=== PATIENT | female | born 1940 | race Caucasian/White ===

== ENCOUNTER → 2016-09-11 | Outpatient (CLI) | payer MEDICARE | END | disposition home or self-care (01) | LOC: LABMAIN 17:59 | PROVIDERS: ATTEND Internal Medicine Rheumatology | DX: M00.841 Arthritis due to other bacteria, right hand (principal) | CPT/HCPCS: 87070; 87077; 87186; 87205 ==

== ENCOUNTER → 2016-09-11 | Outpatient (CLI) | payer MEDICARE | END | disposition home or self-care (01) | LOC: LABWHC1 17:30 | PROVIDERS: ATTEND Internal Medicine Rheumatology | DX: M00.841 Arthritis due to other bacteria, right hand (principal) | CPT/HCPCS: 36415; 87040 ==

== ENCOUNTER 2016-09-13 14:40 | Inpatient (IN) | payer MEDICARE ==
[2016-09-13] MEDS ORDERED: NALOXONE 0.4 MG/ML 1 ML VIAL IV PRN (17:15)
[2016-09-13 17:23] VITALS: BMI 22.8
[2016-09-13] MEDS: DEXTROSE 5%-0.45% NACL 1,000 ML IV SCH (19:00)
[2016-09-13] MEDS ORDERED: ACETAMINOPHEN TAB 325 MG TAB PO PRN (19:01)
[2016-09-13] MEDS ORDERED: IV VANCOMYCIN PER PHARMACY 1 EACH MISC MISCELLANE PRN (19:05)
[2016-09-13] MEDS ORDERED: VANCOMYCIN 1,000 MG in SODIUM CHLORIDE 0.9% 250 ML IVPB STA (19:10)
[2016-09-13 19:50] LABS: Aty Lym Flag Slight; CH 28.8; CHCM 29.4; HCT 40.3 % (34.0-46.0); HDW 2.78; Hypochromasia Marked; MCH 29.2 pg (25.0-35.0); MCHC 29.8 g/dL (31.0-37.0); MCV 98.2 fL (80.0-100.0); Mean Platelet Volume 7.6; RDW 13.4 % (11.5-15.5); WBC 5.1 k/uL (3.8-10.6); WBC (Perox) 5.24
[2016-09-13 19:56] LABS: ALT 24 U/L (9-52); AST 20 U/L (14-36); Alkaline Phosphatase 49 U/L (38-126); Anion Gap 13 mmol/L; Blood Urea Nitrogen 20 mg/dL (7-17); Calcium 9.6 mg/dL (8.4-10.2); Carbon Dioxide 26 mmol/L (22-30); Chloride 101 mmol/L (98-107); Glucose 116 mg/dL (74-99); Non-African American GFR(MDRD) >60 (>60 ml/min/1.73 sqM); Sodium 140 mmol/L (137-145); Total Bilirubin 0.6 mg/dL (0.2-1.3); Total Protein 7.7 g/dL (6.3-8.2)
[2016-09-13 20:46] LABS: Add Differential Manual Differential
[2016-09-13 20:51] LABS: Nucleated Red Blood Cells 0 /100 WBC (0-0); Total Cells Counted 100
[2016-09-13 20:53] LABS: Manual Review Performed
[2016-09-13] MEDS: HEPARIN SODIUM,PORCINE 5,000 UNIT/ML 1 ML VIAL SQ SCH (20:53)
[2016-09-13] MEDS ORDERED: CIPROFLOXACIN HCL 500 MG TAB PO SCH (21:00)
[2016-09-13] MEDS ORDERED: PIPERACILLIN-TAZOBACTAM 3.375 GM in DEXTROSE/WATER 1 50ML.BAG IVPB SCH (22:00)
[2016-09-13] MEDS: GABAPENTIN 300 MG CAP PO SCH (22:22)
[2016-09-13] MEDS: CARBIDOPA-LEVODOPA 25-100 MG 1 EACH TAB PO SCH (22:22)
--- NOTE | 2016-09-13 22:42 | P.CONS ---
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 This was a woman has a long-standing history of difficulties with her skin due to underlying autoimmune disease. She follows with Dr. Faulkner regarding her disease. With the onset of the recent ulcerations to the right hand fifth finger she's been seeking some outpatient care. With the ulcerations her Enbrel was put on hold. And her CellCept dose was put into half. Despite this she's had progression of the ulcerations because was admitted to hospital for further intervention. She forcing is minimal discomfort at this site. She has a distinct open ulcerations on the distal interphalangeal joint of the right hand fifth finger. She is denying fever chills rigors or sweats. And other than difficulty with her skin in her joints she has no other acute new complaints Review of Systems HEENT:Denies headache or acute visual change. Denies sinus or mouth discomforts. Denies neck stiffness or pain. Denies significant oral cavity pain. Denies difficulty on swallowing. Lungs: Denies significant shortness of breath, cough, sputum production, or hemoptysis. Cardiovascular: Denies significant shortness of breath, chest pain, chest wall pain, orthopnea, dyspnea on exertion, syncope Gastrointestinal:Denies nausea, vomiting, diarrhea, constipation, hematemesis, melena, hematochezia. No no significant change of bowel habit noticed. Musculoskeletal: Chronic myalgias and arthralgias and joint problems due to her underlying disease. Skin: Chronic skin rashes Ulcerations to the right hand fifth finger the skin is otherwise without new lesions Neuro: Denies headache or visual change. Denies any new onset weakness or difficulty with ambulation. Denies falls or seizures. Psychiatric:Denies anxiety or depression. 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 No animal exposures. No tobacco use. No alcohol use. No recreational drug use. Works in the [place] area is now lived in [place] for 21 years Smoking Status: Never smoker - Past Family History Mother Family Medical History: Cancer Additional Family Medical History / Comment(s): stroke Medications and Allergies Home Medications and Allergies Comment(s): Current Medications Acetaminophen (Tylenol Tab) 650 mg PO Q4HR PRN PRN Reason: Fever and/ or Pain Carbidopa/Levodopa (Sinemet 25-100) 0.5 each PO TID [facility] Last Admin: 09/13/16 22:22 Dose: 0.5 each Ciprofloxacin (Cipro) 500 mg PO BID [facility] Last Admin: 09/13/16 20:53 Dose: 500 mg Gabapentin (Neurontin) 600 mg PO TID [facility] Last Admin: 09/13/16 22:22 Dose: 600 mg Heparin Sodium (Porcine) (Heparin) 5,000 unit SQ Q12HR [facility] Last Admin: 09/13/16 20:53 Dose: 5,000 unit Dextrose/Sodium Chloride (Dextrose 5%-1/2ns Iv Soln) 1,000 mls @ 50 mls/hr IV .Q20H [facility] Last Admin: 09/13/16 19:00 Dose: 50 mls/hr Piperacillin/Tazobactam/ (Dextrose 3.375 gm/ IV Solution) 50 mls @ 12.5 mls/hr IVPB Q8HR [facility] Last Admin: 09/13/16 22:22 Dose: 12.5 mls/hr Vancomycin HCl 1,000 mg/ (Sodium Chloride) 250 mls @ 125 mls/hr IVPB Q16H [facility] Naloxone HCl (Narcan) 0.2 mg IV Q2M PRN PRN Reason: Opioid Reversal Nifedipine (Procardia Xl) 30 mg PO DAILY [facility] Non-Formulary Medication (Cellcept Susp) 7.5 ml PO DAILY [facility] Pantoprazole Sodium (Protonix) 40 mg PO AC-BRKFST [facility] Prednisone () 5 mg PO DAILY [facility] Home Medications Medication Instructions Recorded Confirmed Type Biotin 5 mg PO DAILY 09/13/16 09/13/16 History Calcium Carbonate [Calcium] 600 mg PO DAILY 09/13/16 09/13/16 History Carbidopa-Levodopa 25-100 mg 0.5 tab PO TID 09/13/16 09/13/16 History [Sinemet 25-100] Cellcept Susp 7.5 ml PO DAILY 09/13/16 09/13/16 History Denosumab [Prolia] 60 mg SQ ONCE 09/13/16 09/13/16 History Docusate [Colace] 100 mg PO HS PRN 09/13/16 09/13/16 History Etanercept [Enbrel] 50 mg SQ Q7DAYS 09/13/16 09/13/16 History Gabapentin 600 mg PO TID 09/13/16 09/13/16 History Lansoprazole [Prevacid] 30 mg PO DAILY 09/13/16 09/13/16 History NIFEdipine XL [Procardia Xl] 30 mg PO DAILY 09/13/16 09/13/16 History predniSONE 5 mg PO DAILY 09/13/16 09/13/16 History Allergies Allergy/AdvReac Type Severity Reaction Status Date / Time No Known Allergies Allergy Verified 09/13/16 16:19 Physical Exam Vitals: Vital Signs Temp Pulse Resp BP BP Pulse Ox 09/13/16 20:54 98.2 F 73 16 108/64 95 09/13/16 16:37 97.3 F L 90 18 119/74 97 Intake and Output 09/13/16 09/13/16 09/13/16 06:59 14:59 22:59 Other: Weight 53 kg Patient Weight 09/14/16 06:59 Weight 53 kg Pleasant 76-year-old woman complaining of some lesion to her right hand that is minimally tender. Overall feels about her baseline HEENT: Anicteric conjunctiva are pink and moist nasal mucosa grossly intact without significant lesions, there is no thrush. Since of prior cataract surgery Neck: The neck is supple without significant lymphadenopathy or thyromegaly. Lungs: Good bilateral air entry without no severe and crackles with few wheezes are scattered There is no significant bronchial sounds. There is no egophony or dullness. Heart: Regular rate and rhythm with an audible S1-S2, no S3 no S4. 2/6 systolic murmur left sternal border without radiation no click or rub Abdomen: Positive bowel sounds soft and nontender without palpable masses or organomegaly. There was no guarding or rebound. Extremities: The left upper extremities shows evidence of no ulcerations. The right upper extremities shows no significant abnormality is to the right hand fifth finger at the distal interphalangeal joint where there are 2 ulcerations. There is evidence of some underlying granulation tissue no expressible purulence is seen. Minimal tenderness to manipulation. Markedly diminished range of motion. Skin is abnormal in its appearance and that it is thin and has chronic discoloration. The bilateral lower extremities have no ulcerations or just trace edema and abnormal joints with swelling and mild synovitis over the ankles and toes. Neuro: Awake alert oriented to person place and time. There are no acute new gross focal sensory motor deficits. Results CBC & Chem 7: 09/13/16 18:40 09/13/16 18:40 Labs: Abnormal Lab Results - Last 24 Hours (Table) 09/13/16 09/13/16 Range/Units 18:40 18:40 MCHC 29.8 L (31.0-37.0) g/dL Plt Count 507 H (150-450) k/uL Lymphocytes # (Manual) 0.9 L (1.0-4.8) k/uL BUN 20 H (7-17) mg/dL Glucose 116 H (74-99) mg/dL Laboratory Results WBC 5.1 k/uL (3.8-10.6) 09/13/16 18:40 RBC 4.10 m/uL (3.80-5.40) 09/13/16 18:40 Hgb 12.0 gm/dL (11.4-16.0) 09/13/16 18:40 Hct 40.3 % (34.0-46.0) 09/13/16 18:40 MCV 98.2 fL (80.0-100.0) 09/13/16 18:40 MCH 29.2 pg (25.0-35.0) 09/13/16 18:40 MCHC 29.8 g/dL (31.0-37.0) L 09/13/16 18:40 RDW 13.4 % (11.5-15.5) 09/13/16 18:40 Plt Count 507 k/uL (150-450) H 09/13/16 18:40 Neutrophils % (Manual) 79.0 % 09/13/16 18:40 Lymphocytes % (Manual) 17.0 % 09/13/16 18:40 Monocytes % (Manual) 4.0 % 09/13/16 18:40 Neutrophils # (Manual) 4.0 k/uL (1.3-7.7) 09/13/16 18:40 Lymphocytes # (Manual) 0.9 k/uL (1.0-4.8) L 09/13/16 18:40 Monocytes # (Manual) 0.2 k/uL (0-1.0) 09/13/16 18:40 Nucleated RBCs 0 /100 WBC (0-0) 09/13/16 18:40 Manual Slide Review Performed 09/13/16 18:40 Hypochromasia Marked 09/13/16 18:40 Poikilocytosis (manual Present 09/13/16 18:40 Sodium 140 mmol/L (137-145) 09/13/16 18:40 Potassium 5.0 mmol/L (3.5-5.1) 09/13/16 18:40 Chloride 101 mmol/L (98-107) 09/13/16 18:40 Carbon Dioxide 26 mmol/L (22-30) 09/13/16 18:40 Anion Gap 13 mmol/L 09/13/16 18:40 BUN 20 mg/dL (7-17) H 09/13/16 18:40 Creatinine 0.53 mg/dL (0.52-1.04) 09/13/16 18:40 Est GFR (MDRD) Af Amer >60 (>60 ml/min/1.73 sqM) 09/13/16 18:40 Est GFR (MDRD) Non-Af >60 (>60 ml/min/1.73 sqM) 09/13/16 18:40 Glucose 116 mg/dL (74-99) H 09/13/16 18:40 Calcium 9.6 mg/dL (8.4-10.2) 09/13/16 18:40 Total Bilirubin 0.6 mg/dL (0.2-1.3) 09/13/16 18:40 AST 20 U/L (14-36) 09/13/16 18:40 ALT 24 U/L (9-52) 09/13/16 18:40 Alkaline Phosphatase 49 U/L (38-126) 09/13/16 18:40 Total Protein 7.7 g/dL (6.3-8.2) 09/13/16 18:40 Albumin 4.1 g/dL (3.5-5.0) 09/13/16 18:40 Assessment and Plan (1) Dermatomyositis Narrative/Plan: Pleasant 76-year-old female Hospital with significant difficulties of her dermatomyositis is resulted in ulcerations of the right hand fifth finger. This is of the distal interphalangeal joint area. It is noted the x-ray is abnormal there is a possibility of osteolysis of the right fifth finger distal interphalangeal joint. Bone scan will be obtained to further characterize. Cultures are in process. Pulmonary data reveals evidence of pseudomonas aeruginosa at the joint. For maximize therapy ceftaz edema will be utilized. Which will give us excellent pseudomonal coverage . Patient does not have a history of MRSA but risk due to her immunocompromised status. Daptomycin will be added until we have further data especially given the positive blood culture that is showing some gram-positive cocci. This could be contamination given the non-congruent culture results. Baseline laboratory is a requested Patient is instructed to improve her protein intake Status: Acute (2) Osteomyelitis of right hand Status: Acute
[2016-09-13] MEDS: DAPTOmycin 500 MG in SODIUM CHLORIDE 0.9% 50 ML IV SCH (23:32)
[2016-09-14] MEDS ORDERED: VANCOMYCIN 1,000 MG in SODIUM CHLORIDE 0.9% 250 ML IVPB SCH (06:00)
[2016-09-14] MEDS: PANTOPRAZOLE 40 MG TABLET PO SCH (06:40)
[2016-09-14 07:05] LABS: CHCM 30.7; HCT 36.5 % (34.0-46.0); HDW 2.83; HGB 11.1 gm/dL (11.4-16.0); Hypochromasia Moderate; MCH 28.8 pg (25.0-35.0); MCHC 30.5 g/dL (31.0-37.0); MCV 94.7 fL (80.0-100.0); Mean Platelet Volume 6.5; RBC 3.86 m/uL (3.80-5.40); RDW 13.4 % (11.5-15.5); WBC 3.2 k/uL (3.8-10.6)
[2016-09-14 07:17] LABS: Anion Gap 9 mmol/L; Blood Urea Nitrogen 12 mg/dL (7-17); Calcium 8.7 mg/dL (8.4-10.2); Carbon Dioxide 29 mmol/L (22-30); Chloride 103 mmol/L (98-107); Glucose 92 mg/dL (74-99); Non-African American GFR(MDRD) >60 (>60 ml/min/1.73 sqM); Potassium 4.3 mmol/L (3.5-5.1); Sodium 141 mmol/L (137-145)
--- NOTE | 2016-09-14 08:35 | P.CNOR ---
<Jane Rhoades - Last Filed: 09/14/16 08:28> History of Present Illness - HPI Consult date: 09/14/16 Consult reason: other (Infection right little finger) History of present illness: This is a 76-year-old female admitted to [facility] on 2016 with infection to the right little finger. She has history of dermatomyositis as well as history of MRSA. The patient states that she has had sores to the distal aspect of her finger the past several months. She has been treating them on her own then finally decided to have evaluation by her mirror fabrication supervisor. Dr. Valencia was contacted with concerns regarding the finger. She is admitted to the hospital for IV antibiotics and further evaluation. The patient has been evaluated by Dr. Blanco as well. We're consulted for orthopedic evaluation of the right little finger. Bone scan is pending. 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 No animal exposures. No tobacco use. No alcohol use. No recreational drug use. Works in the [place] area is now lived in [place] for 21 years Smoking Status: Never smoker - Past Family History Mother Family Medical History: Cancer Additional Family Medical History / Comment(s): stroke Medications and Allergies Home Medications Medication Instructions Recorded Confirmed Type Biotin 5 mg PO DAILY 09/13/16 09/13/16 History Calcium Carbonate [Calcium] 600 mg PO DAILY 09/13/16 09/13/16 History Carbidopa-Levodopa 25-100 mg 0.5 tab PO TID 09/13/16 09/13/16 History [Sinemet 25-100] Cellcept Susp 7.5 ml PO DAILY 09/13/16 09/13/16 History Denosumab [Prolia] 60 mg SQ ONCE 09/13/16 09/13/16 History Docusate [Colace] 100 mg PO HS PRN 09/13/16 09/13/16 History Etanercept [Enbrel] 50 mg SQ Q7DAYS 09/13/16 09/13/16 History Gabapentin 600 mg PO TID 09/13/16 09/13/16 History Lansoprazole [Prevacid] 30 mg PO DAILY 09/13/16 09/13/16 History NIFEdipine XL [Procardia Xl] 30 mg PO DAILY 09/13/16 09/13/16 History predniSONE 5 mg PO DAILY 09/13/16 09/13/16 History Allergies Allergy/AdvReac Type Severity Reaction Status Date / Time No Known Allergies Allergy Verified 09/13/16 16:19 Physical Examination This is a pleasant 68-year-old female in no acute distress. She is alert and oriented 3. Overall skin findings consistent with dermatomyositis. Exam of the right upper extremity reveals mild swelling to the right little finger. There 2 small wounds, one about the radial aspect and one about the ulnar aspect , on the dorsum of the little finger at the DIP joint. There is minimal erythema. There is no active drainage noted at this time. There is no pain with palpation about the DIP. The patient is unable to fully extend the finger. Sensation is intact. Capillary refill is less than 3 seconds. Results X-rays of the right little finger reveals spurring at the DIP joint. No fracture noted. No obvious evidence of osteomyelitis, however this cannot be coming completely excluded. - Labs Labs: Abnormal Lab Results - Last 24 Hours (Table) 09/13/16 09/13/16 09/14/16 Range/Units 18:40 18:40 06:32 WBC 3.2 L (3.8-10.6) k/uL Hgb 11.1 L (11.4-16.0) gm/dL MCHC 29.8 L 30.5 L (31.0-37.0) g/dL Plt Count 507 H 466 H (150-450) k/uL Lymphocytes # (Manual) 0.9 L (1.0-4.8) k/uL BUN 20 H (7-17) mg/dL Glucose 116 H (74-99) mg/dL H & H 09/13/16 09/14/16 Range/Units 18:40 06:32 Hgb 12.0 11.1 L (11.4-16.0) gm/dL Hct 40.3 36.5 (34.0-46.0) % Result Diagrams: 09/14/16 06:32 09/14/16 06:32 Assessment and Plan (1) Open wound of right little finger without damage to nail Status: Acute (2) Dermatomyositis Status: Acute Plan: The clinical and x-ray findings are discussed with the patient. The case is been discussed with Dr. Benson. Dr. Fer Hancock is unavailable at this time. It is recommended that she have whirlpool treatments to the right hand. He bone scan has been ordered. It is discussed the patient that there is no indication for surgical intervention at this time. She is advised that she may possibly need a PICC line for home IV antibiotics if the bone scan shows findings suggestive of osteomyelitis. The patient may follow-up with Dr. Fer Hancock as an outpatient once discharged. I will continue to follow the patient throughout her inpatient stay. <Gregory Benson - Last Filed: 09/14/16 16:04> Results - Labs Labs: Abnormal Lab Results - Last 24 Hours (Table) 09/13/16 09/13/16 09/14/16 Range/Units 18:40 18:40 06:32 WBC 3.2 L (3.8-10.6) k/uL Hgb 11.1 L (11.4-16.0) gm/dL MCHC 29.8 L 30.5 L (31.0-37.0) g/dL Plt Count 507 H 466 H (150-450) k/uL Lymphocytes # (Manual) 0.9 L (1.0-4.8) k/uL ESR (0-20) mm/hr BUN 20 H (7-17) mg/dL Glucose 116 H (74-99) mg/dL 09/14/16 Range/Units 06:32 WBC (3.8-10.6) k/uL Hgb (11.4-16.0) gm/dL MCHC (31.0-37.0) g/dL Plt Count (150-450) k/uL Lymphocytes # (Manual) (1.0-4.8) k/uL ESR 53 H (0-20) mm/hr BUN (7-17) mg/dL Glucose (74-99) mg/dL H & H 01/19/17 01/20/17 Range/Units 18:40 06:32 Hgb 12.0 11.1 L (11.4-16.0) gm/dL Hct 40.3 36.5 (34.0-46.0) % Result Diagrams: 09/14/16 06:32 09/14/16 06:32 Assessment and Plan Plan: Patient seen and evaluated. I agree with Jane Rhoades PA-C above note. No need for acute orthopaedic surgical intervention. Recommend wound care, whirlpool treatment and antibiotics per Dr. Blanco and Dr. Valencia. Follow-up as an outpatient with my hand partner Dr. Fer Hancock. Thank you for the consultation.
[2016-09-14 08:58] LABS: C Reactive Protein 9.9 mg/L (<10.0)
[2016-09-14] MEDS ORDERED: [UNRECOGNIZED DRUG - OTHER] PO SCH (09:00)
[2016-09-14] MEDS: HEPARIN SODIUM,PORCINE 5,000 UNIT/ML 1 ML VIAL SQ SCH ×2 (09:46→21:15)
[2016-09-14] MEDS: NIFEdipine XL 30 MG TAB.ER.24 PO SCH (09:46)
[2016-09-14] MEDS: MYCOPHENOLATE MOFETIL PO SCH (09:46)
[2016-09-14] MEDS: GABAPENTIN 300 MG CAP PO SCH ×3 (09:47→21:15)
[2016-09-14] MEDS: CARBIDOPA-LEVODOPA 25-100 MG 1 EACH TAB PO SCH ×3 (09:47→21:15)
[2016-09-14] MEDS: predniSONE 5 MG TAB PO SCH (09:48)
--- NOTE | 2016-09-14 12:46 | HP ---
DATE OF ADMISSION: CHIEF COMPLAINT: Swelling right fifth finger. HISTORY OF PRESENT ILLNESS: This 76-year-old female was admitted to the hospital after outpatient evaluation. The patient started having some drainage from her right fifth finger. The patient has dermatomyositis and had some chronic skin changes in both the hands. She has associated Raynaud's phenomena. The patient noticed a couple of weeks ago a small nodule on the dorsal aspect of the distal right DIP. About 3 or 4 days ago, she noticed that there was another one on the other side of the joint area and then suddenly started draining purulent pussy material. She was seen by her bobtail driver and was sent in for cultures. I did see her yesterday. Dr. Faulkner did discuss the case with me on Saturday. She had seen the patient late. I rechecked the patient yesterday in the office. She seemed to feel somewhat better. She had no fever, so we were waiting for some of the lab results back. Today's labs came back as the Gram stain showing Pseudomonas and blood culture positive for Gram-positive cocci. In view of this, patient is admitted to the hospital. She is an immunocompromised host. The patient otherwise feels fairly well. She has mild generalized malaise, but no fever or chills. She denies any other associated symptoms. Past medical history is significant for dermatomyositis and associated rheumatoid arthritis. She has history of colonic diverticulosis without any complications, history of osteoporosis treated with Forteo in the past. She also has some Parkinson's. The patient has Raynaud's phenomena and some gastroesophageal reflux and motility issues. No history of any myocardial infarction, CVA, lung disease, liver disease, kidney disease, ulcers, TB, hepatitis. No history of any rheumatic fever, myocardial infarction or CVA. Past surgical history is significant for tonsillectomy, cholecystectomy, left inguinal herniorrhaphy, total abdominal hysterectomy with bilateral salpingo-oophorectomy, bilateral cataract surgery. PERSONAL HISTORY: Never a smoker. No alcohol. VACCINATION HISTORY: She had a tetanus diphtheria back in 2009. Also, Pneumovax in 2009. She does get an annual flu shot. ALLERGIES: None known. Medications include: 1. Calcium carbonate 600 mg daily. 2. Colace daily. 3. Biotin 5 mg daily. 4. Prevacid 30 mg daily. 5. Prednisone 5 mg daily. 6. CellCept suspension ( ) mL daily. 7. Nifedipine XL 30 mg daily. 8. Sinemet, carbidopa-levodopa , 25/100 half tablet t.i.d. 9. Prolia 60 mg every 6 months as well as Enbrel 50 mg subcu every 7 days. SOCIAL HISTORY: Patient is single. 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 She is fairly active. Does exercise. FAMILY MEDICAL HISTORY: Father at the age of 86, ASHD. Mother at the age of 64; she had a history of CVA. She also had lung cancer. The patient had 8 brothers and 2 of them living in fairly advanced age in the 90s. Six other brothers , one had Parkinson's, one had ASHD, another brother at the age of 70 of unknown cause, another brother of ASHD. The patient had 5 sisters 4 are . One sister is living has dementia. Sisters , primarily had ASHD or dementia. One sister at the age of 66 of a brain hemorrhage. The patient has no children. She has niece as her POA. REVIEW OF SYSTEMS: NEURO: Denies any headaches, dizziness. No double vision, blurred vision. No symptoms of TIA, syncope, seizures. PSYCH: No anxiety, depression. CARDIAC: Denies chest pain, angina, palpitations. RESPIRATORY: Denies shortness of breath, cough, hemoptysis. GI: No nausea, vomiting, abdominal pain, diarrhea, constipation, hematochezia, melena. : No symptoms of dysuria, hematuria, urgency, frequency. EXTREMITIES: Present symptom of swollen distal fifth finger with some erythema and mild pain. SKIN: History of dermatomyositis. CONSTITUTIONAL: No fever or chills. Did have some night sweats couple of days. ENT: Adequate hearing, smell, taste. EYES: Adequate vision. NEURO: Patient does have tremors of the left upper extremity. PHYSICAL EXAMINATION: Pleasant female in no present distress. Vital signs reveal temperature 97.3, pulse 90, respirations 18, blood pressure 119/74, pulse ox 97% on room air. HEENT: Normocephalic. Neck decreased range of motion. Pupils reactive. Neck reveals no JVD, carotid bruits, or thyromegaly. Ears reveal no drainage. Chest examination is clear to auscultation and percussion. CARDIAC: Normal S1, S2 with no gallops. Systolic murmur 2/6 left sternal border. ABDOMEN: Soft, no palpable masses. Bowel sounds are normal. No organomegaly. No abdominal bruits. Extremities reveal trace edema at the ankles. The right hand fifth digit has mild plantar flexion at the DIP joints. The patient has an ulceration of the medial and lateral aspect of the distal DIP, especially on the dorsal aspect. There is no drainage at present, however, she did have definite purulent drainage from that previously. NEUROLOGICAL: Awake, alert, and oriented x3. Well coordinated movements. The patient does have some parkinsonian tremors of the left upper extremity. LABORATORY ASSESSMENT: CBC reveals a platelet count of 507.000. Electrolytes normal. BUN 20. Hepatic function normal. X-ray shows arthritic changes of the DIP, but cannot rule out an infected process. Blood culture as mentioned above, Gram-positive cocci. Wound culture shows pseudomonas. ASSESSMENT: 1. Cellulitis right fifth finger with possibility of underlying osteomyelitis or abscess. 2. Dermatomyositis. 3. Parkinson's. 4. Thrombocytosis probably reactive. PLAN: The patient is started on Zosyn and vancomycin and Cipro pending evaluation by ID. The patient also be re-evaluated by Dr. Faulkner. She has requested that the patient's Enbrel be discontinued and the CellCept be decreased to 50% dosage. We will also ask the orthopedic hand surgeon, Dr. Thomas Hancock to see the patient. Patient's condition discussed with the patient and plan of care reviewed. Prognosis remains guarded.
--- NOTE | 2016-09-14 15:50 | NM ---
EXAMINATION TYPE: NM bone 3 phase DATE OF EXAM: 09/14/2016 3:34 PM COMPARISON: NONE HISTORY: Osteomyelitis right hand fifth finger Triple phase bone scintigraphy was performed following the injection of25.7 mCi Tc 99m MDP. Immediat e images and 6 hours post injection images acquired. FINDINGS: On all 3 phases of the examination there is increased radiotracer accumulation involving the right fi fth digit at its distal phalanx. I cannot exclude underlying osteomyelitis. Degenerative uptake is se en about the bony carpus. IMPRESSION: Findings which I cannot exclude osteomyelitis involving the right fifth digit distal phalanx.
[2016-09-14] MEDS: DEXTROSE 5%-0.45% NACL 1,000 ML IV SCH (16:28)
--- NOTE | 2016-09-14 20:22 | PN ---
DATE OF SERVICE: 09/14/2016 CHIEF COMPLAINT: Re-evaluation. HISTORY OF PRESENT ILLNESS: This is a 76-year-old who was admitted yesterday to the hospital and inflamed right finger with purulent drainage. Patient noted to have cellulitis. She has underlying dermatomyositis and Raynaud phenomena. The patient had no fever or chills. Blood culture was positive. ID pending. ID shows the patient to have a coagulase-negative Staph aureus suspected to be a skin contaminant. The patient's local wound cultures are growing Pseudomonas. Patient actually feels fairly well. REVIEW OF SYSTEMS: NEURO: Denies any headaches, dizziness. PSYCH: No anxiety, depression. CARDIAC: No chest pain, angina, palpitation. GI: No nausea, vomiting, abdominal pain, diarrhea. : No symptoms of dysuria, hematuria, urgency, frequency. EXTREMITIES: No pain or edema. CONSTITUTIONAL: No fever or chills. PHYSICAL EXAMINATION: Pleasant female in no distress. Vital signs stable as recorded. Patient has been afebrile, temperature was 97.5, pulse 74, respirations 20, blood pressure 113/71, pulse ox of 97% on room air. HEENT: Normocephalic. Neck is supple. No JVD. Chest is clear to auscultation. CARDIAC: Normal S1, S2 with no gallops, murmurs. ABDOMEN: Soft. EXTREMITIES: Trace edema at the ankles. Right hand 5th finger, inflammation is markedly decreased. Minimal purulent drainage upon squeezing of the medialmost opening on the end. Lateral opening has just bloody drainage. ASSESSMENT: 1. Cellulitis, right 5th finger. 2. Rule out osteomyelitis. Bone scan not very helpful. X-ray not very helpful. 3. History of dermatomyositis. 4. History of adenocarcinoma. 5. Immunocompromised host. PLAN: Continue present medical regimen with Fortaz and daptomycin, both being ordered by ID. The patient's condition discussed with the patient. Prognosis guarded. Await final evaluation by ID. Suspect the patient may require a PICC line and long-term antibiotic. Patient's condition discussed with the patient. Prognosis guarded.
[2016-09-14] MEDS: DAPTOmycin 500 MG in SODIUM CHLORIDE 0.9% 50 ML IV SCH (21:15)
--- NOTE | 2016-09-14 23:48 | P.PN ---
Subjective Principal diagnosis: ulcer right hand 76-year-old female with a history of dermatomyositis presents to Hospital because of difficulties with her right hand fifth finger. This was a woman has a long-standing history of difficulties with her skin due to underlying autoimmune disease. She follows with Dr. Faulkner regarding her disease. With the onset of the recent ulcerations to the right hand fifth finger she's been seeking some outpatient care. With the ulcerations her Enbrel was put on hold. And her CellCept dose was put into half. Despite this she's had progression of the ulcerations because was admitted to hospital for further intervention. She forcing is minimal discomfort at this site. She has a distinct open ulcerations on the distal interphalangeal joint of the right hand fifth finger. She is denying fever chills rigors or sweats. And other than difficulty with her skin in her joints she has no other acute new complaints Doing much better after whirlpool therapy Objective - Vital Signs Vital signs: Vital Signs Temp 98.1 F 09/14/16 20:40 Pulse 76 09/14/16 20:40 Resp 20 09/14/16 20:40 BP 114/69 09/14/16 20:40 Pulse Ox 96 09/14/16 20:40 Intake & Output 09/14/16 09/14/16 09/15/16 06:59 18:59 06:59 Intake Total 450 Balance 450 Intake: Oral 450 Other: # Voids 1 1 1 # Bowel Movements 1 - Exam Pleasant 76-year-old woman complaining of some lesion to her right hand that is minimally tender. Overall feels about her baseline HEENT: Anicteric conjunctiva are pink and moist nasal mucosa grossly intact without significant lesions, there is no thrush. Since of prior cataract surgery Neck: The neck is supple without significant lymphadenopathy or thyromegaly. Lungs: Good bilateral air entry without no severe and crackles with few wheezes are scattered There is no significant bronchial sounds. There is no egophony or dullness. Heart: Regular rate and rhythm with an audible S1-S2, no S3 no S4. 2/6 systolic murmur left sternal border without radiation no click or rub Abdomen: Positive bowel sounds soft and nontender without palpable masses or organomegaly. There was no guarding or rebound. Extremities: The left upper extremities shows evidence of no ulcerations. The right upper extremities shows no significant abnormality is to the right hand fifth finger at the distal interphalangeal joint where there are 2 ulcerations. Improved with whirpool therapy. There is evidence of some underlying granulation tissue no expressible purulence is seen. Minimal tenderness to manipulation. Markedly diminished range of motion. Skin is abnormal in its appearance and that it is thin and has chronic discoloration. The bilateral lower extremities have no ulcerations or just trace edema and abnormal joints with swelling and mild synovitis over the ankles and toes. Neuro: Awake alert oriented to person place and time. There are no acute new gross focal sensory motor deficits. - Labs CBC & Chem 7: 09/14/16 06:32 09/14/16 06:32 Labs: Abnormal Lab Results - Last 24 Hours (Table) 09/14/16 09/14/16 Range/Units 06:32 06:32 WBC 3.2 L (3.8-10.6) k/uL Hgb 11.1 L (11.4-16.0) gm/dL MCHC 30.5 L (31.0-37.0) g/dL Plt Count 466 H (150-450) k/uL ESR 53 H (0-20) mm/hr Laboratory Results WBC 3.2 k/uL (3.8-10.6) L 09/14/16 06:32 RBC 3.86 m/uL (3.80-5.40) 09/14/16 06:32 Hgb 11.1 gm/dL (11.4-16.0) L 09/14/16 06:32 Hct 36.5 % (34.0-46.0) 09/14/16 06:32 MCV 94.7 fL (80.0-100.0) 09/14/16 06:32 MCH 28.8 pg (25.0-35.0) 09/14/16 06:32 MCHC 30.5 g/dL (31.0-37.0) L 09/14/16 06:32 RDW 13.4 % (11.5-15.5) 09/14/16 06:32 Plt Count 466 k/uL (150-450) H 09/14/16 06:32 Neutrophils % (Manual) 79.0 % 09/13/16 18:40 Lymphocytes % (Manual) 17.0 % 09/13/16 18:40 Monocytes % (Manual) 4.0 % 09/13/16 18:40 Neutrophils # (Manual) 4.0 k/uL (1.3-7.7) 09/13/16 18:40 Lymphocytes # (Manual) 0.9 k/uL (1.0-4.8) L 09/13/16 18:40 Monocytes # (Manual) 0.2 k/uL (0-1.0) 09/13/16 18:40 Nucleated RBCs 0 /100 WBC (0-0) 09/13/16 18:40 Manual Slide Review Performed 09/13/16 18:40 Hypochromasia Moderate 09/14/16 06:32 Poikilocytosis (manual Present 09/13/16 18:40 ESR 53 mm/hr (0-20) H 09/14/16 06:32 Sodium 141 mmol/L (137-145) 09/14/16 06:32 Potassium 4.3 mmol/L (3.5-5.1) 09/14/16 06:32 Chloride 103 mmol/L (98-107) 09/14/16 06:32 Carbon Dioxide 29 mmol/L (22-30) 09/14/16 06:32 Anion Gap 9 mmol/L 09/14/16 06:32 BUN 12 mg/dL (7-17) 09/14/16 06:32 Creatinine 0.52 mg/dL (0.52-1.04) 09/14/16 06:32 Est GFR (MDRD) Af Amer >60 (>60 ml/min/1.73 sqM) 09/14/16 06:32 Est GFR (MDRD) Non-Af >60 (>60 ml/min/1.73 sqM) 09/14/16 06:32 Glucose 92 mg/dL (74-99) 09/14/16 06:32 Calcium 8.7 mg/dL (8.4-10.2) 09/14/16 06:32 Total Bilirubin 0.6 mg/dL (0.2-1.3) 09/13/16 18:40 AST 20 U/L (14-36) 09/13/16 18:40 ALT 24 U/L (9-52) 09/13/16 18:40 Alkaline Phosphatase 49 U/L (38-126) 09/13/16 18:40 C-Reactive Protein 9.9 mg/L (<10.0) 09/14/16 06:32 Total Protein 7.7 g/dL (6.3-8.2) 09/13/16 18:40 Albumin 4.1 g/dL (3.5-5.0) 09/13/16 18:40 Prealbumin 20 mg/dL (18-36) 09/14/16 06:32 Assessment and Plan (1) Dermatomyositis Narrative/Plan: Pleasant 76-year-old female Hospital with significant difficulties of her dermatomyositis is resulted in ulcerations of the right hand fifth finger. This is of the distal interphalangeal joint area. It is noted the x-ray is abnormal there is a possibility of osteolysis of the right fifth finger distal interphalangeal joint. Bone scan will be obtained to further characterize. Cultures are in process. Pulmonary data reveals evidence of pseudomonas aeruginosa at the joint. For maximize therapy ceftaz edema will be utilized. Which will give us excellent pseudomonal coverage . Patient does not have a history of MRSA but risk due to her immunocompromised status. Daptomycin will be added until we have further data especially given the positive blood culture that is showing some gram-positive cocci. This could be contamination given the non-congruent culture results. If the blood culture remains coag neg staph then Dapto may be discontinued Baseline laboratory is a requested Patient is instructed to improve her protein intake prealbumin just normal If patient further improved expect discharge on oral cipro to complete therapy and f/u in office in a few weeks Status: Acute (2) Osteomyelitis of right hand Status: Acute
[2016-09-15] MEDS: PANTOPRAZOLE 40 MG TABLET PO SCH (08:15)
[2016-09-15] MEDS: HEPARIN SODIUM,PORCINE 5,000 UNIT/ML 1 ML VIAL SQ SCH ×2 (09:48→20:52)
[2016-09-15] MEDS: MYCOPHENOLATE MOFETIL PO SCH (09:49)
[2016-09-15] MEDS: predniSONE 5 MG TAB PO SCH (09:50)
[2016-09-15] MEDS: NIFEdipine XL 30 MG TAB.ER.24 PO SCH (09:50)
[2016-09-15] MEDS: CARBIDOPA-LEVODOPA 25-100 MG 1 EACH TAB PO SCH ×3 (09:51→20:51)
[2016-09-15] MEDS: GABAPENTIN 300 MG CAP PO SCH ×3 (09:51→20:50)
--- NOTE | 2016-09-15 10:44 | P.PN ---
Subjective Principal diagnosis: Wounds right little finger This is a 76-year-old female who we are following regarding her right little finger. She has had one whirlpool treatment so far. She states that her finger is feeling better and looking better. We anticipate discharge to home tomorrow. Objective - Vital Signs Vital signs: Vital Signs Temp 99.2 F 09/15/16 09:42 Pulse 83 09/15/16 09:42 Resp 21 09/15/16 09:42 BP 100/63 09/15/16 09:42 Pulse Ox 98 09/15/16 09:42 Intake & Output 09/14/16 09/15/16 09/15/16 18:59 06:59 18:59 Intake Total 450 600 Balance 450 600 Intake: Oral 450 600 Other: # Voids 1 1 - Exam This is a pleasant 68-year-old female in no acute distress. She is alert and oriented 3. Exam of the right little finger reveals that her small wounds about the DIP joint are stable. There is mild active bloody drainage from the ulnar aspect wound. Motion is limited secondary to her arthritis. There is no erythema. Swelling is improved. Sensation is intact. - Labs CBC & Chem 7: 09/14/16 06:32 09/14/16 06:32 Assessment and Plan (1) Open wound of right little finger without damage to nail Status: Acute (2) Dermatomyositis Status: Acute Plan: The clinical findings are discussed with the patient. It is recommended that she have whirlpool treatments to the right hand daily until discharge. It is discussed the patient that there is no indication for surgical intervention at this time. We are planning discharge to home tomorrow. Antibiotics per infectious disease and internal medicine. She is to follow-up with Dr. Fer Hancock in one week.
[2016-09-15] MEDS: DEXTROSE 5%-0.45% NACL 1,000 ML IV SCH (19:11)
[2016-09-15] MEDS: DAPTOmycin 500 MG in SODIUM CHLORIDE 0.9% 50 ML IV SCH (20:52)
[2016-09-16] MEDS: PANTOPRAZOLE 40 MG TABLET PO SCH (07:54)
[2016-09-16 08:08] VITALS: BP 98/68; PULSE 80; RESP 20; TEMP 98
[2016-09-16] MEDS: GABAPENTIN 300 MG CAP PO SCH (08:29)
[2016-09-16] MEDS: NIFEdipine XL 30 MG TAB.ER.24 PO SCH (08:30)
[2016-09-16] MEDS: predniSONE 5 MG TAB PO SCH (08:30)
[2016-09-16] MEDS: HEPARIN SODIUM,PORCINE 5,000 UNIT/ML 1 ML VIAL SQ SCH (08:32)
--- NOTE | 2016-09-16 10:19 | P.PN ---
Subjective Principal diagnosis: Wounds right little finger This is a 76-year-old female who we are following regarding her right little finger. She has had one whirlpool treatment so far. She states that her finger is feeling better and looking better. We anticipate discharge to home today. Objective - Vital Signs Vital signs: Vital Signs Temp 98 F 09/16/16 07:45 Pulse 80 09/16/16 07:45 Resp 20 09/16/16 07:45 BP 98/68 09/16/16 07:45 Pulse Ox 98 09/16/16 07:45 Intake & Output 09/15/16 09/16/16 09/16/16 18:59 06:59 18:59 Intake Total 800 Balance 800 Intake: Oral 800 Other: # Voids 2 3 - Exam This is a pleasant 68-year-old female in no acute distress. She is alert and oriented 3. Exam of the right little finger reveals that her small wounds about the DIP joint are improved. There is mild active bloody drainage from the ulnar aspect wound. Motion is limited secondary to her arthritis. There is no erythema. Swelling is improved. Sensation is intact. - Labs CBC & Chem 7: 09/14/16 06:32 09/14/16 06:32 Assessment and Plan (1) Open wound of right little finger without damage to nail Status: Acute (2) Dermatomyositis Status: Acute Plan: The clinical findings are discussed with the patient. It is discussed the patient that there is no indication for surgical intervention at this time. We are planning discharge to home today. Antibiotics per infectious disease and internal medicine. She is to follow-up with Dr. Fer Hancock in one week.
[2016-09-16] MEDS: CARBIDOPA-LEVODOPA 25-100 MG 1 EACH TAB PO SCH (10:21)
[2016-09-16] MEDS: MYCOPHENOLATE MOFETIL PO SCH (10:25)
--- NOTE | 2016-09-16 12:12 | PN ---
DATE OF SERVICE: 09/15/2016 CHIEF COMPLAINT: Re-evaluation. HISTORY OF PRESENT ILLNESS: This 76-year-old is admitted to the hospital with cellulitis right fifth finger. The patient has reported blood culture positive; however, the patient's culture is suggesting probably skin contaminant. The wound did grow pseudomonas. The patient has been seen by ID. The patient is on Fortaz and daptomycin. The patient significantly improved. The purulent drainage is resolving. In fact that two small ulcerations are not draining at all now. Patient has underlying history of dermatomyositis and Raynaud's phenomenon. She also has Parkinson's. Patient is actually feeling much better. Her hand feels better. Patient has had no fever, chills. REVIEW OF SYSTEMS: NEURO: Denies any headaches, dizziness. PSYCH: No anxiety. CARDIAC: No chest pain, angina, palpitation. RESPIRATORY: No shortness of breath, cough. GI: No nausea, vomiting. No abdominal pain, slight loose stool, but no diarrhea. : No symptoms of dysuria, hematuria. EXTREMITIES: No pain. CONSTITUTIONAL: No fever or chills. PHYSICAL EXAMINATION: Pleasant female in no distress. Vital signs reveals a temperature of 99.2, pulse 83, respirations 21, blood pressure 100/63, pulse ox 98% on room air. HEENT: Normocephalic. NECK: No JVD. CHEST: Clear to auscultation. CARDIAC: Normal S1, S2 with no gallops. ABDOMEN: Soft. EXTREMITIES: No edema. Right fifth finger improved with no drainage. Erythema is markedly reduced. ASSESSMENT: 1. Cellulitis, right fifth finger. 2. Dermatomyositis. 3. History of any Raynaud's. 4. Parkinson's. PLAN: The patient is stable. Continue present medical regimen. The patient's condition discussed with the patient. Prognosis remains guarded. Potential discharge home tomorrow on Cipro.
--- NOTE | 2016-09-30 11:32 | P.DS ---
Providers Date of admission: 09/13/16 15:38 Attending physician: Joe Valencia Consults: 09/13/16 17:29 Consult Physician Routine Consulting Provider: Erika Faulkner Consult Reason/Comments: arthritis Do you want consulting provider notified?: Already Contacted 09/13/16 17:32 Consult Physician Routine Consulting Provider: Gal Blanco Consult Reason/Comments: infection rt 5th finger Do you want consulting provider notified?: Already Contacted 09/13/16 18:59 Consult Physician Routine Consulting Provider: Thomas Hancock Consult Reason/Comments: infected finger Do you want consulting provider notified?: Yes, Notify in am Primary care physician: Joe Valencia [facility] Course: This 76-year-old female was admitted to the hospital with an inflamed right fifth finger distal digit. The patient had 2 spots on the dorsum on either side of the DIP which were draining purulent material. She had been seen on the outpatient, had no fever chills. Blood cultures had been drawn. She is on immunosuppressives and history of dermatomyositis. The patient's blood culture was reported positive. In view of this patient's admitted to the hospital. Her finger had to some degree improved by the time of admission due to the spontaneous release and drainage of the purulent material. Patient had no fever chills or leukocytosis. Blood culture eventually showed a skin bacteria staph coagulase negative. Patient was seen by ID. Her wound culture grown pseudomonas aeruginosa. She was on leatha and daptomycin at the time of admission and subsequently switched over to ciprofloxacin. Patient x-rays and the scan were not definitive for a osteomyelitis. Orthopedic did see the patient. Local was the patient to be continued on oral Cipro as an outpatient and reevaluate. Patient to follow-up with Dr. Blanco and hand surgeon Dr. Hancock. She'll also follow up with the nuisance wildlife specialist Dr. Faulkner. Her immunosuppressives were decreased CellCept to 50% of the dose at her recommendation. Patient will follow-up with her in about a month. Patient's general condition and significantly improved at the time of discharge. She is cautioned regarding potential risks with using Cipro with possible risk of spontaneous tendon ruptures Final diagnosis to include 1. Cellulitis right fifth finger 2. Underlying Osteomyelitis not totally excluded 3. Dermatomyositis 4. Immunocompromised status 5. Parkinson's. Plan - Discharge Summary New Discharge Prescriptions: Ciprofloxacin HCl [Cipro] 500 mg PO Q12HR #60 tablet Discharge Medication List Biotin 5 mg PO DAILY 09/13/16 [History] Carbidopa-Levodopa 25-100 mg [Sinemet 25-100 mg] 0.5 tab PO TID 09/13/16 [ History] Cellcept Susp 7.5 ml PO DAILY 09/13/16 [History] Denosumab [Prolia] 60 mg SQ ONCE 09/13/16 [History] Gabapentin 600 mg PO TID 09/13/16 [History] Lansoprazole [Prevacid] 30 mg PO DAILY 09/13/16 [History] NIFEdipine XL [Procardia XL] 30 mg PO DAILY 09/13/16 [History] predniSONE 5 mg PO DAILY 09/13/16 [History] Carbidopa-Levodopa 25-100 mg [Sinemet 25-100 mg] 0.5 each PO TID tab 09/16/16 [ Rx] Ciprofloxacin HCl [Cipro] 500 mg PO Q12HR #60 tablet 09/16/16 [Rx] Follow up Appointment(s)/Referral(s): Joe Valencia MD [Primary Care Provider] - 1 Week Gal Blanco MD [STAFF PHYSICIAN] - 2 Weeks Erika Faulkner MD [STAFF PHYSICIAN] - 6 Weeks Thomas Hancock DO [Doctor of Osteopathic Medicine] - 1 Week Activity/Diet/Wound Care/Special Instructions: Wound care and antibiotics per Dr. Blanco. Follow-up with Dr. Fer Hancock as directed. [phone]. Please call Saturday to make all appointments. If any worsening symptoms or any concerns , please contact your doctor. Discharge Disposition: HOME SELF-CARE
--- NOTE | 2016-12-11 17:46 | P.CONS ---
History of Present Illness - Reason for Consult Consult date: 09/14/16 - History of Present Illness The patient was seen in [facility] for infected right little finger and possible septic arthritis. 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 No animal exposures. No tobacco use. No alcohol use. No recreational drug use. Works in the [place] area is now lived in [place] for 21 years Smoking Status: Never smoker - Past Family History Mother Family Medical History: Cancer Additional Family Medical History / Comment(s): stroke Medications and Allergies Home Medications Medication Instructions Recorded Confirmed Type Biotin 5 mg PO DAILY 09/13/16 12/03/16 History Cellcept Susp 7.5 ml PO DAILY 09/13/16 12/03/16 History Denosumab [Prolia] 60 mg SQ ONCE 09/13/16 12/03/16 History Gabapentin 600 mg PO TID 09/13/16 12/03/16 History Lansoprazole [Prevacid] 30 mg PO DAILY 09/13/16 12/03/16 History NIFEdipine XL [Procardia XL] 30 mg PO DAILY 09/13/16 12/03/16 History predniSONE 5 mg PO DAILY 09/13/16 12/03/16 History Allergies Allergy/AdvReac Type Severity Reaction Status Date / Time No Known Allergies Allergy Verified 12/05/16 10:45 Results CBC & Chem 7: 09/14/16 06:32 09/14/16 06:32 Assessment and Plan (1) Septic arthritis Status: Acute (2) Dermatomyositis Status: Acute (3) Open wound of right little finger without damage to nail Status: Acute Plan: The patient was seen day before admission for a 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 At the last visit 4 weeks ago she was having a mild flareup of her right fifth finger and had decided take some extra prednisone which seemed to help. She now returns because her right fifth DIP area has significantly worsened and she also seems to have some pyogenic discharge from that area. My out patient decision making was as follows: She is not febrile today but I'm concerned about a systemic infection that may have seeded into the joint causing septic arthritis. So we'll have her stop the Enbrel today and will do urine culture, blood culture and wound culture and she can start cefuroxime 500 mg twice a day starting this evening. she is to see Dr. Valencia tomorrow, I have discussed the case with him and if she does seem to have positive cultures she may need to get IV antibiotics. As she was found to have positive blood cultures she was admitted to the hospital The patient was seen in [facility] for infected right little finger and possible septic arthritis. She'll be seen by infectious disease. Until then she is to hold off on her Enbrel and cut her CellCept down to half dose. she will see me in 1-2 weeks after discharge. Time with Patient: Less than 30
== END 2016-09-16 12:58 | disposition home or self-care (01) | DRG 540 ==
LOC: 6PED 15:38
PROVIDERS: ADMIT Internal Medicine; ATTEND Internal Medicine
DX: M86.9 Osteomyelitis, unspecified (principal); M33.90 Dermatopolymyositis, unspecified, organ involvement unspecified; G20 Parkinson's disease; L03.011 Cellulitis of right finger; M06.9 Rheumatoid arthritis, unspecified; B96.5 Pseudomonas (aeruginosa) (mallei) (pseudomallei) as the cause of diseases classified elsewhere; I73.00 Raynaud's syndrome without gangrene; M81.0 Age-related osteoporosis without current pathological fracture; M19.049 Primary osteoarthritis, unspecified hand; D47.3 Essential (hemorrhagic) thrombocythemia; R53.81 Other malaise; K57.30 Diverticulosis of large intestine without perforation or abscess without bleeding; K21.9 Gastro-esophageal reflux disease without esophagitis; Z80.1 Family history of malignant neoplasm of trachea, bronchus and lung; Z82.49 Family history of ischemic heart disease and other diseases of the circulatory system; Z82.3 Family history of stroke; Z90.710 Acquired absence of both cervix and uterus; Z82.0 Family history of epilepsy and other diseases of the nervous system; Z86.14 Personal history of Methicillin resistant Staphylococcus aureus infection; Z79.83 Long term (current) use of bisphosphonates; Z79.899 Other long term (current) drug therapy; Z79.52 Long term (current) use of systemic steroids; Z98.42 Cataract extraction status, left eye; Z98.41 Cataract extraction status, right eye; Z90.49 Acquired absence of other specified parts of digestive tract; Z90.722 Acquired absence of ovaries, bilateral; Z90.79 Acquired absence of other genital organ(s)
CPT/HCPCS: 36415; 78315; 80048; 80053; 84134; 85025; 85027; 85652; 86140; 87040; 87070; 87077; 87186; 87205

== ENCOUNTER → 2016-09-13 | Outpatient (CLI) | payer MEDICARE ==
--- NOTE | 2016-09-13 09:57 | XR ---
EXAMINATION TYPE: XR finger RT DATE OF EXAM: 09/13/2016 9:00 AM COMPARISON: NONE HISTORY: 76-year-old female right fifth finger infection for 2 months and history of arthritis TECHNIQUE: 3 views coned-down right fifth digit FINDINGS: Severe osteoarthritic changes are seen within the visualized DIP and PIP joints. There is some volar DIP joint subluxation. Associated deformity of the finger and soft tissue swelling. There may be foca l area of osteolysis along the dorsal aspect of the DIP joint seen on the oblique and lateral views. IMPRESSION: Findings suggest severe osteoarthrosis. However, there is soft tissue swelling and possible focal ero maria guadalupe along the dorsal aspect of the DIP joint. In the setting of soft tissue infection, an underlying early contiguous osteomyelitis is not excluded.
== END | disposition home or self-care (01) ==
LOC: RADXRMAIN 08:17
PROVIDERS: ATTEND Internal Medicine
DX: L03.019 Cellulitis of unspecified finger (principal); M33.90 Dermatopolymyositis, unspecified, organ involvement unspecified

== ENCOUNTER → 2016-10-09 | Outpatient (CLI) | payer MEDICARE ==
[2016-10-09 11:22] LABS: Basophils # (A) 0.1 k/uL (0-0.2); Basophils % (A) 1 %; CH 29.1; CHCM 30.8; Eosinophils # (A) 0.1 k/uL (0-0.7); Eosinophils % (A) 1 %; HCT 36.9 % (34.0-46.0); HDW 2.76; HGB 11.3 gm/dL (11.4-16.0); Hypochromasia Moderate; Luc # (Auto) 0.34; Luc % (Auto) 4; Lymphocytes # (A) 2.2 k/uL (1.0-4.8); Lymphocytes % (A) 28 %; MCH 29.2 pg (25.0-35.0); MCHC 30.7 g/dL (31.0-37.0); Mean Platelet Volume 7.1; Monocytes # (A) 0.4 k/uL (0-1.0); Monocytes % (A) 5 %; Neutrophils # (A) 4.9 k/uL (1.3-7.7); Neutrophils % (A) 61 %; RBC 3.88 m/uL (3.80-5.40); RDW 14.1 % (11.5-15.5); WBC 7.9 k/uL (3.8-10.6); WBC (Perox) 8.07
[2016-10-09 11:24] LABS: ALT 30 U/L (9-52); AST 24 U/L (14-36); Alkaline Phosphatase 40 U/L (38-126); Anion Gap 13 mmol/L; Blood Urea Nitrogen 18 mg/dL (7-17); Calcium 9.4 mg/dL (8.4-10.2); Carbon Dioxide 28 mmol/L (22-30); Chloride 102 mmol/L (98-107); Glucose 97 mg/dL (74-99); Non-African American GFR(MDRD) >60 (>60 ml/min/1.73 sqM); Potassium 5.1 mmol/L (3.5-5.1); Sodium 143 mmol/L (137-145); Total Bilirubin 0.6 mg/dL (0.2-1.3); Total Protein 8.2 g/dL (6.3-8.2)
[2016-10-09 12:00] LABS: Erythrocyte Sedimentation Rate 10 mm/hr (0-20)
== END | disposition home or self-care (01) ==
LOC: LABWHC1 10:15
PROVIDERS: ATTEND Internal Medicine Infectious Disease
DX: M33.90 Dermatopolymyositis, unspecified, organ involvement unspecified (principal)
CPT/HCPCS: 36415; 80053; 85025; 85652

== ENCOUNTER 2016-12-05 10:15 | Day surgery (SDC) | payer MEDICARE ==
[2016-12-03 12:40] VITALS: BMI 21.7
[~2016-12-05 10:15] MED LIST: DEXAMETHASONE SOD PHOSPHATE 10 MG/ML 1 ML VIAL IV ONE; HEPARIN SODIUM,PORCINE 5,000 UNIT/ML 1 ML VIAL SQ ONE; HYDROmorphone 1 MG/ML 1 ML SYRINGE IVP PRN; MIDAZOLAM 2 MG/2 ML VIAL IV PRN; ONDANSETRON 4 MG/2 ML VIAL IVP ONE; ceFAZolin 2 GM in SODIUM CHLORIDE 0.9% 100 ML IVPB ONE
--- NOTE | 2016-12-05 11:08 | P.GSHP ---
History of Present Illness H&P Date: 12/05/16 Chief Complaint: Right inguinal hernia This is a 76-year-old female who presents today for laparoscopic robotic- assisted repair of a right internal hernia. Patient developed painful mass in her right groin. The hernia is reducible. 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 No animal exposures. No tobacco use. No alcohol use. No recreational drug use. Works in the [place] area is now lived in [place] for 21 years Smoking Status: Never smoker Past Alcohol Use History: Rare Past Drug Use History: None Reported - Past Family History Mother Family Medical History: Cancer Additional Family Medical History / Comment(s): stroke Medications and Allergies Home Medications Medication Instructions Recorded Confirmed Type Biotin 5 mg PO DAILY 09/13/16 12/03/16 History Cellcept Susp 7.5 ml PO DAILY 09/13/16 12/03/16 History Denosumab [Prolia] 60 mg SQ ONCE 09/13/16 12/03/16 History Gabapentin 600 mg PO TID 09/13/16 12/03/16 History Lansoprazole [Prevacid] 30 mg PO DAILY 09/13/16 12/03/16 History NIFEdipine XL [Procardia XL] 30 mg PO DAILY 09/13/16 12/03/16 History predniSONE 5 mg PO DAILY 09/13/16 12/03/16 History Allergies Allergy/AdvReac Type Severity Reaction Status Date / Time No Known Allergies Allergy Verified 12/05/16 10:45 Surgical - Exam - General well developed, no distress - Eyes PERRL - ENT normal pinna - Neck no masses - Respiratory normal expansion - Cardiovascular Rhythm: regular - Abdomen Abdomen: soft, non tender Hernia: inguinal (Reducible right inguinal hernia) Assessment and Plan Plan: Large reducible right inguinal hernia. We'll perform laparoscopic robotic- assisted repair.
[2016-12-05] MEDS: LACTATED RINGERS 1,000 ML IV SCH (11:26)
[2016-12-05] MEDS: LIDOCAINE 1% 20 ML VIAL (10MG/ML) FOR IV START INTRADERMA PRN ×2 (11:27→11:31)
[2016-12-05] MEDS ORDERED: GLYCOPYRROLATE 0.2 MG/ML 2 ML VIAL ONE (11:32)
[2016-12-05] MEDS ORDERED: NEOSTIGMINE 1 MG/ML 10 ML VIAL ONE (11:32)
[2016-12-05] MEDS ORDERED: ROCURONIUM BROMIDE 10 MG/ML 10 ML VIAL IV ONE (11:32)
[2016-12-05] MEDS ORDERED: LIDOCAINE 1% INJ 10MG/ML (20 ML MDV) ONE (11:32)
[2016-12-05] MEDS ORDERED: fentaNYL (PF) 50 MCG/ML 2 ML AMP ONE (11:32)
[2016-12-05] MEDS ORDERED: PROPOFOL 10 MG/ML 20 ML VIAL IV ONE ×2 (11:32)
[2016-12-05] MEDS ORDERED: ePHEDrine 50 MG/ML 1 ML AMP ONE (11:32)
[2016-12-05] MEDS ORDERED: MIDAZOLAM 2 MG/2 ML VIAL ONE (11:32)
[2016-12-05 11:36] LABS: Glucose,Whole Blood 88 mg/dL (75-99)
[2016-12-05] MEDS ORDERED: BUPIVACAIN-EPI 0.25%-1:200,000 30 ML VIAL SQ ONE ×2 (12:03→12:20)
--- NOTE | 2016-12-05 12:49 | P.OP ---
Date of Procedure: 12/05/16 Preoperative Diagnosis: Right inguinal hernia Postoperative Diagnosis: Right inguinal hernia Procedure(s) Performed: Laparoscopic robotic-assisted repair of right inguinal hernia Anesthesia: DIPTI Surgeon: Pawel Sarah Estimated Blood Loss (ml): 5 Pathology: none sent Condition: stable Disposition: PACU Description of Procedure: Mhe patient's placed on the operating table in the supine position. The patient received general anesthesia. The patient's abdomen was prepped and draped in usual sterile fashion. The skin was anesthetized 1% local Xylocaine at the incision sites. Using an 11 blade a skin incision was made at the umbilicus. The fascia was grasped with a Camilla and then the peritoneal cavity was entered with the Veress needle. Position of the Veress needle was confirmed with a positive drop test. After adequate insufflation a 5 mm trocar was placed into the peritoneal cavity. The Laparoscope was placed the peritoneal cavity. And a robotic 8 mm trocar was placed in the right lateral position and then another 8 mm robotic trochars placed in the left lateral position. The original 5 mm trocar was exchanged for a 12 mm trocar. The patient was placed in reverse Trendelenburg and then the patient was docked to the robot. Next the peritoneum over top of the hernia was incised and then using blunt and sharp dissection and electrocautery the hernia sac was dissected free from the floor of the inguinal canal. The hernia sac was completely reduced into the peritoneal cavity. And then using the Pro executive administrative assistant mesh the hernia was repaired. The peritoneum was then sutured with 20V lock suture. The patient was then undocked the robot. The needle was withdrawn from the peritoneal cavity. The umbilical trocar site was closed with 0 Ethibond suture. The skin was closed interrupted 3-0 Monocryl suture. Dermabond dressing was applied. Patient was sent to recovery in stable condition.
[2016-12-05 13:21] VITALS: TEMP 97.7
[2016-12-05 15:14] VITALS: BP 126/69; PULSE 52; RESP 18
== END 2016-12-05 16:07 | disposition home or self-care (01) ==
LOC: OR 10:15
PROVIDERS: ATTEND Surgery
DX: K40.90 Unilateral inguinal hernia, without obstruction or gangrene, not specified as recurrent (principal); G20 Parkinson's disease; G62.9 Polyneuropathy, unspecified; M33.90 Dermatopolymyositis, unspecified, organ involvement unspecified; Z90.710 Acquired absence of both cervix and uterus; Z79.52 Long term (current) use of systemic steroids; Z79.899 Other long term (current) drug therapy
CPT/HCPCS: 49650; S2900

== ENCOUNTER → 2017-02-06 | Outpatient (CLI) | payer MEDICARE ==
--- NOTE | 2017-02-06 08:23 | BD ---
EXAMINATION TYPE: MG DEXA axial skeleton. DATE OF EXAM: 02/06/2017 CLINICAL HISTORY: Age-related osteoporosis per order. Comparison prior DEXA bone scan November 03, 2014. 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 History of Fracture in Adulthood: no Secondary Osteoporosis: 1. Type 1 Diabetes: no 2. Hyperthyroidism: no 3. Menopause before 45: no 4. Malnutrition: unsure 5. Chronic liver disease: no Rheumatoid Arthritis: no Current Tobacco Use: no RISK FACTORS HISTORY OF: Surgery to Spine/Hip(right/left)/Wrist (right/left): no Family History of Osteoporosis: no Drink Alcohol: very very rarely Active: yes Diet low in dairy products/other sources of calcium: no Postmenopausal woman: yes Take estrogen and/or progesterone medications: not now How long: about 5 years Lost more than 2 inches in height since high school: yes Frequent falls: no Poor Health: no Hyperparathyroidism: no Adrenal Insufficiency: no MEDICATIONS: Prednisone or other steroids: yes How Long: since 2003 Thyroid Medications: no Osteoporosis Medications: yes Which medication: Prolia How Long: had injections several times... unsure how long exactly Additional Medications: meds for Parkinson's Additional History: Parkinsons, Dermatomyositis, weakness left side EXAM MEASUREMENTS: Bone mineral densitometry was performed using the [employer] System. Bone mineral density as measured about the Lumbar spine is: ----- L1-L4(G/cm2): 1.047 T Score Values are as follows: ----- L2: -1.6 ----- L3: -0.7 ----- L4: -0.1 ----- L1-L4: -1.1 Bone mineral density has: Increased 2.2% since study of: 11/03/2014 Bone mineral density about the R hip (g/cm2): 0.604 Bone mineral density about the L hip (g/cm2): 0.604 T Score values are as follows: -----R Neck: -3.1 -----L Neck: -3.1 -----R Total: -3.0 -----L Total: -2.6 Bone mineral density has: Increased 2.8% since study of: 11/03/2014 IMPRESSION: Osteoporosis (T Score less than -2.5) as noted by T Score values at the femoral neck levels in the bi lateral hips. There is increased fracture risk and therapy is usually indicated based on age. Re-Scre en 1-2 years. NOTE: T-SCORE=SD OF THE YOUNG ADULT MEAN.
== END | disposition home or self-care (01) ==
LOC: RADBDWWP 07:08
PROVIDERS: ATTEND Internal Medicine Rheumatology
DX: M81.0 Age-related osteoporosis without current pathological fracture (principal)
CPT/HCPCS: 77080

== ENCOUNTER → 2017-03-01 | Outpatient (CLI) | payer MEDICARE ==
--- NOTE | 2017-03-01 14:28 | CT ---
EXAMINATION TYPE: CT brain wo con DATE OF EXAM: 03/01/2017 COMPARISON: NONE HISTORY: Upper Body weakness CT DLP: 1121 mGycm Automated exposure control for dose reduction was used. FINDINGS: There are mild, generalized changes of sulcal prominence and ventriculomegaly, compatible with mild a trophy. There is diffuse periventricular white matter lucency, compatible with chronic white matter i schemic change. There is no acute focal lesion, mass effect or midline shift identified. I do not see evidence of intracranial blood. The orbits are unremarkable. There is vascular calcifications present. Visualized portions of the paranasal sinuses and mastoids are clear. IMPRESSION: 1. NO ACUTE INTRACRANIAL ABNORMALITY. 2. MILD ATROPHIC CHANGE. 3. CHRONIC WHITE MATTER ISCHEMIC CHANGE.
== END | disposition home or self-care (01) ==
LOC: RADCTMAIN 13:47
PROVIDERS: ATTEND Internal Medicine
DX: R90.82 White matter disease, unspecified (principal); G31.9 Degenerative disease of nervous system, unspecified; M50.30 Other cervical disc degeneration, unspecified cervical region
CPT/HCPCS: 70450

== ENCOUNTER → 2017-03-26 | Outpatient (CLI) | payer MEDICARE ==
[2017-03-26 11:03] LABS: Blood Urea Nitrogen 17 mg/dL (7-17); Non-African American GFR(MDRD) >60 (>60 ml/min/1.73 sqM)
== END | disposition home or self-care (01) ==
LOC: LABWHC1 10:27
PROVIDERS: ATTEND Internal Medicine
DX: Z01.812 Encounter for preprocedural laboratory examination (principal)
CPT/HCPCS: 36415; 82565; 84520

== ENCOUNTER → 2017-03-28 | Outpatient (CLI) | payer MEDICARE ==
--- NOTE | 2017-03-28 23:40 | MR ---
EXAMINATION TYPE: MR cervical spine wo/w con DATE OF EXAM: 03/28/2017 COMPARISON: 02/03/2016 HISTORY: Neck Pain with Stiffness TECHNIQUE: Multiplanar, multisequence images of the cervical spine were acquired utilizing 10 mL intravenous Mul tiHance gadolinium contrast. Findings Cervical vertebra have normal alignment. Disc spaces are fairly normal for age. There is mild narrowi ng at C5-6 disc space. There are small posterior disc herniations at C7-T1 and C5-6 C6-7 without sign ificant impingement on the spinal canal. There is developmentally adequate spinal canal. Cervical spi nal cord shows no evidence of edema. Brainstem is intact. Posterior elements are intact. There is no compression fracture. I see no focal bone destruction. Contrast images show no pathologic enhancement . 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 IMPRESSION: There are small posterior cervical disc herniations from C5 to T1 without significant impingement on the spinal canal. No fracture. No adverse change compared to old exam. No spinal stenosis.
== END | disposition home or self-care (01) ==
LOC: RADMRIMAIN 16:36
PROVIDERS: ATTEND Internal Medicine
DX: M50.23 Other cervical disc displacement, cervicothoracic region (principal); G20 Parkinson's disease; G95.9 Disease of spinal cord, unspecified
CPT/HCPCS: 72156; A9577

== ENCOUNTER → 2017-06-14 | Outpatient (CLI) | payer MEDICARE | END | disposition home or self-care (01) | LOC: LABWHC1 13:35 | PROVIDERS: ATTEND Physician Assistant | DX: B96.89 Other specified bacterial agents as the cause of diseases classified elsewhere (principal) | CPT/HCPCS: 36415; 87040; 87070; 87077; 87086; 87186; 87205 ==

== ENCOUNTER 2018-12-21 10:27 | Emergency (ER) | payer MEDICARE ==
[2018-12-21 10:31] VITALS: RESP 18
[2018-12-21] MEDS ORDERED: DIPH,PERTUS(ACELL)TETVAC-LF 0.5 ML VIAL IM ONE (10:50)
--- NOTE | 2018-12-21 10:54 | ED ---
General Adult HPI - General Chief complaint: Fall Stated complaint: fall Time Seen by Provider: 12/21/18 10:37 Source: patient, EMS, RN notes reviewed, old records reviewed Mode of arrival: EMS Limitations: no limitations - History of Present Illness Initial comments: 78-year-old female patient past medical history of dermatomyositis presents to ED after fall and abrasion to head. Patient states that she was getting her mail, turned too quickly, lost her balance falling onto her left side. Patient suffered patient to her left temporal lobe. This denies loss of consciousness. Patient denies any pain in neck. Patient denies any blood thinners. Patient denies any current complaints. Patient denies any headache, changes in vision, pain upper or lower extremities, difficulty breathing, chest pain, abdominal pain. Patient vital signs stable, afebrile. Systemic: Pt denies fatigue, myalgia, fever/chills, rash. Pt denies weakness, night sweats, weight loss. Neuro: Pt denies headache, visual disturbances, syncope or pre-syncope. HEENT: Pt denies ocular discharge or irritation, otalgia, rhinorrhea, pharyngitis or notable lymphadenopathy. Cardiopulmonary: Pt denies chest pain, SOB, heart palpitations, dyspnea on exertion. Abdominal/GI: Pt denies abdominal pain, n/v/d. : Pt denies dysuria, burning w/ urination, frequency/urgency. Denies new onset urinary or bowel incontinence. MSK: Pt denies myalgia, loss of strength or function in extremities. Neuro: Pt denies new onset weakness, paresthesias. - Related Data Home Medications Medication Instructions Recorded Confirmed Denosumab [Prolia] 60 mg SQ Q183D 09/13/16 12/21/18 Gabapentin 600 mg PO TID 09/13/16 12/21/18 Lansoprazole [Prevacid] 30 mg PO DAILY 09/13/16 12/21/18 Biotin 5 mg PO DAILY 12/21/18 12/21/18 Carbidopa-Levodopa 25-100 mg 1 tab PO BID 12/21/18 12/21/18 [Sinemet 25-100 mg] Docusate [Colace] 100 mg PO DAILY 12/21/18 12/21/18 Mycophenolate Mofetil [Cellcept] 1,000 mg PO TID 12/21/18 12/21/18 NIFEdipine [NIFEdipine ER] 30 mg PO DAILY 12/21/18 12/21/18 predniSONE 10 mg PO DAILY 12/21/18 12/21/18 Allergies Allergy/AdvReac Type Severity Reaction Status Date / Time No Known Allergies Allergy Verified 12/21/18 11:31 Review of Systems ROS Statement: Those systems with pertinent positive or pertinent negative responses have been documented in the HPI. ROS Other: All systems not noted in ROS Statement are negative. 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, parkinsons, dermatomyocitis History of Any Multi-Drug Resistant Organisms: None Reported Past Surgical History: Adenoidectomy, Cholecystectomy, Hernia Repair, Hysterectomy, Tonsillectomy Additional Past Surgical History / Comment(s): cataracts Past Anesthesia/Blood Transfusion Reactions: No Reported Reaction Past Psychological History: No Psychological Hx Reported Smoking Status: Never smoker - Past Family History Mother Family Medical History: Cancer Additional Family Medical History / Comment(s): stroke General Exam - General Exam Comments Initial Comments: Constitutional: NAD, AOX3, Pt has pleasant affect. HEENT: NC/AT, trachea midline, neck supple, no lymphadenopathy. Posterior pharynx non erythematous, without exudates. External ears appear normal, without discharge. Mucous membranes moist. Eyes PERRLA, EOM intact. There is no scleral icterus. No pallor noted. Cardiopulmonary: RRR, no murmurs, rubs or gallops, no JVD noted. Lungs CTAB in anterior and posterior armstrong. No peripheral edema. Abdominal exam: Abdomen soft and non-distended. Abdomen non-tender to palpation in all 4 quadrants. Bowel sounds active in LLQ. No hepatosplenomegaly. No ecchymosis Neuro: CN II-XII intact. No nuchal rigidity. No cervical spinal tenderness. No ortega sign, no raccoon eyes. No focal deficit, no facial droop. MSK: 2 cm abrasion noted at left apex of skull. Cleaned with normal saline. No areas of tenderness upper or lower extremities, abdomen, chest, cervical, thoracic, lumbar spine. No posterior calf tenderness bilaterally, homans sign negative bilaterally. Posterior tibialis and radial pulse +2 bilaterally. Sensation intact in upper and lower extremities. Full active ROM in upper and lower extremities, 5/5 stregnth. Limitations: no limitations Course Vital Signs 12/21/18 10:28 Temperature 98.5 F Pulse Rate 68 Respiratory 18 Rate Blood Pressure 122/77 O2 Sat by Pulse 98 Oximetry Medical Decision Making - Medical Decision Making 78-year-old female patient past medical history of dermatomyositis presents to ED after fall and abrasion to head. Patient states that she was getting her mail, turned too quickly, lost her balance falling onto her left side. Patient suffered patient to her left temporal lobe. This denies loss of consciousness. Patient denies any pain in neck. Patient denies any blood thinners. Patient denies any current complaints. Patient denies any headache, changes in vision, pain upper or lower extremities, difficulty breathing, chest pain, abdominal pain. Patient vital signs stable, afebrile. Physical exam displayed: CN II-XII intact. No nuchal rigidity. No cervical spinal tenderness. No ortega sign, no raccoon eyes. No focal deficit, no facial droop. 2 cm abrasion noted at left apex of skull. Full active range of motion in upper lower extremities, no other areas of tenderness. Cleaned with normal saline. Patient tetanus updated. CT of brain without contrast displayed no acute intracranial abnormality. CT of cervical spine displayed no acute osseous lesion, congenital lesion C2-3, degenerative changes. Chest revealed no acute process. Patient was discharged. Patient will follow-up with primary care provider in 1-2 days. Patient monitor for signs of infection. Patient return ER if condition worsens. Case discussed with Dr. green. Disposition Clinical Impression: Fall Disposition: HOME SELF-CARE Condition: Stable Instructions (If sedation given, give patient instructions): Fall Prevention for Older Adults (ED) Additional Instructions: Patient to adhere to previously discussed treatment plan and will take medication(s) as directed. Patient to follow up with PCP in 1-2 days. Patient to return to ED if symptoms do not improve. Please follow-up with primary care provider in 1-2 days. Return to ER if condition worsens in any way. Is patient prescribed a controlled substance at d/c from ED?: No Referrals: Joe Valencia MD [Primary Care Provider] - 1-2 days
--- NOTE | 2018-12-21 11:24 | CT ---
EXAMINATION TYPE: CT brain bethel hartman DATE OF EXAM: 12/21/2018 COMPARISON: Previous study dated 03/01/2017. HISTORY: Patient was getting her mail when she turned and lost her balance and fell striking her head on the road CT DLP: 1249.7 mGycm Automated exposure control for dose reduction was used. TECHNIQUE: CT scan of the head and cervical spine are performed without contrast. FINDINGS: BRAIN: There are generalized changes of sulcal prominence and ventriculomegaly, compatible with atrop hic change. There is diffuse periventricular white matter lucency, compatible with chronic white mukesh er ischemic change. There is physiologic calcification of the basal ganglia. There is no acute focal lesion, mass effect or midline shift identified. I do not see evidence of intracranial blood. Visualized portions of the paranasal sinuses and mastoids are clear. The bony calvarium is intact. IMPRESSION: 1. NO ACUTE INTRACRANIAL ABNORMALITY. 2. DEGENERATIVE CHANGE. CERVICAL SPINE: There are mild emphysematous changes within the lungs. Prevertebral soft tissues are normal. Vertebral body height and alignment are maintained. Atlantoaxial relationships are normal. 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 There is degenerative disc disease and hypertrophic spondylosis at C6-7 a nd to a lesser extent C7-T1. There is uncovertebral joint disease present at C6-7. There is right-dany ed facet arthropathy at C3-4 and C4-5. No definite protrusion is seen. No fracture is identified. IMPRESSION: 1. NO ACUTE OSSEOUS LESION. 2. 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 3. DEGENERATIVE CHANGE.
--- NOTE | 2018-12-21 12:00 | XR ---
EXAMINATION TYPE: XR chest 2V DATE OF EXAM: 12/21/2018 HISTORY: Pain. REFERENCE: NONE. FINDINGS: There is elevation of the left hemidiaphragm. The heart is mildly prominent. 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 There is no pneumonia or edema. No definite pleural fluid is s een. There are degenerative changes present within the right shoulder. There is evidence of an old ri ght shoulder fracture. IMPRESSION: CHRONIC CHANGES WITHOUT ACUTE INTRATHORACIC ABNORMALITY.
[2018-12-21 12:48] VITALS: BP 120/70; PULSE 74; TEMP 98.1
== END 2018-12-21 12:50 | disposition home or self-care (01) ==
LOC: EC 10:27
DX: S00.91XA Abrasion of unspecified part of head, initial encounter (principal); K21.9 Gastro-esophageal reflux disease without esophagitis; G20 Parkinson's disease; Z79.52 Long term (current) use of systemic steroids; Z79.899 Other long term (current) drug therapy; Z23 Encounter for immunization; W19.XXXA Unspecified fall, initial encounter; W22.8XXA Striking against or struck by other objects, initial encounter; Y92.89 Other specified places as the place of occurrence of the external cause
CPT/HCPCS: 70450; 71046; 72125; 90471; 90715; 99284

== ENCOUNTER 2019-08-21 11:41 | Emergency (ER) | payer MEDICARE ==
[2019-08-21 12:20] VITALS: RESP 19; TEMP 97.1
--- NOTE | 2019-08-21 13:06 | CT ---
EXAMINATION TYPE: CT brain cspine wo con DATE OF EXAM: 08/21/2019 COMPARISON: CT brain and cervical spine December 21, 2018 HISTORY: Fall injury today with headache and neck pain. CT DLP: 1152.6 mGycm. Automated Exposure Control for Dose Reduction was Utilized. TECHNIQUE: CT scan of the head and cervical spine are performed without contrast. FINDINGS: There is no acute intracranial hemorrhage or midline shift identified. Diffuse ventricula r sulcal prominence redemonstrated. Low attenuation in the periventricular and deep white matter agai n seen. The calvarium is intact. The globes are intact and the visualized sinuses are clear. Cervical spine is visualized in its entirety from C1 through upper thoracic levels and demonstrates s table alignment without evidence of acute fracture or dislocation. Prevertebral soft tissue appears within normal limits. The C1-C2 articulation is within normal limits on the coronal images. There is redemonstration of some ossific fusion of the anterior posterior elements at C2-C3 level. There is g rade 1 anterolisthesis C3 on C4 and C4 on C5. There is moderate disc space narrowing and spurring C5- C6 level. Posterior from calcified disc herniation effacing the anterior thecal sac at the C7 level. Axial images show multilevel facet degenerative changes causing multilevel neural foraminal narrowing most prominent bilateral C4-C5 level similar to prior. Thyroid gland remains within normal limits. L harika apices are clear. IMPRESSION: 1. There is no acute fracture or dislocation evident in the cervical spine. Multilevel spondylolisthe sis and degenerative change redemonstrated. 2. No acute intracranial hemorrhage or midline shift is seen. [id number] diffuse cerebral atrop hy and chronic small vessel ischemic changes are redemonstrated. No significant interval change from prior.
[2019-08-21] MEDS ORDERED: LIDOCAINE 1% INJ 10MG/ML (20 ML MDV) SQ ONE (13:10)
--- NOTE | 2019-08-21 13:43 | ED ---
Fall HPI - General Chief Complaint: Fall Stated Complaint: Fall, head lac Time Seen by Provider: 08/21/19 12:23 Source: patient Mode of arrival: wheelchair - History of Present Illness Initial Comments: Patient is an 79-year-old female history of Parkinson's presenting to the emergency department with a chief complaint of a fall. Patient reports she fell about one hours prior to ED arrival as she tripped and fell backwards. Patient reports laceration in the occipital region with some bleeding. Denies loss of consciousness nausea vomiting or headache. Patient is not on blood thinners. Patient denies taking medication to alleviate his symptoms. Patient reports her tetanus status is up-to-date. She denies any other injuries. - Related Data Home Medications Medication Instructions Recorded Confirmed Denosumab [Prolia] 60 mg SQ Q183D 09/13/16 12/21/18 Gabapentin 600 mg PO TID 09/13/16 12/21/18 Lansoprazole [Prevacid] 30 mg PO DAILY 09/13/16 12/21/18 Biotin 5 mg PO DAILY 12/21/18 12/21/18 Carbidopa-Levodopa 25-100 mg 1 tab PO BID 12/21/18 12/21/18 [Sinemet 25-100 mg] Docusate [Colace] 100 mg PO DAILY 12/21/18 12/21/18 Mycophenolate Mofetil [Cellcept] 1,000 mg PO TID 12/21/18 12/21/18 NIFEdipine [NIFEdipine ER] 30 mg PO DAILY 12/21/18 12/21/18 predniSONE 10 mg PO DAILY 12/21/18 12/21/18 Allergies Allergy/AdvReac Type Severity Reaction Status Date / Time No Known Allergies Allergy Verified 12/21/18 11:31 Review of Systems ROS Statement: Those systems with pertinent positive or pertinent negative responses have been documented in the HPI. ROS Other: All systems not noted in ROS Statement are negative. 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, parkinsons, dermatomyocitis History of Any Multi-Drug Resistant Organisms: None Reported Past Surgical History: Adenoidectomy, Cholecystectomy, Hernia Repair, Hysterectomy, Tonsillectomy Additional Past Surgical History / Comment(s): cataracts Past Anesthesia/Blood Transfusion Reactions: No Reported Reaction Past Psychological History: No Psychological Hx Reported Smoking Status: Never smoker Past Alcohol Use History: None Reported Past Drug Use History: None Reported - Past Family History Mother Family Medical History: Cancer Additional Family Medical History / Comment(s): stroke General Exam Limitations: no limitations General appearance: alert, in no apparent distress Head exam: Present: normocephalic, normal inspection. Absent: atraumatic (2 cm laceration in the occipital region. Minimal bleeding at this time.), other (Negative hemotympanum, negativePhimosis, negative raccoon eyes.) Eye exam: Present: normal appearance, PERRL, EOMI Pupils: Present: normal accommodation ENT exam: Present: normal exam, normal oropharynx (No oral trauma.), mucous membranes moist, TM's normal bilaterally, normal external ear exam Neck exam: Present: normal inspection, full ROM. Absent: tenderness (No neck tenderness) Respiratory exam: Present: normal lung sounds bilaterally Cardiovascular Exam: Present: regular rate, normal rhythm, normal heart sounds Extremities exam: Present: normal inspection, full ROM Back exam: Present: normal inspection, full ROM Neurological exam: Present: alert, oriented X3 Psychiatric exam: Present: normal affect, normal mood Skin exam: Present: warm, dry, intact, normal color Course Vital Signs 08/21/19 12:16 Temperature 97.1 F L Pulse Rate 76 Respiratory 19 Rate Blood Pressure 124/81 O2 Sat by Pulse 99 Oximetry Procedures - Laceration Laceration #1 Consent Obtained: verbal consent Indication: laceration Site: scalp Size (cm): 25 (mm) Description: linear, clean Depth: simple, single layer Sedation/Analgesia: none Anesthetic Used: lidocaine 1% Anesthesia Technique: local infiltration Amount (mls): 5 Pre-repair: irrigated extensively Type of Sutures: nylon Size of Sutures: 4-0 Number of Sutures: 5 Technique: simple, interrupted Patient Tolerated Procedure: well, no complications Medical Decision Making - Medical Decision Making Patient is an 79-year-old female with history of Parkinson's presenting to emergency Department with chief complaint of a fall. Patient fell backwards injuring her head with a laceration on the occipital region. No loss of consci ousness nausea vomiting blurry vision. On exam patient is a 2.5 cm laceration in the occipital region with no active bleeding at this time. No palpable bony deformities. CT of brain and C-spine is negative for acute fractures, dislocations or intracranial hemorrhage. Wound was thoroughly irrigated. Laceration site repaired with 5 sutures. Patient advised to follow-up for suture removal in 10-14 days or sooner in the ED. Strict return parameters were thoroughly discussed with patient is understandable and agreeable. Patient was to follow proper laceration in structures. Case discussed with physician. Disposition Clinical Impression: Fall, Scalp laceration Disposition: HOME SELF-CARE Condition: Stable Instructions (If sedation given, give patient instructions): Care For Your Stitches (DC), Laceration (DC) Additional Instructions: Please return to emergency department in 10-14 days for suture removal. Please follow proper laceration instruction. Return to emergency department sooner if symptoms worsen. Is patient prescribed a controlled substance at d/c from ED?: No Referrals: Joe Valencia MD [Primary Care Provider] - 1-2 days Time of Disposition: 13:43
[2019-08-21 14:19] VITALS: BP 126/68; PULSE 68
== END 2019-08-21 14:19 | disposition home or self-care (01) ==
LOC: EC 11:41
DX: S01.01XA Laceration without foreign body of scalp, initial encounter (principal); K21.9 Gastro-esophageal reflux disease without esophagitis; G20 Parkinson's disease; M19.041 Primary osteoarthritis, right hand; M19.042 Primary osteoarthritis, left hand; M33.10 Other dermatomyositis, organ involvement unspecified; Z79.52 Long term (current) use of systemic steroids; Z79.899 Other long term (current) drug therapy; Z92.25 Personal history of immunosuppression therapy; W01.198A Fall on same level from slipping, tripping and stumbling with subsequent striking against other object, initial encounter
CPT/HCPCS: 72125; 70450; 99283; 12001; J2001

== ENCOUNTER 2020-05-13 11:47 | Emergency (ER) | payer MEDICARE ==
[2020-05-13 11:52] VITALS: RESP 16
--- NOTE | 2020-05-13 12:35 | ED ---
Extremity Problem HPI - General Chief complaint: Extremity Problem,Nontraumatic Stated complaint: Per Wound Center Poss DVT Time Seen by Provider: 05/13/20 11:54 Source: patient, RN notes reviewed, old records reviewed Mode of arrival: wheelchair Limitations: no limitations - History of Present Illness Initial comments: This Patient is an 80-year-old female who presents to the ER for evaluation for right lower extremity swelling and edema as well as a chronic wound to the posterior right leg. Patient reports she's been dealing with this wound by he rself in with PCP for the past month and a half. She was sent to wound care clinic today. Upon evaluation at the wound care clinic Patient was sent to the ER today to rule out DVT. Patient's had no history of blood clots. She was placed on Lasix and doing Oliverio wraps to help with swelling on the lower extremity. Patient reports no chest pain or shortness of breath. She's not been treated with antibiotics for the redness and cellulitis. Patient states that she has had no fevers or chills. She does report some drainage on legs. - Related Data Home Medications Medication Instructions Recorded Confirmed Denosumab [Prolia] 60 mg SQ Q183D 09/13/16 12/21/18 Gabapentin 600 mg PO TID 09/13/16 12/21/18 Lansoprazole [Prevacid] 30 mg PO DAILY 09/13/16 12/21/18 Biotin 5 mg PO DAILY 12/21/18 12/21/18 Carbidopa-Levodopa 25-100 mg 1 tab PO BID 12/21/18 12/21/18 [Sinemet 25-100 mg] Docusate [Colace] 100 mg PO DAILY 12/21/18 12/21/18 NIFEdipine [NIFEdipine ER] 30 mg PO DAILY 12/21/18 12/21/18 mycophenolate mofetiL [Cellcept] 1,000 mg PO TID 12/21/18 12/21/18 predniSONE 10 mg PO DAILY 12/21/18 12/21/18 Previous Rx's Medication Instructions Recorded Cephalexin [Keflex] 500 mg PO Q6HR 3 Days #28 cap 05/13/20 Sulfamethoxazole/Trimethoprim 1 each PO BID #14 tablet 05/13/20 [Bactrim DS 800-160 mg] Allergies Allergy/AdvReac Type Severity Reaction Status Date / Time No Known Allergies Allergy Verified 05/13/20 11:48 Review of Systems ROS Statement: Those systems with pertinent positive or pertinent negative responses have been documented in the HPI. ROS Other: All systems not noted in ROS Statement are negative. 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, parkinsons, dermatomyocitis History of Any Multi-Drug Resistant Organisms: None Reported Past Surgical History: Adenoidectomy, Cholecystectomy, Hernia Repair, Hysterectomy, Tonsillectomy Additional Past Surgical History / Comment(s): cataracts Past Anesthesia/Blood Transfusion Reactions: No Reported Reaction Past Psychological History: No Psychological Hx Reported Smoking Status: Never smoker Past Alcohol Use History: None Reported Past Drug Use History: None Reported - Past Family History Mother Family Medical History: Cancer Additional Family Medical History / Comment(s): stroke General Exam - General Exam Comments Initial Comments: Alert and oriented 80-year-old female. No acute distress. Limitations: no limitations General appearance: alert, in no apparent distress Head exam: Present: atraumatic, normocephalic, normal inspection Eye exam: Present: normal appearance, PERRL, EOMI. Absent: scleral icterus, conjunctival injection, periorbital swelling ENT exam: Present: normal exam, mucous membranes moist Neck exam: Present: normal inspection. Absent: tenderness, meningismus, lymphadenopathy Respiratory exam: Present: normal lung sounds bilaterally. Absent: respiratory distress, wheezes, rales, rhonchi, stridor Cardiovascular Exam: Present: regular rate, normal rhythm, normal heart sounds. Absent: systolic murmur, diastolic murmur, rubs, gallop, clicks GI/Abdominal exam: Present: soft, normal bowel sounds. Absent: distended, tenderness, guarding, rebound, rigid Extremities exam: Present: normal inspection, full ROM, normal capillary refill, other (Tetanus status of right lower extremity leg swelling. There is erythema circumferential around the right calf. There is evidence of wound with granulation tissue on the posterior lower calf.). Absent: tenderness, pedal edema, joint swelling, calf tenderness Back exam: Present: normal inspection Neurological exam: Present: alert, oriented X3, CN II-XII intact Psychiatric exam: Present: normal affect, normal mood Skin exam: Present: warm, dry, intact, normal color. Absent: rash Course Vital Signs 05/13/20 11:48 Temperature 98.6 F Pulse Rate 76 Respiratory 16 Rate Blood Pressure 126/80 O2 Sat by Pulse 97 Oximetry Medical Decision Making - Medical Decision Making 6-year-old female presents the ER today for evaluation for right lower extremity wound. She reports that she's had this wound for the past month and half and has been following up with PCP. She was seen in wound care center was here today and sent to the ER for evaluation to rule out blood clot. Patient reports that she's had no fevers or chills. She does have evidence of erythema and swelling over the lower calf. Patient ultrasound is negative for DVT. White blood cell count CMP are within normal limits. Patient in this time is advisabl e place her on antibiotics for evidence of developing cellulitis. Patient be started on Bactrim and Keflex. I advised Patient to have close follow-up with primary care physician. She was evaluated as well by Dr. Haynes. - Lab Data Result diagrams: 05/13/20 12:21 05/13/20 12:21 Lab Results 05/13/20 05/13/20 05/13/20 Range/Units 12:21 12:21 12:21 WBC 9.4 (3.8-10.6) k/uL RBC 4.16 (3.80-5.40) m/uL Hgb 11.8 (11.4-16.0) gm/dL Hct 39.4 (34.0-46.0) % MCV 94.7 (80.0-100.0) fL MCH 28.4 (25.0-35.0) pg MCHC 30.0 L (31.0-37.0) g/dL RDW 13.7 (11.5-15.5) % Plt Count 401 (150-450) k/uL Neutrophils % 88 % Lymphocytes % 6 % Monocytes % 4 % Eosinophils % 0 % Basophils % 0 % Neutrophils # 8.2 H (1.3-7.7) k/uL Lymphocytes # 0.6 L (1.0-4.8) k/uL Monocytes # 0.4 (0-1.0) k/uL Eosinophils # 0.0 (0-0.7) k/uL Basophils # 0.0 (0-0.2) k/uL Hypochromasia Moderate PT 15.2 H (9.0-12.0) sec INR 1.5 H (<1.2) APTT 27.3 (22.0-30.0) sec Sodium 137 (137-145) mmol/L Potassium 4.4 (3.5-5.1) mmol/L Chloride 100 (98-107) mmol/L Carbon Dioxide 29 (22-30) mmol/L Anion Gap 8 mmol/L BUN 18 H (7-17) mg/dL Creatinine 0.48 L (0.52-1.04) mg/dL Est GFR (CKD-EPI)AfAm >90 (>60 ml/min/1.73 sqM) Est GFR (CKD-EPI)NonAf >90 (>60 ml/min/1.73 sqM) Glucose 115 H (74-99) mg/dL Calcium 9.4 (8.4-10.2) mg/dL Total Bilirubin 0.5 (0.2-1.3) mg/dL AST 18 (14-36) U/L ALT <6 (4-34) U/L Alkaline Phosphatase 40 (38-126) U/L Total Protein 7.1 (6.3-8.2) g/dL Albumin 4.2 (3.5-5.0) g/dL - Radiology Data Radiology results: report reviewed Ultrasound is negative for DVT. No focal fluid collection. Disposition Clinical Impression: Cellulitis of right leg Disposition: HOME SELF-CARE Condition: Good Instructions (If sedation given, give patient instructions): Cellulitis (ED) Additional Instructions: Patient advised to wrap the leg with Oliverio wraps and to take the antibiotics as prescribed. Recommended close follow-up with your primary care physician next week. Prescriptions: Sulfamethoxazole/Trimethoprim [Bactrim DS 800-160 mg] 1 each PO BID #14 tablet Cephalexin [Keflex] 500 mg PO Q6HR 3 Days #28 cap Is patient prescribed a controlled substance at d/c from ED?: No Referrals: Joe Valencia MD [Primary Care Provider] - 1-2 days Time of Disposition: 13:31
[2020-05-13 12:44] LABS: Basophils % (A) 0 %; Eosinophils % (A) 0 %; HCT 39.4 % (34.0-46.0); HGB 11.8 gm/dL (11.4-16.0); Hypochromasia Moderate; Lymphocytes # (A) 0.6 k/uL (1.0-4.8); Lymphocytes % (A) 6 %; MCH 28.4 pg (25.0-35.0); MCV 94.7 fL (80.0-100.0); Mean Platelet Volume 7.3; Monocytes # (A) 0.4 k/uL (0-1.0); Monocytes % (A) 4 %; Neutrophils # (A) 8.2 k/uL (1.3-7.7); Neutrophils % (A) 88 %; Platelet Count 401 k/uL (150-450); RBC 4.16 m/uL (3.80-5.40); RDW 13.7 % (11.5-15.5); WBC 9.4 k/uL (3.8-10.6)
[2020-05-13 12:55] LABS: INR 1.5 (<1.2); Partial Thromboplastin Time 27.3 sec (22.0-30.0); Prothrombin Time 15.2 sec (9.0-12.0)
--- NOTE | 2020-05-13 12:58 | US ---
EXAMINATION TYPE: US venous doppler duplex LE RT DATE OF EXAM: 05/13/2020 12:18 PM COMPARISON: NONE CLINICAL HISTORY: pain. wound right lower leg SIDE PERFORMED: right TECHNIQUE: The lower extremity deep venous system is examined utilizing real time linear array sonog renzo with graded compression, doppler sonography and color-flow sonography. VESSELS IMAGED: External Iliac Vein (EIV) Common Femoral Vein Deep Femoral Vein Greater Saphenous Vein * Femoral Vein Popliteal Vein Small Saphenous Vein * Proximal Calf Veins (* superficial vessels) Right Leg: No evidence of DVT IMPRESSION: 1. Right lower extremity ultrasound negative for deep venous thrombosis.
[2020-05-13 13:08] LABS: ALT <6 U/L (4-34); AST 18 U/L (14-36); African American GFR (CKD) >90 (>60 ml/min/1.73 sqM); Albumin 4.2 g/dL (3.5-5.0); Alkaline Phosphatase 40 U/L (38-126); Anion Gap 8 mmol/L; Blood Urea Nitrogen 18 mg/dL (7-17); Calcium 9.4 mg/dL (8.4-10.2); Carbon Dioxide 29 mmol/L (22-30); Chloride 100 mmol/L (98-107); Glucose 115 mg/dL (74-99); Non-African American GFR(CKD) >90 (>60 ml/min/1.73 sqM); Potassium 4.4 mmol/L (3.5-5.1); Sodium 137 mmol/L (137-145); Total Bilirubin 0.5 mg/dL (0.2-1.3); Total Protein 7.1 g/dL (6.3-8.2)
[2020-05-13] MEDS ORDERED: CEPHALEXIN 500MG STARTER PACK 4 CAP BTL PO STA (13:32)
[2020-05-13] MEDS ORDERED: SULFAMETH-TMP DS STARTER PACK 2 TAB BTL PO STA (13:32)
[2020-05-13 14:01] VITALS: BP 132/84; PULSE 66; TEMP 98.8
== END 2020-05-13 14:07 | disposition home or self-care (01) ==
LOC: EC 11:47
DX: L03.115 Cellulitis of right lower limb (principal); K21.9 Gastro-esophageal reflux disease without esophagitis; G20 Parkinson's disease; Z79.899 Other long term (current) drug therapy; Z98.42 Cataract extraction status, left eye; Z98.41 Cataract extraction status, right eye
CPT/HCPCS: 36415; 80053; 85025; 85610; 85730; 99284

== ENCOUNTER 2020-07-23 11:14 | Inpatient (IN) | payer MEDICARE ==
[2020-07-23] MEDS ORDERED: SODIUM CHLORIDE 0.9% 1,000 ML IV STA (12:09)
--- NOTE | 2020-07-23 12:26 | XR ---
EXAMINATION TYPE: XR finger LT DATE OF EXAM: 07/23/2020 COMPARISON: NONE HISTORY: Swollen painful second finger for one day. TECHNIQUE: 3 views left second finger FINDINGS: Osseous structures are demineralized. Severe narrowing and peripheral spurring at the PIP j oint. Moderate narrowing and spurring at the DIP joint. Mild to moderate narrowing at the MCP joint. No suspicious bony destruction or acute fracture. Moderate to severe diffuse soft tissue swelling not ed. IMPRESSION: As above.
[2020-07-23 12:53] LABS: Basophils % (A) 0 %; Eosinophils % (A) 0 %; HCT 38.4 % (34.0-46.0); HGB 12.1 gm/dL (11.4-16.0); Hypochromasia Slight; Lymphocytes # (A) 0.4 k/uL (1.0-4.8); Lymphocytes % (A) 4 %; MCH 30.5 pg (25.0-35.0); MCHC 31.4 g/dL (31.0-37.0); MCV 97.3 fL (80.0-100.0); Mean Platelet Volume 7.1; Monocytes # (A) 0.5 k/uL (0-1.0); Monocytes % (A) 5 %; Neutrophils # (A) 9.1 k/uL (1.3-7.7); Neutrophils % (A) 90 %; Platelet Count 366 k/uL (150-450); RBC 3.95 m/uL (3.80-5.40); RDW 14.2 % (11.5-15.5); WBC 10.1 k/uL (3.8-10.6)
--- NOTE | 2020-07-23 12:55 | ED ---
General Adult HPI - General Chief complaint: Extremity Injury, Upper Stated complaint: Skin infected Time Seen by Provider: 07/23/20 11:24 Source: patient, RN notes reviewed Mode of arrival: wheelchair Limitations: no limitations - History of Present Illness Initial comments: 80-year-old female with a past medical history of arthritis, dermatomyositis p resents to the emergency room for a chief complaint of finger swelling of the left hand. Patient reports that last night she noticed her left finger was a little bit when she woke up today she said it was very swollen compared to the rest of the fingers. States it is painful. States movement does worsen the pain. States she already has limited range of motion in the fingers secondary to her arthritis though is unsure if range motion is more limited than normal. She denies fevers or chills at home. Denies constitutional symptoms.Patient has no other complaints at this time including shortness of breath, chest pain, abdominal pain, nausea or vomiting, headache, or visual changes. - Related Data Home Medications Medication Instructions Recorded Confirmed Denosumab [Prolia] 60 mg SQ Q183D 09/13/16 12/21/18 Gabapentin 600 mg PO TID 09/13/16 12/21/18 Lansoprazole [Prevacid] 30 mg PO DAILY 09/13/16 12/21/18 Biotin 5 mg PO DAILY 12/21/18 12/21/18 Carbidopa-Levodopa 25-100 mg 1 tab PO BID 12/21/18 12/21/18 [Sinemet 25-100 mg] Docusate [Colace] 100 mg PO DAILY 12/21/18 12/21/18 NIFEdipine [NIFEdipine ER] 30 mg PO DAILY 12/21/18 12/21/18 mycophenolate mofetiL [Cellcept] 1,000 mg PO TID 12/21/18 12/21/18 predniSONE 10 mg PO DAILY 12/21/18 12/21/18 Previous Rx's Medication Instructions Recorded Cephalexin [Keflex] 500 mg PO Q6HR 3 Days #28 cap 05/13/20 Sulfamethoxazole/Trimethoprim 1 each PO BID #14 tablet 05/13/20 [Bactrim DS 800-160 mg] Allergies Allergy/AdvReac Type Severity Reaction Status Date / Time No Known Allergies Allergy Verified 07/23/20 11:20 Review of Systems ROS Statement: Those systems with pertinent positive or pertinent negative responses have been documented in the HPI. ROS Other: All systems not noted in ROS Statement are negative. 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, parkinsons, dermatomyocitis History of Any Multi-Drug Resistant Organisms: None Reported Past Surgical History: Adenoidectomy, Cholecystectomy, Hernia Repair, Hysterectomy, Tonsillectomy Additional Past Surgical History / Comment(s): cataracts Past Anesthesia/Blood Transfusion Reactions: No Reported Reaction Past Psychological History: No Psychological Hx Reported Smoking Status: Never smoker Past Alcohol Use History: None Reported Past Drug Use History: None Reported - Past Family History Mother Family Medical History: Cancer Additional Family Medical History / Comment(s): stroke General Exam Limitations: no limitations General appearance: alert, in no apparent distress Head exam: Present: atraumatic, normocephalic, normal inspection Eye exam: Present: normal appearance, PERRL, EOMI. Absent: scleral icterus, conjunctival injection, periorbital swelling ENT exam: Present: normal exam, mucous membranes moist Neck exam: Present: normal inspection, full ROM. Absent: tenderness, meningismus, lymphadenopathy Respiratory exam: Present: normal lung sounds bilaterally. Absent: respiratory distress, wheezes, rales, rhonchi, stridor Cardiovascular Exam: Present: regular rate, normal rhythm, normal heart sounds. Absent: systolic murmur, diastolic murmur, rubs, gallop, clicks GI/Abdominal exam: Present: soft, normal bowel sounds. Absent: distended, tenderness, guarding, rebound, rigid Extremities exam: Present: tenderness (Generalized tenderness around the left second digit including the flexor surface.), normal capillary refill (Capillary refill less than 2 seconds in the left second digit. Radial pulses 2+.), other (Patient has fusiform swelling of the left second digit. Finger is held in slight flexion. The patient has pain with extension of the finger.). Absent: full ROM (Patient has limited range of motion in all joints of the left second digit which is chronic for her.) Course Vital Signs 07/23/20 11:21 Temperature 98 F Pulse Rate 81 Respiratory 18 Rate Blood Pressure 134/85 O2 Sat by Pulse 98 Oximetry Procedures - Incision & Drainage Consent Obtained: verbal consent Indication: abscess Site: upper extremity Size (cm): 3 Anesthetic Used: lidocaine 1% Amount (mLs): 1 I&D Cleaning Method: Chloroprep Sterile Field Used?: Yes Scalpel Used: #11 I&D Drainage Obtained: Pus Culture Obtained?: Yes Patient Tolerated Procedure: well, no complications Medical Decision Making - Medical Decision Making Patient is an 80-year-old female with a past medical history of dermatomyositis and arthritis presenting for left second digit swelling and redness. Patient states this has been ongoing for the past day. On exam she does have diffuse redness and edema with blistering noted on the distal phalanx. CBC shows a white count of 10.1 with a left shift of 9.1 CRP 13.3. CMP otherwise unremarkable. I did speak with Dr. Coburn who is concerned for dorsal abscess with cellulitis. He did recommend it be lanced dorsally in the ER 1 cm minimum. Request culture be sent and for patient to swirl finger in saline for 5 minutes. This was completed with copious purulent material expelled. Request she be admitted for IV antibiotics and I and D and medical consults with warm compresses and elevation. Nothing by mouth past midnight. She was made aware that she may lose the nail. - Lab Data Result diagrams: 07/23/20 12:32 07/23/20 12:32 Lab Results 07/23/20 07/23/20 07/23/20 Range/Units 12:32 12:32 12:32 WBC 10.1 (3.8-10.6) k/uL RBC 3.95 (3.80-5.40) m/uL Hgb 12.1 (11.4-16.0) gm/dL Hct 38.4 (34.0-46.0) % MCV 97.3 (80.0-100.0) fL MCH 30.5 (25.0-35.0) pg MCHC 31.4 (31.0-37.0) g/dL RDW 14.2 (11.5-15.5) % Plt Count 366 (150-450) k/uL MPV 7.1 Neutrophils % 90 % Lymphocytes % 4 % Monocytes % 5 % Eosinophils % 0 % Basophils % 0 % Neutrophils # 9.1 H (1.3-7.7) k/uL Lymphocytes # 0.4 L (1.0-4.8) k/uL Monocytes # 0.5 (0-1.0) k/uL Eosinophils # 0.0 (0-0.7) k/uL Basophils # 0.0 (0-0.2) k/uL Hypochromasia Slight Sodium 138 (137-145) mmol/L Potassium 4.9 (3.5-5.1) mmol/L Chloride 99 (98-107) mmol/L Carbon Dioxide 31 H (22-30) mmol/L Anion Gap 8 mmol/L BUN 20 H (7-17) mg/dL Creatinine 0.43 L (0.52-1.04) mg/dL Est GFR (CKD-EPI)AfAm >90 (>60 ml/min/1.73 sqM) Est GFR (CKD-EPI)NonAf >90 (>60 ml/min/1.73 sqM) Glucose 136 H (74-99) mg/dL Plasma Lactic Acid Jose Daniel 1.8 (0.7-2.0) mmol/L Calcium 9.5 (8.4-10.2) mg/dL Total Bilirubin 0.5 (0.2-1.3) mg/dL AST 18 (14-36) U/L ALT <6 (4-34) U/L Alkaline Phosphatase 33 L (38-126) U/L C-Reactive Protein 13.3 H (<10.0) mg/L Total Protein 7.4 (6.3-8.2) g/dL Albumin 4.3 (3.5-5.0) g/dL Disposition Clinical Impression: Abscess, Cellulitis Disposition: ADMITTED IP TO THIS HOSP Is patient prescribed a controlled substance at d/c from ED?: No Referrals: Carla Aleman MD [Primary Care Provider] - 1-2 days Time of Disposition: 14:42
[2020-07-23 12:59] LABS: ALT <6 U/L (4-34); AST 18 U/L (14-36); African American GFR (CKD) >90 (>60 ml/min/1.73 sqM); Albumin 4.3 g/dL (3.5-5.0); Alkaline Phosphatase 33 U/L (38-126); Anion Gap 8 mmol/L; Blood Urea Nitrogen 20 mg/dL (7-17); C Reactive Protein 13.3 mg/L (<10.0); Calcium 9.5 mg/dL (8.4-10.2); Carbon Dioxide 31 mmol/L (22-30); Chloride 99 mmol/L (98-107); Glucose 136 mg/dL (74-99); Non-African American GFR(CKD) >90 (>60 ml/min/1.73 sqM); Potassium 4.9 mmol/L (3.5-5.1); Sodium 138 mmol/L (137-145); Total Bilirubin 0.5 mg/dL (0.2-1.3); Total Protein 7.4 g/dL (6.3-8.2)
[2020-07-23] MEDS ORDERED: cefTRIAXone IN SWFI 1,000 MG/10 ML SYRINGE IVP STA (13:59)
[2020-07-23] MEDS ORDERED: AMPICILLIN-SULBACTAM 3 GM in SODIUM CHLORIDE 0.9% 100 ML IVPB STA (14:01)
[2020-07-23] MEDS ORDERED: LIDOCAINE 1% INJ 10MG/ML (20 ML MDV) SQ ONE (14:19)
[2020-07-23] MEDS ORDERED: ACETAMINOPHEN TAB 325 MG TAB PO PRN (14:44)
[2020-07-23] MEDS ORDERED: NALOXONE 0.4 MG/ML 1 ML VIAL IV PRN (14:44)
[2020-07-23] MEDS ORDERED: VANCOMYCIN IV PER PHARMACY 1 EACH MISC MISCELLANE PRN (14:58)
[2020-07-23 15:11] LABS: Erythrocyte Sedimentation Rate 19 mm/hr (0-20)
[2020-07-23] MEDS ORDERED: VANCOMYCIN 750 MG in SODIUM CHLORIDE 0.9% 250 ML IVPB ONE (15:30)
[2020-07-23] MEDS: SODIUM CHLORIDE 0.9% 1,000 ML IV SCH (15:48)
[2020-07-23] MEDS: CARBIDOPA-LEVODOPA 25-100 MG 1 EACH TAB PO SCH ×2 (21:46→21:59)
[2020-07-23] MEDS: CARBIDOPA-LEVODOPA ER 25-100MG 1 EACH TABLET.ER PO SCH (21:59)
[2020-07-23] MEDS: GABAPENTIN 300 MG CAP PO SCH (21:59)
--- NOTE | 2020-07-24 00:06 | P.CONS ---
History of Present Illness - Reason for Consult Consult date: 07/23/20 medical evalaution Requesting physician: Heron Coburn - Chief Complaint left index swelling and pain - History of Present Illness 80-year-old female with Parkinson disease, dermatomyositis Patient comes in with 1-2 day history of left index finger swelling, she noticed increased swelling and pain over her left index finger started yesterday got worse this morning for which she decided to come for evaluation she denies any associated fevers or chills she denies any limitation in range of motion other than her baseline due to chronic arthritis. Patient denies any injuries to the finger. She reports history of finger infection of her right hand for which she recognized early signs and decided to come to the hospital for evaluation. She reports some clear to yellowish drainage from her left index finger, since she's been in the hospital this morning received antibiotics she reports that pain has improved. Otherwise patient does take immunosuppressives and prednisone chronically for dermatomyositis indicated other than that she reports that her health is at her baseline She lives alone Blood work in the ED showed no leukocytosis patient was afebrile x-ray imaging of index finger showed chronic changes and soft tissue swelling but no acute bony destruction Review of Systems Pertinent positives as noted in HPI. 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, parkinsons, dermatomyocitis History of Any Multi-Drug Resistant Organisms: None Reported Past Surgical History: Adenoidectomy, Cholecystectomy, Hernia Repair, Hysterectomy, Tonsillectomy Additional Past Surgical History / Comment(s): cataracts Past Anesthesia/Blood Transfusion Reactions: No Reported Reaction Past Psychological History: No Psychological Hx Reported Smoking Status: Never smoker Past Alcohol Use History: None Reported Past Drug Use History: None Reported - Past Family History Mother Family Medical History: Cancer Additional Family Medical History / Comment(s): stroke Medications and Allergies Home Medications Medication Instructions Recorded Confirmed Type Gabapentin 600 mg PO TID 09/13/16 07/23/20 History Lansoprazole [Prevacid] 30 mg PO DAILY 09/13/16 07/23/20 History Carbidopa-Levodopa 25-100 mg 2 tab PO QID 12/21/18 07/23/20 History [Sinemet 25-100 mg] Docusate [Colace] 100 mg PO BID 12/21/18 07/23/20 History NIFEdipine [NIFEdipine ER] 30 mg PO DAILY 12/21/18 07/23/20 History mycophenolate mofetiL [Cellcept] 1,500 mg PO BID 12/21/18 07/23/20 History predniSONE 10 mg PO DAILY 12/21/18 07/23/20 History Acetaminophen [Tylenol Arthritis] 1,350 mg PO Q8HR PRN 07/23/20 07/23/20 History Alendronate Sodium [Fosamax] 70 mg PO STEVENS 07/23/20 07/23/20 History Biotin 10,000 mcg PO DAILY 07/23/20 07/23/20 History Carbidopa-Levodopa ER 25-100Mg 1 tab PO BID 07/23/20 07/23/20 History [Sinemet ER 25-100] Clobetasol Propionate/Emoll 1 applic TOPICAL DIRECTED 07/23/20 07/23/20 History [Clobetasol Emulsion 0.05% Foam] Ketoconazole [Nizoral A-D] 1 applic TOPICAL DIRECTED 07/23/20 07/23/20 History Lysine HCl [l-Lysine] 1,000 mg PO DAILY 07/23/20 07/23/20 History Tacrolimus [Protopic] 1 applic TOPICAL DIRECTED 07/23/20 07/23/20 History Allergies Allergy/AdvReac Type Severity Reaction Status Date / Time No Known Allergies Allergy Verified 07/23/20 15:03 Physical Exam Vitals: Vital Signs Temp Pulse Resp BP Pulse Ox 07/23/20 15:49 63 18 107/63 97 07/23/20 11:21 98 F 81 18 134/85 98 Intake and Output 07/23/20 07/23/20 07/23/20 06:59 14:59 22:59 Other: Weight 49.895 kg Constitutional: No acute distress, conversant, pleasant, looks stated age Eyes: Anicteric sclerae, moist conjunctiva, Pupils equal round reactive to light ENMT: NC/AT Oropharynx clear, no erythema, or exudates Neck: Supple, FROM, no masses, or JVD No carotid bruits No thyromegaly Lungs: Clear to auscultation Clear to percussion Normal respiratory effort, no accessory muscle use Cardiovascular: Heart regular in rate and rhythm, Systolic murmurs, no gallops, or rubs No peripheral edema Abdominal: Soft Nontender, no guarding, rebound or rigidity Abdomen moving with respiration Normoactive bowel sounds No hepatomegaly, No splenomegaly No palpable mass No abdominal wall hernia noted Skin: Normal temperature, tone, texture, turgor No induration No subcutaneous nodules No rash, lesions No ulcers Extremities: Left index finger is swollen tender to palpation range of mo tion is limited due to arthritis however unchanged from her baseline there is some drainage of yellowish serous fluid from just below the nail bed of the index finger over the left hand. No digital cyanosis Patient has diffuse swelling of her joints of her hands Pedal pulses intact and symmetrical Radial pulses intact and symmetrical No calf tenderness Psychiatric: Alert and oriented to person, place and time Appropriate affect fair judgement Neuro Muscles Strength 4/5 in all 4 extremities Sensation to light touch grossly present throughout Cranial nerves II-XII grossly intact No focal sensory deficits Lymphatics: no palpable cervical or supraclavicular , or inguinal lymph nodes Results CBC & Chem 7: 07/23/20 12:32 07/23/20 12:32 Labs: Abnormal Lab Results - Last 24 Hours (Table) 07/23/20 07/23/20 Range/Units 12:32 12:32 Neutrophils # 9.1 H (1.3-7.7) k/uL Lymphocytes # 0.4 L (1.0-4.8) k/uL Carbon Dioxide 31 H (22-30) mmol/L BUN 20 H (7-17) mg/dL Creatinine 0.43 L (0.52-1.04) mg/dL Glucose 136 H (74-99) mg/dL Alkaline Phosphatase 33 L (38-126) U/L C-Reactive Protein 13.3 H (<10.0) mg/L Assessment and Plan Assessment: Infection of the left index finger rule out osteomyelitis Currently on antibiotics per surgery with vancomycin Pain control Elevation of the hand Chronic conditions Dermatomyositis on immunosuppressives and prednisone Patient has intermediate HPA suppression as she takes redness on 10 mg daily for the past 1.5 year, check morning cortisol level to assess for HPA suppression, if cortisol level more than 10 no need for adjustment of prednisone dose Hold CellCept due to acute infection. Consider resuming CellCept if patient gets a bad relapse of her dermatomyositis Parkinson disease resume home meds Supportive care Follow-up labs Patient is full code Thank you for allowing us to participate in the care of this patient. Do not hesitate to contact us with questions. Someone can be reached from the [facility] hospitalist group at all hours of the day at [phone].
[2020-07-24] MEDS: SODIUM CHLORIDE 0.9% 1,000 ML IV SCH ×2 (04:22→17:45)
[2020-07-24] MEDS: VANCOMYCIN 750 MG in SODIUM CHLORIDE 0.9% 250 ML IVPB SCH ×2 (05:02→15:22)
--- NOTE | 2020-07-24 06:23 | CONS ---
CONSULTATION DATE OF SERVICE: 07/23/2020 REASON FOR CONSULTATION: Left index finger infection. HISTORY OF PRESENT ILLNESS: The patient is an 80-year-old female with a past medical history of arthritis, dermatomyositis who presented to the ER with chief complaints of pain, swelling and redness of her left index finger. The patient noticed some irritation to the finger yesterday. However, when she woke up this morning she noticed it to become swollen, red and painful as the patient describes the pain to be more of a throbbing, 5- 6/10 in intensity, and no radiation. The pain was mostly with touching or motion. On arrival to the ER the patient was afebrile. The patient did have a normal white count with mild lymphopenia. Creatinine was normal. CRP was 13.3. The patient did have x- rays of the left index finger, which did show severe narrowing and peripheral spurring at the PIP joint, moderate narrowing and spurring at the DIP joint. No suspicious bony dissection. There was severe soft tissue swelling noted. The patient has been evaluated by the ER physician with attempted I&D of this area. Culture was obtained. The patient was started on vancomycin. Infectious Disease was consulted for further management of antibiotic therapy. REVIEW OF SYSTEMS: Positive points have been mentioned in HPI. Rest of systems are negative. PAST MEDICAL HISTORY: Gastroesophageal reflux disease, dermatomyositis, osteoarthritis, Parkinson disease. PAST SURGICAL HISTORY: Adenoidectomy, cholecystectomy, hernia repair, hysterectomy, tonsillectomy. SOCIAL HISTORY: No history of smoking, drinking, drug use. FAMILY HISTORY: Mother with history of stroke. ALLERGIES: No known drug allergies. MEDICATIONS: The patient is currently on vancomycin, pharmacy dosing, Tylenol, Sinemet, Colace, Neurontin, Procardia XL, Protonix and IV fluid. PHYSICAL EXAMINATION: VITAL SIGNS: Blood pressure is 107/63 with a pulse of 63, temperature 98, she is 97% on room air. GENERAL DESCRIPTION: The patient is an elderly female up in the bed in no distress. No tachypnea or accessory muscles of respiration use. HEENT: Examination shows no pallor or scleral icterus. Oral mucous membranes dry. No pharyngeal erythema or thrush. NECK: Trachea central, no thyromegaly. LUNGS: Unlabored breathing, clear to auscultation anteriorly with crackles. HEART: S1, S2. Regular rate and rhythm. ABDOMEN: Soft, no tenderness. EXTREMITIES: No edema of the feet. On examination the left index finger swollen and red with minimal pustule formation, but no purulent or foul smelling drainage was noticed. NEUROLOGICAL: Patient is awake, alert, oriented. Mood and affect normal. LABS: Hemoglobin is 12.1, white count 10.1. BUN of 20, creatinine 0.43. CRP 13.3. X-ray did show significant swelling but no bony destruction or any drainage. DIAGNOSTIC IMPRESSION: Patient admitted to the hospital with left index finger cellulitis, concern for possible abscess, but no significant purulence of note on clinical examination. Will need to cover for the gram-positive as likely pathogen. PLAN: 1. Vancomycin, pharmacy to dose target of while watching kidney function closely. 2. Await further evaluation in the morning. 3. We will follow on clinical condition and culture to further adjust medication if needed. Thank you for this consultation. Will follow this patient along with you. MMODL / IJN: [id number] /
[2020-07-24 08:35] LABS: Basophils % (A) 1 %; Eosinophils # (A) 0.1 k/uL (0-0.7); Eosinophils % (A) 2 %; HCT 34.5 % (34.0-46.0); HGB 10.6 gm/dL (11.4-16.0); Hypochromasia Moderate; Lymphocytes # (A) 0.5 k/uL (1.0-4.8); Lymphocytes % (A) 10 %; MCH 30.2 pg (25.0-35.0); MCHC 30.8 g/dL (31.0-37.0); MCV 98.1 fL (80.0-100.0); Mean Platelet Volume 7.1; Monocytes # (A) 0.4 k/uL (0-1.0); Monocytes % (A) 7 %; Neutrophils # (A) 4.2 k/uL (1.3-7.7); Neutrophils % (A) 79 %; Platelet Count 302 k/uL (150-450); RBC 3.52 m/uL (3.80-5.40); RDW 14.2 % (11.5-15.5); WBC 5.4 k/uL (3.8-10.6)
--- NOTE | 2020-07-24 08:50 | P.HPOR ---
History of Present Illness H&P Date: 07/24/20 Chief Complaint: Left index finger infection Patient comes in with 1-2 day history of left index finger swelling, she noticed increased swelling and pain over her left index finger started Saturday and got worse this morning for which she decided to come for evaluation she denies any associated fevers or chills she denies any limitation in range of motion other than her baseline due to chronic arthritis. She has a medical history of dermatomyositis. Patient denies any injuries to the finger. She reports history of finger infection of her right hand for which she recognized early signs and decided to come to the hospital for evaluation. She reports some clear to yellowish drainage from her left index finger, since she's been in the hospital this morning received antibiotics she reports that pain has improved. Otherwise patient does take immunosuppressives and prednisone chronically for dermatomyositis indicated other than that she reports that her health is at her baseline She lives alone Blood work in the ED showed no leukocytosis patient was afebrile x-ray imaging of index finger showed chronic changes and soft tissue swelling but no acute bony destruction. A bedside incision and drainage was performed in the emergency department. Reportedly they obtained a significant amount of pus out of the area. She was placed on IV antibiotics in the emergency department. She's had a dose of vancomycin and Unasyn. 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 No animal exposures. No tobacco use. No alcohol use. No recreational drug use. Works in the [place] area is now lived in [place] for 21 years Smoking Status: Never smoker Past Alcohol Use History: None Reported Past Drug Use History: None Reported - Past Family History Mother Family Medical History: Cancer Additional Family Medical History / Comment(s): stroke Medications and Allergies Home Medications Medication Instructions Recorded Confirmed Type Gabapentin 600 mg PO TID 09/13/16 07/23/20 History Lansoprazole [Prevacid] 30 mg PO DAILY 09/13/16 07/23/20 History Carbidopa-Levodopa 25-100 mg 2 tab PO QID 12/21/18 07/23/20 History [Sinemet 25-100 mg] Docusate [Colace] 100 mg PO BID 12/21/18 07/23/20 History NIFEdipine [NIFEdipine ER] 30 mg PO DAILY 12/21/18 07/23/20 History mycophenolate mofetiL [Cellcept] 1,500 mg PO BID 12/21/18 07/23/20 History predniSONE 10 mg PO DAILY 12/21/18 07/23/20 History Acetaminophen [Tylenol Arthritis] 1,350 mg PO Q8HR PRN 07/23/20 07/23/20 History Alendronate Sodium [Fosamax] 70 mg PO STEVENS 07/23/20 07/23/20 History Biotin 10,000 mcg PO DAILY 07/23/20 07/23/20 History Carbidopa-Levodopa ER 25-100Mg 1 tab PO BID 07/23/20 07/23/20 History [Sinemet ER 25-100] Clobetasol Propionate/Emoll 1 applic TOPICAL DIRECTED 07/23/20 07/23/20 History [Clobetasol Emulsion 0.05% Foam] Ketoconazole [Nizoral A-D] 1 applic TOPICAL DIRECTED 07/23/20 07/23/20 History Lysine HCl [l-Lysine] 1,000 mg PO DAILY 07/23/20 07/23/20 History Tacrolimus [Protopic] 1 applic TOPICAL DIRECTED 07/23/20 07/23/20 History Allergies Allergy/AdvReac Type Severity Reaction Status Date / Time No Known Allergies Allergy Verified 07/23/20 15:03 Physical Examination This is an 80-year-old female in no acute distress. She is alert and oriented 3. Exam of the left index finger reveals significant swelling, erythema and purulent drainage from the incision made the emergency department. The incision is almost closed over. She has limited range of motion of the finger. Capillary refill is 3 seconds. There is slight swelling noted to the other fingers consistent with dermatomyositis. No obvious infection to other fingers. She has full wrist motion without difficulty or pain. No ascending erythema noted. Results X-rays of the left index finger reveal severe degenerative arthritis to the finger joints. No obvious evidence of osteomyelitis. No acute fracture noted. - Labs Labs: Abnormal Lab Results - Last 24 Hours (Table) 07/23/20 07/23/20 07/24/20 Range/Units 12:32 12:32 07:58 RBC 3.52 L (3.80-5.40) m/uL Hgb 10.6 L (11.4-16.0) gm/dL MCHC 30.8 L (31.0-37.0) g/dL Neutrophils # 9.1 H (1.3-7.7) k/uL Lymphocytes # 0.4 L 0.5 L (1.0-4.8) k/uL Carbon Dioxide 31 H (22-30) mmol/L BUN 20 H (7-17) mg/dL Creatinine 0.43 L (0.52-1.04) mg/dL Glucose 136 H (74-99) mg/dL Alkaline Phosphatase 33 L (38-126) U/L C-Reactive Protein 13.3 H (<10.0) mg/L Microbiology - Last 24 Hours (Table) 07/23/20 14:51 Gram Stain - Preliminary Finger - Left Second Wound Culture - Preliminary H & H 07/23/20 07/24/20 Range/Units 12:32 07:58 Hgb 12.1 10.6 L (11.4-16.0) gm/dL Hct 38.4 34.5 (34.0-46.0) % Result Diagrams: 07/24/20 07:58 07/23/20 12:32 Assessment and Plan (1) Abscess Current Visit: Yes Status: Acute Code(s): L02.91 - CUTANEOUS ABSCESS, UNSPECIFIED SNOMED Code(s): 125634191 (2) Cellulitis Current Visit: Yes Status: Acute Code(s): L03.90 - CELLULITIS, UNSPECIFIED SNOMED Code(s): 904931586 (3) Dermatomyositis Current Visit: No Status: Acute Code(s): M33.90 - DERMATOPOLYMYOSITIS, UNSP, ORGAN INVOLVEMENT UNSPECIFIED SNOMED Code(s): 525326696 Plan: The clinical and x-ray findings are discussed with the patient. We are planning surgery today for incision and drainage and irrigation with antibiotic solution to the left index finger. I have consulted infectious disease for wound management and IV antibiotics.
[2020-07-24 09:00] LABS: ALT <6 U/L (4-34); AST 14 U/L (14-36); African American GFR (CKD) >90 (>60 ml/min/1.73 sqM); Albumin 2.8 g/dL (3.5-5.0); Albumin/Globulin Ratio 1.2; Alkaline Phosphatase 27 U/L (38-126); Anion Gap 2 mmol/L; Blood Urea Nitrogen 7 mg/dL (7-17); Calcium 6.9 mg/dL (8.4-10.2); Carbon Dioxide 25 mmol/L (22-30); Chloride 112 mmol/L (98-107); Globulin 2.4 g/dL; Glucose 73 mg/dL (74-99); Non-African American GFR(CKD) >90 (>60 ml/min/1.73 sqM); Potassium 3.5 mmol/L (3.5-5.1); Sodium 139 mmol/L (137-145); Total Bilirubin 0.3 mg/dL (0.2-1.3); Total Protein 5.2 g/dL (6.3-8.2)
[2020-07-24] MEDS ORDERED: LIDOCAINE 1% INJ 10MG/ML (20 ML MDV) ONE (10:16)
[2020-07-24] MEDS ORDERED: fentaNYL (PF) 50 MCG/ML 2 ML AMP ONE (10:16)
[2020-07-24] MEDS ORDERED: ePHEDrine SULFATE/0.9% NACL/PF 50 MG/5 ML SYRINGE IV ONE (10:16)
[2020-07-24] MEDS ORDERED: PROPOFOL 10 MG/ML 20 ML VIAL IV ONE (10:16)
[2020-07-24] MEDS ORDERED: IV FLUID CONTINUATION 1,000 ML IV ONE (10:19)
[2020-07-24] MEDS ORDERED: LIDOCAINE 1% INJ 10MG/ML (20 ML MDV) SQ ONE (10:41)
[2020-07-24] MEDS ORDERED: SODIUM CHLORIDE 0.9% 1,000 ML IV ONE (10:48)
[2020-07-24] MEDS: HEPARIN SODIUM,PORCINE 5,000 UNIT/ML 1 ML VIAL SQ SCH ×2 (11:47→15:22)
[2020-07-24] MEDS: predniSONE 10 MG TAB PO SCH (12:25)
[2020-07-24] MEDS: GABAPENTIN 300 MG CAP PO SCH ×3 (12:25→22:11)
[2020-07-24] MEDS: CARBIDOPA-LEVODOPA 25-100 MG 1 EACH TAB PO SCH ×4 (12:26→22:11)
[2020-07-24] MEDS: DOCUSATE 100 MG CAP PO SCH ×2 (12:26→22:11)
[2020-07-24] MEDS: CARBIDOPA-LEVODOPA ER 25-100MG 1 EACH TABLET.ER PO SCH ×2 (12:26→22:12)
[2020-07-24] MEDS: PANTOPRAZOLE 40 MG TABLET PO SCH (12:26)
[2020-07-24] MEDS: NIFEdipine XL 30 MG TAB.ER.24 PO SCH (12:26)
[2020-07-24] MEDS ORDERED: TACROLIMUS TOPICAL SCH (13:15)
--- NOTE | 2020-07-24 13:58 | P.OP ---
Date of Procedure: 07/24/20 Procedure(s) Performed: PREOPERATIVE DIAGNOSES: 1. Left index finger subcutaneous dorsal abscess near nail plate POSTOPERATIVE DIAGNOSES: 1. Left index finger subcutaneous dorsal abscess near nail plate PROCEDURES PERFORMED: 1. Left index finger subcutaneous dorsal abscess incision and drainage 2. Removal of nail plate, left index finger 2. Superficial packing of wound with moistened iodoform gauze ANESTHESIA: Gen. SHINGLE WEAVER: None COMPLICATIONS: None ESTIMATED BLOOD LOSS: Less than 2 mL. DISPOSITION: To post-anesthesia care unit INDICATIONS: Ebonie is an 80-year-old female with a history of abscess involving the left index finger for the past 1-2 days. She has had several musculoskeletal infections in the past, namely the left calf and right fifth finger. These have been infected with staph aureus and staph epidermidis for the calf lesion, and pseudomonas and staph aureus for the finger infection. She has a history of immune compromise, due to medications she takes for dermatomyositis. These include prednisone 10 mg daily and CellCept. The left index finger is grossly infected with spreading lymphangitis the finger and into the hand. She has minimal movement of the fingers even before the infection due to her severe arthritis of her digits. She is barely able to move any of her fingers in flexion or extension. She also has a history of neuropathy of the hands with no significant sensation at the fingertips. This is also chronic for her. She presents to the operating room for incision and drainage. Consent has been obtained after discussion of the risks of incision and drainage of this abscess as being inclusive of, but not limited to: Bleeding, further infection, scarring, discomfort, blood vessel and/or nerve damage, compartment syndrome, failure to relieve symptoms, persistence or recurrence and/or worsening of symptoms or problems, need for further surgery, blood clot, pulmonary embolism, , anesthesia risks, and other risks. PROCEDURE: After appropriate consent was obtained, the patient was taken to the operating room placed in the supine position. Anesthesia was initiated, and after confirmation of adequate anesthesia, the patient was carefully positioned. Care was taken to make sure that all pressure points were adequately padded. Prepping and draping were completed in the usual aseptic fashion using Hibiclens. Timeout was called, confirming patient identity, side, and procedure. The superficial incision had already been created in the emergency room dorsally just proximal to the nail plate. As the focus of infection appeared to be at the germinal matrix of the nail plate, the nail plate was removed using a combination of [place] elevator and curved iris scissors. The nail plate was removed intact. A small amount of pus was seen at the base of the nail and this was cultured. The skin which contained the superficial abscess was removed as it was devitalized, and another culture was taken over the superficial surface of the finger where the pus was contained. There did not appear to be any signi ficant abscess cavity other than the eponychial fold. This fold was gently opened using the dissecting scissors and the extent of the abscess cavity was probed the tip of the scissors to make sure there was no deeper penetration onto the volar aspect of the finger. Thorough lavage was performed using 500 mL of saline containing a small amount of Hibiclens solution. Subsequently, hemostasis was obtained using electrocautery but there was no significant bleeding present. Wound was lightly superficially covered with moistened quarter-inch iodoform gauze and nonadherent gauze and sterile dressing were then applied. Patient tolerated the procedure well and taken to recovery room in stable condition. Sponge counts were correct.
[2020-07-24] MEDS ORDERED: HYDROmorphone 0.2 MG/1 ML SYRINGE IVP PRN (15:18)
[2020-07-24] MEDS ORDERED: diphenhydrAMINE 25 MG CAP PO PRN (15:18)
[2020-07-24] MEDS ORDERED: HYDROmorphone 0.5 MG/0.5 ML SYRINGE IVP PRN ×2 (15:18)
[2020-07-24] MEDS ORDERED: HYDROcodone/APAP 5-325MG 1 EACH TAB PO PRN ×2 (15:18)
[2020-07-24] MEDS ORDERED: SENNOSIDES-DOCUSATE SODIUM 1 EACH TAB PO PRN (15:18)
--- NOTE | 2020-07-24 17:13 | P.PN ---
Subjective Progress Note Date: 07/24/20 (delayed cahrting seen at 1230) Principal diagnosis: left pointer finger infection Patient is an 80-year-old female with a history of dermatomyositis, Parkinson, arthritis who presented secondary to increased swelling and pain in her left index finger. She was found have an infection and was subsequently admitted to orthopedic surgery. We are asked to consult for management of her Parkinson's of dermatomyositis. She underwent operative I&D on 07/24 with cultures obtained. Infectious disease was consulted and she was maintained on vancomycin. Of note patient is immunocompromise with her CellCept and Prograf being held. Patient seen and examined at bedside. She denies any chest pain, shortness breath, nausea, or vomiting. She reports that her hand is feeling much more comfortable than it had been prior to surgery. General: Ill appearing, no distress, appears at stated age Derm: Dressing in place over left pointer finger warm, dry Head: atraumatic, normocephalic, symmetric, masked facies Eyes: EOMI, no lid lag, anicteric sclera Mouth: no lip lesion, mucus membranes moist Cardiovascular: S1S2 reg, no murmur, positive posterior tibial pulse bilateral, Lungs: CTA bilateral, no rhonchi, no rales , no accessory muscle use Abdominal: soft, nontender to palpation, no guarding, no appreciable organomegaly Ext: no gross muscle atrophy, no edema, no contractures, active pannus over all PIP in bilateral hands Neuro: CN II-XI grossly intact, no focal neuro deficits Psych: Alert, oriented, appropriate affect Infection of the left index finger in an immunocompromised host -Continue vancomycin -Await cultures -Status post I&D on 07/24 -Hold CellCept and Prograf. Continue prednisone to avoid adrenal insufficiency -Pain control -PT/OT Dermatomyositis on immunosuppressive -Hold CellCept and Prograf -Continue prednisone - follow-up with Dr. Kaplan as outpatient. Parkinson's disease -Continue with carbidopa/levodopa DVT prophylaxis: SCDs Discussed with: Patient, nursing Anticipated discharge: 3-4days Anticipated discharge place: home A total of 35 minutes was spent on the care of this complex patient more than 50% of the time was spent in counseling and care coordination. Objective - Vital Signs Vital signs: Vital Signs Temp 97.4 F L 07/24/20 11:53 Pulse 77 07/24/20 11:53 Resp 16 07/24/20 11:53 BP 136/77 07/24/20 11:53 Pulse Ox 96 07/24/20 11:53 Intake & Output 07/23/20 07/24/20 07/24/20 18:59 06:59 18:59 Intake Total 500 Output Total 3 Balance 497 Weight 49.895 kg 49.895 kg Intake: IV 500 Output: Estimated Blood Loss 3 Other: # Voids 1 - Labs CBC & Chem 7: 07/24/20 07:58 07/24/20 07:58 Labs: Abnormal Lab Results - Last 24 Hours (Table) 07/24/20 07/24/20 Range/Units 07:58 07:58 RBC 3.52 L (3.80-5.40) m/uL Hgb 10.6 L (11.4-16.0) gm/dL MCHC 30.8 L (31.0-37.0) g/dL Lymphocytes # 0.5 L (1.0-4.8) k/uL Chloride 112 H (98-107) mmol/L Creatinine 0.29 L (0.52-1.04) mg/dL Glucose 73 L (74-99) mg/dL Calcium 6.9 L (8.4-10.2) mg/dL Alkaline Phosphatase 27 L (38-126) U/L Total Protein 5.2 L (6.3-8.2) g/dL Albumin 2.8 L (3.5-5.0) g/dL Microbiology - Last 24 Hours (Table) 07/23/20 13:25 Blood Culture - Preliminary Blood No Growth after 24 hours 07/23/20 14:51 Gram Stain - Preliminary Finger - Left Second Wound Culture - Preliminary
[2020-07-25] MEDS: VANCOMYCIN 750 MG in SODIUM CHLORIDE 0.9% 250 ML IVPB SCH ×2 (01:23→13:53)
[2020-07-25] MEDS: HEPARIN SODIUM,PORCINE 5,000 UNIT/ML 1 ML VIAL SQ SCH ×3 (01:23→17:37)
--- NOTE | 2020-07-25 05:23 | PN ---
PROGRESS NOTE DATE OF SERVICE: 07/24/2020 REASON FOR FOLLOWUP: Left index finger abscess. INTERVAL HISTORY: The patient is currently afebrile. The patient was taken to the OR this morning and this patient is status post drainage of the left index finger abscess. The patient tolerated the procedure. The patient denies having any chest pain or shortness of breath or cough. No nausea, no vomiting. No abdominal pain or diarrhea. PHYSICAL EXAMINATION: Blood pressure 139/78 with a pulse of 77, temperature 97.5. She is 98% on room air. General description is an elderly female up in the bed in no distress. RESPIRATORY SYSTEM: Unlabored breathing, clear to auscultation anteriorly. HEART: S1, S2. Regular rate and rhythm. ABDOMEN: Soft, no tenderness. Left index finger is currently dressed up. Minimal drainage on the dressing. LABS: Hemoglobin 10.6, white count 5.4, BUN of 7, creatinine 0.29. Cultures are currently showing presumptive Staph aureus. DIAGNOSTIC IMPRESSION AND PLAN: Patient with left index finger abscess with presumptive Staph aureus. Sensitivity is currently pending. Patient is covered with vancomycin to continue. Patient may need IV antibiotic on discharge. This was discussed with the rn case mgr and continue with supportive care. MMODL / IJN: [id number] /
[2020-07-25] MEDS: SODIUM CHLORIDE 0.9% 1,000 ML IV SCH ×2 (05:58→17:38)
--- NOTE | 2020-07-25 08:10 | OP ---
ADDENDUM It was noted that upon removal of the drapes, the left posterior elbow had a reddened area with what appeared to be a chronic draining olecranon bursitis. It did not appear to be grossly infected with pus drainage but there was some serous fluid draining from a small wound on the posterior aspect of the elbow just over the point of the olecranon. This was treated with a sterile gauze dressing and [place]io wrap. We will be notifying Dr. Olivarez from infectious disease about this area and see whether he desires further treatment of this. Addendum Dictated By:Heron Coburn MD Addendum Signed By: <Electronically signed by Heron Coburn MD> 07/24/[id number] DD/ Date of Procedure: 07/24/20 Procedure(s) Performed: PREOPERATIVE DIAGNOSES: 1. Left index finger subcutaneous dorsal abscess near nail plate POSTOPERATIVE DIAGNOSES: 1. Left index finger subcutaneous dorsal abscess near nail plate PROCEDURES PERFORMED: 1. Left index finger subcutaneous dorsal abscess incision and drainage 2. Removal of nail plate, left index finger 2. Superficial packing of wound with moistened iodoform gauze ANESTHESIA: Gen. BRAN MIXER: None COMPLICATIONS: None ESTIMATED BLOOD LOSS: Less than 2 mL. DISPOSITION: To post-anesthesia care unit INDICATIONS: Ebonie is an 80-year-old female with a history of abscess involving the left index finger for the past 1-2 days. She has had several musculoskeletal infections in the past, namely the left calf and right fifth finger. These have been infected with staph aureus and staph epidermidis for the calf lesion, and pseudomonas and staph aureus for the finger infection. She has a history of immune compromise, due to medications she takes for dermatomyositis. These include prednisone 10 mg daily and CellCept. The left index finger is grossly infected with spreading lymphangitis the finger and into the hand. She has minimal movement of the fingers even before the infection due to her severe arthritis of her digits. She is barely able to move any of her fingers in flexion or extension. She also has a history of neuropathy of the hands with no significant sensation at the fingertips. This is also chronic for her. She presents to the operating room for incision and drainage. Consent has been obtained after discussion of the risks of incision and drainage of this abscess as being inclusive of, but not limited to: Bleeding, further infection, scarring, discomfort, blood vessel and/or nerve damage, compartment syndrome, failure to relieve symptoms, persistence or recurrence and/or worsening of symptoms or problems, need for further surgery, blood clot, pulmonary embolism, , anesthesia risks, and other risks. PROCEDURE: After appropriate consent was obtained, the patient was taken to the operating room placed in the supine position. Anesthesia was initiated, and after confirmation of adequate anesthesia, the patient was carefully positioned. Care was taken to make sure that all pressure points were adequately padded. Prepping and draping were completed in the usual aseptic fashion using Hibiclens. Timeout was called, confirming patient identity, side, and procedure. The superficial incision had already been created in the emergency room dorsally just proximal to the nail plate. As the focus of infection appeared to be at the germinal matrix of the nail plate, the nail plate was removed using a combination of [place] elevator and curved iris scissors. The nail plate was removed intact. A small amount of pus was seen at the base of the nail and this was cultured. The skin which contained the superficial abscess was removed as it was devitalized, and another culture was taken over the superficial surface of the finger where the pus was contained. There did not appear to be any significant abscess cavity other than the eponychial fold. This fold was gently opened using the dissecting scissors and the extent of the abscess cavity was probed the tip of the scissors to make sure there was no deeper penetration onto the volar aspect of the finger. Thorough lavage was performed using 500 mL of saline containing a small amount of Hibiclens solution. Subsequently, hemostasis was obtained using electrocautery but there was no significant bleeding present. Wound was lightly superficially covered with moistened quarter-inch iodoform gauze and nonadherent gauze and sterile dressing were then applied. Patient tolerated the procedure well and taken to recovery room in stable condition. Sponge counts were correct. TONNY
[2020-07-25 08:14] LABS: Basophils % (A) 1 %; Eosinophils # (A) 0.2 k/uL (0-0.7); Eosinophils % (A) 4 %; HCT 37.6 % (34.0-46.0); HGB 11.5 gm/dL (11.4-16.0); Hypochromasia Moderate; Lymphocytes # (A) 0.8 k/uL (1.0-4.8); Lymphocytes % (A) 17 %; MCHC 30.5 g/dL (31.0-37.0); MCV 98.5 fL (80.0-100.0); Mean Platelet Volume 8.8; Monocytes # (A) 0.5 k/uL (0-1.0); Monocytes % (A) 11 %; Neutrophils # (A) 2.9 k/uL (1.3-7.7); Neutrophils % (A) 65 %; Platelet Count 322 k/uL (150-450); RBC 3.82 m/uL (3.80-5.40); RDW 14.6 % (11.5-15.5); WBC 4.4 k/uL (3.8-10.6)
[2020-07-25] MEDS: predniSONE 10 MG TAB PO SCH (08:28)
[2020-07-25] MEDS: PANTOPRAZOLE 40 MG TABLET PO SCH (08:28)
[2020-07-25] MEDS: DOCUSATE 100 MG CAP PO SCH ×2 (08:28→17:37)
[2020-07-25] MEDS: GABAPENTIN 300 MG CAP PO SCH ×3 (08:29→21:44)
[2020-07-25] MEDS: NIFEdipine XL 30 MG TAB.ER.24 PO SCH (08:31)
[2020-07-25] MEDS: NON FORMULARY DRUG (Lysine Hcl [L-Lysine] 1,000 MG Tablet) PO SCH (09:53)
--- NOTE | 2020-07-25 09:55 | P.PN ---
Subjective Progress Note Date: 07/25/20 Principal diagnosis: Infection left index finger. Patient comes in with 1-2 day history of left index finger swelling, she noticed increased swelling and pain over her left index finger started Saturday and got worse this morning for which she decided to come for evaluation she denies any associated fevers or chills she denies any limitation in range of motion other than her baseline due to chronic arthritis. She has a medical history of dermatomyositis. Patient denies any injuries to the finger. She reports history of finger infection of her right hand for which she recognized early signs and decided to come to the hospital for evaluation. She reports some clear to yellowish drainage from her left index finger, since she's been in the hospital this morning received antibiotics she reports that pain has improved. Otherwise patient does take immunosuppressives and prednisone chronically for dermatomyositis indicated other than that she reports that her health is at her baseline She lives alone Blood work in the ED showed no leukocytosis patient was afebrile x-ray imaging of index finger showed chronic changes and soft tissue swelling but no acute bony destruction. A bedside incision and drainage was performed in the emergency department. Reportedly they obtained a significant amount of pus out of the area. She was placed on IV antibiotics in the emergency department. She's had a dose of vancomycin and Unasyn. 07/25/2020: The patient is a pleasant 80-year-old female who is postoperative day #1 status post incision and drainage with debridement of the left index finger. She has no new complaints or concerns today. She states that her pain is improved. Vital signs are stable. Cultures are showing presumptive staph so far. Objective - Vital Signs Vital signs: Vital Signs Temp 97.6 F 07/25/20 07:12 Pulse 74 07/25/20 07:12 Resp 16 07/25/20 08:00 BP 121/75 07/25/20 07:12 Pulse Ox 97 07/25/20 07:12 Intake & Output 07/24/20 07/25/20 07/25/20 18:59 06:59 18:59 Intake Total 750 100 Output Total 3 Balance 747 100 Intake: IV 500 Oral 250 100 Output: Estimated Blood Loss 3 Other: Voiding Method Toilet Toilet # Voids 1 1 - Exam This is a pleasant 80-year-old female in no acute distress. She is alert and oriented 3. Exam of the left upper extremity reveals that her dressing is clean, dry and intact. She has finger motion at the MCP joint. Unable to asse ss the PIP and DIP joints under the dressing. Normal motion of the remaining fingers. Left elbow has dressing intact. - Labs CBC & Chem 7: 07/25/20 06:57 07/24/20 07:58 Labs: Abnormal Lab Results - Last 24 Hours (Table) 07/25/20 Range/Units 06:57 MCHC 30.5 L (31.0-37.0) g/dL Microbiology - Last 24 Hours (Table) 07/24/20 10:39 Gram Stain - Preliminary Finger - Left First Wound Culture - Preliminary 07/24/20 10:39 Gram Stain - Preliminary Finger - Left First Wound Culture - Preliminary 07/23/20 14:51 Gram Stain - Preliminary Finger - Left Second Wound Culture - Preliminary Presumptive Staph aureus 07/24/20 10:39 Anaerobic Culture - Preliminary Finger - Left First 07/24/20 10:39 Anaerobic Culture - Preliminary Finger - Left First 07/23/20 13:25 Blood Culture - Preliminary Blood No Growth after 24 hours Assessment and Plan (1) Abscess Current Visit: Yes Status: Acute Code(s): L02.91 - CUTANEOUS ABSCESS, UNSPECIFIED SNOMED Code(s): 586535310 (2) Cellulitis Current Visit: Yes Status: Acute Code(s): L03.90 - CELLULITIS, UNSPECIFIED SNOMED Code(s): 459387707 (3) Dermatomyositis Current Visit: No Status: Acute Code(s): M33.90 - DERMATOPOLYMYOSITIS, UNSP, ORGAN INVOLVEMENT UNSPECIFIED SNOMED Code(s): 243828062 Plan: The clinical findings are discussed with the patient. We will wait wound care and antibiotic recommendations per Dr. Henry. Leave dressing intact until evaluation with infectious disease. The patient is currently a patient at the wound care center for her leg. Most likely she will continue at the wound care center for the finger and elbow as well.
[2020-07-25 10:06] LABS: Anisocytosis (M) Present; Poikilocytosis (M) Present
[2020-07-25] MEDS: CARBIDOPA-LEVODOPA ER 25-100MG 1 EACH TABLET.ER PO SCH ×2 (10:07→21:44)
[2020-07-25] MEDS: CARBIDOPA-LEVODOPA 25-100 MG 1 EACH TAB PO SCH ×4 (10:07→21:44)
[2020-07-25 11:36] LABS: ALT <8 U/L (8-44); AST 14 U/L (13-35); African American GFR (CKD) 112.4 (60.0-200.0); Alkaline Phosphatase 30 U/L (41-126); Calcium 8.9 mg/dL (8.7-10.3); Carbon Dioxide 28.5 mmol/L (21.6-31.8); Chloride 102 mmol/L (96-109); Glucose 77 mg/dL (70-110); Magnesium 1.9 mg/dL (1.5-2.4); Potassium 3.9 mmol/L (3.5-5.5); Sodium 138 mmol/L (135-145); Total Bilirubin 0.4 mg/dL (0.3-1.2)
[2020-07-25] MEDS ORDERED: VANCOMYCIN TROUGH DUE 1 EACH MISC MISCELLANE ONE (13:00)
--- NOTE | 2020-07-25 16:44 | P.PN ---
Subjective Progress Note Date: 07/25/20 (delayed charting seen at 1255) Principal diagnosis: left pointer finger infection Patient is an 80-year-old female with a history of dermatomyositis, Parkinson, arthritis who presented secondary to increased swelling and pain in her left index finger. She was found have an infection and was subsequently admitted to orthopedic surgery. We are asked to consult for management of her Parkinson's of dermatomyositis. She underwent operative I&D on 07/24 with cultures obtained. Infectious disease was consulted and she was maintained on vancomycin. Of note patient is immunocompromised with her CellCept and Prograf being held. Patient seen and examined at bedside. Finger doing okay and not too painful. No chest pain, nausea, vomiting, or shortness of breath. She has done IV antibiotics one other time at home. She states her brother multiple health that time but he is sense . She reports that she may have a friend her medical attendant that she can pay to come over and do antibiotics. She also no longer drives so going to the infusion center daily would require medical transportation. General: non toxic, no distress, appears at stated age Derm: Dressing in place over left pointer finger warm, dry Head: atraumatic, normocephalic, symmetric, masked facies Eyes: EOMI, no lid lag, anicteric sclera Mouth: no lip lesion, mucus membranes moist Cardiovascular: S1S2 reg, no murmur, positive posterior tibial pulse bilateral, Lungs: CTA bilateral, no rhonchi, no rales , no accessory muscle use Abdominal: soft, nontender to palpation, no guarding, no appreciable organomegaly Ext: no gross muscle atrophy, no edema, no contractures, active pannus over all PIP in bilateral hands Neuro: CN II-XI grossly intact, no focal neuro deficits Psych: Alert, oriented, appropriate affect staph Infection of the left index finger in an immunocompromised host -Continue vancomycin -Await cultures -Status post I&D on 07/24 -Hold CellCept and Prograf. Continue prednisone to avoid adrenal insufficiency -Pain control -PT/OT - D/W ID once blood cx neg for 48 will proceed with midline and will need 2 weeks of IV abx. Dermatomyositis on immunosuppressive -Hold CellCept and Prograf -Continue prednisone - follow-up with Dr. Kaplan as outpatient. Parkinson's disease -Continue with carbidopa/levodopa DVT prophylaxis: SCDs Discussed with: Patient, nursing Anticipated discharge: 3-4days Anticipated discharge place: home A total of 35 minutes was spent on the care of this complex patient more than 50% of the time was spent in counseling and care coordination. Objective - Vital Signs Vital signs: Vital Signs Temp 97.6 F 07/25/20 07:12 Pulse 74 07/25/20 07:12 Resp 16 07/25/20 08:00 BP 121/75 07/25/20 07:12 Pulse Ox 97 07/25/20 07:12 Intake & Output 07/24/20 07/25/20 07/25/20 18:59 06:59 18:59 Intake Total 750 100 Output Total 3 Balance 747 100 Intake: IV 500 Oral 250 100 Output: Estimated Blood Loss 3 Other: Voiding Method Toilet Toilet # Voids 1 1 2 - Labs CBC & Chem 7: 07/25/20 06:57 07/25/20 06:57 Labs: Abnormal Lab Results - Last 24 Hours (Table) 07/25/20 07/25/20 Range/Units 06:57 06:57 MCHC 30.5 L (31.0-37.0) g/dL Lymphocytes # 0.8 L (1.0-4.8) k/uL BUN 6.0 L (9.0-27.0) mg/dL Creatinine 0.4 L (0.6-1.5) mg/dL ALT <8 L (8-44) U/L Alkaline Phosphatase 30 L (41-126) U/L Total Protein 6.0 L (6.2-8.2) g/dL Microbiology - Last 24 Hours (Table) 07/23/20 13:25 Blood Culture - Preliminary Blood No Growth after 48 hours 07/24/20 10:39 Gram Stain - Preliminary Finger - Left First Wound Culture - Preliminary 07/24/20 10:39 Gram Stain - Preliminary Finger - Left First Wound Culture - Preliminary 07/23/20 14:51 Gram Stain - Preliminary Finger - Left Second Wound Culture - Preliminary Presumptive Staph aureus 07/24/20 10:39 Anaerobic Culture - Preliminary Finger - Left First 07/24/20 10:39 Anaerobic Culture - Preliminary Finger - Left First
[2020-07-25] MEDS ORDERED: VANCOMYCIN 1,000 MG in SODIUM CHLORIDE 0.9% 250 ML IVPB SCH (22:00)
--- NOTE | 2020-07-26 01:03 | PN ---
PROGRESS NOTE DATE OF SERVICE: 07/25/2020 REASON FOR FOLLOWUP: Left index finger abscess cellulitis. INTERVAL HISTORY: The patient is currently afebrile. The patient has been breathing comfortably. The patient denies having any chest pain or shortness of breath or cough. Pain to the left index finger is currently controlled. PHYSICAL EXAMINATION: Blood pressure 137/74, pulse of 81, temperature 98.1. She is 97% on room air. General description is an elderly female up in the chair in no distress. RESPIRATORY SYSTEM: Unlabored breathing, clear to auscultation anteriorly. HEART: S1, S2. Regular rate and rhythm. ABDOMEN: Soft, no tenderness. LABS: Hemoglobin 11.5, white count 4.4. BUN of 6, creatinine 0.4. DIAGNOSTIC IMPRESSION AND PLAN: Patient with left index finger abscess status post drainage, culture with Staph aureus, MSSA. Antibiotic was switched to cefazolin 2 grams q.8 hours in view of the extensive infection. She will benefit from 2 weeks of antibiotic therapy for which a Midline will be placed. Continue supportive care. MMODL / IJN: [id number] /
[2020-07-26] MEDS: HEPARIN SODIUM,PORCINE 5,000 UNIT/ML 1 ML VIAL SQ SCH ×3 (01:19→16:30)
[2020-07-26 06:37] LABS: HCT 35.4 % (34.0-46.0); HGB 11.1 gm/dL (11.4-16.0); Hypochromasia Slight; MCH 30.4 pg (25.0-35.0); MCHC 31.2 g/dL (31.0-37.0); MCV 97.3 fL (80.0-100.0); Platelet Count 313 k/uL (150-450); RBC 3.64 m/uL (3.80-5.40); RDW 14.2 % (11.5-15.5)
[2020-07-26] MEDS: DOCUSATE 100 MG CAP PO SCH (07:41)
[2020-07-26] MEDS: PANTOPRAZOLE 40 MG TABLET PO SCH (07:41)
[2020-07-26] MEDS: CARBIDOPA-LEVODOPA 25-100 MG 1 EACH TAB PO SCH ×2 (07:41→13:09)
[2020-07-26] MEDS: predniSONE 10 MG TAB PO SCH (07:42)
[2020-07-26] MEDS: GABAPENTIN 300 MG CAP PO SCH ×2 (07:42→16:30)
[2020-07-26] MEDS: CARBIDOPA-LEVODOPA ER 25-100MG 1 EACH TABLET.ER PO SCH (07:43)
[2020-07-26] MEDS: NON FORMULARY DRUG (Lysine Hcl [L-Lysine] 1,000 MG Tablet) PO SCH (07:43)
[2020-07-26] MEDS: NIFEdipine XL 30 MG TAB.ER.24 PO SCH (07:43)
[2020-07-26] MEDS: SODIUM CHLORIDE 0.9% 1,000 ML IV SCH (07:47)
[2020-07-26 08:04] VITALS: PULSE 71
--- NOTE | 2020-07-26 09:01 | P.PN ---
Subjective Progress Note Date: 07/26/20 Principal diagnosis: Infection left index finger. Patient comes in with 1-2 day history of left index finger swelling, she noticed increased swelling and pain over her left index finger started Saturday and got worse this morning for which she decided to come for evaluation she denies any associated fevers or chills she denies any limitation in range of motion other than her baseline due to chronic arthritis. She has a medical history of dermatomyositis. Patient denies any injuries to the finger. She reports history of finger infection of her right hand for which she recognized early signs and decided to come to the hospital for evaluation. She reports some clear to yellowish drainage from her left index finger, since she's been in the hospital this morning received antibiotics she reports that pain has improved. Otherwise patient does take immunosuppressives and prednisone chronically for dermatomyositis indicated other than that she reports that her health is at her baseline She lives alone Blood work in the ED showed no leukocytosis patient was afebrile x-ray imaging of index finger showed chronic changes and soft tissue swelling but no acute bony destruction. A bedside incision and drainage was performed in the emergency department. Reportedly they obtained a significant amount of pus out of the area. She was placed on IV antibiotics in the emergency department. She's had a dose of vancomycin and Unasyn. 07/25/2020: The patient is a pleasant 80-year-old female who is postoperative day #1 status post incision and drainage with debridement of the left index finger. She has no new complaints or concerns today. She states that her pain is improved. Vital signs are stable. Cultures are showing presumptive staph so far. 07/26/2020: The patient is doing well from orthopedic standpoint. She is postoperative day #2 status post incision and drainage with debridement of the left index finger. She has no new complaints or concerns today. Vital signs are stable. Objective - Vital Signs Vital signs: Vital Signs Temp 98.0 F 07/26/20 08:03 Pulse 71 07/26/20 08:03 Resp 16 07/26/20 08:03 BP 146/82 07/26/20 08:03 Pulse Ox 97 07/26/20 08:03 Intake & Output 07/25/20 07/26/20 07/26/20 18:59 06:59 18:59 Intake Total 100 Balance 100 Intake: Oral 100 Other: Voiding Method Toilet Toilet Toilet # Voids 2 1 - Exam This is a pleasant 80-year-old female in no acute distress. She is alert and oriented 3. Dressing is removed today. There is slight active bleeding from the fingertip. The nail has been removed. She has finger motion at the MCP joint. Minimal motion to the PIP and DIP joints. Normal motion of the remaining fingers. Exam of the left elbow reveals that there is a small scab with mild erythema proximally 1 cm in diameter. She has full motion of the elbow without difficulty or pain. Elbow dressing is changed. - Labs CBC & Chem 7: 07/26/20 06:10 07/25/20 06:57 Labs: Abnormal Lab Results - Last 24 Hours (Table) 07/25/20 07/25/20 07/26/20 Range/Units 06:57 06:57 06:10 RBC 3.64 L (3.80-5.40) m/uL Hgb 11.1 L (11.4-16.0) gm/dL Lymphocytes # 0.8 L (1.0-4.8) k/uL BUN 6.0 L (9.0-27.0) mg/dL Creatinine 0.4 L (0.6-1.5) mg/dL ALT <8 L (8-44) U/L Alkaline Phosphatase 30 L (41-126) U/L Total Protein 6.0 L (6.2-8.2) g/dL Microbiology - Last 24 Hours (Table) 07/23/20 14:51 Gram Stain - Final Finger - Left Second Wound Culture - Final Staphylococcus aureus 07/23/20 13:25 Blood Culture - Preliminary Blood No Growth after 48 hours Assessment and Plan (1) Abscess Current Visit: Yes Status: Acute Code(s): L02.91 - CUTANEOUS ABSCESS, UNSPECIFIED SNOMED Code(s): 458231719 (2) Cellulitis Current Visit: Yes Status: Acute Code(s): L03.90 - CELLULITIS, UNSPECIFIED SNOMED Code(s): 960144243 (3) Dermatomyositis Current Visit: No Status: Acute Code(s): M33.90 - DERMATOPOLYMYOSITIS, UNSP, ORGAN INVOLVEMENT UNSPECIFIED SNOMED Code(s): 744533229 Plan: The clinical findings are discussed with the patient. We will await wound care and antibiotic recommendations per Dr. Henry. She may be discharged to home when cleared medically and antibiotics are arranged. The patient is currently a patient at the wound care center for her leg. Most likely she will continue at the wound care center for the finger and elbow as well.
[2020-07-26 10:14] LABS: African American GFR (CKD) 104.5 (60.0-200.0); Anion Gap 6.2 mmol/L (4.00-12.00); Calcium 8.7 mg/dL (8.7-10.3); Carbon Dioxide 29.8 mmol/L (21.6-31.8); Non-African American GFR(CKD) 90.1 (60.0-200.0); Potassium 3.6 mmol/L (3.5-5.5)
--- NOTE | 2020-07-26 14:07 | PN ---
PROGRESS NOTE DATE OF SERVICE: 07/26/2020 REASON FOR FOLLOWUP: Left index finger abscess cellulitis, MSSA. INTERVAL HISTORY: The patient is currently afebrile, patient is breathing comfortably. The patient denies having any chest pain. No shortness of breath, no cough. Overall pain discomfort in the left ring finger has improved. No nausea, no vomiting, no diarrhea. PHYSICAL EXAMINATION: Blood pressure 146/82 with a pulse of 71. Temperature 98, she is 97% on room air. General description is an elderly female, up in the chair in no distress. RESPIRATORY SYSTEM: Unlabored breathing, clear to auscultation anteriorly. HEART: S1, S2. Regular rate and rhythm. ABDOMEN: Soft, bowel sounds present. Left hand is currently dressed. No obvious drainage on the dressing. LABS: Hemoglobin 9.1, white count 5.0, BUN of 10, creatinine 0.58. DIAGNOSTIC IMPRESSION AND PLAN: Patient with left index finger abscess and cellulitis, status post drainage. X-rays of the finger did not show any bony destruction or fracture. The patient is currently on cefazolin 2 g q.8 hours. However, the patient did not have any help at home to given infusion 3 times a day and nursing for daily dose of antibiotics. She will be switched to Rocephin 2 g daily for 2 weeks and close outpatient followup. MMODL / IJN: [id number] /
[2020-07-26] MEDS ORDERED: LIDOCAINE 1% INJ 10MG/ML (10 ML MDV) SQ ONE (14:46)
--- NOTE | 2020-07-26 15:18 | P.PN ---
Subjective Progress Note Date: 07/26/20 (diego hernandez seen at 0945) Principal diagnosis: left pointer finger infection Patient is an 80-year-old female with a history of dermatomyositis, Parkinson, arthritis who presented secondary to increased swelling and pain in her left index finger. She was found have an infection and was subsequently admitted to orthopedic surgery. We are asked to consult for management of her Parkinson's of dermatomyositis. She underwent operative I&D on 07/24 with cultures obtained. Infectious disease was consulted and she was maintained on vancomycin. Of note patient is immunocompromised with her CellCept and Prograf being held. Patient seen and examined at bedside. Finger doing okay and not too painful. No chest pain, nausea, vomiting, or shortness of breath. She has done IV antibiotics one other time at home. She states her brother multiple health that time but he is sense . She reports that she may have a friend her crushing machine operator that she can pay to come over and do antibiotics. She also no longer drives so going to the infusion center daily would require medical transportation. General: non toxic, no distress, appears at stated age Derm: Dressing in place over left pointer finger warm, dry Head: atraumatic, normocephalic, symmetric, masked facies Eyes: EOMI, no lid lag, anicteric sclera Mouth: no lip lesion, mucus membranes moist Cardiovascular: S1S2 reg, no murmur, positive posterior tibial pulse bilateral, Lungs: CTA bilateral, no rhonchi, no rales , no accessory muscle use Abdominal: soft, nontender to palpation, no guarding, no appreciable organomegaly Ext: no gross muscle atrophy, no edema, no contractures, active pannus over all PIP in bilateral hands Neuro: CN II-XI grossly intact, no focal neuro deficits Psych: Alert, oriented, appropriate affect MSSA left index finger abscess in an immunocompromised host -D/w ID Rocephin X 2 weeks, PICC, Home health arranged -Status post I&D on 07/24 -Hold CellCept and Prograf resume on 07/30. Continue prednisone to avoid adrenal insufficiency -Pain control -PT/OT - wound care recs Dermatomyositis on immunosuppressive -Hold CellCept and Prograf resumed 07/30 -Continue prednisone - follow-up with Dr. Kaplan as outpatient. Parkinson's disease -Continue with carbidopa/levodopa D/C instructions completed DVT prophylaxis: SCDs Discussed with: Patient, nursing Anticipated discharge: today Anticipated discharge place: home A total of 35 minutes was spent on the care of this complex patient more than 50% of the time was spent in counseling and care coordination. Objective - Vital Signs Vital signs: Vital Signs Temp 98.0 F 07/26/20 08:03 Pulse 71 07/26/20 08:03 Resp 16 07/26/20 08:03 BP 146/82 07/26/20 08:03 Pulse Ox 97 07/26/20 08:03 Intake & Output 07/25/20 07/26/20 07/26/20 18:59 06:59 18:59 Intake Total 100 Balance 100 Intake: Oral 100 Other: Voiding Method Toilet Toilet Toilet # Voids 2 1 - Labs CBC & Chem 7: 07/26/20 06:10 07/26/20 06:10 Labs: Abnormal Lab Results - Last 24 Hours (Table) 07/26/20 07/26/20 Range/Units 06:10 06:10 RBC 3.64 L (3.80-5.40) m/uL Hgb 11.1 L (11.4-16.0) gm/dL Creatinine 0.5 L (0.6-1.5) mg/dL Microbiology - Last 24 Hours (Table) 07/24/20 10:39 Anaerobic Culture - Preliminary Finger - Left First 07/24/20 10:39 Anaerobic Culture - Preliminary Finger - Left First 07/24/20 10:39 Gram Stain - Preliminary Finger - Left First Wound Culture - Preliminary Presumptive Staph aureus 07/24/20 10:39 Gram Stain - Preliminary Finger - Left First Wound Culture - Preliminary Presumptive Staph aureus 07/23/20 14:51 Gram Stain - Final Finger - Left Second Wound Culture - Final Staphylococcus aureus 07/23/20 13:25 Blood Culture - Preliminary Blood No Growth after 48 hours
--- NOTE | 2020-07-26 15:30 | IR ---
EXAMINATION TYPE: IR cvc insert >=5 years DATE OF EXAM: 07/26/2020 COMPARISON: NONE CLINICAL HISTORY: Infection Needs long-term intravenous access for antibiotics. PROCEDURE: Hand hygiene obtained with soap and water and alcohol-based hand rub. After informed consent, the skin overlying the right brachial vein was localized with ultrasound and noted to be compressible and patent. An ultrasound image was obtained and submitted on the patient's chart. The overlying skin was prepped and draped and Lidocaine was used for local anesthesia. A sk in isela was made with a scalpel. Access was gained to the vein under ultrasound guidance with a 21 g auge needle and a 0.018 inch wire was advanced. Access site was dilated with Peel-Away sheath and ca theter tailored to the appropriate length and advanced such that the distal tip is at the cavoatrial junction. Spot image was obtained verifying placement. Catheter was fixed to the skin and a sterile dressing was placed following hemostasis. Catheter was aspirated and flushed with saline. Patient was discharged in stable condition without complication. Maximal barrier technique is utilized. Ultr asound image is documented on the chart. Ultrasound used with sterile technique. Fluoro time and fluoroscopic images submitted to document procedure: 3.5 minutes fluoroscopy time, 11 intraoperative images document the procedure IMPRESSION: STATUS POST ULTRASOUND AND FLUOROSCOPIC GUIDED PICC LINE PLACEMENT, READY FOR USE. THIS PROCEDURE WAS PERFORMED BY THE UNDERSIGNED.
[2020-07-26 16:12] VITALS: BP 138/80; RESP 17; TEMP 97.6
--- NOTE | 2020-07-26 16:44 | P.CONS ---
History of Present Illness - Reason for Consult Consult date: 07/26/20 Wound care - History of Present Illness Is an 80-year-old patient known to the wound care center with a nonhealing ulceration to the right posterior leg. We have been applying collagen to the area and she has been tolerating well. Patient also had an abscess to the left index finger that a surgical I&D was performed. Orthopedics has been providing wound care to that site. We will take over applying collagen to the site. Review of Systems Review Of Systems: Constitutional: No fever, no chills, no night sweats. No weight change. No weakness, fatigue or lethargy. No daytime sleepiness. Integumentary:reports wounds, no lesions. No rash or pruritus. No unusual bruising. No change in hair or nails. 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 No animal exposures. No tobacco use. No alcohol use. No recreational drug use. Works in the [place] area is now lived in [place] for 21 years Smoking Status: Never smoker Past Alcohol Use History: None Reported Past Drug Use History: None Reported - Past Family History Mother Family Medical History: Cancer Additional Family Medical History / Comment(s): stroke Medications and Allergies Home Medications Medication Instructions Recorded Confirmed Type Gabapentin 600 mg PO TID 09/13/16 07/23/20 History Lansoprazole [Prevacid] 30 mg PO DAILY 09/13/16 07/23/20 History Carbidopa-Levodopa 25-100 mg 2 tab PO QID 12/21/18 07/23/20 History [Sinemet 25-100 mg] Docusate [Colace] 100 mg PO BID 12/21/18 07/23/20 History NIFEdipine [NIFEdipine ER 30 mg PO DAILY 12/21/18 07/23/20 History (Osmotic)] predniSONE 10 mg PO DAILY 12/21/18 07/23/20 History Acetaminophen [Tylenol Arthritis] 1,350 mg PO Q8HR PRN 07/23/20 07/23/20 History Alendronate Sodium [Fosamax] 70 mg PO STEVENS 07/23/20 07/23/20 History Biotin 10,000 mcg PO DAILY 07/23/20 07/23/20 History Carbidopa-Levodopa ER 25-100Mg 1 tab PO BID 07/23/20 07/23/20 History [Sinemet CR 25-100 mg] Clobetasol Propionate/Emoll 1 applic TOPICAL HS 07/23/20 07/25/20 History [Clobetasol Emulsion 0.05% Foam] Ketoconazole [Nizoral A-D] 1 applic TOPICAL Q48H 07/23/20 07/25/20 History Lysine HCl [l-Lysine] 1,000 mg PO DAILY 07/23/20 07/23/20 History HYDROcodone/APAP 5-325MG [[place] 1 - 2 tab PO Q6HR PRN #32 tab 07/26/20 Rx 5-325] Tacrolimus [Protopic] 1 applic TOPICAL BID #0 07/26/20 07/25/20 Rx mycophenolate mofetiL [Cellcept] 1,500 mg PO BID #0 07/26/20 07/23/20 Rx Allergies Allergy/AdvReac Type Severity Reaction Status Date / Time No Known Allergies Allergy Verified 07/23/20 15:03 Physical Exam Vitals: Vital Signs Temp Pulse Resp BP BP Pulse Ox 07/26/20 16:10 97.6 F 17 138/80 97 07/26/20 08:03 98.0 F 71 16 146/82 97 07/26/20 07:58 97 16 07/26/20 01:45 98.0 F 97 16 138/75 97 07/25/20 20:10 98.1 F 81 17 137/74 97 07/25/20 19:20 17 Intake and Output 07/26/20 07/26/20 07/26/20 06:59 14:59 22:59 Other: Voiding Method Toilet # Voids 1 Original cause of wound was Gradually Appeared. The wound is currently classified as a Partial Thickness wound with etiology of Cellulitis and is located on the Right,Posterior Lower Leg. The wound measures 1.6cm length x 1.2cm width x 0.1cm depth; 1.508cm^2 area and 0.151cm^3 volume. The wound is limited to skin breakdown. There is no tunneling or undermining noted. There is a medium amount of serous drainage noted. The wound margin is distinct with the outline attached to the wound base. There is medium (34-66%) pink granulation within the wound bed. There is a medium (34-66%) amount of necrotic tissue within the wound bed including Adherent Slough. The periwound skin appearance exhibited: Scarring, Dry/Scaly, Hemosiderin Staining. The periwound skin appearance did not exhibit: Callus, Crepitus, Excoriation, Induration, Rash, Maceration, Atrophie Parc, Cyanosis, Ecchymosis, Mottled, Pallor, Rubor, Erythema. Periwound temperature was noted as No Abnormality. Left index finger has dressing in place which will stay in place until she is seen by home care. Results CBC & Chem 7: 07/26/20 06:10 07/26/20 06:10 Labs: Abnormal Lab Results - Last 24 Hours (Table) 07/26/20 07/26/20 Range/Units 06:10 06:10 RBC 3.64 L (3.80-5.40) m/uL Hgb 11.1 L (11.4-16.0) gm/dL Creatinine 0.5 L (0.6-1.5) mg/dL Microbiology - Last 24 Hours (Table) 07/23/20 13:25 Blood Culture - Preliminary Blood No Growth after 72 hours 07/24/20 10:39 Anaerobic Culture - Preliminary Finger - Left First 07/24/20 10:39 Anaerobic Culture - Preliminary Finger - Left First 07/24/20 10:39 Gram Stain - Preliminary Finger - Left First Wound Culture - Preliminary Presumptive Staph aureus 07/24/20 10:39 Gram Stain - Preliminary Finger - Left First Wound Culture - Preliminary Presumptive Staph aureus 07/23/20 14:51 Gram Stain - Final Finger - Left Second Wound Culture - Final Staphylococcus aureus Assessment and Plan (1) Nonhealing skin ulcer with fat layer exposed Current Visit: Yes Status: Acute Code(s): L98.492 - NON-PRS CHRONIC ULCER OF SKIN OF SITES W FAT LAYER EXPOSED SNOMED Code(s): 11866549 (2) Abscess Current Visit: Yes Status: Acute Code(s): L02.91 - CUTANEOUS ABSCESS, UNSPECIFIED SNOMED Code(s): 861536704 (3) Non-pressure chronic ulcer of right calf with fat layer exposed Current Visit: Yes Status: Acute Code(s): L97.212 - NON-PRESSURE CHRONIC ULCER OF RIGHT CALF W FAT LAYER EXPOSED SNOMED Code(s): 15726502916466391 Plan: Apply collagen, saline moistened gauze, dry gauze, rolled gauze secured fever taped to the left index finger and the right posterior lower extremity ulcerations. Change Saturday. Patient will continue with her wound care appointment on next Saturday at 3:15. Thank you for the consultation any questions his contact the wound care center DNP note has been reviewed and discussed with Dr. Quintero and the impression and plan of care has been directed as dictated.
== END 2020-07-26 17:44 | disposition home health service (06) | DRG 603 ==
LOC: EC 11:14 → 4SSUR 14:55 → 6NMEDSUR 07-24 01:44 → 4SSUR 07-24 17:45
PROVIDERS: ADMIT Orthopaedic Surgery; ATTEND Orthopaedic Surgery
PROC: 3E10X8Z Irrigation of Skin and Mucous Membranes using Irrigating Substance (ICD-10-PCS; principal; 2020-07-24 09:30)
PROC: 0H9GXZZ Drainage of Left Hand Skin, External Approach (ICD-10-PCS; principal; 2020-07-24 09:30)
PROC: 0HTQXZZ Resection of Finger Nail, External Approach (ICD-10-PCS; principal; 2020-07-24 09:30)
PROC: 02HV33Z Insertion of Infusion Device into Superior Vena Cava, Percutaneous Approach (ICD-10-PCS; 2020-07-26)
DX: L02.512 Cutaneous abscess of left hand (principal); D84.9 Immunodeficiency, unspecified; L97.212 Non-pressure chronic ulcer of right calf with fat layer exposed; M33.13 Other dermatomyositis without myopathy; B95.8 Unspecified staphylococcus as the cause of diseases classified elsewhere; T38.0X5A Adverse effect of glucocorticoids and synthetic analogues, initial encounter; T45.1X5A Adverse effect of antineoplastic and immunosuppressive drugs, initial encounter; G20 Parkinson's disease; L03.012 Cellulitis of left finger; L98.492 Non-pressure chronic ulcer of skin of other sites with fat layer exposed; M19.90 Unspecified osteoarthritis, unspecified site; Z79.83 Long term (current) use of bisphosphonates; K21.9 Gastro-esophageal reflux disease without esophagitis; Z79.899 Other long term (current) drug therapy; Z79.52 Long term (current) use of systemic steroids; Z82.3 Family history of stroke; Z90.710 Acquired absence of both cervix and uterus; Z90.49 Acquired absence of other specified parts of digestive tract; M71.122 Other infective bursitis, left elbow; Z90.89 Acquired absence of other organs; Z98.49 Cataract extraction status, unspecified eye; Z80.9 Family history of malignant neoplasm, unspecified
CPT/HCPCS: 10060; 36415; 36573; 80048; 80053; 80202; 82533; 83605; 83735; 85025; 85027; 85652; 86140; 87040; 87070; 87075; 87077; 87186; 87205; 96361; 96365; 96366; 96367; 99285

== ENCOUNTER 2021-05-15 11:15 | Observation (INO) | payer MEDICARE ==
--- NOTE | 2021-05-15 12:55 | ED ---
General Adult HPI - General Chief complaint: Back Pain/Injury Stated complaint: Back pain Time Seen by Provider: 05/15/21 12:34 Source: patient Mode of arrival: wheelchair Limitations: no limitations - History of Present Illness Initial comments: Dictation was produced using [employer] dictation software. please excuse any grammatical, word or spelling errors. Chief Complaint: 81-year-old female with past medical history of dermatomyositis presents to the emergency department for several weeks of bilateral hip pain and lower back pain. History of Present Illness: 81-year-old female she lives at home by herself. She takes care of herself usually. Over the last several weeks she's been having worsening bilateral hip pain and lower back pain. Patient has had this pain in the past. States that the pain began in her right hip and now includes her left hip and lower back. She has history of dermatomyositis. She's had frequent infections. She states that the pain is so bad that she is having trouble taking care of herself. Her niece came over today and told her that she is not looking very well and she should go to the emergency department. Patient has any fever. No abdominal pain. States her pain is worse when she tries to stand up and move. She normally ambulates with a walker. The ROS documented in this emergency department record has been reviewed and confirmed by me. Those systems with pertinent positive or negative responses have been documented in the HPI. All other systems are other negative and/or noncontributory. PHYSICAL EXAM: General Impression: Alert and oriented x3, not in acute distress HEENT: Normocephalic atraumatic, extra-ocular movements intact, pupils equal and reactive to light bilaterally, mucous membranes moist. Cardiovascular: Heart regular rate and rhythm Chest: Able to complete full sentences, no retractions, no tachypnea Abdomen: abdomen soft, non-tender, non-distended, no organomegaly Musculoskeletal: Pulses present and equal in all extremities, no peripheral edema, mild pain with manipulation of the bilateral hips Motor: no focal deficits noted Neurological: CN II-XII grossly intact, no focal motor or sensory deficits noted Skin: Intact with no visualized rashes Psych: Normal affect and mood ED course: 81-year-old female presents with acute on chronic bilateral hip and lower back pain. She has a history of dermatomyositis. Vital signs upon arrival are within acceptable limits. Patient is well-appearing at rest. Clinical presentation consistent with a traumatic acute on chronic back and hip pain. Laboratory evaluation obtained shows findings within acceptable limits. X-ray of the hip and lumbar spine shows no acute processes. Patient reevaluated at bedside after having been given oral analgesics. She states that her pain is still so severe. She does not feel comfortable being discharged given that she lives at home by herself and already has difficulties caring for herself at home. Patient is agreeable for admission. She does not have a safe disposition. Case discussed with Dr. Salgado who is willing to accept patient's care. - Related Data Home Medications Medication Instructions Recorded Confirmed Gabapentin 600 mg PO TID 09/13/16 07/23/20 Lansoprazole [Prevacid] 30 mg PO DAILY 09/13/16 07/23/20 Carbidopa-Levodopa 25-100 mg 2 tab PO QID 12/21/18 07/23/20 [Sinemet 25-100 mg] Docusate [Colace] 100 mg PO BID 12/21/18 07/23/20 NIFEdipine [NIFEdipine ER 30 mg PO DAILY 12/21/18 07/23/20 (Osmotic)] predniSONE 10 mg PO DAILY 12/21/18 07/23/20 Acetaminophen [Tylenol Arthritis] 1,350 mg PO Q8HR PRN 07/23/20 07/23/20 Alendronate Sodium [Fosamax] 70 mg PO STEVENS 07/23/20 07/23/20 Biotin 10,000 mcg PO DAILY 07/23/20 07/23/20 Carbidopa-Levodopa ER 25-100Mg 1 tab PO BID 07/23/20 07/23/20 [Sinemet CR 25-100 mg] Clobetasol Propionate/Emoll 1 applic TOPICAL HS 07/23/20 07/25/20 [Clobetasol Emulsion 0.05% Foam] Ketoconazole [Nizoral A-D] 1 applic TOPICAL Q48H 07/23/20 07/25/20 Lysine HCl [l-Lysine] 1,000 mg PO DAILY 07/23/20 07/23/20 Previous Rx's Medication Instructions Recorded HYDROcodone/APAP 5-325MG [[place] 1 - 2 tab PO Q6HR PRN #32 tab 07/26/20 5-325] Tacrolimus [Protopic] 1 applic TOPICAL BID #0 07/26/20 mycophenolate mofetiL [Cellcept] 1,500 mg PO BID #0 07/26/20 Allergies Allergy/AdvReac Type Severity Reaction Status Date / Time No Known Allergies Allergy Verified 05/15/21 12:00 Review of Systems ROS Statement: Those systems with pertinent positive or pertinent negative responses have been documented in the HPI. ROS Other: All systems not noted in ROS Statement are negative. 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, parkinsons, dermatomyocitis History of Any Multi-Drug Resistant Organisms: None Reported Past Surgical History: Adenoidectomy, Cholecystectomy, Hernia Repair, Hysterectomy, Tonsillectomy Additional Past Surgical History / Comment(s): cataracts Past Anesthesia/Blood Transfusion Reactions: No Reported Reaction Past Psychological History: No Psychological Hx Reported Smoking Status: Never smoker Past Alcohol Use History: None Reported Past Drug Use History: None Reported - Past Family History Mother Family Medical History: Cancer Additional Family Medical History / Comment(s): stroke General Exam Limitations: no limitations Course Vital Signs 05/15/21 12:00 Temperature 97.4 F L Pulse Rate 74 Respiratory 18 Rate Blood Pressure 121/80 O2 Sat by Pulse 100 Oximetry Medical Decision Making - Lab Data Result diagrams: 05/15/21 12:54 05/15/21 12:54 Lab Results 05/15/21 05/15/21 Range/Units 12:54 12:54 WBC 6.0 (3.8-10.6) k/uL RBC 3.76 L (3.80-5.40) m/uL Hgb 11.3 L (11.4-16.0) gm/dL Hct 37.0 (34.0-46.0) % MCV 98.3 (80.0-100.0) fL MCH 30.0 (25.0-35.0) pg MCHC 30.5 L (31.0-37.0) g/dL RDW 13.3 (11.5-15.5) % Plt Count 243 (150-450) k/uL MPV 7.9 Neutrophils % 80 % Lymphocytes % 9 % Monocytes % 9 % Eosinophils % 0 % Basophils % 0 % Neutrophils # 4.8 (1.3-7.7) k/uL Lymphocytes # 0.5 L (1.0-4.8) k/uL Monocytes # 0.5 (0-1.0) k/uL Eosinophils # 0.0 (0-0.7) k/uL Basophils # 0.0 (0-0.2) k/uL Hypochromasia Slight Sodium 136 L (137-145) mmol/L Potassium 3.9 (3.5-5.1) mmol/L Chloride 103 (98-107) mmol/L Carbon Dioxide 28 (22-30) mmol/L Anion Gap 5 mmol/L BUN 22 H (7-17) mg/dL Creatinine 0.38 L (0.52-1.04) mg/dL Est GFR (CKD-EPI)AfAm >90 (>60 ml/min/1.73 sqM) Est GFR (CKD-EPI)NonAf >90 (>60 ml/min/1.73 sqM) Glucose 109 H (74-99) mg/dL Calcium 9.0 (8.4-10.2) mg/dL Magnesium 1.9 (1.6-2.3) mg/dL Disposition Clinical Impression: Mechanical back pain, Debility Disposition: ADMITTED IP TO THIS HOSP Condition: Fair Referrals: Carla Aleman MD [Primary Care Provider] - 1-2 days
[2021-05-15 13:11] LABS: HGB 11.3 gm/dL (11.4-16.0); Hypochromasia Slight; Lymphocytes % (A) 9 %; MCHC 30.5 g/dL (31.0-37.0); MCV 98.3 fL (80.0-100.0); Mean Platelet Volume 7.9; Monocytes % (A) 9 %; Neutrophils % (A) 80 %; Platelet Count 243 k/uL (150-450); RBC 3.76 m/uL (3.80-5.40); RDW 13.3 % (11.5-15.5)
[2021-05-15 13:12] LABS: Basophils % (A) 0 %; Eosinophils % (A) 0 %; Lymphocytes # (A) 0.5 k/uL (1.0-4.8); Monocytes # (A) 0.5 k/uL (0-1.0); Neutrophils # (A) 4.8 k/uL (1.3-7.7)
[2021-05-15 13:27] LABS: African American GFR (CKD) >90 (>60 ml/min/1.73 sqM); Anion Gap 5 mmol/L; Blood Urea Nitrogen 22 mg/dL (7-17); Carbon Dioxide 28 mmol/L (22-30); Chloride 103 mmol/L (98-107); Glucose 109 mg/dL (74-99); Magnesium 1.9 mg/dL (1.6-2.3); Non-African American GFR(CKD) >90 (>60 ml/min/1.73 sqM); Potassium 3.9 mmol/L (3.5-5.1); Sodium 136 mmol/L (137-145)
--- NOTE | 2021-05-15 13:40 | XR ---
EXAMINATION TYPE: XR lumbar spine 2 or 3V DATE OF EXAM: 05/15/2021 CLINICAL HISTORY: pain TECHNIQUE: Three views of the lumbar spine are submitted. COMPARISON: None. FINDINGS: Moderate to severe rotoscoliosis of lumbar spine convex to the right. Severe multilevel degenerative disc space narrowing and spondylosis from L3 through L5 S1. Severe facet joint arthropathy. No fractu re or malalignment. IMPRESSION: No acute fracture or dislocation is seen in the lumbar spine. ICD 10 NO FRACTURE, INITIAL EVALUATION
--- NOTE | 2021-05-15 13:42 | XR ---
EXAMINATION TYPE: XR Hip Bilateral and AP pelvis DATE OF EXAM: 05/15/2021 CLINICAL HISTORY: pain TECHNIQUE: Single view the pelvis is submitted. Bilateral views of the hips are also submitted. FINDINGS: There is chronic deformity of the inferior pubic ramus on the left. The superior pubic diana s on the left is poorly visualized given overlying bowel content. The remaining osseous structures ap pear grossly unremarkable. Degenerative changes lumbar spine. Joint spaces are well-preserved. SI dee ints appear symmetric. IMPRESSION: 1. No acute fracture or dislocation seen.There is chronic deformity of the inferior pubic ramus on th e left. The superior pubic ramus on the left is poorly visualized given overlying bowel content. ICD 10 NO FRACTURE, INITIAL EVALUATION
[2021-05-15] MEDS ORDERED: HYDROcodone/APAP 5-325MG 1 EACH TAB PO STA (13:58)
[2021-05-15] MEDS ORDERED: NALOXONE 0.4 MG/ML 1 ML VIAL IV PRN (15:10)
--- NOTE | 2021-05-15 16:48 | P.HPIM ---
<Micha Mao - Last Filed: 05/15/21 16:42> History of Present Illness H&P Date: 05/15/21 History of Presenting Illness: Patient is a very pleasant 81-year-old female with a past medical history of marquis matomyositis with frequent infections, GERD, and Parkinson's disease. Patient presented to the Emergency department with a chief complaint of back pain.. She reports Having significant lower back pain radiating into her bilateral hips laterally down her thighs and posteriorly into the bend of her knees. Patient states this pain began a few weeks ago and has progressively worsened over the past couple days. She reports a history of arthritis and pain but states she has never felt pain radiating down her legs like this before. She reports the pain is so bad she is unable to complete the simplest activities of daily living such as walk herself to the bathroom or get herself food. Patient denies having any numbness/tingling/weakness in her extremities. She just reports pain is so severe she is unable to stand. She denies having any involuntary loss of bowel or bladder or experiencing any saddlebag anesthesias. Patient denies having any previous back surgeries and denies any recent injuries or falls. Patient denies having any other complaints including headache, lightheadedness, dizziness, fever, chills, diaphoresis, chest pain, palpitations, shortness of breath, or any swelling in her lower legs. 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 X-ray lumbar spine negative for acute process showing no fracture or dislocation with findings suggestive for moderate to severe rotoscoliosis and multilevel degenerative disc space narrowing and severe joint arthropathy, x-ray bilateral AP pelvis negative for acute fracture or dislocation showing chronic deformity of the inferior pubic rami on the left. Labs reviewed CBC revealing mild normocytic normochromic anemia with hemoglobin of 11.3. BMP showing no significant abnormalities other than slightly elevated BUN of 22 consistent with prerenal azotemia likely secondary to dehydration resulting from decreased oral fluid intake. In the emergency department, patient was medicated for pain and despite medication administered patient felt unsafe to go home and care for herself as she reports she lives alone and is unable to complete the activities necessary for daily living. Patient has been admitted under our services and consultation has been placed to case management for assistance with possible placement as well as PT/OT for evaluation. Review of systems: Pertinent positives and negatives as discussed in HPI, a complete review of systems was performed and all other systems are negative. Physical exam: Vital signs reviewed and stable. General: Nontoxic, no distress and appears stated age. Derm: Skin warm and dry, normal coloration for ethnicity. Head: Atraumatic, normocephalic and symmetric. Eyes: EOMs intact, no lid lag, and anicteric sclera Mouth: no lip lesions, mucus membranes moist Cardiovascular: regular rate and rhythm with normal S1S2, no murmur, positive posterior tibial pulses bilaterally, and cap refill < 2 seconds. Lungs: Respirations even, regular, and unlabored on room air. Lungs CTA bilaterally, no rhonchi, no rales, no wheezing, and no accessory muscle usage. Abdominal: soft, nontender to palpation, no guarding, no appreciable organomegal y Ext: ROM intact. No gross muscle atrophy, no edema, no contractures Neuro: Speech clear, face symmetrical and CN II-XII grossly intact with no noted focal neuro deficits Psych: Alert and oriented to person, place, time, and situation. Appropriate and pleasant affect. Assessment and Plan of Care: Lower back and bilateral hip pain resulting in patient's inability to Independently perform necessary activities of daily living -X-ray lumbar spine negative for acute process showing no fracture or dislocation with findings suggestive for moderate to severe rotoscoliosis and multilevel degenerative disc space narrowing and severe joint arthropathy. -X-ray bilateral AP pelvis negative for acute fracture or dislocation showing chronic deformity of the inferior pubic rami on the left. -PT/OT consulted for evaluation -Case management consulted for assistance with discharge planning and possible placement upon discharge -Safe and supportive care -Pain management -Fall precautions Parkinson's disease -Continuation of daily medication regimen. -Safe and supportive treatment along with assistance as needed. GERD -Continue daily medication regimen. The patient is admitted with an anticipated greater than 2 midnight stay for evaluation of Uncontrolled back pain resulting in inability to independently perform necessary activities of daily living. CODE STATUS: Full code DVT prophylaxis: SCDs Discussed with: Patient and RN Anticipated discharge date: Clinical course to determine Anticipated discharge place: Patient states unable to care for self possible placement in SNF A total of 45 minutes was spent on the care of this complex patient more than 50% of the time was spent in counseling and care coordination. 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, parkinsons, dermatomyocitis History of Any Multi-Drug Resistant Organisms: None Reported Past Surgical History: Adenoidectomy, Cholecystectomy, Hernia Repair, Hysterectomy, Tonsillectomy Additional Past Surgical History / Comment(s): cataracts Past Anesthesia/Blood Transfusion Reactions: No Reported Reaction Past Psychological History: No Psychological Hx Reported Smoking Status: Never smoker Past Alcohol Use History: None Reported Past Drug Use History: None Reported - Past Family History Mother Family Medical History: Cancer Additional Family Medical History / Comment(s): stroke Medications and Allergies Home Medications Medication Instructions Recorded Confirmed Type Gabapentin 600 mg PO TID 09/13/16 05/15/21 History Lansoprazole [Prevacid] 30 mg PO DAILY 09/13/16 05/15/21 History Carbidopa-Levodopa 25-100 mg 2 tab PO QID@05,10,15,21 12/21/18 05/15/21 History [Sinemet 25-100 mg] Docusate [Colace] 100 mg PO BID 12/21/18 05/15/21 History NIFEdipine [NIFEdipine ER 30 mg PO DAILY 12/21/18 05/15/21 History (Osmotic)] predniSONE 10 mg PO DAILY 12/21/18 05/15/21 History Alendronate Sodium [Fosamax] 70 mg PO STEVENS 07/23/20 05/15/21 History Biotin 10,000 mcg PO DAILY 07/23/20 05/15/21 History Carbidopa-Levodopa ER 25-100Mg 1 tab PO BID@0500,2100 07/23/20 05/15/21 History [Sinemet CR 25-100 mg] Ketoconazole [Nizoral A-D] 1 applic TOPICAL Q48H 07/23/20 05/15/21 History Lysine HCl [l-Lysine] 1,000 mg PO DAILY 07/23/20 05/15/21 History mycophenolate mofetiL [Cellcept] 1,500 mg PO BID #0 07/26/20 05/15/21 Rx Fluocinolone/Shower Cap 1 applic TOPICAL TID PRN 05/15/21 05/15/21 History [Fluocinolone 0.01% Scalp Oil] Furosemide [Lasix] 20 mg PO Q48H 05/15/21 05/15/21 History Allergies Allergy/AdvReac Type Severity Reaction Status Date / Time No Known Allergies Allergy Verified 05/15/21 17:03 Physical Exam Vitals: Vital Signs Temp Pulse Resp BP Pulse Ox 05/15/21 12:00 97.4 F L 74 18 121/80 100 Intake and Output 05/15/21 05/15/21 05/15/21 06:59 14:59 22:59 Other: Weight 47.627 kg Results CBC & Chem 7: 05/15/21 12:54 05/15/21 12:54 Labs: Abnormal Lab Results - Last 24 Hours (Table) 05/15/21 05/15/21 Range/Units 12:54 12:54 RBC 3.76 L (3.80-5.40) m/uL Hgb 11.3 L (11.4-16.0) gm/dL MCHC 30.5 L (31.0-37.0) g/dL Lymphocytes # 0.5 L (1.0-4.8) k/uL Sodium 136 L (137-145) mmol/L BUN 22 H (7-17) mg/dL Creatinine 0.38 L (0.52-1.04) mg/dL Glucose 109 H (74-99) mg/dL <Yael Harris - Last Filed: 05/15/21 18:53> Physical Exam Osteopathic Statement: *. No significant issues noted on an osteopathic structural exam other than those noted in the History and Physical/Consult. Vitals: Vital Signs Temp Pulse Resp BP Pulse Ox 05/15/21 12:00 97.4 F L 74 18 121/80 100 Intake and Output 05/15/21 05/15/21 05/15/21 06:59 14:59 22:59 Other: Weight 47.627 kg Results CBC & Chem 7: 05/15/21 12:54 05/15/21 12:54 Labs: Abnormal Lab Results - Last 24 Hours (Table) 05/15/21 05/15/21 Range/Units 12:54 12:54 RBC 3.76 L (3.80-5.40) m/uL Hgb 11.3 L (11.4-16.0) gm/dL MCHC 30.5 L (31.0-37.0) g/dL Lymphocytes # 0.5 L (1.0-4.8) k/uL Sodium 136 L (137-145) mmol/L BUN 22 H (7-17) mg/dL Creatinine 0.38 L (0.52-1.04) mg/dL Glucose 109 H (74-99) mg/dL Assessment and Plan Assessment: Patient seen and examined independently. Patient was also seen by Micha Mao NP and case was discussed. I am in agreement with subjective, physical exam, assessment and plan as written above and amended below. She reports that she is feeling well but as soon as she moves she continues to have pain. She is concerned about going home. We discussed that this is likely sciatica. General: non toxic, no distress, appears at stated age Derm: warm, dry Head: atraumatic, normocephalic, symmetric Eyes: EOMI, no lid lag, anicteric sclera Mouth: no lip lesion, mucus membranes moist Cardiovascular: S1S2 reg, no murmur, positive posterior tibial pulse bilateral, Lungs: CTA bilateral, no rhonchi, no rales , no accessory muscle use Ext: no gross muscle atrophy, no edema, no contractures, patient complains of shooting pain in the left side the minute she lifts her left leg slightly off the bed Psych: Alert, oriented, appropriate affect
[2021-05-15] MEDS ORDERED: [UNRECOGNIZED DRUG - OTHER] TOPICAL PRN (17:55)
[2021-05-15] MEDS ORDERED: FLUOCINOLONE TOPICAL PRN (17:55)
[2021-05-15] MEDS ORDERED: FUROSEMIDE 20 MG TAB PO SCH (18:00)
[2021-05-15] MEDS: DOCUSATE 100 MG CAP PO SCH ×2 (21:09→21:16)
[2021-05-15] MEDS: CARBIDOPA-LEVODOPA 25-100 MG 1 EACH TAB PO SCH (21:09)
[2021-05-15] MEDS: GABAPENTIN 300 MG CAP PO SCH ×2 (21:10→21:16)
[2021-05-15] MEDS: CARBIDOPA-LEVODOPA ER 25-100MG 1 EACH TABLET.ER PO SCH (21:10)
[2021-05-16] MEDS: CARBIDOPA-LEVODOPA 25-100 MG 1 EACH TAB PO SCH ×3 (04:13→16:11)
[2021-05-16] MEDS: CARBIDOPA-LEVODOPA ER 25-100MG 1 EACH TABLET.ER PO SCH (05:37)
[2021-05-16] MEDS ORDERED: PANTOPRAZOLE 40 MG TABLET PO SCH (07:30)
[2021-05-16] MEDS: GABAPENTIN 300 MG CAP PO SCH ×2 (08:07→16:11)
[2021-05-16] MEDS: DOCUSATE 100 MG CAP PO SCH (08:07)
[2021-05-16] MEDS ORDERED: predniSONE 10 MG TAB PO SCH (09:00)
[2021-05-16] MEDS ORDERED: NON FORMULARY DRUG (Lysine Hcl [L-Lysine] 1,000 MG Tablet) PO SCH (09:00)
[2021-05-16] MEDS ORDERED: NIFEdipine XL 30 MG TAB.ER.24 PO SCH (09:00)
--- NOTE | 2021-05-16 09:54 | P.PN ---
Subjective Progress Note Date: 05/16/21 History of Presenting Illness: Patient is a very pleasant 81-year-old female with a past medical history of dermatomyositis with frequent infections, GERD, and Parkinson's disease. Alysha arevalo presented to the Emergency department with a chief complaint of back pain.. She reports Having significant lower back pain radiating into her bilateral hips laterally down her thighs and posteriorly into the bend of her knees. Patient states this pain began a few weeks ago and has progressively worsened over the past couple days. She reports a history of arthritis and pain but states she has never felt pain radiating down her legs like this before. She reports the pain is so bad she is unable to complete the simplest activities of daily living such as walk herself to the bathroom or get herself food. Patient denies having any numbness/tingling/weakness in her extremities. She just reports pain is so severe she is unable to stand. She denies having any involuntary loss of bowel or bladder or experiencing any saddlebag anesthesias. Patient denies having any previous back surgeries and denies any recent injuries or falls. Patient denies having any other complaints including h eadache, lightheadedness, dizziness, fever, chills, diaphoresis, chest pain, palpitations, shortness of breath, or any swelling in her lower legs. 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 X-ray lumbar spine negative for acute process showing no fracture or dislocation with findings suggestive for moderate to severe rotoscoliosis and multilevel degenerative disc space narrowing and severe joint arthropathy, x-ray bilateral AP pelvis negative for acute fracture or dislocation showing chronic deformity of the inferior pubic rami on the left. Labs reviewed CBC revealing mild normocytic normochromic anemia with hemoglobin of 11.3. BMP showing no significant abnormalities other than slightly elevated BUN of 22 consistent with prerenal azotemia likely secondary to dehydration resulting from decreased oral fluid intake. In the emergency department, patient was medicated for pain and despite medication administered patient felt unsafe to go home and care for herself as she reports she lives alone and is unable to complete the activities necessary for daily living. Patient has been admitted under our services and consultation has been placed to case management for assistance with possible placement as well as PT/OT for evaluation. Physical exam: Pt seen and fully evaluated at bedside this morning. She reports continued weakness and pain. She did work with physical therapy this morning and they're recommending rehabilitation placement. Patient reports continued soreness in her back radiating to lateral hip symptoms legs secondary to sciatica. Patient denies having any other concerns or complaints at this time including headache, lightheadedness, dizziness, chest pain, palpitations, shortness of breath, or changes in her bowel or urinary function. Additional pain medications to be added. We'll continue to monitor while awaiting Insurance authorization for SNF placement. Vital signs reviewed and stable. General: Nontoxic, no distress and appears stated age. Derm: Skin warm and dry, normal coloration for ethnicity.Pt with peeling, erythematous, and irritated skin to scalp, face, ears, hands, and legs secondary to dermatomyositis. . Head: Atraumatic, normocephalic and symmetric. Eyes: EOMs intact, no lid lag, and anicteric sclera Mouth: no lip lesions, mucus membranes moist Cardiovascular: regular rate and rhythm with normal S1S2, no murmur, positive posterior tibial pulses bilaterally, and cap refill < 2 seconds. Lungs: Respirations even, regular, and unlabored on room air. Lungs CTA bilaterally, no rhonchi, no rales, no wheezing, and no accessory muscle usage. Abdominal: soft, nontender to palpation, no guarding, no appreciable organomegaly Ext: ROM intact. No gross muscle atrophy, BLE swelling with Left > Right-Pt reports chronic for many years. no contractures. Pt with positive reports of lower back pain upon raising legs. Denies pain to spinal region upon palpation. Neuro: Speech clear, face symmetrical and CN II-XII grossly intact with no noted focal neuro deficits Psych: Alert and oriented to person, place, time, and situation. Appropriate and pleasant affect. Assessment and Plan of Care: Lower back and bilateral hip pain with sciatica resulting in patient's inability to Independently perform necessary activities of daily living, -X-ray lumbar spine negative for acute process showing no fracture or dislocation with findings suggestive for moderate to severe rotoscoliosis and multilevel degenerative disc space narrowing and severe joint arthropathy. -X-ray bilateral AP pelvis negative for acute fracture or dislocation showing chronic deformity of the inferior pubic rami on the left. -PT/OT consulted for evaluation -Case management arranging for insurance authorization for rehab placement. -Safe and supportive care -Pain management -Fall precautions Parkinson's disease -Continuation of daily medication regimen. -Safe and supportive treatment along with assistance as needed. GERD -Continue daily medication regimen. CODE STATUS: Full code DVT prophylaxis: SCDs Discussed with: Patient and RN Anticipated discharge date: Clinical course to determine Anticipated discharge place: Plans for SNF, Insurance authorization pending. A total of 45 minutes was spent on the care of this complex patient more than 50% of the time was spent in counseling and care coordination. Objective - Vital Signs Vital signs: Vital Signs Temp 98.7 F 05/16/21 04:05 Pulse 76 05/16/21 04:05 Resp 18 05/16/21 04:05 BP 168/85 05/16/21 04:05 Pulse Ox 95 05/16/21 04:05 Intake & Output 05/15/21 05/16/21 05/16/21 18:59 06:59 18:59 Intake Total 220 Balance 220 Weight 47.627 kg 47.627 kg Intake: Oral 220 Other: Voiding Method Bedpan Bedpan Diaper Incontinent # Voids 9 - Labs CBC & Chem 7: 05/15/21 12:54 05/15/21 12:54 Labs: Abnormal Lab Results - Last 24 Hours (Table) 05/15/21 05/15/21 Range/Units 12:54 12:54 RBC 3.76 L (3.80-5.40) m/uL Hgb 11.3 L (11.4-16.0) gm/dL MCHC 30.5 L (31.0-37.0) g/dL Lymphocytes # 0.5 L (1.0-4.8) k/uL Sodium 136 L (137-145) mmol/L BUN 22 H (7-17) mg/dL Creatinine 0.38 L (0.52-1.04) mg/dL Glucose 109 H (74-99) mg/dL
[2021-05-16] MEDS: HYDROcodone/APAP 5-325MG 1 EACH TAB PO PRN ×2 (10:43→16:11)
[2021-05-16 12:12] VITALS: BP 116/66; PULSE 75; RESP 17; TEMP 98.1
--- NOTE | 2021-05-16 15:33 | P.DS ---
Providers Date of admission: 05/15/21 15:11 Expected date of discharge: 05/16/21 Attending physician: Yael Harris DO Primary care physician: Carla Aleman MD Hospital Course: Discharge Diagnosis: Lower back and bilateral hip pain with sciatica resulting in patient's inability to Independently perform necessary activities of daily living, Parkinson's disease GERD Hospital Course: Patient is a very pleasant 81-year-old female with a past medical history of dermatomyositis with frequent infections, GERD, and Parkinson's disease. Patient presented to the Emergency department with a chief complaint of back pain.. She reports Having significant lower back pain radiating into her bilateral hips laterally down her thighs and posteriorly into the bend of her knees. Patient states this pain began a few weeks ago and has progressively worsened over the past couple days. She reports a history of arthritis and pain but states she has never felt pain radiating down her legs like this before. She reports the pain is so bad she is unable to complete the simplest activities of daily living such as walk herself to the bathroom or get herself food. Patient denies having any numbness/tingling/weakness in her extremities. She just reports pain is so severe she is unable to stand. She denies having any involuntary loss of bowel or bladder or experiencing any saddlebag anesthesias. Patient denies having any previous back surgeries and denies any recent injuries or falls. Patient denies having any other complaints including headac he, lightheadedness, dizziness, fever, chills, diaphoresis, chest pain, palpitations, shortness of breath, or any swelling in her lower legs. 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 X-ray lumbar spine negative for acute process showing no fracture or dislocation with findings suggestive for moderate to severe rotoscoliosis and multilevel degenerative disc space narrowing and severe joint arthropathy, x-ray bilateral AP pelvis negative for acute fracture or dislocation showing chronic deformity of the inferior pubic rami on the left. Labs reviewed CBC revealing mild normocytic normochromic anemia with hemoglobin of 11.3. BMP showing no significant abnormalities other than slightly elevated BUN of 22 consistent with prerenal azotemia likely secondary to dehydration resulting from decreased oral fluid intake. In the emergency department, patient was medicated for pain and despite medication administered patient felt unsafe to go home and care for he rself as she reports she lives alone and is unable to complete the activities necessary for daily living. Patient has been admitted under our services and consultation has been placed to case management for assistance with possible placement as well as PT/OT for evaluation. Pt was evaluated by physical therapy, it is believed that pt would strongly benefit from rehabilitation placement. Arrangements have been made for transfer to [facility] at this time. Please refer to progress note completed earlier today for a detailed physical examination. A total of 45 minutes was spent preparing this discharge summary. Patient Condition at Discharge: Fair Plan - Discharge Summary Discharge Rx Participant: No New Discharge Prescriptions: Continue Lansoprazole [Prevacid] 30 mg PO DAILY Gabapentin 600 mg PO TID NIFEdipine [NIFEdipine ER (Osmotic)] 30 mg PO DAILY Docusate [Colace] 100 mg PO BID predniSONE 10 mg PO DAILY Carbidopa-Levodopa 25-100 mg [Sinemet 25-100 mg] 2 tab PO QID@05,10,15,21 Lysine HCl [l-Lysine] 1,000 mg PO DAILY Biotin 10,000 mcg PO DAILY Carbidopa-Levodopa ER 25-100Mg [Sinemet CR 25-100 mg] 1 tab PO BID@0500,2100 Ketoconazole [Nizoral A-D] 1 applic TOPICAL Q48H Alendronate Sodium [Fosamax] 70 mg PO STEVENS mycophenolate mofetiL [Cellcept] 1,500 mg PO BID #0 Fluocinolone/Shower Cap [Fluocinolone 0.01% Scalp Oil] 1 applic TOPICAL TID PRN PRN Reason: dermatitis of scalp Furosemide [Lasix] 20 mg PO Q48H Discharge Medication List Gabapentin 600 mg PO TID 09/13/16 [History] Lansoprazole [Prevacid] 30 mg PO DAILY 09/13/16 [History] Carbidopa-Levodopa 25-100 mg [Sinemet 25-100 mg] 2 tab PO QID@05,10,15,21 12/21/18 [History] Docusate [Colace] 100 mg PO BID 12/21/18 [History] NIFEdipine [NIFEdipine ER (Osmotic)] 30 mg PO DAILY 12/21/18 [History] predniSONE 10 mg PO DAILY 12/21/18 [History] Alendronate Sodium [Fosamax] 70 mg PO STEVENS 07/23/20 [History] Biotin 10,000 mcg PO DAILY 07/23/20 [History] Carbidopa-Levodopa ER 25-100Mg [Sinemet CR 25-100 mg] 1 tab PO BID@0500,2100 07/23/20 [History] Ketoconazole [Nizoral A-D] 1 applic TOPICAL Q48H 07/23/20 [History] Lysine HCl [l-Lysine] 1,000 mg PO DAILY 07/23/20 [History] mycophenolate mofetiL [Cellcept] 1,500 mg PO BID #0 07/26/20 [Rx] Fluocinolone/Shower Cap [Fluocinolone 0.01% Scalp Oil] 1 applic TOPICAL TID PRN 05/15/21 [History] Furosemide [Lasix] 20 mg PO Q48H 05/15/21 [History] Follow up Appointment(s)/Referral(s): Carla Aleman MD [Primary Care Provider] - 1-2 days Discharge Disposition: TRANSFER TO SNF/ECF
[2021-05-21] MEDS ORDERED: NON FORMULARY DRUG (Alendronate Sodium [Fosamax] 70 MG Tablet) PO SCH (17:55)
== END 2021-05-16 16:48 ==
LOC: EC 11:15 → 5NMEDONC 15:11 → INTOOBSV 15:11 → 5NMEDONC 15:55 → UNDODISIN 05-16 16:48
PROVIDERS: ADMIT Internal Medicine; ATTEND Internal Medicine
DX: M51.16 Intervertebral disc disorders with radiculopathy, lumbar region (principal); M33.13 Other dermatomyositis without myopathy; G20 Parkinson's disease; E86.0 Dehydration; M47.26 Other spondylosis with radiculopathy, lumbar region; M51.17 Intervertebral disc disorders with radiculopathy, lumbosacral region; K21.9 Gastro-esophageal reflux disease without esophagitis; G89.29 Other chronic pain; D64.9 Anemia, unspecified; R79.89 Other specified abnormal findings of blood chemistry; R63.8 Other symptoms and signs concerning food and fluid intake; R53.81 Other malaise; M95.5 Acquired deformity of pelvis; M19.041 Primary osteoarthritis, right hand; M19.042 Primary osteoarthritis, left hand; Z20.822 Contact with and (suspected) exposure to COVID-19; Z79.83 Long term (current) use of bisphosphonates; Z79.52 Long term (current) use of systemic steroids; Z79.899 Other long term (current) drug therapy; Z90.710 Acquired absence of both cervix and uterus; Z87.19 Personal history of other diseases of the digestive system; Z90.49 Acquired absence of other specified parts of digestive tract; Z98.49 Cataract extraction status, unspecified eye; Z98.890 Other specified postprocedural states; Z82.3 Family history of stroke; Z80.9 Family history of malignant neoplasm, unspecified
CPT/HCPCS: 99284; 36415; 97162; 97166; 80048; 83735; 85025; 87635; 72100; 73521; G0378 ×2; J7517; J7512

== ENCOUNTER 2021-07-10 11:39 | Inpatient (IN) | payer MEDICARE ==
[2021-07-10] MEDS ORDERED: VANCOMYCIN IV PER PHARMACY 1 EACH MISC MISCELLANE PRN (14:46)
[2021-07-10] MEDS ORDERED: PIPERACILLIN-TAZOBACTAM 3.375 GM in SODIUM CHLORIDE 0.9% 100 ML IVPB STA (14:46)
[2021-07-10] MEDS ORDERED: ACETAMINOPHEN TAB 500 MG TAB PO STA (14:46)
[2021-07-10] MEDS ORDERED: VANCOMYCIN 750 MG in SODIUM CHLORIDE 0.9% 250 ML IVPB STA (14:49)
[2021-07-10] MEDS: SODIUM CHLORIDE 0.9% 500 ML 500 ML IV SCH ×2 (15:05→15:55)
[2021-07-10 15:14] LABS: Basophils % (A) 0 %; Eosinophils % (A) 0 %; HCT 35.7 % (34.0-46.0); HGB 10.9 gm/dL (11.4-16.0); Hypochromasia Slight; Lymphocytes # (A) 0.6 k/uL (1.0-4.8); Lymphocytes % (A) 2 %; MCH 30.2 pg (25.0-35.0); MCHC 30.6 g/dL (31.0-37.0); MCV 98.5 fL (80.0-100.0); Mean Platelet Volume 7.9; Monocytes # (A) 1.1 k/uL (0-1.0); Monocytes % (A) 5 %; Neutrophils # (A) 22.5 k/uL (1.3-7.7); Neutrophils % (A) 92 %; Platelet Count 404 k/uL (150-450); RBC 3.62 m/uL (3.80-5.40); RDW 13.5 % (11.5-15.5); WBC 24.4 k/uL (3.8-10.6)
[2021-07-10 15:26] LABS: ALT <6 U/L (4-34); AST 19 U/L (14-36); African American GFR (CKD) >90 (>60 ml/min/1.73 sqM); Albumin 3.9 g/dL (3.5-5.0); Alkaline Phosphatase 60 U/L (38-126); Anion Gap 10 mmol/L; Blood Urea Nitrogen 25 mg/dL (7-17); Calcium 9.3 mg/dL (8.4-10.2); Carbon Dioxide 25 mmol/L (22-30); Chloride 98 mmol/L (98-107); Glucose 131 mg/dL (74-99); Non-African American GFR(CKD) >90 (>60 ml/min/1.73 sqM); Potassium 4.7 mmol/L (3.5-5.1); Sodium 133 mmol/L (137-145); Total Bilirubin 0.5 mg/dL (0.2-1.3); Total Protein 6.9 g/dL (6.3-8.2)
[2021-07-10 15:32] LABS: Partial Thromboplastin Time 26.3 sec (22.0-30.0); Prothrombin Time 10.5 sec (9.0-12.0)
--- NOTE | 2021-07-10 19:36 | ED ---
General Adult HPI - General Chief complaint: Extremity Injury, Upper Stated complaint: Rt arm cellulitis Time Seen by Provider: 07/10/21 14:27 Source: patient Mode of arrival: wheelchair Limitations: no limitations - History of Present Illness Initial comments: Patient complains of erythema and pain in the right upper extremity. She states it has gotten progressively worse for several days. She had no fevers or chills. She has no chest pain. She has no belly or back pain. She has no nausea or vomiting. She has no focal weakness. She has no lightheadedness. She has taken no medicines for this. - Related Data Home Medications Medication Instructions Recorded Confirmed Lansoprazole [Prevacid] 30 mg PO DAILY 09/13/16 07/10/21 Carbidopa-Levodopa 25-100 mg 2 tab PO QID@05,,12/21/18 07/10/21 [Sinemet 25-100 mg] Docusate [Colace] 100 mg PO BID 12/21/18 07/10/21 NIFEdipine [NIFEdipine ER 30 mg PO DAILY 12/21/18 07/10/21 (Osmotic)] predniSONE 10 mg PO DAILY 12/21/18 07/10/21 Alendronate Sodium [Fosamax] 70 mg PO STEVENS 07/23/20 07/10/21 Biotin 10,000 mcg PO DAILY 07/23/20 07/10/21 Carbidopa-Levodopa ER 25-100Mg 1 tab PO BID@0500,2100 07/23/20 07/10/21 [Sinemet CR 25-100 mg] Ketoconazole [Nizoral A-D] 1 applic TOPICAL Q48H 07/23/20 07/10/21 Lysine HCl [l-Lysine] 1,000 mg PO DAILY 07/23/20 07/10/21 Fluocinolone/Shower Cap 1 applic TOPICAL TID PRN 05/15/21 07/10/21 [Fluocinolone 0.01% Scalp Oil] Furosemide [Lasix] 20 mg PO Q48H 05/15/21 07/10/21 Magnesium Oxide 400 mg PO HS 07/10/21 07/10/21 Previous Rx's Medication Instructions Recorded mycophenolate mofetiL [Cellcept] 1,500 mg PO BID #0 07/26/20 Gabapentin 600 mg PO TID 3 Days #9 tab 05/16/21 Allergies Allergy/AdvReac Type Severity Reaction Status Date / Time No Known Allergies Allergy Verified 07/10/21 16:26 Review of Systems ROS Statement: Those systems with pertinent positive or pertinent negative responses have been documented in the HPI. ROS Other: All systems not noted in ROS Statement are negative. 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, parkinsons, dermatomyocitis History of Any Multi-Drug Resistant Organisms: None Reported Past Surgical History: Adenoidectomy, Cholecystectomy, Hernia Repair, Hysterectomy, Tonsillectomy Additional Past Surgical History / Comment(s): cataracts Past Anesthesia/Blood Transfusion Reactions: No Reported Reaction Past Psychological History: No Psychological Hx Reported Smoking Status: Never smoker Past Alcohol Use History: None Reported Past Drug Use History: None Reported - Past Family History Mother Family Medical History: Cancer Additional Family Medical History / Comment(s): stroke General Exam Limitations: no limitations General appearance: alert, in no apparent distress Head exam: Present: atraumatic, normocephalic, normal inspection Eye exam: Present: normal appearance, PERRL, EOMI. Absent: scleral icterus, conjunctival injection, periorbital swelling ENT exam: Present: normal exam, mucous membranes moist Neck exam: Present: normal inspection. Absent: tenderness, meningismus, lymphadenopathy Respiratory exam: Present: normal lung sounds bilaterally. Absent: respiratory distress, wheezes, rales, rhonchi, stridor Cardiovascular Exam: Present: regular rate, normal rhythm, normal heart sounds. Absent: systolic murmur, diastolic murmur, rubs, gallop, clicks GI/Abdominal exam: Present: soft, normal bowel sounds. Absent: distended, tenderness, guarding, rebound, rigid Extremities exam: Present: normal inspection, full ROM, normal capillary refill. Absent: tenderness, pedal edema, joint swelling, calf tenderness Back exam: Present: normal inspection Neurological exam: Present: alert, oriented X3, CN II-XII intact Psychiatric exam: Present: normal affect, normal mood Skin exam: Present: other (Extensive cellulitis right upper extremity) Course Vital Signs 07/10/21 07/10/21 14:17 18:42 Temperature 102.4 F H 98.2 F Pulse Rate 92 69 Respiratory 18 18 Rate Blood Pressure 109/62 90/57 O2 Sat by Pulse 98 90 L Oximetry Medical Decision Making - Medical Decision Making Patient presents with what appears to be an infectious processes of the right upper [place]ardo. She has a high white count. I ordered cultures. I ordered IV antibiotics. She will be admitted to the hospital. - Lab Data Result diagrams: 07/10/21 14:57 07/10/21 14:57 Lab Results 07/10/21 07/10/21 07/10/21 Range/Units 14:57 14:57 14:57 WBC 24.4 H (3.8-10.6) k/uL RBC 3.62 L (3.80-5.40) m/uL Hgb 10.9 L (11.4-16.0) gm/dL Hct 35.7 (34.0-46.0) % MCV 98.5 (80.0-100.0) fL MCH 30.2 (25.0-35.0) pg MCHC 30.6 L (31.0-37.0) g/dL RDW 13.5 (11.5-15.5) % Plt Count 404 (150-450) k/uL MPV 7.9 Neutrophils % 92 % Lymphocytes % 2 % Monocytes % 5 % Eosinophils % 0 % Basophils % 0 % Neutrophils # 22.5 H (1.3-7.7) k/uL Lymphocytes # 0.6 L (1.0-4.8) k/uL Monocytes # 1.1 H (0-1.0) k/uL Eosinophils # 0.0 (0-0.7) k/uL Basophils # 0.0 (0-0.2) k/uL Hypochromasia Slight PT 10.5 (9.0-12.0) sec INR 1.0 (<1.2) APTT 26.3 (22.0-30.0) sec Sodium 133 L (137-145) mmol/L Potassium 4.7 (3.5-5.1) mmol/L Chloride 98 (98-107) mmol/L Carbon Dioxide 25 (22-30) mmol/L Anion Gap 10 mmol/L BUN 25 H (7-17) mg/dL Creatinine 0.49 L (0.52-1.04) mg/dL Est GFR (CKD-EPI)AfAm >90 (>60 ml/min/1.73 sqM) Est GFR (CKD-EPI)NonAf >90 (>60 ml/min/1.73 sqM) Glucose 131 H (74-99) mg/dL Plasma Lactic Acid Jose Daniel (0.7-2.0) mmol/L Calcium 9.3 (8.4-10.2) mg/dL Total Bilirubin 0.5 (0.2-1.3) mg/dL AST 19 (14-36) U/L ALT <6 (4-34) U/L Alkaline Phosphatase 60 (38-126) U/L Total Protein 6.9 (6.3-8.2) g/dL Albumin 3.9 (3.5-5.0) g/dL 07/10/21 Range/Units 14:57 WBC (3.8-10.6) k/uL RBC (3.80-5.40) m/uL Hgb (11.4-16.0) gm/dL Hct (34.0-46.0) % MCV (80.0-100.0) fL MCH (25.0-35.0) pg MCHC (31.0-37.0) g/dL RDW (11.5-15.5) % Plt Count (150-450) k/uL MPV Neutrophils % % Lymphocytes % % Monocytes % % Eosinophils % % Basophils % % Neutrophils # (1.3-7.7) k/uL Lymphocytes # (1.0-4.8) k/uL Monocytes # (0-1.0) k/uL Eosinophils # (0-0.7) k/uL Basophils # (0-0.2) k/uL Hypochromasia PT (9.0-12.0) sec INR (<1.2) APTT (22.0-30.0) sec Sodium (137-145) mmol/L Potassium (3.5-5.1) mmol/L Chloride (98-107) mmol/L Carbon Dioxide (22-30) mmol/L Anion Gap mmol/L BUN (7-17) mg/dL Creatinine (0.52-1.04) mg/dL Est GFR (CKD-EPI)AfAm (>60 ml/min/1.73 sqM) Est GFR (CKD-EPI)NonAf (>60 ml/min/1.73 sqM) Glucose (74-99) mg/dL Plasma Lactic Acid Jose Daniel 1.2 (0.7-2.0) mmol/L Calcium (8.4-10.2) mg/dL Total Bilirubin (0.2-1.3) mg/dL AST (14-36) U/L ALT (4-34) U/L Alkaline Phosphatase (38-126) U/L Total Protein (6.3-8.2) g/dL Albumin (3.5-5.0) g/dL Disposition Clinical Impression: Cellulitis Disposition: ADMITTED IP TO THIS HOSP Condition: Fair Referrals: Tucker Fernando DO [Primary Care Provider] - 1-2 days
[2021-07-10] MEDS ORDERED: ONDANSETRON 4 MG/2 ML VIAL IVP PRN (19:58)
[2021-07-10] MEDS ORDERED: NALOXONE 0.4 MG/ML 1 ML VIAL IV PRN (19:58)
[2021-07-10] MEDS ORDERED: TEMAZEPAM 15 MG CAP PO PRN (19:58)
[2021-07-10] MEDS ORDERED: MORPHINE SULFATE 4 MG/ML SYRINGE IV PRN (19:58)
[2021-07-10] MEDS ORDERED: DOCUSATE 100 MG CAP PO PRN (19:58)
[2021-07-10 21:33] LABS: Appearance,Urine Cloudy (Clear); Bacteria,Urine Many /hpf; Bilirubin,Urine Negative (Negative); Blood,Urine Small (Negative); Color,Urine Yellow; Glucose,Urine (UA) Negative (Negative); Hyaline Casts,Urine 4 /lpf (0-2); Ketones,Urine Trace (Negative); Leukocyte Esterase,Urine Moderate (Negative); Mucus,Urine Rare /hpf; Nitrite,Urine Positive (Negative); Protein,Urine 1+ (Negative); RBC,Urine 4 /hpf (0-5); Squamous Epithelial Cell,Urine 2 /hpf (0-4); Urobilinogen,Urine <2.0 mg/dL (<2.0); WBC,Urine 23 /hpf (0-5)
[2021-07-10] MEDS: MAGNESIUM OXIDE 400 MG TAB PO SCH (23:05)
[2021-07-10] MEDS: CARBIDOPA-LEVODOPA ER 25-100MG 1 EACH TABLET.ER PO SCH (23:06)
[2021-07-10] MEDS: GABAPENTIN 300 MG CAP PO SCH (23:06)
[2021-07-10] MEDS: CARBIDOPA-LEVODOPA 25-100 MG 1 EACH TAB PO SCH (23:29)
[2021-07-11] MEDS: HYDROcodone/APAP 5-325MG 1 EACH TAB PO PRN (02:34)
[2021-07-11] MEDS: CARBIDOPA-LEVODOPA ER 25-100MG 1 EACH TABLET.ER PO SCH ×2 (05:45→22:04)
[2021-07-11] MEDS: CARBIDOPA-LEVODOPA 25-100 MG 1 EACH TAB PO SCH ×4 (05:45→21:37)
[2021-07-11] MEDS: FUROSEMIDE 20 MG TAB PO SCH (07:25)
[2021-07-11] MEDS: VANCOMYCIN 750 MG in SODIUM CHLORIDE 0.9% 250 ML IVPB SCH (08:10)
[2021-07-11] MEDS: GABAPENTIN 300 MG CAP PO SCH ×3 (08:11→21:36)
[2021-07-11] MEDS: PANTOPRAZOLE 40 MG TABLET PO SCH (08:11)
[2021-07-11] MEDS ORDERED: NON FORMULARY DRUG (Biotin [Biotin] 10,000 MCG Capsule) PO SCH (09:00)
[2021-07-11] MEDS ORDERED: NIFEdipine XL 30 MG TAB.ER.24 PO SCH (09:00)
[2021-07-11] MEDS ORDERED: NON FORMULARY DRUG (Lysine Hcl [L-Lysine] 1,000 MG Tablet) PO SCH (09:00)
--- NOTE | 2021-07-11 09:23 | US ---
EXAMINATION TYPE: US venous doppler duplex UE RT DATE OF EXAM: 07/11/2021 COMPARISON: NONE CLINICAL HISTORY: right arm edema. Right arm pain and swelling x couple days Exam done portable SIDE PERFORMED: Right Right Arm: Appears negative for DVT Grayscale, color doppler, spectral doppler imaging performed of the deep veins of the right upper ext remity. There is normal flow, compressibility and vascular waveforms. IMPRESSION: No ultrasound evidence for acute deep or superficial venous thrombosis in the right upper extremity.
--- NOTE | 2021-07-11 15:40 | P.HPIM ---
History of Present Illness H&P Date: 07/11/21 Chief Complaint: Right arm cellulitis This is an 81-year-old female with past medical history of gastroesophageal reflux disease, Parkinson's disease and multiple other medical issues presented to the ER with complaints of right arm pain and swelling 2 days. Denies any fever or chills. Denies any falls or trauma. Denies any lightheadedness dizziness or focal deficits. Denies any chest pain, palpitations or shortness of breath. Febrile on admission, WBC 24.4 with T-max of 102.4, blood cultures obtained. Lactic acid 1.2. UA reporting many bacteria, 23 WBCs, moderate leukocytes, positive nitrates. IV antibiotics of vancomycin and Zosyn initiated. BUN 25, creatinine 0.49. Hemoglobin 10.9, platelets 404. Sodium 133. Review of Systems ROS Statement: Those systems with pertinent positive or pertinent negative responses have been documented in the HPI. ROS Other: All systems not noted in ROS Statement are negative. 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 No animal exposures. No tobacco use. No alcohol use. No recreational drug use. Works in the [place] area is now lived in [place] for 21 years Smoking Status: Never smoker Past Alcohol Use History: None Reported Past Drug Use History: None Reported - Past Family History Mother Family Medical History: Cancer Additional Family Medical History / Comment(s): stroke Medications and Allergies Home Medications Medication Instructions Recorded Confirmed Type Lansoprazole [Prevacid] 30 mg PO DAILY 09/13/16 07/10/21 History Carbidopa-Levodopa 25-100 mg 2 tab PO QID@05,10,15,21 12/21/18 07/10/21 History [Sinemet 25-100 mg] Docusate [Colace] 100 mg PO BID 12/21/18 07/10/21 History NIFEdipine [NIFEdipine ER 30 mg PO DAILY 12/21/18 07/10/21 History (Osmotic)] predniSONE 10 mg PO DAILY 12/21/18 07/10/21 History Alendronate Sodium [Fosamax] 70 mg PO STEVENS 07/23/20 07/10/21 History Biotin 10,000 mcg PO DAILY 07/23/20 07/10/21 History Carbidopa-Levodopa ER 25-100Mg 1 tab PO BID@0500,2100 07/23/20 07/10/21 History [Sinemet CR 25-100 mg] Ketoconazole [Nizoral A-D] 1 applic TOPICAL Q48H 07/23/20 07/10/21 History Lysine HCl [l-Lysine] 1,000 mg PO DAILY 07/23/20 07/10/21 History mycophenolate mofetiL [Cellcept] 1,500 mg PO BID #0 07/26/20 07/10/21 Rx Fluocinolone/Shower Cap 1 applic TOPICAL TID PRN 05/15/21 07/10/21 History [Fluocinolone 0.01% Scalp Oil] Furosemide [Lasix] 20 mg PO Q48H 05/15/21 07/10/21 History Gabapentin 600 mg PO TID 3 Days #9 tab 05/16/21 07/10/21 Rx Magnesium Oxide 400 mg PO HS 07/10/21 07/10/21 History Allergies Allergy/AdvReac Type Severity Reaction Status Date / Time cephalexin [From Keflex] Allergy Rash/Hives Verified 07/11/21 09:59 Physical Exam Vitals: Vital Signs Temp Pulse Pulse Pulse Pulse Resp BP 07/11/21 14:08 100.5 F H 63 60 18 07/11/21 07:00 98.2 F 83 18 07/11/21 01:26 99.0 F 83 16 07/10/21 22:35 99.2 F 90 18 07/10/21 21:12 98.1 F 80 16 98/66 07/10/21 18:42 98.2 F 69 18 90/57 BP Pulse Ox 07/11/21 14:08 119/75 95 07/11/21 07:00 91/54 91 L 07/11/21 01:26 95/60 90 L 07/10/21 22:35 112/89 92 L 07/10/21 21:12 91 L 07/10/21 18:42 90 L Intake and Output 07/11/21 07/11/21 07/11/21 06:59 14:59 22:59 Intake Total 10 240 Balance 10 240 Intake: IV 10 Invasive Line 1 10 Oral 240 Other: Voiding Method Bedpan Bedpan # Voids 2 3 Weight 48.534 kg PHYSICAL EXAM: VITAL SIGNS: [As above] GENERAL: Sitting up in bed, no acute distress HEENT: Conjunctivae normal. eyes normal. Oral mucosa moist. NECK: No JVD. No thyroid enlargement. No LNs CARDIOVASCULAR: S1, S2 regular. No murmur RESPIRATION: Breath sounds diminished in the bases. No rhonchi or crackles. No bronchial breathing. ABDOMEN: Soft, nontender . No guarding. no masses palpable. No ascites, No hepatosplenomegaly.Bowel sounds heard. EXTREMITIES: Right upper arm edema, from shoulder down through fingers, warm and dry, positive radial pulse.Legs with No edema. no swelling , no clubbing, no cyanosis PSYCHIATRY: Alert and oriented X3, mood and affect normal. NERVOUS SYSTEM: Cranial N 2-12 grossly normal. Moves all 4 limbs. Diffuse weakness No focal deficits. Strength and sensation grossly intact.. Skin: Warm and dry Results CBC & Chem 7: 07/10/21 14:57 07/10/21 14:57 Labs: Abnormal Lab Results - Last 24 Hours (Table) 07/10/21 07/10/21 Range/Units 14:57 21:12 Sodium 133 L (137-145) mmol/L BUN 25 H (7-17) mg/dL Creatinine 0.49 L (0.52-1.04) mg/dL Glucose 131 H (74-99) mg/dL Urine Appearance Cloudy H (Clear) Urine Protein 1+ H (Negative) Urine Ketones Trace H (Negative) Urine Blood Small H (Negative) Urine Nitrite Positive H (Negative) Ur Leukocyte Esterase Moderate H (Negative) Urine WBC 23 H (0-5) /hpf Urine Bacteria Many H (None) /hpf Hyaline Casts 4 H (0-2) /lpf Urine Mucus Rare H (None) /hpf Microbiology - Last 24 Hours (Table) 07/10/21 21:12 Urine Culture - Preliminary Urine,Clean Catch Thrombosis Risk Factor Assmnt - Choose All That Apply Each Risk Factor Represents 3 Points: Age 75 years or older Thrombosis Risk Factor Assessment Total Risk Factor Score: 3 Thrombosis Risk Factor Assessment Level: Moderate Risk Assessment and Plan Assessment: Sepsis, present on admission related to Acute UTI, cultures pending and right arm cellulitis. Gastroesophageal reflux disease Parkinson's disease Plan: Continue on current medication regime ,monitoring and symptomatic treatment. Doppler of right arm ordered to rule out venous thrombosis. Infectious disease consult in place with recommendations pending. Maintain IV antibiotics, blood cultures, urine cultures pending. The impression and plan of care has been dictated as directed. : I performed a history and examination of this patient, discussed the same with the dictator. I agree with the dictator's note ,documented as a scribe. Any additional findings or plans will be noted.
[2021-07-11] MEDS: MAGNESIUM OXIDE 400 MG TAB PO SCH (21:37)
[2021-07-11] MEDS: SODIUM CHLORIDE 0.9% 1,000 ML IV SCH (22:04)
--- NOTE | 2021-07-11 22:46 | CT ---
EXAMINATION TYPE: CT upper extremity RT w con DATE OF EXAM: 07/11/2021 COMPARISON: HISTORY: RT forearm abscess. Pt not able to move arm in any other position that presented here in sca n. CT DLP: 216.90 mGycm Automated exposure control for dose reduction was used. CONTRAST: Performed with IV Contrast, patient injected with 100 mL of Isovue 300. FINDINGS: Exam is limited due to patient positioning, incomplete visualization of the right forearm, and motion artifact over the right hand. There is subcutaneous edema of the right forearm and dorsal skin thick ening. There is stippled hyperdensity along the ulnar aspect of the forearm subcutaneous tissue measu ring at least 16 cm in length which may represent contrast versus calcification. There is no visible drainable focal fluid collection of the visualized soft tissues of the right forearm. There is no fra cture of the visualized radius or ulna. There is a right-sided pleural effusion. Motion artifact over the right ribs. Degenerative changes of the right shoulder. IMPRESSION: 1. LIMITED EXAM ABOVE. 2. SUBCUTANEOUS EDEMA OF THE RIGHT FOREARM AND DORSAL SKIN THICKENING LIKELY REPRESENT CELLULITIS. NO DEFINITIVE DRAINABLE FOCAL FLUID COLLECTION. 3. STIPPLED HYPERDENSITY SPANNING THE ULNAR ASPECT OF THE RIGHT FOREARM MAY REPRESENT SOFT TISSUE LAMBERT CIFICATION.
--- NOTE | 2021-07-12 00:22 | P.CONS ---
History of Present Illness - Reason for Consult Consult date: 07/11/21 right arm cellulitis Requesting physician: Daniel Mc - Chief Complaint right arm swelling and redness x few days - History of Present Illness History of present illness : Patient is 81-year-old female presenting to the ER last evening for evaluation of right upper extremity pain swelling and redness that has been progressively worse over the last 2 days before presentation to the hospital patient denies having history of any trauma main complaint has been progressive swelling redness and pain pain is mostly dull aching intensity is about 5-6 out of 10 and no radiation patient currently not having open wound or any drainage patient did have some fever with chills on arrival to the ER patient did have a fever of 102 F no significant tachycardia did have white count of 24.4 with a left shift creatinine was normal urine was mildly positive blood cultures have been obtained which are currently pending patient did have Doppler ultrasound of the right upper extremity there was negative for DVT patient was started on vancomycin because of her cephalexin allergy infectious disease was consulted for further management of antibiotic therapy Review of system: CONSTITUTIONAL: Positive for weakness along with the fever. EYES: No complaint. ENT: No complaint. RESPIRATORY: No complaint. CARDIOVASCULAR: No complaint. GENITOURINARY: No complaint. GASTROINTESTINAL: No complaint. MUSCULOSKELETAL: As per history of present illness. INTEGUMENTARY: As per history of present illness. PSYCHOLOGIC: No complaint. ENDOCRINE: No complaint. NEUROLOGIC: No complaint. Past medical history : Reviewed, documented below Past surgical history : Reviewed, documented below Social history: Reviewed, documented below Medications: Reviewed, as documented below EXAMINATION: Vital sigans= Reviewed and documented below GENERAL DESCRIPTION: Elderly female lying in bed, no distress. No tachypnea or accessory muscle of respiration use. HEENT: Shows Pallor , no scleral icterus. Oral mucous membrane is dry. NECK: Trachea central, no thyromegaly. LUNGS: Unlabored breathing. Clear to auscultation anteriorly. No wheeze or crackle. HEART: S1, S2, regular rate and rhythm. ABDOMEN: Soft, no tenderness , guarding or rigidity EXTREMITIES: Right upper extremity with diffuse swelling redness most involving the lateral aspect of the right upper extremity which is warm to touch no fluctuation or drainage was noticed SKIN: No rash, no masses palpable. NEUROLOGICAL: The patient is awake, alert, oriented x3, mood and affect normal. LABS AND RADIOLOGY: Reviewed results see below Assessment : 1-Patient presented to hospital with sepsis in this patient did hav e fever elevated white count source is acute right upper extremity cellulitis with diffuse swelling redness could be streptococcal disease underlying clinically associated MRSA infection not entirely excluded 2-patient with cephalexin allergy that would limit the number of antibiotics safe to use Plan: 1-we will obtain a CT of the right upper extremity with no evidence of any drainable abscess 2-Marked area of redness 3-vancomycin pharmacy to dose with a target trough of 15 while watching kidney function and Vanco trough closely. 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 No animal exposures. No tobacco use. No alcohol use. No recreational drug use. Works in the [place] area is now lived in [place] for 21 years Smoking Status: Never smoker Past Alcohol Use History: None Reported Past Drug Use History: None Reported - Past Family History Mother Family Medical History: Cancer Additional Family Medical History / Comment(s): stroke Medications and Allergies Home Medications Medication Instructions Recorded Confirmed Type Lansoprazole [Prevacid] 30 mg PO DAILY 09/13/16 07/10/21 History Carbidopa-Levodopa 25-100 mg 2 tab PO QID@05,,,12/21/18 07/10/21 History [Sinemet 25-100 mg] Docusate [Colace] 100 mg PO BID 12/21/18 07/10/21 History NIFEdipine [NIFEdipine ER 30 mg PO DAILY 12/21/18 07/10/21 History (Osmotic)] predniSONE 10 mg PO DAILY 12/21/18 07/10/21 History Alendronate Sodium [Fosamax] 70 mg PO STEVENS 07/23/20 07/10/21 History Biotin 10,000 mcg PO DAILY 07/23/20 07/10/21 History Carbidopa-Levodopa ER 25-100Mg 1 tab PO BID@0500,2100 07/23/20 07/10/21 History [Sinemet CR 25-100 mg] Ketoconazole [Nizoral A-D] 1 applic TOPICAL Q48H 07/23/20 07/10/21 History Lysine HCl [l-Lysine] 1,000 mg PO DAILY 07/23/20 07/10/21 History mycophenolate mofetiL [Cellcept] 1,500 mg PO BID #0 07/26/20 07/10/21 Rx Fluocinolone/Shower Cap 1 applic TOPICAL TID PRN 05/15/21 07/10/21 History [Fluocinolone 0.01% Scalp Oil] Furosemide [Lasix] 20 mg PO Q48H 05/15/21 07/10/21 History Gabapentin 600 mg PO TID 3 Days #9 tab 05/16/21 07/10/21 Rx Magnesium Oxide 400 mg PO HS 07/10/21 07/10/21 History Allergies Allergy/AdvReac Type Severity Reaction Status Date / Time cephalexin [From Keflex] Allergy Rash/Hives Verified 07/11/21 09:59 Physical Exam Vitals: Vital Signs Temp Pulse Pulse Pulse Resp BP BP 07/11/21 07:00 98.2 F 83 18 91/54 07/11/21 01:26 99.0 F 83 16 95/60 07/10/21 22:35 99.2 F 90 18 112/89 07/10/21 21:12 98.1 F 80 16 98/66 07/10/21 18:42 98.2 F 69 18 90/57 07/10/21 14:17 102.4 F H 92 18 109/62 Pulse Ox 07/11/21 07:00 91 L 07/11/21 01:26 90 L 07/10/21 22:35 92 L 07/10/21 21:12 91 L 07/10/21 18:42 90 L 07/10/21 14:17 98 Intake and Output 07/10/21 07/11/21 07/11/21 22:59 06:59 14:59 Intake Total 10 240 Balance 10 240 Intake: IV 10 Invasive Line 1 10 Oral 240 Other: Voiding Method Bedpan Bedpan # Voids 2 Weight 48.534 kg Results CBC & Chem 7: 07/10/21 14:57 07/10/21 14:57 Labs: Abnormal Lab Results - Last 24 Hours (Table) 07/10/21 07/10/21 07/10/21 Range/Units 14:57 14:57 21:12 WBC 24.4 H (3.8-10.6) k/uL RBC 3.62 L (3.80-5.40) m/uL Hgb 10.9 L (11.4-16.0) gm/dL MCHC 30.6 L (31.0-37.0) g/dL Neutrophils # 22.5 H (1.3-7.7) k/uL Lymphocytes # 0.6 L (1.0-4.8) k/uL Monocytes # 1.1 H (0-1.0) k/uL Sodium 133 L (137-145) mmol/L BUN 25 H (7-17) mg/dL Creatinine 0.49 L (0.52-1.04) mg/dL Glucose 131 H (74-99) mg/dL Urine Appearance Cloudy H (Clear) Urine Protein 1+ H (Negative) Urine Ketones Trace H (Negative) Urine Blood Small H (Negative) Urine Nitrite Positive H (Negative) Ur Leukocyte Esterase Moderate H (Negative) Urine WBC 23 H (0-5) /hpf Urine Bacteria Many H (None) /hpf Hyaline Casts 4 H (0-2) /lpf Urine Mucus Rare H (None) /hpf Microbiology - Last 24 Hours (Table) 07/10/21 21:12 Urine Culture - Preliminary Urine,Clean Catch
[2021-07-12] MEDS: VANCOMYCIN 750 MG in SODIUM CHLORIDE 0.9% 250 ML IVPB SCH ×2 (00:58→16:03)
[2021-07-12] MEDS: CARBIDOPA-LEVODOPA ER 25-100MG 1 EACH TABLET.ER PO SCH ×2 (05:53→21:27)
[2021-07-12] MEDS: CARBIDOPA-LEVODOPA 25-100 MG 1 EACH TAB PO SCH ×4 (05:54→20:59)
[2021-07-12] MEDS ORDERED: hydrALAZINE HCL 25 MG TAB PO PRN (06:59)
[2021-07-12 08:35] LABS: African American GFR (CKD) >90 (>60 ml/min/1.73 sqM); Anion Gap 8 mmol/L; Blood Urea Nitrogen 13 mg/dL (7-17); Calcium 7.7 mg/dL (8.4-10.2); Carbon Dioxide 20 mmol/L (22-30); Chloride 103 mmol/L (98-107); Glucose 83 mg/dL (74-99); Non-African American GFR(CKD) >90 (>60 ml/min/1.73 sqM); Sodium 131 mmol/L (137-145)
[2021-07-12] MEDS: SODIUM CHLORIDE 0.9% 1,000 ML IV SCH ×2 (09:28→20:58)
[2021-07-12] MEDS: PANTOPRAZOLE 40 MG TABLET PO SCH (09:29)
[2021-07-12] MEDS: GABAPENTIN 300 MG CAP PO SCH ×3 (09:29→20:59)
--- NOTE | 2021-07-12 16:28 | P.PN ---
Subjective Progress Note Date: 07/12/21 This is an 81-year-old female with past medical history of gastroesophageal reflux disease, Parkinson's disease and multiple other medical issues presented to the ER with complaints of right arm pain and swelling 2 days. Denies any fever or chills. Denies any falls or trauma. Denies any lightheadedness dizziness or focal deficits. Denies any chest pain, palpitations or shortness of breath. Febrile on admission, WBC 24.4 with T-max of 102.4, blood cultures obtained. Lactic acid 1.2. UA reporting many bacteria, 23 WBCs, moderate leukocytes, positive nitrates. IV antibiotics of vancomycin and Zosyn initiated. BUN 25, creatinine 0.49. Hemoglobin 10.9, platelets 404. Sodium 133. 07/12/2021 this morning, right forearm,blister burst, large amount of pus drainage, cultures obtained.Doppler reported negative for DVT.Evaluated by infectious disease, recommendations noted and appreciated. Maintained on vancomycin, renal function stable. Maintained on IV fluid hydration, Febrile, T-max 100.5. Urine culture finalizing. Sodium 131. Objective - Vital Signs Vital signs: Vital Signs Temp 97.8 F 07/12/21 14:30 Pulse 91 07/12/21 14:30 Resp 18 07/12/21 14:30 BP 104/67 07/12/21 14:30 Pulse Ox 93 L 07/12/21 14:30 Intake & Output 07/11/21 07/12/21 07/12/21 18:59 06:59 18:59 Intake Total 240 950 Output Total 150 Balance 240 -150 950 Intake: Intake, IV Titration 800 Amount Sodium Chloride 0.9% 1, 800 000 ml @ 100 mls/hr IV . Q10H [facility] Rx#:[id number] Oral 240 150 Output: Urine 150 Other: Voiding Method Bedpan External Catheter # Voids 3 0 - Exam PHYSICAL EXAM: VITAL SIGNS: [As above] GENERAL: Sitting up in bed, alert and oriented 3, no acute distress HEENT: Conjunctivae normal. eyes normal. Oral mucosa moist. NECK: No JVD. No thyroid enlargement. No LNs CARDIOVASCULAR: S1, S2 regular. No murmur RESPIRATION: Breath sounds diminished in the bases. No rhonchi or crackles ABDOMEN: Soft, nontender . No guarding. no masses palpable. Bowel sounds heard. EXTREMITIES: Right upper arm edema, down through to digits, redness, warm and dry, positive radial pulse,large blister burst with puss drainage, Legs weepy ,with No edema. no swelling , no clubbing, no cyanosis NERVOUS SYSTEM: Cranial N 2-12 grossly normal. Moves all 4 limbs. Diffuse weakness, No focal deficits. Strength and sensation grossly intact. Skin: Warm and dry - Labs CBC & Chem 7: 07/10/21 14:57 07/12/21 07:16 Labs: Abnormal Lab Results - Last 24 Hours (Table) 07/12/21 Range/Units 07:16 Sodium 131 L (137-145) mmol/L Carbon Dioxide 20 L (22-30) mmol/L Creatinine 0.40 L (0.52-1.04) mg/dL Calcium 7.7 L (8.4-10.2) mg/dL Microbiology - Last 24 Hours (Table) 07/10/21 21:12 Urine Culture - Preliminary Urine,Clean Catch Gram Neg Bacilli 07/10/21 14:57 Blood Culture - Preliminary Blood No Growth after 24 hours 07/10/21 14:57 Blood Culture - Preliminary Blood No Growth after 24 hours Assessment and Plan Assessment: Sepsis, present on admission related to right arm cellulitis possible acute UTI. Gastroesophageal reflux disease Parkinson's disease Plan: Continue on current medication regime ,monitoring and symptomatic treatment. Maintain IV antibiotics of vancomycin, close monitoring of renal function with repeat labs ordered for a.m..blood cultures, urine cultures pending. Right lower arm extremity cultures ordered. PT/OT-recommending ZANDER. Social work consulted. The impression and plan of care has been dictated as directed. : I performed a history and examination of this patient, discussed the same with the dictator. I agree with the dictator's note ,documented as a scribe. Any additional findings or plans will be noted.
[2021-07-12] MEDS: MAGNESIUM OXIDE 400 MG TAB PO SCH (20:59)
[2021-07-12] MEDS: CIPROFLOXACIN HCL 500 MG TAB PO SCH (23:02)
[2021-07-13] MEDS: HYDROcodone/APAP 5-325MG 1 EACH TAB PO PRN ×2 (00:10→20:12)
[2021-07-13] MEDS: SODIUM CHLORIDE 0.9% 1,000 ML IV SCH ×3 (03:45→20:13)
[2021-07-13] MEDS: CARBIDOPA-LEVODOPA ER 25-100MG 1 EACH TABLET.ER PO SCH ×2 (04:56→20:11)
[2021-07-13] MEDS: CARBIDOPA-LEVODOPA 25-100 MG 1 EACH TAB PO SCH ×4 (04:57→20:11)
[2021-07-13] MEDS ORDERED: VANCOMYCIN TROUGH DUE 1 EACH MISC MISCELLANE ONE (07:00)
[2021-07-13 08:14] LABS: African American GFR (CKD) >90 (>60 ml/min/1.73 sqM); Anion Gap 4 mmol/L; Blood Urea Nitrogen 8 mg/dL (7-17); Calcium 6.6 mg/dL (8.4-10.2); Carbon Dioxide 21 mmol/L (22-30); Chloride 111 mmol/L (98-107); Glucose 98 mg/dL (74-99); Non-African American GFR(CKD) >90 (>60 ml/min/1.73 sqM); Potassium 3.3 mmol/L (3.5-5.1); Sodium 136 mmol/L (137-145)
[2021-07-13] MEDS ORDERED: Potassium Replacement Protocol 1 EACH MISC MISCELLANE PRN ×2 (08:59→10:02)
[2021-07-13] MEDS: GABAPENTIN 300 MG CAP PO SCH ×3 (09:15→20:11)
[2021-07-13] MEDS: PANTOPRAZOLE 40 MG TABLET PO SCH (09:15)
[2021-07-13] MEDS: FUROSEMIDE 20 MG TAB PO SCH (09:15)
[2021-07-13] MEDS: VANCOMYCIN 1,000 MG in SODIUM CHLORIDE 0.9% 250 ML IVPB SCH ×2 (09:16→20:12)
[2021-07-13] MEDS: CIPROFLOXACIN HCL 500 MG TAB PO SCH ×2 (09:16→21:11)
[2021-07-13] MEDS: POTASSIUM CHLORIDE ER 20 MEQ TAB.ER PO SCH ×2 (09:21→10:21)
[2021-07-13] MEDS: VANCOMYCIN 750 MG in SODIUM CHLORIDE 0.9% 250 ML IVPB SCH (09:45)
[2021-07-13] MEDS ORDERED: Magnesium Replacement Protocol 1 EACH MISC MISCELLANE PRN (10:02)
--- NOTE | 2021-07-13 10:15 | PN ---
PROGRESS NOTE DATE OF SERVICE: 07/12/2021 REASON FOR FOLLOWUP: 1. Right forearm abscess and cellulitis. 2. UTI. INTERVAL HISTORY: The patient is afebrile. The patient was noted to have drainage from the right forearm area, which has been cultured. The patient denies any worsening pain. No chest pain, shortness of breath or cough. No abdominal pain or diarrhea. PHYSICAL EXAMINATION: Blood pressure 120/76, pulse of 84, temperature 97.8. She is 97% on 2 L nasal cannula. General description is an elderly female lying in bed in no distress. Respiratory system: Unlabored breathing, clear to auscultation anteriorly. Heart S1, S2. Regular rate and rhythm. Abdomen soft, no tenderness. Right forearm swelling is slightly decreased; did have an area of pustule with minimal drainage. LABS: Local cultures are pending. Blood culture negative. Urine showing Gram-negative. DIAGNOSTIC IMPRESSION AND PLAN: 1. Patient with right forearm cellulitis concerning for an abscess. CT did not show any abscess, though. Patient did have drainage that has been cultured. Patient to continue with IV vancomycin. 2. Patient with Gram-negative urinary tract infection with CEPHALEXIN ALLERGY. Will add oral Cipro while waiting for the culture to finalize and monitor clinical course closely. MMODL / IJN: [id number] /
[2021-07-13 10:45] LABS: Basophils # (A) 0.02 X 10*3/uL (0.00-0.10); Basophils % (A) 0.3 %; Eosinophils # (A) 0.06 X 10*3/uL (0.04-0.35); Eosinophils % (A) 0.8 %; HCT 27.9 % (37.2-46.3); HGB 8.4 g/dL (12.0-15.0); Lymphocytes # (A) 0.36 X 10*3/uL (0.90-5.00); Lymphocytes % (A) 4.9 %; MCH 30.9 pg (27.0-32.0); MCHC 30.1 g/dL (32.0-37.0); MCV 102.6 fL (80.0-97.0); Mean Platelet Volume 9.7 fL (9.5-12.2); Monocytes # (A) 0.61 X 10*3/uL (0.20-1.00); Monocytes % (A) 8.3 %; Neutrophils # (A) 6.22 X 10*3/uL (1.80-7.70); Neutrophils % (A) 85.2 %; Platelet Count 274 X 10*3/uL (140-440); RBC 2.72 X 10*6/uL (4.10-5.20); RDW 14.6 % (11.5-14.5); WBC 7.31 X 10*3/uL (4.50-10.00)
[2021-07-13] MEDS ORDERED: ACETAMINOPHEN TAB 500 MG TAB PO PRN (13:19)
[2021-07-13] MEDS ORDERED: ALPRAZolam 0.25 MG TAB PO PRN (13:19)
[2021-07-13 13:45] VITALS: BMI 20.9
[2021-07-13] MEDS: HEPARIN SODIUM,PORCINE/PF 5,000 UNIT/0.5 ML SYRINGE SQ SCH ×2 (14:14→20:12)
--- NOTE | 2021-07-13 14:18 | P.CNOR ---
History of Present Illness - [facility] Consult date: 07/13/21 Consult reason: other (Right forearm cellulitis) History of present illness: Patient is an 81-year-old female who presented to [facility] on 07/10/2021 with regards to swelling, redness and pain involving the right upper extremity. At that time patient was then admitted to [facility] with concerns for sepsis related to UTI and right arm cellulitis. Patient is being followed by internal medicine and infectious disease at this time. Our orthopedic team was consulted today for further evaluation of the right upper extremity. A computed tomography scan of the right upper extremity was done a few days ago which demonstrated subcutaneous edema and dorsal skin thickening but no focal area representing an abscess. Patient is currently being treated for the urinary tract infection and the cellulitis of the upper extremity with antibiotics. Cultures were obtained from the right upper extremity, is not clearly documented exactly where this was taken from, it is presumptively showing MRSA. Patient was evaluated today at bedside, she is resting comfortably. The nursing staff is also available in the room on exam. There was a bandage present on the right upper extremity that was removed from I exam. Patient states that she cannot remember any obvious trauma to the area of the right upper extremity. She does not murmur scratching the scanner axially bumping it on that. She states that this all started about a week ago, and that has progressively been getting worse. Patient does live alone, she does not drive. She admits to a previous infection involving her right hand which she states she did have surgery on. 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 No animal exposures. No tobacco use. No alcohol use. No recreational drug use. Works in the [place] area is now lived in [place] for 21 years Smoking Status: Never smoker Past Alcohol Use History: None Reported Past Drug Use History: None Reported - Past Family History Mother Family Medical History: Cancer Additional Family Medical History / Comment(s): stroke Medications and Allergies Home Medications Medication Instructions Recorded Confirmed Type Lansoprazole [Prevacid] 30 mg PO DAILY 09/13/16 07/10/21 History Carbidopa-Levodopa 25-100 mg 2 tab PO QID@05,,12/21/18 07/10/21 History [Sinemet 25-100 mg] Docusate [Colace] 100 mg PO BID 12/21/18 07/10/21 History NIFEdipine [NIFEdipine ER 30 mg PO DAILY 12/21/18 07/10/21 History (Osmotic)] predniSONE 10 mg PO DAILY 12/21/18 07/10/21 History Alendronate Sodium [Fosamax] 70 mg PO STEVENS 07/23/20 07/10/21 History Biotin 10,000 mcg PO DAILY 07/23/20 07/10/21 History Carbidopa-Levodopa ER 25-100Mg 1 tab PO BID@0500,2100 07/23/20 07/10/21 History [Sinemet CR 25-100 mg] Ketoconazole [Nizoral A-D] 1 applic TOPICAL Q48H 07/23/20 07/10/21 History Lysine HCl [l-Lysine] 1,000 mg PO DAILY 07/23/20 07/10/21 History mycophenolate mofetiL [Cellcept] 1,500 mg PO BID #0 07/26/20 07/10/21 Rx Fluocinolone/Shower Cap 1 applic TOPICAL TID PRN 05/15/21 07/10/21 History [Fluocinolone 0.01% Scalp Oil] Furosemide [Lasix] 20 mg PO Q48H 05/15/21 07/10/21 History Gabapentin 600 mg PO TID 3 Days #9 tab 05/16/21 07/10/21 Rx Magnesium Oxide 400 mg PO HS 07/10/21 07/10/21 History Allergies Allergy/AdvReac Type Severity Reaction Status Date / Time cephalexin [From Keflex] Allergy Rash/Hives Verified 07/11/21 09:59 Physical Examination Right upper extremity: Obvious erythema and soft tissue swelling is appreciated throughout the upper extremity, it ranges mainly from just below the elbow down to the fingers. There is a obvious open wound present on the dorsal/ulnar aspect of the distal forearm, it is about the size of a half dollar. There is obvious purulent drainage present. I'm unable to appreciate any other areas of obvious fluctuance present throughout the extremity. The compartments of the upper extremity both on the dorsal and volar aspect are soft and compressible She is generalized tenderness with palpation throughout the right upper extremity from the elbow down to the fingers Her sensation to light touch is intact throughout the extremity Wrist extension, wrist flexion, pronation, supination are intact. She is able to wiggle all the fingers and minimal difficulty. Extension and flexion are intact at the elbow, no tenderness is reproduced with range of motion or palpation surrounding the elbow Radial and ulnar pulses are 2+ Results - Labs Labs: Abnormal Lab Results - Last 24 Hours (Table) 07/13/21 07/13/21 Range/Units 07:20 07:20 RBC 2.72 L (4.10-5.20) X 10*6/uL Hgb 8.4 L (12.0-15.0) g/dL Hct 27.9 L (37.2-46.3) % MCV 102.6 H (80.0-97.0) fL MCHC 30.1 L (32.0-37.0) g/dL RDW 14.6 H (11.5-14.5) % Lymphocytes # 0.36 L (0.90-5.00) X 10*3/uL Sodium 136 L (137-145) mmol/L Potassium 3.3 L (3.5-5.1) mmol/L Chloride 111 H (98-107) mmol/L Carbon Dioxide 21 L (22-30) mmol/L Creatinine 0.27 L (0.52-1.04) mg/dL Calcium 6.6 L (8.4-10.2) mg/dL Microbiology - Last 24 Hours (Table) 07/12/21 13:00 Gram Stain - Preliminary Arm - Right Wound Culture - Preliminary Presumptive MRSA 07/10/21 21:12 Urine Culture - Final Urine,Clean Catch Klebsiella oxytoca 07/12/21 13:00 Anaerobic Culture - Preliminary Arm - Right 07/10/21 14:57 Blood Culture - Preliminary Blood No Growth after 48 hours 07/10/21 14:57 Blood Culture - Preliminary Blood No Growth after 48 hours H & H 07/10/21 07/13/21 Range/Units 14:57 07:20 Hgb 10.9 L 8.4 L (11.4-16.0) gm/dL Hct 35.7 27.9 L (34.0-46.0) % Coagulation 07/10/21 Range/Units 14:57 INR 1.0 (<1.2) Result Diagrams: 07/13/21 07:20 07/13/21 07:20 Assessment and Plan Assessment: Right dorsal forearm abscess Right upper extremity cellulitis UTI Other medical comorbidities Plan: Imaging: Computed tomography scan report of the right upper extremity was reviewed, notable subcutaneous edema was noted. No obvious focal area representing abscess was documented. Internal medicine has ordered x-rays of the forearm and hand and also a bone scan. Plan: I was able to discuss the case, including with physical exam findings and imaging studies my attending Dr. De La Fuente. Discussed treatment options the patient at bedside, I definitely feel she would benefit from a surgical procedure, more specifically an incision and drainage with irrigation and debridement of the abscess involving the right forearm. I did have a discussion with the patient that this may require multiple surgical procedures depending on what we find at surgery, this also may require future skin grafting procedures and follow-up with wound care. Patient is in good understanding and would like to proceed. Plan to proceed with surgery on 07/14/2021 Nothing by mouth after midnight Other medical specialty recommendations Pain control via primary medical service GI and DVT prophylaxis via primary medical service Further recommendations to follow Time with Patient: Less than 30
--- NOTE | 2021-07-13 14:28 | XR ---
EXAMINATION TYPE: XR forearm RT DATE OF EXAM: 07/13/2021 CLINICAL HISTORY: pain TECHNIQUE: Frontal and lateral images of the right forearm are obtained. COMPARISON: None. FINDINGS: There is no acute fracture/dislocation evident. The joint spaces appear within normal limi ts. There is extensive soft tissue calcification extending virtually the entire length of the ulna an d into the wrist. This is of uncertain etiology. No bony destructive process is seen with certainty. IMPRESSION: There is no acute fracture or dislocation. ICD 10 NO FRACTURE, INITIAL EVALUATION
--- NOTE | 2021-07-13 14:30 | XR ---
EXAMINATION TYPE: XR chest 1V portable DATE OF EXAM: 07/13/2021 HISTORY: Shortness of breath. COMPARISON: 12/21/2018 TECHNIQUE: Single view of the chest is submitted. FINDINGS: Demonstrated are scattered senescent parenchymal change. There is no evidence for focal infiltrate. Chronic elevation left hemidiaphragm. The heart is stable. Hilar and mediastinal structures are within normal limits. Degenerative changes are seen of the dorsal spine. IMPRESSION: 1. Chronic changes without evidence for acute pulmonary disease.
--- NOTE | 2021-07-13 15:03 | XR ---
EXAMINATION TYPE: XR hand limited RT DATE OF EXAM: 07/13/2021 CLINICAL HISTORY: pain TECHNIQUE: Frontal, lateral and oblique images of the right hand are obtained. COMPARISON: None. FINDINGS: The right hand is fixed in flexion. Severe degenerative joint space narrowing involving all the IP PIP and interphalangeal joints. Severe degenerative change of bony collapse the first carpal metacarpal joint. Soft tissue calcifications about the ulnar aspect of the wrist. No acute fracture i dentified. IMPRESSION: There is no acute fracture or dislocation ICD 10 NO FRACTURE, INITIAL EVALUATION
--- NOTE | 2021-07-13 15:44 | PN ---
PROGRESS NOTE DATE OF SERVICE: 07/13/2021 I am covering for Dr. Fernando. This 81-year-old woman was admitted with significant infection of the right also had UTI. The patient is on broad-spectrum IV antibiotics. Wound culture showing presumptive MRSA and urine culture showing Klebsiella oxytoca which is resistant to cefazolin and ampicillin. The patient on broad spectrum IV antibiotics. Patient has copious amount of yellowish purulent discharge from area on the right wrist. Right wrist is also deformed with some ulnar deviation also. No chest pain or palpitation. PAST MEDICAL HISTORY: Reviewed. REVIEW OF SYSTEMS: Cardiovascular: No angina, palpitations. Respiratory: No cough. GI as mentioned earlier. Musculoskeletal as mentioned earlier. Skin mentioned earlier. CURRENT MEDICATIONS: [place], Sinemet, Colace, Neurontin, Apresoline, replacement protocol, morphine, Protonix, and vancomycin. PHYSICAL EXAMINATION: Patient is alert, oriented x3. Pulse is 74. Blood pressure 105/60, respiration 18, temperature 98.2, pulse ox 98% on 2 L. HEENT: Conjunctivae normal. Neck: No JVD. Cardiovascular: S1, S2 muffled. Respiration: Breath sounds diminished in the bases. A few scattered rhonchi. Abdomen: Soft, nontender. Examination of the right arm significant pain and swelling and discharge as mentioned earlier. Otherwise nervous system no focal deficits. Diffusely weak. LABS: WBC 7.3, hemoglobin 8.4, sodium 136, potassium 3.3. Upper extremity CT scan, which was reviewed personally by me showed limited exam subcutaneous edema of the right forearm and also skin thickening likely represents cellulitis, stippled hyperdensity. ASSESSMENT: 1. Right forearm cellulitis infection, rule out osteomyelitis with early sepsis, present on admission with MRSA. 2. Increased WBC. 3. Anemia, normocytic. 4. WBC elevated up to 22.4. 5. Hyponatremia. 6. Hypokalemia. 7. Urinary tract infection with Klebsiella oxytoca. 8. History of gastroesophageal reflux disease. 9. History of MRSA. 10.History of adenoidectomy. 11.History of cholecystectomy. 12.History of cataracts. 13.NO CODE, NO CPR, NO VENT. 14.Mild protein-calorie malnutrition, BMI of 20.9. RECOMMENDATIONS AND DISCUSSION DISCUSSION: This 81-year-old woman who presented with multiple complex medical issues, we will monitor the patient closely. Continue the current medications, management and symptomatic treatment. Continue the broad-spectrum IV antibiotics. I would also recommend a bone scan. Follow closely with Infectious Disease. PT/OT evaluation. The patient might require ECF rehab. Guarded prognosis because of multiple complex medical issues. Further recommendations to follow. See orders for details. Adjust medications. MMODL / IJN: [id number] / MTDD
[2021-07-13] MEDS: MAGNESIUM OXIDE 400 MG TAB PO SCH (20:11)
--- NOTE | 2021-07-13 22:57 | PN ---
PROGRESS NOTE DATE OF SERVICE: 07/13/2021 REASON FOR FOLLOWUP: 1. Right forearm MRSA abscess. 2. Klebsiella urinary tract infection. INTERVAL HISTORY: The patient is afebrile. The patient is breathing comfortably. Denies having any chest pain or shortness of breath or cough. No abdominal pain or any worsening pain to the right forearm wound area. PHYSICAL EXAMINATION: Blood pressure 145/83 with a pulse of 93, temperature 98.2. She is 95% on 2 L nasal cannula. General description is an elderly female up in the bed in no distress. Respiratory system: Unlabored breathing, clear to auscultation anteriorly. Heart S1, S2. Regular rate and rhythm. Abdomen soft, no tenderness. Right forearm wound is currently dressed. No obvious drainage on the dressing. LABS: Hemoglobin is 8.4, white count normal 7.31, creatinine 0.27. Vancomycin trough is low. DIAGNOSTIC IMPRESSION AND PLAN: 1. Patient with right forearm abscess, spontaneous drainage. Culture with presumptive MRSA. Vancomycin dose needs to be adjusted up to keep the trough around 15. 2. Patient with Klebsiella urinary tract infection. SULFA ALLERGY. Continue with supportive care. MMODL / IJN: [id number] /
[2021-07-14] MEDS: CARBIDOPA-LEVODOPA ER 25-100MG 1 EACH TABLET.ER PO SCH ×2 (05:56→20:26)
[2021-07-14] MEDS: CARBIDOPA-LEVODOPA 25-100 MG 1 EACH TAB PO SCH ×4 (05:56→20:26)
[2021-07-14 06:37] LABS: African American GFR (CKD) >90 (>60 ml/min/1.73 sqM); Anion Gap 6 mmol/L; Blood Urea Nitrogen 9 mg/dL (7-17); Calcium 7.8 mg/dL (8.4-10.2); Carbon Dioxide 24 mmol/L (22-30); Chloride 105 mmol/L (98-107); Glucose 88 mg/dL (74-99); Magnesium 2.1 mg/dL (1.6-2.3); Non-African American GFR(CKD) >90 (>60 ml/min/1.73 sqM); Potassium 4.4 mmol/L (3.5-5.1); Sodium 135 mmol/L (137-145)
[2021-07-14] MEDS: PANTOPRAZOLE 40 MG TABLET PO SCH (08:58)
[2021-07-14] MEDS: GABAPENTIN 300 MG CAP PO SCH ×3 (08:58→20:25)
[2021-07-14] MEDS: HEPARIN SODIUM,PORCINE/PF 5,000 UNIT/0.5 ML SYRINGE SQ SCH ×2 (08:58→20:26)
[2021-07-14] MEDS: CIPROFLOXACIN HCL 500 MG TAB PO SCH ×2 (08:59→20:25)
[2021-07-14] MEDS: VANCOMYCIN 1,000 MG in SODIUM CHLORIDE 0.9% 250 ML IVPB SCH ×2 (09:09→20:27)
[2021-07-14] MEDS: SODIUM CHLORIDE 0.9% 1,000 ML IV SCH ×2 (10:00→19:18)
[2021-07-14] MEDS ORDERED: IV FLUID CONTINUATION 1,000 ML IV ONE ×2 (10:31)
[2021-07-14] MEDS ORDERED: ETOMIDATE 2 MG/ML 10 ML VIAL ONE (10:53)
[2021-07-14] MEDS ORDERED: KETOROLAC 15 MG/ML 1 ML VIAL ONE (10:53)
[2021-07-14] MEDS ORDERED: PHENYLEPHRINE-0.9% NACL SYG 1,000 MCG/10 ML SYRINGE ONE (10:53)
[2021-07-14] MEDS ORDERED: LIDOCAINE 1% INJ 10MG/ML (20 ML MDV) ONE (10:53)
[2021-07-14 10:57] LABS: Basophils # (A) 0.03 X 10*3/uL (0.00-0.10); Basophils % (A) 0.4 %; Eosinophils # (A) 0.03 X 10*3/uL (0.04-0.35); Eosinophils % (A) 0.4 %; HCT 33.2 % (37.2-46.3); HGB 9.4 g/dL (12.0-15.0); Lymphocytes % (A) 6.7 %; MCH 28.7 pg (27.0-32.0); MCHC 28.3 g/dL (32.0-37.0); MCV 101.2 fL (80.0-97.0); Mean Platelet Volume 10.9 fL (9.5-12.2); Monocytes # (A) 0.72 X 10*3/uL (0.20-1.00); Monocytes % (A) 9.6 %; Neutrophils # (A) 6.15 X 10*3/uL (1.80-7.70); Platelet Count 339 X 10*3/uL (140-440); RBC 3.28 X 10*6/uL (4.10-5.20); RDW 14.7 % (11.5-14.5)
--- NOTE | 2021-07-14 11:48 | P.OP ---
Date of Procedure: 07/14/21 Preoperative Diagnosis: Right dorsal ulnar forearm abscess/cellulitis Postoperative Diagnosis: Same Procedure(s) Performed: Incision and drainage/irrigation and debridement right dorsal ulnar forearm abscess Anesthesia: DIPTI Surgeon: Fortino De La Fuente Dispatcher Maintenance #1: Floyd Salvador Estimated Blood Loss (ml): 4 Pathology: other (Deep cultures/Gram stain) Condition: stable Disposition: PACU Indications for Procedure: The patient is an 81-year-old female with a history of dermatomyositis who presents with a five-day history of right forearm redness/swelling/drainage. A discussion of the risks and benefits of operative intervention to irrigate/debride her wound was made with patient. Risks of the procedure to include persistence of infection need for subsequent procedures was discussed. Informed consent was obtained. Operative Findings: As below Description of Procedure: The patient was brought to the operating room, and after induction of general anesthesia the right upper extremity was prepped and draped in normal fashion. Her dorsal ulnar forearm wound was then examined. It measured 3.5 x 1.5 cm. There was significant purulence along with dystrophic calcification present. Deep cultures were obtained. This was then copiously irrigated with 4 L of fluid. The wound edges were sharply debrided with a scalpel down to the level of the fascia. The wound edges were loosely reapproximated with simple 3-0 nylon suture. A sterile dressing was applied. The patient was awoken from general anesthesia and transferred to recovery room in fair condition. Blood loss was estimated 4 mL. No complications were incurred. Sponge and needle counts were correct in the case.
--- NOTE | 2021-07-14 17:49 | PN ---
PROGRESS NOTE DATE OF SERVICE: 07/14/2021 REASON FOR FOLLOWUP: Right forearm abscess, MRSA and UTI. INTERVAL HISTORY: The patient was taken to the OR in this patient who is status post drainage of the right dorsal forearm abscess. Patient tolerated the procedure. Has been complaining of pain to the forearm. The patient denies any chest pain or shortness of breath or cough. No abdominal pain or diarrhea. PHYSICAL EXAMINATION: Blood pressure is 177/71 with a pulse of 77, temperature 97.8. General description is an elderly female lying in bed in no distress. Respiratory system: Unlabored breathing, clear to auscultation anteriorly. Heart S1, S2. Regular rate and rhythm. Abdomen soft, no tenderness. Right forearm swelling and redness has improved. No drainage. LABS: Hemoglobin 9.4, white count 7.50, creatinine 0.36. DIAGNOSTIC IMPRESSION AND PLAN: 1. Patient with a right forearm abscess, status post drainage. Culture with MRSA. Patient is covered with vancomycin. 2. Patient with Klebsiella urinary tract infection, for which the patient is covered with oral Cipro. Continue supportive care. MMODL / IJN: [id number] /
[2021-07-14] MEDS: NYSTATIN 100,000 UNIT/ML SUSP 500,000 UNIT/5 ML CUP PO SCH ×2 (18:28→20:28)
--- NOTE | 2021-07-14 19:40 | PN ---
PROGRESS NOTE DATE OF SERVICE: 07/14/2021 I am covering for Dr. Tucker Fernando. This 81-year-old woman was admitted with right forearm cellulitis and abscess and possible sepsis is being closely monitored at this time. The patient is also being recommended to have a bone scan. Dr. Henry is following the patient closely. Patient on broad IV antibiotics. Patient on vancomycin for MRSA grown from the cultures. The CT scan not show any acute abnormality, but however the patient had some significant draining lesion in the right leg. White count is 7.2, hemoglobin 9.4, sodium is 135, as mentioned earlier the bone scan findings are awaited. The patient underwent incision and drainage and irrigation of the right dorsal forearm abscess by Orthopedic Surgery, abscess 3.5 x 1.5 cm significant purulence along with some dystrophic calcification was noted. The patient also has some calcification of the fingers. PAST MEDICAL HISTORY: Reviewed. REVIEW OF SYSTEMS: Could not be taken, the patient is mildly confused. CURRENT MEDICATIONS: Reviewed include Tylenol, [place], Xanax, Sinemet, Colace, Lasix, and other doses reviewed. PHYSICAL EXAMINATION: Patient is alert, oriented x3. Pulse 77, blood pressure 170/70, respiration 18, temperature 97.8, pulse ox 99% on 1.5 L. HEENT: Conjunctivae normal. Neck: No JVD. Cardiovascular: S1, S2, muffled. Respiration: Breath sounds diminished in the bases. A few scattered rhonchi. Abdomen: Soft, nontender. Nervous system: No focal deficits. Examination of the right forearm, abscess present. LABS: WBC 7.2, hemoglobin 9.4, sodium 135. ASSESSMENT: 1. Right forearm cellulitis infection and abscess status post incision and drainage, rule out osteomyelitis with early sepsis, present on admission with MRSA. 2. Calcified lesions in the forearm as well as proximal interphalangeal joints and DIP, rule out gout. 3. Increased WBC. 4. Anemia, normocytic. 5. WBC elevated up to 22.4. 6. Hyponatremia. 7. Hypokalemia. 8. Urinary tract infection with Klebsiella oxytoca. 9. Hypertension. 10.History of MRSA. 11.History of adenoidectomy. 12.History of cholecystectomy. 13.History of cataracts. 14.Mild protein-calorie malnutrition BMI of 20.9. 15.NO CODE, NO CPR, NO VENT. RECOMMENDATIONS AND DISCUSSION: I recommend to continue current medications, management and symptomatic treatment. Otherwise at this time, continue the broad IV and antibiotics. I would recommend a sedimentation rate and CRP and basic lab testing. Otherwise, prognosis guarded because of multiple complex medical issues. Further recommendations to follow. See orders for details. We will await for the deep culture. MMODL / IJN: [id number] / MTDD
[2021-07-14 19:41] LABS: C Reactive Protein 15.7 mg/dL (<1.0)
[2021-07-14] MEDS: MAGNESIUM OXIDE 400 MG TAB PO SCH (20:25)
--- NOTE | 2021-07-15 00:26 | NM ---
EXAMINATION TYPE: NM bone 3 phase DATE OF EXAM: 07/14/2021 COMPARISON: NONE HISTORY: Possible osteomyelitis of the right arm Triple phase bone scintigraphy was performed following the injection of 22.3 mCi Tc 99m MDP. Immedia te images and 8 hours post injection images acquired. FINDINGS: The flow study shows some hyperemia of the right arm compared to the left. Delayed images show signif icant increased linear uptake along the right ulna. Uptake is quite intense and appears to be in the soft tissues that show extensive calcification on the right forearm x-ray of 07/13/2021.. There is mi ld increased uptake in the proximal carpus. Uptake in the distal right radius is fairly normal. The right hand x-ray of 07/13/2021 shows extensive soft tissue calcification along the distal shaft o f the ulna. This is in the posterior and medial soft tissues.. 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
[2021-07-15] MEDS: CARBIDOPA-LEVODOPA 25-100 MG 1 EACH TAB PO SCH ×4 (06:29→21:28)
[2021-07-15] MEDS: CARBIDOPA-LEVODOPA ER 25-100MG 1 EACH TABLET.ER PO SCH ×2 (06:29→22:06)
[2021-07-15] MEDS ORDERED: VANCOMYCIN TROUGH DUE 1 EACH MISC MISCELLANE ONE (08:00)
--- NOTE | 2021-07-15 08:56 | P.PN ---
Subjective Progress Note Date: 07/15/21 Principal diagnosis: Right dorsal ulnar forearm abscess Patient was evaluated at bedside today, she is resting comfortably. She states that the pain is well-controlled at this time, she denies any acute changes. She has no other orthopedic complaints this time. She currently denies any headaches, lightheadedness, chest pain or shortness of breath. Objective - Vital Signs Vital signs: Vital Signs Temp 98.1 F 07/15/21 08:40 Pulse 80 07/15/21 08:40 Resp 17 07/15/21 08:40 BP 126/76 07/15/21 08:40 Pulse Ox 92 L 07/15/21 08:40 Intake & Output 07/14/21 07/15/21 07/15/21 18:59 06:59 18:59 Intake Total 200 1200 Output Total 4 Balance 196 1200 Weight 48.534 kg Intake: IV 100 Intake, IV Titration 1200 Amount Sodium Chloride 0.9% 1, 1200 000 ml @ 100 mls/hr IV . Q10H DARRIN Rx#:[id number] Oral 100 Output: Estimated Blood Loss 4 Other: Voiding Method Incontinent External Catheter # Voids 2 1 - Exam Right upper extremity Postoperative bandages in good position and condition, there is no saturation noted Patient is able to wiggle all the fingers with minimal difficulty, extension and flexion are intact at the wrist and elbow Patient sensation to light touch is intact throughout the extremity Soft tissue swelling and erythema both proximal and distal to the operative dressing are improved Radial and ulnar pulses are 2+ - Labs CBC & Chem 7: 07/14/21 05:35 07/14/21 05:35 Labs: Abnormal Lab Results - Last 24 Hours (Table) 07/14/21 07/14/21 07/14/21 Range/Units 05:35 18:57 18:57 RBC 3.28 L (4.10-5.20) X 10*6/uL Hgb 9.4 L (12.0-15.0) g/dL Hct 33.2 L (37.2-46.3) % MCV 101.2 H (80.0-97.0) fL MCHC 28.3 L (32.0-37.0) g/dL RDW 14.7 H (11.5-14.5) % Immature Gran # 0.07 H (0.00-0.04) X 10*3/uL Lymphocytes # 0.50 L (0.90-5.00) X 10*3/uL Eosinophils # 0.03 L (0.04-0.35) X 10*3/uL ESR 55 H (0-20) mm/hr C-Reactive Protein 15.7 H (<1.0) mg/dL Microbiology - Last 24 Hours (Table) 07/14/21 11:26 Gram Stain - Preliminary Arm - Right Wound Culture - Preliminary 07/14/21 11:26 Anaerobic Culture - Preliminary Arm - Right 07/10/21 14:57 Blood Culture - Preliminary Blood No Growth after 96 hours 07/10/21 14:57 Blood Culture - Preliminary Blood No Growth after 96 hours 07/12/21 13:00 Anaerobic Culture - Preliminary Arm - Right Assessment and Plan Assessment: Status post incision and drainage/irrigation and debridement right dorsal ulnar forearm abscess Right upper extremity cellulitis UTI Other medical comorbidities Plan: Plan: We'll leave current dressing intact, plan for dressing change on 07/16/2021 Continue to elevate the extremity, ice as needed Pain control, continue with current medication Await culture and sensitivity results, and infectious disease recommendations appreciated GI and DVT prophylaxis per primary medical service Internal medicine recommendations appreciated We'll continue to follow during inpatient stay Time with Patient: Less than 30
[2021-07-15] MEDS: PANTOPRAZOLE 40 MG TABLET PO SCH (10:24)
[2021-07-15] MEDS: FUROSEMIDE 20 MG TAB PO SCH (10:24)
[2021-07-15] MEDS: GABAPENTIN 300 MG CAP PO SCH ×3 (10:24→21:28)
[2021-07-15] MEDS: VANCOMYCIN 1,000 MG in SODIUM CHLORIDE 0.9% 250 ML IVPB SCH ×3 (10:25→19:31)
[2021-07-15] MEDS: HEPARIN SODIUM,PORCINE/PF 5,000 UNIT/0.5 ML SYRINGE SQ SCH ×2 (10:26→21:28)
[2021-07-15] MEDS: NYSTATIN 100,000 UNIT/ML SUSP 500,000 UNIT/5 ML CUP PO SCH ×4 (11:06→21:28)
[2021-07-15] MEDS: CIPROFLOXACIN HCL 500 MG TAB PO SCH ×2 (11:06→21:28)
[2021-07-15 11:29] LABS: Basophils # (A) 0.03 X 10*3/uL (0.00-0.10); Basophils % (A) 0.5 %; Eosinophils # (A) 0.03 X 10*3/uL (0.04-0.35); Eosinophils % (A) 0.5 %; HCT 29.7 % (37.2-46.3); HGB 8.2 g/dL (12.0-15.0); Lymphocytes # (A) 0.38 X 10*3/uL (0.90-5.00); Lymphocytes % (A) 6.1 %; MCH 28.1 pg (27.0-32.0); MCHC 27.6 g/dL (32.0-37.0); MCV 101.7 fL (80.0-97.0); Mean Platelet Volume 9.5 fL (9.5-12.2); Monocytes # (A) 0.69 X 10*3/uL (0.20-1.00); Monocytes % (A) 11.1 %; Neutrophils # (A) 5.01 X 10*3/uL (1.80-7.70); Neutrophils % (A) 80.2 %; Platelet Count 358 X 10*3/uL (140-440); RBC 2.92 X 10*6/uL (4.10-5.20); RDW 14.6 % (11.5-14.5); WBC 6.24 X 10*3/uL (4.50-10.00)
[2021-07-15 12:29] LABS: Rheumatoid Factor, Qnt <10 IU/mL (0-15)
[2021-07-15 12:34] LABS: African American GFR (CKD) 122.7 (60.0-200.0); Anion Gap 8.8 mmol/L (4.00-12.00); BUN/Creat Ratio 18.33 Ratio (12.00-20.00); Blood Urea Nitrogen 5.5 mg/dL (9.0-27.0); Calcium 6.5 mg/dL (8.7-10.3); Carbon Dioxide 21.2 mmol/L (21.6-31.8); Non-African American GFR(CKD) 105.9 (60.0-200.0); Potassium 3.3 mmol/L (3.5-5.5)
[2021-07-15] MEDS: POTASSIUM CHLORIDE ER 20 MEQ TAB.ER PO SCH ×2 (13:58→15:13)
[2021-07-15] MEDS: SODIUM CHLORIDE 0.9% 1,000 ML IV SCH ×2 (13:59→18:23)
--- NOTE | 2021-07-15 20:11 | PN ---
PROGRESS NOTE DATE OF SERVICE: 07/15/2021 REASON FOR FOLLOWUP: Right forearm MRSA abscess and cellulitis. INTERVAL HISTORY: The patient is afebrile. The patient is feeling better. The patient is breathing comfortably. Overall pain and discomfort to the right forearm has decreased in intensity. No chest pain, shortness of breath or cough. No abdominal pain or diarrhea. PHYSICAL EXAMINATION: Blood pressure 135/82 with a pulse of 87, temperature 98. . She is 92% on room air. General description is an elderly female lying in bed in no distress. Respiratory system: Unlabored breathing, clear to auscultation anteriorly. Heart S1, S2. Regular rate and rhythm. Abdomen soft, no tenderness. Right forearm is currently dressed. No obvious drainage on the dressing. LABS: Hemoglobin is 8.2, white count of 6.24, creatinine 0.39. DIAGNOSTIC IMPRESSION AND PLAN: 1. Patient with right forearm abscess secondary to MRSA. Covered with vancomycin; to continue. 2. Patient with Klebsiella urinary tract infection, covered with Cipro. Monitor clinical course closely. MMODL / IJN: [id number] /
--- NOTE | 2021-07-15 21:04 | PN ---
PROGRESS NOTE I am covering for Dr. Fernando. DATE OF SERVICE: 07/15/2021 This 81-year-old woman who was admitted with significant MRSA bacteremia also had an abscess which was incised and drained. 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 No evidence of any osteomyelitis was noted. No chest pain. No palpitations. No fever. PHYSICAL EXAMINATION: Alert and oriented x3. Pulse 67, blood pressure 130/82, respiration 17, temperature 98.3, pulse ox 92% on room air. HEENT: Conjunctivae normal. NECK: No jugular venous distention. CARDIOVASCULAR: S1, S2 muffled. RESPIRATION: Breath sounds diminished at the bases. A few scattered rhonchi. ABDOMEN: Soft, nontender. NERVOUS SYSTEM: No focal deficit. LABS: Hemoglobin 8.2. Potassium was 3, improved to 4.3. CRP is 15.7. Rheumatoid factor less than 10. The culture is showing MRSA. ASSESSMENT: 1. Right forearm cellulitis, infection and abscess, status post incision and drainage with possible early sepsis, present on admission, with MRSA. No evidence of osteomyelitis in the bone scan. 2. Calcified lesions in the forearm as well proximal interphalangeal joints and DIP. Rule out gout. 3. Increased white count. 4. Anemia, normocytic. 5. White count elevated up to 22.4. 6. Hyponatremia. 7. Hypokalemia. 8. Urinary tract infection with Klebsiella oxytoca. 9. Hypertension. 10.History of MRSA. 11.History of adenoidectomy. 12.History of cholecystectomy. 13.History of cataracts. 14.Mild protein-calorie malnutrition. BMI of 20.9. 15.NO CODE, NO CPR, NO VENT. RECOMMENDATIONS AND DISCUSSION: I recommend to continue current medications, continue symptomatic treatment. Otherwise at this time I would recommend continuing with the antibiotics. I would also check a serum uric acid. Guarded prognosis. Further recommendations to follow. MMODL / IJN: [id number] /
[2021-07-15] MEDS: MAGNESIUM OXIDE 400 MG TAB PO SCH (21:28)
[2021-07-16] MEDS: VANCOMYCIN 1,000 MG in SODIUM CHLORIDE 0.9% 250 ML IVPB SCH ×3 (02:14→17:39)
[2021-07-16] MEDS: SODIUM CHLORIDE 0.9% 1,000 ML IV SCH ×3 (02:14→21:05)
[2021-07-16] MEDS: CARBIDOPA-LEVODOPA 25-100 MG 1 EACH TAB PO SCH ×4 (05:17→20:45)
[2021-07-16] MEDS: CARBIDOPA-LEVODOPA ER 25-100MG 1 EACH TABLET.ER PO SCH ×2 (05:17→20:45)
[2021-07-16] MEDS: PATIENT'S OWN (Alendronate Sodium [Fosamax] 70 MG Tablet) PO SCH (08:30)
[2021-07-16 08:38] LABS: African American GFR (CKD) >90 (>60 ml/min/1.73 sqM); Non-African American GFR(CKD) >90 (>60 ml/min/1.73 sqM)
[2021-07-16] MEDS: GABAPENTIN 300 MG CAP PO SCH ×3 (09:32→20:44)
[2021-07-16] MEDS: PANTOPRAZOLE 40 MG TABLET PO SCH (09:33)
[2021-07-16] MEDS: HEPARIN SODIUM,PORCINE/PF 5,000 UNIT/0.5 ML SYRINGE SQ SCH ×2 (09:33→20:45)
[2021-07-16] MEDS: NYSTATIN 100,000 UNIT/ML SUSP 500,000 UNIT/5 ML CUP PO SCH ×4 (09:33→21:06)
[2021-07-16] MEDS: CIPROFLOXACIN HCL 500 MG TAB PO SCH ×2 (09:35→20:45)
--- NOTE | 2021-07-16 10:54 | P.PN ---
Subjective Progress Note Date: 07/16/21 Principal diagnosis: Right dorsal ulnar forearm abscess Patient was evaluated at bedside today, she is resting comfortably. She states that the pain is well-controlled at this time, she denies any acute changes. She has no other orthopedic complaints this time. She currently denies any headaches, lightheadedness, chest pain or shortness of breath. Objective - Vital Signs Vital signs: Vital Signs Temp 98.2 F 07/16/21 07:15 Pulse 70 07/16/21 07:15 Resp 18 07/16/21 07:15 BP 98/59 07/16/21 07:15 Pulse Ox 99 07/16/21 07:15 Intake & Output 07/15/21 07/16/21 07/16/21 18:59 06:59 18:59 Output Total 550 600 Balance -550 -600 Output: Urine 550 600 Other: Voiding Method Incontinent Incontinent External Catheter External Catheter - Exam Right upper extremity Postoperative bandages removed today at bedside, incision is well appearing with nylon sutures in good placement. No active drainage visualized, no areas of fluctuance surrounding the incision. Patient is able to wiggle all the fingers with minimal difficulty, extension and flexion are intact at the wrist and elbow Patient sensation to light touch is intact throughout the extremity Soft tissue swelling and erythema continue to improve Radial and ulnar pulses are 2+ - Labs CBC & Chem 7: 07/15/21 07:19 07/16/21 07:47 Labs: Abnormal Lab Results - Last 24 Hours (Table) 07/15/21 07/15/21 07/15/21 Range/Units 07:19 07:19 17:10 RBC 2.92 L (4.10-5.20) X 10*6/uL Hgb 8.2 L (12.0-15.0) g/dL Hct 29.7 L (37.2-46.3) % MCV 101.7 H (80.0-97.0) fL MCHC 27.6 L (32.0-37.0) g/dL RDW 14.6 H (11.5-14.5) % Immature Gran # 0.10 H (0.00-0.04) X 10*3/uL Lymphocytes # 0.38 L (0.90-5.00) X 10*3/uL Eosinophils # 0.03 L (0.04-0.35) X 10*3/uL Potassium 3.3 L (3.5-5.5) mmol/L Chloride 110 H (96-109) mmol/L Carbon Dioxide 21.2 L (21.6-31.8) mmol/L BUN 5.5 L (9.0-27.0) mg/dL Creatinine 0.3 L (0.6-1.5) mg/dL Uric Acid 2.6 L (3.7-7.4) mg/dL Calcium 6.5 L (8.7-10.3) mg/dL 07/16/21 Range/Units 07:47 RBC (4.10-5.20) X 10*6/uL Hgb (12.0-15.0) g/dL Hct (37.2-46.3) % MCV (80.0-97.0) fL MCHC (32.0-37.0) g/dL RDW (11.5-14.5) % Immature Gran # (0.00-0.04) X 10*3/uL Lymphocytes # (0.90-5.00) X 10*3/uL Eosinophils # (0.04-0.35) X 10*3/uL Potassium (3.5-5.5) mmol/L Chloride (96-109) mmol/L Carbon Dioxide (21.6-31.8) mmol/L BUN (9.0-27.0) mg/dL Creatinine 0.34 L (0.6-1.5) mg/dL Uric Acid (3.7-7.4) mg/dL Calcium (8.7-10.3) mg/dL Microbiology - Last 24 Hours (Table) 07/12/21 13:00 Anaerobic Culture - Final Arm - Right 07/10/21 14:57 Blood Culture - Preliminary Blood No Growth after 120 hours 07/10/21 14:57 Blood Culture - Preliminary Blood No Growth after 120 hours 07/12/21 13:00 Gram Stain - Final Arm - Right Wound Culture - Final Methicillin resist S. aureus 07/14/21 11:26 Gram Stain - Preliminary Arm - Right Wound Culture - Preliminary Presumptive MRSA Assessment and Plan Assessment: Status post incision and drainage/irrigation and debridement right dorsal ulnar forearm abscess Right upper extremity cellulitis UTI Other medical comorbidities Plan: Plan: Wound care, recommend dressing changes every 2-3 days, basically nonadherent dressing directly over incision. Continue to elevate the extremity, ice as needed Pain control, continue with current medication Infectious disease recommendations with regards to outpatient antibiotics GI and DVT prophylaxis per primary medical service Internal medicine recommendations appreciated Discharge planning: Patient would benefit from permanent rehab/fdc placement, we'll continue to follow during inpatient stay Time with Patient: Less than 30
--- NOTE | 2021-07-16 12:48 | XR ---
EXAMINATION TYPE: XR chest 1V portable DATE OF EXAM: 07/16/2021 COMPARISON: 07/13/2021 HISTORY: 81 years Female. STUDY INDICATION GIVEN: shortness of breath . TECHNIQUE: AP chest radiograph IMPRESSION: Stable left hemidiaphragm eventration with asymmetric left decreased lung volume. Stable bibasilar op acities which may be reflective of chronic lung changes such as fibrosis and/or atelectasis, developi ng infiltrate is not entirely excluded. The cardiomediastinal silhouette is difficult to evaluate. Intrathoracic aorta atherosclerotic calcifications again seen. Osseous structures are osteopenic. The upper abdomen is stable in appearance compared to prior demons trating a mildly distended bowel loop in the left upper abdomen
[2021-07-16] MEDS ORDERED: VANCOMYCIN TROUGH DUE 1 EACH MISC MISCELLANE ONE (17:00)
--- NOTE | 2021-07-16 17:39 | PN ---
PROGRESS NOTE DATE OF SERVICE: 07/16/2021 REASON FOR FOLLOW UP: Right forearm abscess and UTI. INTERVAL HISTORY: Patient is afebrile. The patient is currently breathing comfortably. No chest pain, shortness of breath or cough. No abdominal pain. No worsening pain to the right forearm area. PHYSICAL EXAMINATION: Blood pressure 112/69, pulse of 82, temperature 98.3. She is 99% on 3.5 L nasal cannula. General description is an elderly female up in the bed in no distress. Respiratory system: Unlabored breathing, clear to auscultation anteriorly. Heart S1, S2 regular rate and rhythm. Abdomen: Soft, no tenderness. Right forearm is currently dressed. No obvious drainage on the dressing. LABS: Creatinine 0.34. DIAGNOSTIC IMPRESSION AND PLAN: 1. Patient with MRSA right forearm abscess status post drainage of the abscess. Culture with MRSA. Patient is covered with vancomycin to continue. Hopefully transition to oral antibiotic on discharge. 2. The patient with Klebsiella urinary tract infection, covered with oral Cipro. Continue supportive care. MMODL / IJN: [id number] /
[2021-07-16] MEDS ORDERED: IPRATROPIUM-ALBUTEROL 3 ML NEB INHALATION PRN (17:57)
--- NOTE | 2021-07-16 18:24 | PN ---
PROGRESS NOTE I am covering for Dr. Fernando. DATE OF SERVICE: 07/16/2021. This is an 81-year-old woman who was admitted with right forearm cellulitis also had some dystrophic calcification also. The patient also had MRSA positive. Dr. Henry is following the patient closely as well as Orthopedic surgery. No chest pain. No palpitations. No fever. The patient is slightly short of breath. A chest x- ray which was done today showed significant left diaphragmatic eventration with symmetric left descending lung volumes and stable bibasilar opacity was also noted. The pulse ox was found to be 99 percent on 3.5 L. The patient is given bronchodilators and also patient being closely monitored at this time. Past medical history reviewed. REVIEW OF SYSTEMS: Cardiovascular: No angina or palpitations. Respiration: As mentioned earlier. GI as mentioned earlier. : No dysuria. Nervous system: No numbness or weakness. CURRENT MEDICATIONS: Reviewed and include: Tylenol, Xanax, Sinemet, Cipro, Colace, Lasix, Neurontin, other medication and doses reviewed. PHYSICAL EXAMINATION: Patient is alert, oriented x3. Pulse 82. Blood pressure 112/69, respirations 18, temperature 98.3, pulse ox 99% on 3.5 L. HEENT: Conjunctivae normal. CARDIOVASCULAR: S1, S2 muffled. RESPIRATORY: Breath sounds diminished in the bases. A few scattered rhonchi. ABDOMEN: Soft, nontender. LEGS are no edema. No swelling. NERVOUS SYSTEM: No focal deficits. LABS: WBC 6.2, hemoglobin is 8.2, sodium 140, potassium 4.3. ASSESSMENT: 1. Right forearm cellulitis infection and abscess status post incision and drainage with possible early sepsis, present on admission with MRSA. No evidence of osteomyelitis in the bone scan. 2. Calcified lesions in the forearm as well as proximal interphalangeal , rule out gout or crest syndrome or MCTD. 3. Hypoxia with possibly eventuation of the left diaphragm and as well as atelectasis. 4. Increased WBC. 5. Anemia, normocytic. 6. WBC elevated up to 22.4. 7. Hyponatremia. 8. Hypokalemia. 9. Urinary tract infection with Klebsiella oxytoca. 10.Hypertension. 11.History of MRSA. 12.History of adenoidectomy. 13.History of cholecystectomy. 14.History of cataracts. 15.Mild protein-calorie malnutrition, BMI of 20.9. 16.NO CODE, NO CPR, NO VENT. RECOMMENDATIONS AND DISCUSSION: I recommend to continue current medications, continue to monitor. Symptomatic treatment. Continue with antibiotics. Add bronchodilators as mentioned earlier. Chest x-ray reviewed. I would also recommend pulmonary consultation with Dr. Morris for hypoxia, evaluation and management of hypoxia. Guarded prognosis. Further recommendations to follow. MMLINOL / IJN: [id number] / MTDD
[2021-07-16] MEDS: IPRATROPIUM-ALBUTEROL 3 ML NEB INHALATION SCH (19:33)
[2021-07-16] MEDS: MAGNESIUM OXIDE 400 MG TAB PO SCH (20:45)
[2021-07-17] MEDS: CARBIDOPA-LEVODOPA ER 25-100MG 1 EACH TABLET.ER PO SCH ×2 (05:21→22:10)
[2021-07-17] MEDS: CARBIDOPA-LEVODOPA 25-100 MG 1 EACH TAB PO SCH ×4 (05:21→22:10)
[2021-07-17] MEDS: VANCOMYCIN 1,250 MG in SODIUM CHLORIDE 0.9% 250 ML IVPB SCH ×2 (05:21→17:11)
[2021-07-17] MEDS: IPRATROPIUM-ALBUTEROL 3 ML NEB INHALATION SCH (07:27)
[2021-07-17 10:04] LABS: Basophils % (A) 0 %; Eosinophils % (A) 0 %; HCT 34.5 % (34.0-46.0); HGB 10.1 gm/dL (11.4-16.0); Hypochromasia Marked; Lymphocytes # (A) 0.6 k/uL (1.0-4.8); Lymphocytes % (A) 10 %; MCH 29.9 pg (25.0-35.0); MCHC 29.2 g/dL (31.0-37.0); MCV 102.5 fL (80.0-100.0); Macrocytosis Slight; Monocytes # (A) 0.5 k/uL (0-1.0); Monocytes % (A) 7 %; Neutrophils # (A) 5.2 k/uL (1.3-7.7); Neutrophils % (A) 80 %; Platelet Count 453 k/uL (150-450); RBC 3.36 m/uL (3.80-5.40); RDW 13.9 % (11.5-15.5); WBC 6.5 k/uL (3.8-10.6)
--- NOTE | 2021-07-17 10:15 | P.PN ---
Subjective Progress Note Date: 07/17/21 Principal diagnosis: Right dorsal ulnar forearm abscess Patient was evaluated at bedside today, she is resting comfortably. She states that the pain is well-controlled at this time, she denies any acute changes. She has no other orthopedic complaints this time. She currently denies any headaches, lightheadedness, chest pain. Objective - Vital Signs Vital signs: Vital Signs Temp 97.3 F L 07/17/21 05:00 Pulse 78 07/17/21 07:38 Resp 18 07/17/21 05:00 BP 97/61 07/17/21 05:00 Pulse Ox 98 07/17/21 05:00 Intake & Output 07/16/21 07/17/21 07/17/21 18:59 06:59 18:59 Intake Total 800 1010 Output Total 678 850 Balance 122 160 Intake: Intake, IV Titration 490 Amount Sodium Chloride 0.9% 1, 240 000 ml @ 40 mls/hr IV . Q24H DARRIN Rx#:[id number] Vancomycin 1,250 mg In 250 Sodium Chloride 0.9% 250 ml @ 125 mls/hr IVPB Q12H DARRIN Rx#:[id number] Oral 800 520 Output: Urine 400 850 Post Void Residual 278 Other: Voiding Method Incontinent Incontinent External Catheter External Catheter # Voids 1 - Exam Right upper extremity Postoperative bandage is in good position and condition, no active drainage visualized Patient is able to wiggle all the fingers with minimal difficulty, extension and flexion are intact at the wrist and elbow Patient sensation to light touch is intact throughout the extremity Soft tissue swelling and erythema continue to improve Radial and ulnar pulses are 2+ - Labs CBC & Chem 7: 07/17/21 05:52 07/16/21 07:47 Labs: Abnormal Lab Results - Last 24 Hours (Table) 07/17/21 Range/Units 05:52 RBC 3.36 L (3.80-5.40) m/uL Hgb 10.1 L (11.4-16.0) gm/dL MCV 102.5 H (80.0-100.0) fL MCHC 29.2 L (31.0-37.0) g/dL Plt Count 453 H (150-450) k/uL Lymphocytes # 0.6 L (1.0-4.8) k/uL Microbiology - Last 24 Hours (Table) 07/10/21 14:57 Blood Culture - Final Blood No Growth after 144 hours 07/10/21 14:57 Blood Culture - Final Blood No Growth after 144 hours 07/14/21 11:26 Gram Stain - Preliminary Arm - Right Wound Culture - Preliminary Presumptive MRSA 07/14/21 11:26 Anaerobic Culture - Preliminary Arm - Right 07/12/21 13:00 Anaerobic Culture - Final Arm - Right Assessment and Plan Assessment: Status post incision and drainage/irrigation and debridement right dorsal ulnar forearm abscess Right upper extremity cellulitis UTI Other medical comorbidities Plan: Plan: Wound care, plan for dressing change on 07/18/2021 Continue to elevate the extremity, ice as needed Pain control, continue with current medication Infectious disease recommendations with regards to outpatient antibiotics GI and DVT prophylaxis per primary medical service Internal medicine recommendations appreciated Discharge planning: Patient would benefit from permanent rehab/[facility] placement, we'll continue to follow during inpatient stay Time with Patient: Less than 30
[2021-07-17 10:26] LABS: African American GFR (CKD) >90 (>60 ml/min/1.73 sqM); Anion Gap 5 mmol/L; Blood Urea Nitrogen 7 mg/dL (7-17); Calcium 8.3 mg/dL (8.4-10.2); Carbon Dioxide 31 mmol/L (22-30); Chloride 100 mmol/L (98-107); Glucose 99 mg/dL (74-99); Non-African American GFR(CKD) >90 (>60 ml/min/1.73 sqM); Sodium 136 mmol/L (137-145)
[2021-07-17] MEDS: NYSTATIN 100,000 UNIT/ML SUSP 500,000 UNIT/5 ML CUP PO SCH ×4 (10:34→22:11)
[2021-07-17] MEDS: GABAPENTIN 300 MG CAP PO SCH ×3 (10:34→22:11)
[2021-07-17] MEDS: FUROSEMIDE 20 MG TAB PO SCH (10:34)
[2021-07-17] MEDS: HEPARIN SODIUM,PORCINE/PF 5,000 UNIT/0.5 ML SYRINGE SQ SCH ×2 (10:34→22:18)
[2021-07-17] MEDS: PANTOPRAZOLE 40 MG TABLET PO SCH (10:34)
[2021-07-17] MEDS: CIPROFLOXACIN HCL 500 MG TAB PO SCH ×2 (10:35→22:10)
--- NOTE | 2021-07-17 11:08 | P.CNPUL ---
History of Present Illness Consult date: 07/17/21 Requesting physician: Tucker Fernando Reason for consult: dyspnea, hypoxemia, abnormal CXR/CT Chief complaint: Shortness of breath, abnormal chest x-ray. History of present illness: Pulmonary consult dated 07/17/2021. 81-year-old female, who is a very poor historian. She apparently came into the emergency room on July 10 complaining of pain and swelling to the right upper extremity. She was admitted with a diagnosis of cellulitis. We will asked to see her because of an abnormal chest x-ray. The chest x-ray findings are not acute, but rather chronic. She has elevation of the left diaphragm, which is not a new finding. In addition, she has volume loss throughout the left lung, shifting of the mediastinum rightward, and a torturous trachea. Again all these changes are likely chronic in nature. The patient really is unable to give any history as it relates to her abnormal chest x-ray. Older chest x-rays, are reviewed. The patient is on 3 L of nasal oxygen, with saturations of 98-99%. This can be titrated down. She appears not to have any respiratory distress or difficulty. White count 6.5, hemoglobin 10.1, hematocrit 34.5, and platelet count 453,000. Sodium 136, potassium 5, chlorides 100, CO2 31, anion gap 5, BUN 7, creatinine 0.39. The patient's official chest x-ray shows stable left him I diaphragm eventration, with volume loss in the left lung. Wound cultures from the right arm show evidence of methicillin- resistant staph aureus, and urine sampling from July 10 was positive for Klebsiella oxytoca. Review of Systems REVIEW OF SYSTEMS: CONSTITUTIONAL: Pain and swelling to the right forearm and arm area. NEUROLOGIC: [ Negative.] HEENT: [ Negative.] CARDIAC: [Negative.] PULMONARY: [Negative.] GI: [Negative.] : [Negative.] RHEUMATOLOGIC: [ Negative.] IMMUNOLOGIC: [ Negative.] ENDOCRINE: [Negative. 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 No animal exposures. No tobacco use. No alcohol use. No recreational drug use. Works in the [place] area is now lived in [place] for 21 years Smoking Status: Never smoker Past Alcohol Use History: None Reported Past Drug Use History: None Reported - Past Family History Mother Family Medical History: Cancer Additional Family Medical History / Comment(s): stroke Medications and Allergies Home Medications Medication Instructions Recorded Confirmed Type Lansoprazole [Prevacid] 30 mg PO DAILY 09/13/16 07/10/21 History Carbidopa-Levodopa 25-100 mg 2 tab PO QID@05,,,12/21/18 07/10/21 History [Sinemet 25-100 mg] Docusate [Colace] 100 mg PO BID 12/21/18 07/10/21 History NIFEdipine [NIFEdipine ER 30 mg PO DAILY 12/21/18 07/10/21 History (Osmotic)] predniSONE 10 mg PO DAILY 12/21/18 07/10/21 History Alendronate Sodium [Fosamax] 70 mg PO STEVENS 07/23/20 07/10/21 History Biotin 10,000 mcg PO DAILY 07/23/20 07/10/21 History Carbidopa-Levodopa ER 25-100Mg 1 tab PO BID@0500,2100 07/23/20 07/10/21 History [Sinemet CR 25-100 mg] Ketoconazole [Nizoral A-D] 1 applic TOPICAL Q48H 07/23/20 07/10/21 History Lysine HCl [l-Lysine] 1,000 mg PO DAILY 07/23/20 07/10/21 History mycophenolate mofetiL [Cellcept] 1,500 mg PO BID #0 07/26/20 07/10/21 Rx Fluocinolone/Shower Cap 1 applic TOPICAL TID PRN 05/15/21 07/10/21 History [Fluocinolone 0.01% Scalp Oil] Furosemide [Lasix] 20 mg PO Q48H 05/15/21 07/10/21 History Gabapentin 600 mg PO TID 3 Days #9 tab 05/16/21 07/10/21 Rx Magnesium Oxide 400 mg PO HS 07/10/21 07/10/21 History Allergies Allergy/AdvReac Type Severity Reaction Status Date / Time cephalexin [From Keflex] Allergy Rash/Hives Verified 07/11/21 09:59 Physical Exam Osteopathic Statement: *. No significant issues noted on an osteopathic structural exam other than those noted in the History and Physical/Consult. Vitals: Vital Signs Temp Pulse Pulse Resp BP Pulse Ox 07/17/21 07:38 78 07/17/21 07:27 76 07/17/21 05:00 97.3 F L 84 18 97/61 98 07/16/21 20:28 98.0 F 82 16 96/62 99 07/16/21 20:00 18 07/16/21 19:44 88 07/16/21 19:36 82 07/16/21 13:00 98.3 F 82 18 112/69 99 Intake and Output 07/16/21 07/17/21 07/17/21 22:59 06:59 14:59 Intake Total 400 610 Output Total 678 850 Balance -278 -240 Intake: Intake, IV Titration 490 Amount Sodium Chloride 0.9% 1, 240 000 ml @ 40 mls/hr IV . Q24H [facility] Rx#:[id number] Vancomycin 1,250 mg In 250 Sodium Chloride 0.9% 250 ml @ 125 mls/hr IVPB Q12H [facility] Rx#:[id number] Oral 400 120 Output: Urine 400 850 Post Void Residual 278 Other: Voiding Method Incontinent External Catheter # Voids 1 No acute distress, poor historian, currently on 3 L nasal cannula, saturations are 99%.. HEENT examination is grossly unremarkable. Neck supple. Full range of motion. No adenopathy thyromegaly or neck vein distention. Cardiovascular examination reveals regular rhythm rate. S1-S2 normal. No S3 or S4. No discernible murmur noted. Heart rate 78 bpm. Lungs reveal diminished breath sounds in the left chest, mild diffuse rhonchi throughout. The patient does not take deep breaths. No crackles. No wheezes. Abdomen soft bowel sounds are heard. No masses or tenderness. Extremities are intact. No cyanosis clubbing or edema. The right forearm area is wrapped with gauze. Skin is without rash or lesion. Neurologic examination is brief but nonfocal. Results - Laboratory Findings CBC and BMP: 07/17/21 05:52 07/17/21 05:52 PT/INR, D-dimer PT 10.5 sec (9.0-12.0) 07/10/21 14:57 INR 1.0 (<1.2) 07/10/21 14:57 Abnormal lab findings: Abnormal Labs 07/10/21 07/10/21 07/10/21 14:57 14:57 21:12 WBC 24.4 H RBC 3.62 L Hgb 10.9 L Hct MCV MCHC 30.6 L RDW Plt Count Immature Gran # Neutrophils # 22.5 H Lymphocytes # 0.6 L Monocytes # 1.1 H Eosinophils # ESR Sodium 133 L Potassium Chloride Carbon Dioxide BUN 25 H Creatinine 0.49 L Glucose 131 H Uric Acid Calcium C-Reactive Protein Urine Appearance Cloudy H Urine Protein 1+ H Urine Ketones Trace H Urine Blood Small H Urine Nitrite Positive H Ur Leukocyte Esterase Moderate H Urine WBC 23 H Urine Bacteria Many H Hyaline Casts 4 H Urine Mucus Rare H 07/12/21 07/13/21 07/13/21 07:16 07:20 07:20 WBC RBC 2.72 L Hgb 8.4 L Hct 27.9 L MCV 102.6 H MCHC 30.1 L RDW 14.6 H Plt Count Immature Gran # Neutrophils # Lymphocytes # 0.36 L Monocytes # Eosinophils # ESR Sodium 131 L 136 L Potassium 3.3 L Chloride 111 H Carbon Dioxide 20 L 21 L BUN Creatinine 0.40 L 0.27 L Glucose Uric Acid Calcium 7.7 L 6.6 L C-Reactive Protein Urine Appearance Urine Protein Urine Ketones Urine Blood Urine Nitrite Ur Leukocyte Esterase Urine WBC Urine Bacteria Hyaline Casts Urine Mucus 07/14/21 07/14/21 07/14/21 05:35 05:35 18:57 WBC RBC 3.28 L Hgb 9.4 L Hct 33.2 L MCV 101.2 H MCHC 28.3 L RDW 14.7 H Plt Count Immature Gran # 0.07 H Neutrophils # Lymphocytes # 0.50 L Monocytes # Eosinophils # 0.03 L ESR 55 H Sodium 135 L Potassium Chloride Carbon Dioxide BUN Creatinine 0.36 L Glucose Uric Acid Calcium 7.8 L C-Reactive Protein Urine Appearance Urine Protein Urine Ketones Urine Blood Urine Nitrite Ur Leukocyte Esterase Urine WBC Urine Bacteria Hyaline Casts Urine Mucus 07/14/21 07/15/21 07/15/21 18:57 07:19 07:19 WBC RBC 2.92 L Hgb 8.2 L Hct 29.7 L MCV 101.7 H MCHC 27.6 L RDW 14.6 H Plt Count Immature Gran # 0.10 H Neutrophils # Lymphocytes # 0.38 L Monocytes # Eosinophils # 0.03 L ESR Sodium Potassium 3.3 L Chloride 110 H Carbon Dioxide 21.2 L BUN 5.5 L Creatinine 0.3 L Glucose Uric Acid Calcium 6.5 L C-Reactive Protein 15.7 H Urine Appearance Urine Protein Urine Ketones Urine Blood Urine Nitrite Ur Leukocyte Esterase Urine WBC Urine Bacteria Hyaline Casts Urine Mucus 07/15/21 07/16/21 07/17/21 17:10 07:47 05:52 WBC RBC 3.36 L Hgb 10.1 L Hct MCV 102.5 H MCHC 29.2 L RDW Plt Count 453 H Immature Gran # Neutrophils # Lymphocytes # 0.6 L Monocytes # Eosinophils # ESR Sodium Potassium Chloride Carbon Dioxide BUN Creatinine 0.34 L Glucose Uric Acid 2.6 L Calcium C-Reactive Protein Urine Appearance Urine Protein Urine Ketones Urine Blood Urine Nitrite Ur Leukocyte Esterase Urine WBC Urine Bacteria Hyaline Casts Urine Mucus 07/17/21 05:52 WBC RBC Hgb Hct MCV MCHC RDW Plt Count Immature Gran # Neutrophils # Lymphocytes # Monocytes # Eosinophils # ESR Sodium 136 L Potassium Chloride Carbon Dioxide 31 H BUN Creatinine 0.39 L Glucose Uric Acid Calcium 8.3 L C-Reactive Protein Urine Appearance Urine Protein Urine Ketones Urine Blood Urine Nitrite Ur Leukocyte Esterase Urine WBC Urine Bacteria Hyaline Casts Urine Mucus - Diagnostic Findings Chest x-ray: image reviewed Assessment and Plan Assessment: Chronic elevation of the left hemidiaphragm, with volume loss in the left lung, not causing significant respiratory symptoms at this time. Methicillin-resistant resistant staph aureus cellulitis, right arm. Klebsiella oxytoca urinary tract infection. History of gastroesophageal reflux disease. History of Parkinson's disease. History of dermatomyositis. Plan: Plan dated 07/17/2021. If possible, have the patient sit up in bed more, and focus on taking deep breaths. In addition, incentive spirometry probably would help. The changes in the left chest are chronic. The patient is not in any respiratory distress. No additional recommendations at this time. The findings in the left chest are the least of this patient's worries. Time with Patient: Greater than 30
--- NOTE | 2021-07-17 12:18 | P.PN ---
Subjective Progress Note Date: 07/17/21 This is an 81-year-old female with past medical history of gastroesophageal reflux disease, Parkinson's disease and multiple other medical issues presented to the ER with complaints of right arm pain and swelling 2 days. Denies any fever or chills. Denies any falls or trauma. Denies any lightheadedness dizziness or focal deficits. Denies any chest pain, palpitations or shortness of breath. Febrile on admission, WBC 24.4 with T-max of 102.4, blood cultures obtained. Lactic acid 1.2. UA reporting many bacteria, 23 WBCs, moderate leukocytes, positive nitrates. IV antibiotics of vancomycin and Zosyn initiated. BUN 25, creatinine 0.49. Hemoglobin 10.9, platelets 404. Sodium 133. 07/12/2021 this morning, right forearm,blister burst, large amount of pus drainage, cultures obtained.Doppler reported negative for DVT.Evaluated by infectious disease, recommendations noted and appreciated. Maintained on vancomycin, renal function stable. Maintained on IV fluid hydration, Febrile, T-max 100.5. Urine culture finalizing. Sodium 131. 07/17/2021 urine culture today per Klebsiella oxytoca, cultures reporting MRSA ,maintained on IV antibiotics of vancomycin. Renal function stable. Afebrile, normal WBC, blood cultures negative. Hemoglobin up to 10.1. Maintaining O2 sats of high 90s on 3 L nasal cannula, chest x-ray from yesterday reporting stable left hemidiaphragm enentration with asymmetric left decreased lung volume, stable bibasilar opacity is reflective of possible chronic lung changes, possibly developing infiltrate. Sodium improved 136. Objective - Vital Signs Vital signs: Vital Signs Temp 97.3 F L 07/17/21 05:00 Pulse 78 07/17/21 07:38 Resp 18 07/17/21 05:00 BP 97/61 07/17/21 05:00 Pulse Ox 98 07/17/21 05:00 Intake & Output 07/16/21 07/17/21 07/17/21 18:59 06:59 18:59 Intake Total 800 1010 Output Total 678 850 Balance 122 160 Intake: Intake, IV Titration 490 Amount Sodium Chloride 0.9% 1, 240 000 ml @ 40 mls/hr IV . Q24H [facility] Rx#:[id number] Vancomycin 1,250 mg In 250 Sodium Chloride 0.9% 250 ml @ 125 mls/hr IVPB Q12H [facility] Rx#:[id number] Oral 800 520 Output: Urine 400 850 Post Void Residual 278 Other: Voiding Method Incontinent Incontinent External Catheter External Catheter # Voids 1 - Exam PHYSICAL EXAM: VITAL SIGNS: [As above] GENERAL: Sitting up in bed, alert and oriented 3, no acute distress, tired appe aring HEENT: Conjunctivae normal. eyes normal. Lips extremely dry, cracked on right corner NECK: No JVD. No thyroid enlargement. No LNs CARDIOVASCULAR: S1, S2 regular. No murmur RESPIRATION: Breath sounds diminished in the bases. Occasional scattered rhonchi, no crackles ABDOMEN: Soft, nontender . No guarding. no masses palpable. Bowel sounds heard. EXTREMITIES: Right upper arm and bilateral lower leg dressings clean dry and intact, positive erythema and edema. NERVOUS SYSTEM: Cranial N 2-12 grossly normal. Moves all 4 limbs. Diffuse weakness, No focal deficits. Strength and sensation grossly intact. Skin: Warm and dry - Labs CBC & Chem 7: 07/17/21 05:52 07/17/21 05:52 Labs: Abnormal Lab Results - Last 24 Hours (Table) 07/17/21 07/17/21 Range/Units 05:52 05:52 RBC 3.36 L (3.80-5.40) m/uL Hgb 10.1 L (11.4-16.0) gm/dL MCV 102.5 H (80.0-100.0) fL MCHC 29.2 L (31.0-37.0) g/dL Plt Count 453 H (150-450) k/uL Lymphocytes # 0.6 L (1.0-4.8) k/uL Sodium 136 L (137-145) mmol/L Carbon Dioxide 31 H (22-30) mmol/L Creatinine 0.39 L (0.52-1.04) mg/dL Calcium 8.3 L (8.4-10.2) mg/dL Microbiology - Last 24 Hours (Table) 07/14/21 11:26 Gram Stain - Final Arm - Right Wound Culture - Final Methicillin resist S. aureus 07/10/21 14:57 Blood Culture - Final Blood No Growth after 144 hours 07/10/21 14:57 Blood Culture - Final Blood No Growth after 144 hours 07/14/21 11:26 Anaerobic Culture - Preliminary Arm - Right 07/12/21 13:00 Anaerobic Culture - Final Arm - Right Assessment and Plan Assessment: Sepsis, present on admission related to right arm cellulitis, right dorsal forearm abscess with MRSA, status post I/D, acute UTI with Klebsiella oxytoca Chronic left hemidiaphragm elevation Gastroesophageal reflux disease Parkinson's disease Plan: Continue on current medication regime ,monitoring and symptomatic treatment. IV antibiotics as per ID. close monitoring of renal function with repeat labs ordered for a.m. pain management.at discharge, patient will go to [facility] subacute rehab. The impression and plan of care has been dictated as directed. : I performed a history and examination of this patient, discussed the same with the dictator. I agree with the dictator's note ,documented as a scribe. Any additional findings or plans will be noted.
--- NOTE | 2021-07-17 14:30 | PN ---
PROGRESS NOTE DATE OF SERVICE: 07/17/2021 REASON FOR FOLLOWUP: Right forearm MRSA abscess, cellulitis and Klebsiella UTI. INTERVAL HISTORY: Patient is currently afebrile. Patient is breathing comfortably. Denies any chest pain. No shortness of breath or cough. No abdominal pain, or any worsening pain to the right forearm area. PHYSICAL EXAMINATION: Blood pressure 110/62 with a pulse of 62, temperature is 97.3. She is 98% on 3 L nasal cannula. General description is an elderly female up in the bed in no distress. Respiratory system: Unlabored breathing, decreased intensity of breath sounds. No wheeze. Heart S1, S2. Regular rate and rhythm. Abdomen soft, no tenderness. Right forearm is currently dressed. No obvious drainage on the dressing. LABS: Hemoglobin is 10.8, white count of 6.5, creatinine 0.39. DIAGNOSTIC IMPRESSION AND PLAN: 1. Patient with forearm abscess status post drainage. Culture with MRSA. Patient is covered with vancomycin. Will transition to Bactrim DS on discharge to finish course of therapy. 2. Klebsiella urinary tract infection, currently covered with oral Cipro. MMODL / IJN: [id number] /
[2021-07-17 19:57] LABS: Scleroderma SC-70 Ab <0.2 AI
[2021-07-17] MEDS: MAGNESIUM OXIDE 400 MG TAB PO SCH (22:10)
[2021-07-18] MEDS: SODIUM CHLORIDE 0.9% 1,000 ML IV SCH (04:59)
[2021-07-18] MEDS: CARBIDOPA-LEVODOPA 25-100 MG 1 EACH TAB PO SCH ×5 (04:59→21:20)
[2021-07-18] MEDS: CARBIDOPA-LEVODOPA ER 25-100MG 1 EACH TABLET.ER PO SCH ×2 (04:59→20:22)
[2021-07-18] MEDS: VANCOMYCIN 1,250 MG in SODIUM CHLORIDE 0.9% 250 ML IVPB SCH ×2 (05:36→17:38)
[2021-07-18] MEDS: CIPROFLOXACIN HCL 500 MG TAB PO SCH ×3 (07:53→20:16)
[2021-07-18] MEDS: NYSTATIN 100,000 UNIT/ML SUSP 500,000 UNIT/5 ML CUP PO SCH ×5 (07:53→20:16)
[2021-07-18] MEDS: GABAPENTIN 300 MG CAP PO SCH ×4 (07:53→20:16)
[2021-07-18] MEDS: PANTOPRAZOLE 40 MG TABLET PO SCH ×2 (07:54→09:12)
[2021-07-18] MEDS: HEPARIN SODIUM,PORCINE/PF 5,000 UNIT/0.5 ML SYRINGE SQ SCH ×2 (07:59→20:16)
--- NOTE | 2021-07-18 09:12 | P.PN ---
Subjective Progress Note Date: 07/18/21 Principal diagnosis: Right dorsal ulnar forearm abscess Patient was evaluated at bedside today, she is resting comfortably. She states that the pain is well-controlled at this time, she denies any acute changes. She has no other orthopedic complaints this time. She currently denies any headaches, lightheadedness, chest pain. Objective - Vital Signs Vital signs: Vital Signs Temp 98.2 F 07/18/21 04:50 Pulse 88 07/18/21 04:50 Resp 20 07/18/21 04:50 BP 109/68 07/18/21 04:50 Pulse Ox 97 07/18/21 04:50 Intake & Output 07/17/21 07/18/21 07/18/21 18:59 06:59 18:59 Intake Total 0 Output Total 1200 Balance -1200 Weight 48.534 kg Intake: Oral 0 Output: Urine 1200 Other: Voiding Method Incontinent Incontinent External Catheter External Catheter # Bowel Movements 2 - Exam Right upper extremity Postoperative bandage was removed once again today, dressing was changed. Incision is well healing, sutures are in good position. Granulation tissue present. No obvious drainage or areas of fluctuance appreciated Patient is able to wiggle all the fingers with minimal difficulty, extension and flexion are intact at the wrist and elbow Patient sensation to light touch is intact throughout the extremity Soft tissue swelling and erythema continue to improve Radial and ulnar pulses are 2+ - Labs CBC & Chem 7: 07/17/21 05:52 07/17/21 05:52 Labs: Abnormal Lab Results - Last 24 Hours (Table) 07/17/21 07/17/21 Range/Units 05:52 05:52 RBC 3.36 L (3.80-5.40) m/uL Hgb 10.1 L (11.4-16.0) gm/dL MCV 102.5 H (80.0-100.0) fL MCHC 29.2 L (31.0-37.0) g/dL Plt Count 453 H (150-450) k/uL Lymphocytes # 0.6 L (1.0-4.8) k/uL Sodium 136 L (137-145) mmol/L Carbon Dioxide 31 H (22-30) mmol/L Creatinine 0.39 L (0.52-1.04) mg/dL Calcium 8.3 L (8.4-10.2) mg/dL Microbiology - Last 24 Hours (Table) 07/14/21 11:26 Gram Stain - Final Arm - Right Wound Culture - Final Methicillin resist S. aureus Assessment and Plan Assessment: Status post incision and drainage/irrigation and debridement right dorsal ulnar forearm abscess Right upper extremity cellulitis UTI Other medical comorbidities Plan: Plan: Wound care, recommend dressing changes every 2 days, patient is very delicate skin, recommend use of Adaptic dressing Continue to elevate the extremity, ice as needed Pain control, continue with current medication Infectious disease recommendations with regards to outpatient antibiotics GI and DVT prophylaxis per primary medical service Internal medicine recommendations appreciated Discharge planning: An orthopedic standpoint patient remained stable, we'll continue to follow as needed while in hospital Time with Patient: Less than 30
--- NOTE | 2021-07-18 11:51 | FL ---
Modified barium swallow. HISTORY: Dysphagia. Modified barium swallow was performed with the department of speech pathology. The patient was prese nted with various consistencies of barium. There is no evidence for aspiration. Deep penetration with honey thick barium and pudding mixtures. F geri report is to follow from the department of speech pathology. Impression: As above
--- NOTE | 2021-07-18 13:43 | P.PN ---
Subjective Progress Note Date: 07/18/21 81-year-old female, who is a very poor historian. She apparently came into the emergency room on July 10 complaining of pain and swelling to the right upper extremity. She was admitted with a diagnosis of cellulitis. We will asked to see her because of an abnormal chest x-ray. The chest x-ray findings are not acute, but rather chronic. She has elevation of the left diaphragm, which is not a new finding. In addition, she has volume loss throughout the left lung, shifting of the mediastinum rightward, and a torturous trachea. Again all these changes are likely chronic in nature. The patient really is unable to give any history as it relates to her abnormal chest x-ray. Older chest x-rays, are reviewed. The patient is on 3 L of nasal oxygen, with saturations of 98-99%. This can be titrated down. She appears not to have any respiratory distress or difficulty. White count 6.5, hemoglobin 10.1, hematocrit 34.5, and platelet count 453,000. Sodium 136, potassium 5, chlorides 100, CO2 31, anion gap 5, BUN 7, creatinine 0.39. The patient's official chest x-ray shows stable left him I diaphragm eventration, with volume loss in the left lung. Wound cultures from the right arm show evidence of methicillin- resistant staph aureus, and urine sampling from July 10 was positive for Klebsiella oxytoca. The patient is seen today 07/18/2021 in follow-up on the regular medical floor. She is currently resting comfortably in bed. Awake and alert in no acute distress. No shortness of breath, cough or congestion. 18 O2 saturation at 100% on 4 L/m per nasal cannula. Afebrile. Hemodynamically stable. Swallow evaluation did not reveal any evidence of aspiration. Right upper extremity wound culture is positive for MRSA. Urine culture was positive for Klebsiella oxytoca. She remains on vancomycin, Cipro. Heparin for DVT prophylaxis. Objective - Vital Signs Vital signs: Vital Signs Temp 97.4 F L 07/18/21 12:12 Pulse 90 07/18/21 12:12 Resp 17 07/18/21 12:12 BP 100/66 07/18/21 12:12 Pulse Ox 100 07/18/21 12:12 Intake & Output 07/17/21 07/18/21 07/18/21 18:59 06:59 18:59 Intake Total 0 Output Total 1200 Balance -1200 Weight 48.534 kg Intake: Oral 0 Output: Urine 1200 Other: Voiding Method Incontinent Incontinent Diaper External Catheter External Catheter Incontinent # Bowel Movements 2 - Exam No acute distress, poor historian, currently on 4 L nasal cannula, saturations are 100%.. HEENT examination is grossly unremarkable. Neck supple. Full range of motion. No adenopathy thyromegaly or neck vein distention. Cardiovascular examination reveals regular rhythm rate. S1-S2 normal. No S3 or S4. No discernible murmur noted. Heart rate 78 bpm. Lungs reveal diminished breath sounds in the left chest, mild diffuse rhonchi throughout. The patient does not take deep breaths. No crackles. No wheezes. Abdomen soft bowel sounds are heard. No masses or tenderness. Extremities are intact. No cyanosis clubbing or edema. The right forearm area is wrapped with gauze. Skin with wound to the right upper extremity. Neurologic examination is brief but nonfocal. - Labs CBC & Chem 7: 07/17/21 05:52 07/17/21 05:52 Labs: Microbiology - Last 24 Hours (Table) 07/14/21 11:26 Gram Stain - Final Arm - Right Wound Culture - Final Methicillin resist S. aureus Assessment and Plan Assessment: Chronic elevation of the left hemidiaphragm, with volume loss in the left lung, not causing significant respiratory symptoms at this time. Methicillin-resistant resistant staph aureus cellulitis, right arm. Klebsiella oxytoca urinary tract infection. History of gastroesophageal reflux disease. History of Parkinson's disease. History of dermatomyositis. Plan: The patient was seen and evaluated Titrate down the FiO2 as tolerated Increase use the incentive spirometer Continue antibiotics We will continue to follow I, the cosigning physician, performed a history & physical examination of the patient. Lungs sounds with few scattered rhonchi. Maintaining good O2 sat urations in the 90s on 3 L/m per nasal cannula. I discussed the assessment and plan of care with my nurse practitioner, Brenda Chandler. I attest to the above note as dictated by her.
--- NOTE | 2021-07-18 17:40 | P.PN ---
Subjective Progress Note Date: 07/18/21 This is an 81-year-old female with past medical history of gastroesophageal reflux disease, Parkinson's disease and multiple other medical issues presented to the ER with complaints of right arm pain and swelling 2 days. Denies any fever or chills. Denies any falls or trauma. Denies any lightheadedness dizziness or focal deficits. Denies any chest pain, palpitations or shortness of breath. Febrile on admission, WBC 24.4 with T-max of 102.4, blood cultures obtained. Lactic acid 1.2. UA reporting many bacteria, 23 WBCs, moderate leukocytes, positive nitrates. IV antibiotics of vancomycin and Zosyn initiated. BUN 25, creatinine 0.49. Hemoglobin 10.9, platelets 404. Sodium 133. 07/12/2021 this morning, right forearm,blister burst, large amount of pus drainage, cultures obtained.Doppler reported negative for DVT.Evaluated by infectious disease, recommendations noted and appreciated. Maintained on vancomycin, renal function stable. Maintained on IV fluid hydration, Febrile, T-max 100.5. Urine culture finalizing. Sodium 131. 07/17/2021 urine culture today per Klebsiella oxytoca, cultures reporting MRSA ,maintained on IV antibiotics of vancomycin. Renal function stable. Afebrile, normal WBC, blood cultures negative. Hemoglobin up to 10.1. Maintaining O2 sats of high 90s on 3 L nasal cannula, chest x-ray from yesterday reporting stable left hemidiaphragm enentration with asymmetric left decreased lung volume, stable bibasilar opacity is reflective of possible chronic lung changes, possibly developing infiltrate. Sodium improved 136. 07/18/2021 maintained on IV vancomycin and oral Cipro. Afebrile. States pain controlled. Completed modified barium swallow reporting no evidence for aspiration, refer to speech therapy report. Diet modified to dysphagia level I, pured diet, nectar thick liquids, one-to-one supervision, aspiration precautions. Maintaining O2 sats of 100% on 4 L nasal cannula. Objective - Vital Signs Vital signs: Vital Signs Temp 97.4 F L 07/18/21 12:12 Pulse 90 07/18/21 12:12 Resp 17 07/18/21 12:12 BP 100/66 07/18/21 12:12 Pulse Ox 100 07/18/21 12:12 Intake & Output 07/17/21 07/18/2107/18/21 18:59 06:59 18:59 Intake Total 0 Output Total 1200 Balance -1200 Weight 48.534 kg Intake: Oral 0 Output: Urine 1200 Other: Voiding Method Incontinent Incontinent Diaper External Catheter External Catheter Incontinent # Voids 3 # Bowel Movements 2 2 - Exam PHYSICAL EXAM: VITAL SIGNS: [As above] GENERAL: Sitting up in bed, alert and oriented 2, no acute distress, tired appearing HEENT: Conjunctivae normal. eyes normal. NECK: No JVD. No thyroid enlargement. No LNs CARDIOVASCULAR: S1, S2 regular. No murmur RESPIRATION: Breath sounds diminished in the bases. Occasional scattered rhonchi, no crackles ABDOMEN: Soft, nontender . No guarding. no masses palpable. Bowel sounds heard. EXTREMITIES: Right upper arm and bilateral lower leg dressings clean dry and intact, positive erythema and edema. NERVOUS SYSTEM: Cranial N 2-12 grossly normal. Moves all 4 limbs. Diffuse weakness, No focal deficits. Strength and sensation grossly intact. Skin: Fragile ,Warm and dry - Labs CBC & Chem 7: 07/17/21 05:52 07/17/21 05:52 Labs: Microbiology - Last 24 Hours (Table) 07/14/21 11:26 Anaerobic Culture - Final Arm - Right Assessment and Plan Assessment: Sepsis, present on admission related to right arm cellulitis, right dorsal forearm abscess with MRSA, status post I/D, acute UTI with Klebsiella oxytoca Dysphagia, diet adjusted as recommended per speech therapy Chronic left hemidiaphragm elevation Gastroesophageal reflux disease Parkinson's disease Plan: Continue on current medication regime ,monitoring and symptomatic treatment. Titrate oxygen. Maintain aspiration precautions/diet adjustment with one-to-one supervision as mentioned above .IV antibiotics as per ID. discharge planning in progress for [facility] subacute rehab., tomorrow. The impression and plan of care has been dictated as directed. : I performed a history and examination of this patient, discussed the same with the dictator. I agree with the dictator's note ,documented as a scribe. Any additional findings or plans will be noted.
[2021-07-18] MEDS: MAGNESIUM OXIDE 400 MG TAB PO SCH (20:16)
[2021-07-18] MEDS: QUEtiapine 25 MG TAB PO SCH (20:16)
--- NOTE | 2021-07-18 23:34 | PN ---
PROGRESS NOTE DATE OF SERVICE: 07/18/2021 REASON FOR FOLLOWUP: Right forearm MRSA abscess, cellulitis. INTERVAL HISTORY: The patient is afebrile, has been breathing comfortably. No chest pain, shortness of breath or cough. No abdominal pain or any worsening pain to the right forearm area. PHYSICAL EXAMINATION: Blood pressure 100/66, pulse of 90, temperature 97.4. She is % on 4 L nasal cannula. General description is elderly female lying in bed in no distress. Respiratory system: Unlabored breathing, clear to auscultation anteriorly. Heart S1, S2. Regular rate and rhythm. Abdomen soft, no tenderness. Right foot is currently dressed. No obvious drainage on the dressing. LABS: White count 6.5, creatinine 0.39. Vancomycin trough is 24.1. DIAGNOSTIC IMPRESSION AND PLAN: Patient with MRSA right forearm abscess, status post drainage of the abscess. Patient to continue vancomycin. Dose needs to be cut back to keep the trough around 15 and monitor her clinical course closely. MMODL / IJN: [id number] /
[2021-07-19] MEDS: SODIUM CHLORIDE 0.9% 1,000 ML IV SCH ×2 (04:25→23:12)
[2021-07-19] MEDS ORDERED: VANCOMYCIN TROUGH DUE 1 EACH MISC MISCELLANE ONE (05:00)
[2021-07-19] MEDS: VANCOMYCIN 1,250 MG in SODIUM CHLORIDE 0.9% 250 ML IVPB SCH ×3 (05:52→17:58)
[2021-07-19 05:58] LABS: African American GFR (CKD) >90 (>60 ml/min/1.73 sqM); Anion Gap 2 mmol/L; Blood Urea Nitrogen 12 mg/dL (7-17); Calcium 8.2 mg/dL (8.4-10.2); Carbon Dioxide 38 mmol/L (22-30); Chloride 93 mmol/L (98-107); Glucose 102 mg/dL (74-99); Non-African American GFR(CKD) >90 (>60 ml/min/1.73 sqM); Potassium 4.1 mmol/L (3.5-5.1); Sodium 133 mmol/L (137-145)
[2021-07-19] MEDS: CARBIDOPA-LEVODOPA 25-100 MG 1 EACH TAB PO SCH ×4 (07:00→21:25)
[2021-07-19] MEDS: CARBIDOPA-LEVODOPA ER 25-100MG 1 EACH TABLET.ER PO SCH (08:18)
[2021-07-19] MEDS: FUROSEMIDE 20 MG TAB PO SCH (08:58)
[2021-07-19] MEDS: PANTOPRAZOLE 40 MG TABLET PO SCH (08:58)
[2021-07-19] MEDS: GABAPENTIN 300 MG CAP PO SCH ×3 (08:58→21:26)
[2021-07-19] MEDS: HEPARIN SODIUM,PORCINE/PF 5,000 UNIT/0.5 ML SYRINGE SQ SCH ×2 (08:58→21:25)
[2021-07-19] MEDS: CIPROFLOXACIN HCL 500 MG TAB PO SCH ×2 (08:59→21:25)
[2021-07-19] MEDS: NYSTATIN 100,000 UNIT/ML SUSP 500,000 UNIT/5 ML CUP PO SCH ×5 (09:00→21:27)
--- NOTE | 2021-07-19 12:43 | P.PN ---
Subjective Progress Note Date: 07/19/21 This is an 81-year-old female with past medical history of gastroesophageal reflux disease, Parkinson's disease and multiple other medical issues presented to the ER with complaints of right arm pain and swelling 2 days. Denies any fever or chills. Denies any falls or trauma. Denies any lightheadedness dizziness or focal deficits. Denies any chest pain, palpitations or shortness of breath. Febrile on admission, WBC 24.4 with T-max of 102.4, blood cultures obtained. Lactic acid 1.2. UA reporting many bacteria, 23 WBCs, moderate leukocytes, positive nitrates. IV antibiotics of vancomycin and Zosyn initiated. BUN 25, creatinine 0.49. Hemoglobin 10.9, platelets 404. Sodium 133. 07/12/2021 this morning, right forearm,blister burst, large amount of pus drainage, cultures obtained.Doppler reported negative for DVT.Evaluated by infectious disease, recommendations noted and appreciated. Maintained on vancomycin, renal function stable. Maintained on IV fluid hydration, Febrile, T-max 100.5. Urine culture finalizing. Sodium 131. 07/17/2021 urine culture today per Klebsiella oxytoca, cultures reporting MRSA ,maintained on IV antibiotics of vancomycin. Renal function stable. Afebrile, normal WBC, blood cultures negative. Hemoglobin up to 10.1. Maintaining O2 sats of high 90s on 3 L nasal cannula, chest x-ray from yesterday reporting stable left hemidiaphragm enentration with asymmetric left decreased lung volume, stable bibasilar opacity is reflective of possible chronic lung changes, possibly developing infiltrate. Sodium improved 136. 07/18/2021 maintained on IV vancomycin and oral Cipro. Afebrile. States pain controlled. Completed modified barium swallow reporting no evidence for aspiration, refer to speech therapy report. Diet modified to dysphagia level I, pured diet, nectar thick liquids, one-to-one supervision, aspiration precautions. Maintaining O2 sats of 100% on 4 L nasal cannula. 07/19/2021 afebrile, denies chest pain, palpitations, or shortness of breath. Diet modified yesterday as per speech therapy. Swallow Reevaluation today pending. Discussed potential PEG tube with tube feeds but patient declining at this time. Maintained on antibiotics, renal function stable. Objective - Vital Signs Vital signs: Vital Signs Temp 97.9 F 07/19/21 06:00 Pulse 90 07/19/21 06:00 Resp 20 07/19/21 06:00 BP 102/64 07/19/21 06:00 Pulse Ox 97 07/19/21 08:18 Intake & Output 07/18/21 07/19/21 07/19/21 18:59 06:59 18:59 Intake Total 450 Output Total 1 Balance 449 Intake: Oral 450 Output: Stool 1 Other: Voiding Method Diaper Diaper Diaper Incontinent Incontinent Incontinent # Voids 3 3 # Bowel Movements 2 - Exam PHYSICAL EXAM: VITAL SIGNS: [As above] GENERAL: Sitting up in bed, alert and oriented 2, no acute distress, tired appearing HEENT: Conjunctivae normal. eyes normal. NECK: No JVD. No thyroid enlargement. No LNs CARDIOVASCULAR: S1, S2 regular. No murmur RESPIRATION: Breath sounds diminished in the bases. Occasional scattered rhonchi, bibasilar crackles ABDOMEN: Soft, nontender . No guarding. no masses palpable. Bowel sounds heard. EXTREMITIES: Right upper arm and bilateral lower leg dressings clean dry and intact, positive erythema and edema. NERVOUS SYSTEM: Cranial N 2-12 grossly normal. Moves all 4 limbs. Diffuse weakness, No focal deficits. Strength and sensation grossly intact. Skin: Fragile ,Warm and dry - Labs CBC & Chem 7: 07/17/21 05:52 07/19/21 05:30 Labs: Abnormal Lab Results - Last 24 Hours (Table) 07/19/21 Range/Units 05:30 Sodium 133 L (137-145) mmol/L Chloride 93 L (98-107) mmol/L Carbon Dioxide 38 H (22-30) mmol/L Creatinine 0.43 L (0.52-1.04) mg/dL Glucose 102 H (74-99) mg/dL Calcium 8.2 L (8.4-10.2) mg/dL Microbiology - Last 24 Hours (Table) 07/14/21 11:26 Anaerobic Culture - Final Arm - Right Assessment and Plan Assessment: Sepsis, present on admission related to right arm cellulitis, right dorsal forearm abscess with MRSA, status post I/D, acute UTI with Klebsiella oxytoca Possible aspiration pneumonia Dysphagia, diet adjusted as recommended per speech therapy, re-eval pending. Chronic left hemidiaphragm elevation Gastroesophageal reflux disease Parkinson's disease Plan: Continue on current medication regime ,monitoring and symptomatic treatment. Portable CXR-possible aspiration pneumonia. Maintain aspiration precautions/diet adjustment with one-to-one supervision as mentioned above .Re- eval per speech therapy pending.IV antibiotics as per ID. discharge planning in progress for [facility] subacute rehab. Saturday. The impression and plan of care has been dictated as directed. : I performed a history and examination of this patient, discussed the same with the dictator. I agree with the dictator's note ,documented as a scribe. Any additional findings or plans will be noted.
--- NOTE | 2021-07-19 15:42 | P.PN ---
Subjective Progress Note Date: 07/19/21 81-year-old female, who is a very poor historian. She apparently came into the emergency room on July 10 complaining of pain and swelling to the right upper extremity. She was admitted with a diagnosis of cellulitis. We will asked to see her because of an abnormal chest x-ray. The chest x-ray findings are not acute, but rather chronic. She has elevation of the left diaphragm, which is not a new finding. In addition, she has volume loss throughout the left lung, shifting of the mediastinum rightward, and a torturous trachea. Again all these changes are likely chronic in nature. The patient really is unable to give any history as it relates to her abnormal chest x-ray. Older chest x-rays, are reviewed. The patient is on 3 L of nasal oxygen, with saturations of 98-99%. This can be titrated down. She appears not to have any respiratory distress or difficulty. White count 6.5, hemoglobin 10.1, hematocrit 34.5, and platelet count 453,000. Sodium 136, potassium 5, chlorides 100, CO2 31, anion gap 5, BUN 7, creatinine 0.39. The patient's official chest x-ray shows stable left him I diaphragm eventration, with volume loss in the left lung. Wound cultures from the right arm show evidence of methicillin- resistant staph aureus, and urine sampling from July 10 was positive for Klebsiella oxytoca. The patient is seen today 07/18/2021 in follow-up on the regular medical floor. She is currently resting comfortably in bed. Awake and alert in no acute distress. No shortness of breath, cough or congestion. 18 O2 saturation at 100% on 4 L/m per nasal cannula. Afebrile. Hemodynamically stable. Swallow evaluation did not reveal any evidence of aspiration. Right upper extremity wound culture is positive for MRSA. Urine culture was positive for Klebsiella oxytoca. She remains on vancomycin, Cipro. Heparin for DVT prophylaxis. The patient is seen today 07/19/2021 in follow-up on the regular medical floor. She is sitting up in bed. Awake and alert in no acute distress. Maintaining O2 saturations in the 90s on 3 L nasal cannula. He denies any worsening shortness of breath, cough or congestion. She's afebrile. Hemodynamically stable. Right forearm wound culture positive for MRSA. Urine culture positive for Klebsiella oxytoca. Sodium 133. Potassium 4.1. Creatinine 0.43. She is continued on vancomycin and ciprofloxacin. Objective - Vital Signs Vital signs: Vital Signs Temp 97.9 F 07/19/21 12:53 Pulse 89 07/19/21 12:53 Resp 20 07/19/21 12:53 BP 105/67 07/19/21 12:53 Pulse Ox 98 07/19/21 12:53 Intake & Output 07/18/21 07/19/21 07/19/21 18:59 06:59 18:59 Intake Total 450 250 Output Total 1 Balance 449 250 Intake: Oral 450 250 Output: Stool 1 Other: Voiding Method Diaper Diaper Diaper Incontinent Incontinent Incontinent # Voids 3 3 # Bowel Movements 2 - Exam No acute distress, poor historian, currently on 3 L nasal cannula, saturations are 97%.. HEENT examination is grossly unremarkable. Neck supple. Full range of motion. No adenopathy thyromegaly or neck vein distention. Cardiovascular examination reveals regular rhythm rate. S1-S2 normal. No S3 or S4. No discernible murmur noted. Heart rate 78 bpm. Lungs reveal diminished breath sounds in the left chest, mild diffuse rhonchi throughout. The patient does not take deep breaths. No crackles. No wheezes. Abdomen soft bowel sounds are heard. No masses or tenderness. Extremities are intact. No cyanosis clubbing or edema. The right forearm area is wrapped with gauze. Skin with wound to the right upper extremity. Neurologic examination is brief but nonfocal. - Labs CBC & Chem 7: 07/17/21 05:52 07/19/21 05:30 Labs: Abnormal Lab Results - Last 24 Hours (Table) 07/19/21 Range/Units 05:30 Sodium 133 L (137-145) mmol/L Chloride 93 L (98-107) mmol/L Carbon Dioxide 38 H (22-30) mmol/L Creatinine 0.43 L (0.52-1.04) mg/dL Glucose 102 H (74-99) mg/dL Calcium 8.2 L (8.4-10.2) mg/dL Microbiology - Last 24 Hours (Table) 07/14/21 11:26 Anaerobic Culture - Final Arm - Right Assessment and Plan Assessment: Chronic elevation of the left hemidiaphragm, with volume loss in the left lung, not causing significant respiratory symptoms at this time. Methicillin-resistant resistant staph aureus cellulitis, right arm. Klebsiella oxytoca urinary tract infection. History of gastroesophageal reflux disease. History of Parkinson's disease. History of dermatomyositis. Plan: The patient was seen and evaluated by Dr. Youngblood Titrate down the FiO2 as tolerated Increase use the incentive spirometer Remains on vancomycin and ciprofloxacin We will continue to follow I, the cosigning physician, performed a history & physical examination of the patient. Lungs sounds with few scattered rhonchi. Maintaining good O2 sat urations in the 90s on 3 L/m per nasal cannula. I discussed the assessment and plan of care with my nurse practitioner, Brenda Chandler. I attest to the above note as dictated by her.
[2021-07-19] MEDS: MAGNESIUM OXIDE 400 MG TAB PO SCH (21:25)
[2021-07-19] MEDS: QUEtiapine 25 MG TAB PO SCH (21:26)
--- NOTE | 2021-07-19 23:02 | PN ---
PROGRESS NOTE DATE OF SERVICE: 07/19/2021 REASON FOR FOLLOWUP: Right forearm MRSA abscess cellulitis. INTERVAL HISTORY: Patient is afebrile. The patient is more awake and alert today. She is breathing comfortably. No chest pain or shortness of breath. Occasional cough. No worsening pain in the right forearm area. EXAMINATION: Her blood pressure is 105/67, pulse of 89, temperature 97.9. She is 98% on 5 L nasal cannula. General description is an elderly female up in the bed in no distress. Respiratory system: Unlabored breathing, decreased breath sounds at the bases. No wheeze. Heart S1, S2. Regular rate and rhythm. Abdomen soft, no tenderness. Right forearm wound is currently dressed. No obvious drainage on the dressing. LABS: Creatinine 0.43. DIAGNOSTIC IMPRESSION AND PLAN: Patient with MRSA right forearm abscess status post surgical drainage. The patient is covered with a We will transition to oral antibiotic on discharge and continue supportive care. MMODL / IJN: [id number] /
[2021-07-20] MEDS: CARBIDOPA-LEVODOPA 25-100 MG 1 EACH TAB PO SCH ×6 (06:02→22:39)
[2021-07-20] MEDS: VANCOMYCIN 1,250 MG in SODIUM CHLORIDE 0.9% 250 ML IVPB SCH ×2 (06:23→18:09)
[2021-07-20] MEDS: PANTOPRAZOLE 40 MG TABLET PO SCH (09:29)
[2021-07-20] MEDS: GABAPENTIN 300 MG CAP PO SCH ×3 (09:29→21:50)
[2021-07-20] MEDS: NYSTATIN 100,000 UNIT/ML SUSP 500,000 UNIT/5 ML CUP PO SCH ×4 (09:34→21:46)
[2021-07-20] MEDS: HEPARIN SODIUM,PORCINE/PF 5,000 UNIT/0.5 ML SYRINGE SQ SCH ×2 (09:35→20:12)
[2021-07-20] MEDS ORDERED: ACETAMINOPHEN SUPPOSITORY 120 MG SUPP RECTAL PRN (10:24)
--- NOTE | 2021-07-20 10:52 | P.PN ---
Subjective Progress Note Date: 07/20/21 Principal diagnosis: Right dorsal ulnar forearm abscess/cellulitis Patient was seen at bedside this morning resting comfortably lying semirecumbent in bed. Patient seemed to be somewhat somnolent during encounter. Patient says her pain is under better control today with her arm. She is able to supinate and pronate right arm without pain. Patient can wiggle digits in right upper extremity. Patient denies any new complaints in her right arm. Patient denies chest pain, fever, shortness breath, nausea, vomiting, change in vision, loss of bowel/bladder control. Objective - Vital Signs Vital signs: Vital Signs Temp 98.4 F 07/20/21 05:00 Pulse 85 07/20/21 05:00 Resp 18 07/20/21 05:00 BP 107/67 07/20/21 05:00 Pulse Ox 91 L 07/20/21 05:00 Intake & Output 07/19/21 07/20/21 07/20/21 18:59 06:59 18:59 Intake Total 250 1500 Balance 250 1500 Intake: Intake, IV Titration 1500 Amount Vancomycin 1,250 mg In 1500 Sodium Chloride 0.9% 250 ml @ 125 mls/hr IVPB Q12H [facility] Rx#:[id number] Oral 250 Other: Voiding Method Diaper Diaper Incontinent Incontinent # Voids 6 # Bowel Movements 1 - Exam Right upper extremity Bandages present over the right forearm. There is some mild swelling to the right upper extremity. Negative for any significant ecchymosis, erythema. Patient is able supinate and pronate right arm without pain. Patient can flex and extend digits in right hand without pain. [employer] Helper strength right hand 4+/5. Patient is able to flex and extend the elbow fully in right upper extremity. Radial pulses intact, 2+ bilaterally in upper extremities. Sensation is equal, symmetric, bilateral intact throughout upper extremities - Labs CBC & Chem 7: 07/17/21 05:52 07/19/21 05:30 Assessment and Plan Assessment: 1. Right dorsal ulnar forearm abscess/cellulitis - post op day #6 s/p Incision and drainage/irrigation and debridement right dorsal ulnar forearm abscess 2. UTI 3. Multiple medical comorbidities Plan: 1. Right dorsal ulnar forearm abscess/cellulitis - surgery performed 07/14/2021 - Incision and drainage/irrigation and debridement right dorsal ulnar forearm abscess. Patient stable at bedside this morning. Dressing/wrap present over right forearm. Dressing is not saturated and is clean and dry. Plan on aime nging the dressing tomorrow before patient is discharged to rehab 2. Appreciate medical management 3. Pain management - [place]; gabapentin 4. DVT prophylaxis - heparin 5. GI prophylaxis - [place] 6. Encourage incentive spirometer use 7. PT/OT - WBAT w/walker 8. Discharge planning - patient stable from an orthopedic standpoint for discharge. We'll continue to follow patient while in hospital. Discharge per medicine Time with Patient: Less than 30
--- NOTE | 2021-07-20 11:48 | XR ---
EXAMINATION TYPE: XR chest 2V DATE OF EXAM: 07/20/2021 COMPARISON: Chest x-ray 4 days ago and older x-rays HISTORY: Congestion. TECHNIQUE: Frontal and lateral views of the chest are obtained. FINDINGS: Elevated left hemidiaphragm redemonstrated. Contrast from recent swallow study seen in the left colon. Completely opacified left hemithorax on current study. Increasing right-sided effusion a nd interstitial markings. Osseous structures are demineralized with advanced degenerative change righ t glenohumeral joint. Silhouetting of heart borders on current study making heart size evaluation sub optimal. Continued atherosclerotic prominent aortic knob causing right-sided tracheal deviation. IMPRESSION: Worsening bilateral [id number]-esstvoiz interstitial edema. Worsening bilateral pleural eff usions with suspected large left-sided effusion and likely postobstructive atelectasis on current emir dy. Worsening [id number] size right pleural effusion.
[2021-07-20] MEDS ORDERED: CARBIDOPA-LEVODOPA 25-100 MG 1 EACH TAB PO SCH (13:00)
[2021-07-20] MEDS ORDERED: FUROSEMIDE 10 MG/ML 2 ML VIAL IV ONE (13:02)
--- NOTE | 2021-07-20 14:41 | CT ---
EXAMINATION TYPE: CT brain wo con DATE OF EXAM: 07/20/2021 HISTORY: Confusion, cellulitis CT DLP: 1055.5 mGycm. Automated Exposure Control for Dose Reduction was Utilized. TECHNIQUE: CT scan of the head is performed without contrast. COMPARISON: CT brain August 21, 2019. FINDINGS: There is no acute intracranial hemorrhage or midline shift identified. There is mild-to-m oderate diffuse ventricular and sulcal prominence consistent with diffuse age-related cerebral atroph y. There is mild low-attenuation in the periventricular white matter consistent with chronic small v essel ischemic change. Bilateral basal ganglia calcifications redemonstrated. New opacification of th e left mastoid air cells raises concern for left-sided mastoiditis. The globes are intact and the vis ualized sinuses are clear. IMPRESSION: 1. New partial opacification left mastoid air cells could reflect product of acute mastoiditis. Corre late clinically. 2. There is mild to moderate diffuse age-related cerebral atrophy and mild chronic small vessel ische cheryl change redemonstrated. No significant change from prior.
--- NOTE | 2021-07-20 14:56 | P.PN ---
Subjective Progress Note Date: 07/20/21 81-year-old female, who is a very poor historian. She apparently came into the emergency room on July 10 complaining of pain and swelling to the right upper extremity. She was admitted with a diagnosis of cellulitis. We will asked to see her because of an abnormal chest x-ray. The chest x-ray findings are not acute, but rather chronic. She has elevation of the left diaphragm, which is not a new finding. In addition, she has volume loss throughout the left lung, shifting of the mediastinum rightward, and a torturous trachea. Again all these changes are likely chronic in nature. The patient really is unable to give any history as it relates to her abnormal chest x-ray. Older chest x-rays, are reviewed. The patient is on 3 L of nasal oxygen, with saturations of 98-99%. This can be titrated down. She appears not to have any respiratory distress or difficulty. White count 6.5, hemoglobin 10.1, hematocrit 34.5, and platelet count 453,000. Sodium 136, potassium 5, chlorides 100, CO2 31, anion gap 5, BUN 7, creatinine 0.39. The patient's official chest x-ray shows stable left him I diaphragm eventration, with volume loss in the left lung. Wound cultures from the right arm show evidence of methicillin- resistant staph aureus, and urine sampling from July 10 was positive for Klebsiella oxytoca. The patient is seen today 07/18/2021 in follow-up on the regular medical floor. She is currently resting comfortably in bed. Awake and alert in no acute distress. No shortness of breath, cough or congestion. 18 O2 saturation at 100% on 4 L/m per nasal cannula. Afebrile. Hemodynamically stable. Swallow evaluation did not reveal any evidence of aspiration. Right upper extremity wound culture is positive for MRSA. Urine culture was positive for Klebsiella oxytoca. She remains on vancomycin, Cipro. Heparin for DVT prophylaxis. The patient is seen today 07/19/2021 in follow-up on the regular medical floor. She is sitting up in bed. Awake and alert in no acute distress. Maintaining O2 saturations in the 90s on 3 L nasal cannula. He denies any worsening shortness of breath, cough or congestion. She's afebrile. Hemodynamically stable. Right forearm wound culture positive for MRSA. Urine culture positive for Klebsiella oxytoca. Sodium 133. Potassium 4.1. Creatinine 0.43. She is continued on vancomycin and ciprofloxacin. The patient is seen today 07/20/2021 in follow-up on the regular medical floor. She is currently sitting up in bed. She did have some episode of confusion and a computed tomography scan of the brain revealed new partial opacification left mastoid air cells could reflect area of acute mastoiditis. There is [id number] diffuse age-related cerebral atrophy and mild chronic small vessel ischemia. As x-ray reveals worsening bilateral mild to moderate interstitial edema. Worsening bilateral pleural effusions with suspected large left-sided effusion and likely postobstructive atelectasis. Worsening small the right moderate right-sided effusion. There is chronic elevation left hemidiaphragm with bowel and intrathoracic stomach findings. He is maintaining O2 saturations in the upper 90s on 3 L/m per nasal cannula. She's been afebrile. Hemodynamically stable. Right arm wound culture was positive for MRSA. She is continued on vancomycin Objective - Vital Signs Vital signs: Vital Signs Temp 97.6 F 07/20/21 11:43 Pulse 89 07/20/21 11:43 Resp 14 07/20/21 11:43 BP 108/72 07/20/21 11:43 Pulse Ox 97 07/20/21 11:43 Intake & Output 07/19/21 07/20/21 07/20/21 18:59 06:59 18:59 Intake Total 250 1500 Balance 250 1500 Intake: Intake, IV Titration 1500 Amount Vancomycin 1,250 mg In 1500 Sodium Chloride 0.9% 250 ml @ 125 mls/hr IVPB Q12H [facility] Rx#:[id number] Oral 250 Other: Voiding Method Diaper Diaper Diaper Incontinent Incontinent Incontinent # Voids 6 # Bowel Movements 1 - Exam No acute distress, poor historian, currently on 3 L nasal cannula, saturations are 97%.. HEENT examination is grossly unremarkable. Neck supple. Full range of motion. No adenopathy thyromegaly or neck vein distention. Cardiovascular examination reveals regular rhythm rate. S1-S2 normal. No S3 or S4. No discernible murmur noted. Lungs reveal diminished breath sounds in the left chest, mild diffuse rhonchi throughout. The patient does not take deep breaths. No crackles. No wheezes. Abdomen soft bowel sounds are heard. No masses or tenderness. Extremities are intact. No cyanosis clubbing or edema. The right forearm area is wrapped with gauze. Skin with wound to the right upper extremity. Neurologic examination is brief but nonfocal. - Labs CBC & Chem 7: 07/17/21 05:52 07/19/21 05:30 Assessment and Plan Assessment: 1 Chronic elevation of the left hemidiaphragm, with volume loss in the left lung, not causing significant respiratory symptoms at this time. 2 Methicillin-resistant resistant staph aureus cellulitis, right arm. 3 Klebsiella oxytoca urinary tract infection. 4 History of gastroesophageal reflux disease. 5 History of Parkinson's disease. 6 History of dermatomyositis. Plan: The patient was seen and evaluated by Dr. Youngblood Chest x-ray reviewed Add chest physiotherapy Titrate down the FiO2 as tolerated Increase use the incentive spirometer Remains on vancomycin We will continue to follow I, the cosigning physician, performed a history & physical examination of the patient. Lungs sounds with few scattered rhonchi not diminished in the left lung base. Maintaining good O2 saturations in the 90s on 3 L/m per nasal cannula. I discussed the assessment and plan of care with my nurse practitioner, Brenda Chandler. I attest to the above note as dictated by her.
--- NOTE | 2021-07-20 19:33 | P.PN ---
Subjective This is an 81-year-old female with past medical history of gastroesophageal reflux disease, Parkinson's disease and multiple other medical issues presented to the ER with complaints of right arm pain and swelling 2 days. Patient also with advanced Parkinson's disease on high doses of Sinemet 2 tablets, 4 times a day. And patient currently can move and she needs assistance in bed per staff. Rest abductors states that patient is at best mentation. But she got. Conclusions which is expected from delirium related to her infection and decond itioning. CT of the brain was negative for acute process. We'll consult neurology for her advanced Parkinson's disease. Patient is with right forearm abscess and cellulitis secondary persistent MRSA status post I&D 07/14 by orthopedic team who today actually cleared the patient for discharge, indicating that she is doing well generally. She is being covered with IV vancomycin, ID team on the case. She looks edematous all over, x-ray of the today showing worsening effusion and edema, therefore we stopped the normal saline at 40 mL per hour and give 1 dose of IV Lasix 20 mg. Patient that has difficulty swallowing suspected therefore we asked for swallow evaluation. Patient needs 25% of her diet but also she is a small lady Objective - Vital Signs Vital signs: Vital Signs Temp 97.6 F 07/20/21 11:43 Pulse 89 07/20/21 11:43 Resp 14 07/20/21 11:43 BP 108/72 07/20/21 11:43 Pulse Ox 97 07/20/21 11:43 Intake & Output 07/19/21 07/20/21 07/20/21 18:59 06:59 18:59 Intake Total 250 1500 Balance 250 1500 Intake: Intake, IV Titration 1500 Amount Vancomycin 1,250 mg In 1500 Sodium Chloride 0.9% 250 ml @ 125 mls/hr IVPB Q12H [facility] Rx#:[id number] Oral 250 Other: Voiding Method Diaper Diaper Incontinent Incontinent # Voids 6 # Bowel Movements 1 - Exam -GENERAL: The patient is alert and oriented x3, not in any acute distress. Thin built HEENT: Pupils are round and equally reacting to light. EOMI. No scleral icterus. No conjunctival pallor. Normocephalic, atraumatic. No pharyngeal erythema. No thyromegaly. CARDIOVASCULAR: S1 and S2 present. No murmurs, rubs, or gallops. -PULMONARY: Chest is clear to auscultation, no. Bilateral crepitation decreased breath sounds on the basis ABDOMEN: Soft, nontender, nondistended, normoactive bowel sounds. No palpable or ganomegaly. MUSCULOSKELETAL: No joint swelling or deformity. -EXTREMITIES: No cyanosis, clubbing, or pedal edema. Right forearm wound, clean and dry with improvement surrounding cellulitis, dressing in a Place NEUROLOGICAL: Gross neurological examination did not reveal any focal deficits. SKIN: No rashes. no petechiae. - Labs CBC & Chem 7: 07/17/21 05:52 07/19/21 05:30 Assessment and Plan Assessment: Right forearm cellulitis and abscess secondary to MRSA status post surgical drainage on 07/14 UTI secondary to Klebsiella Rule out swallowing difficulty Chronic left hemidiaphragm elevation Gastroesophageal reflux disease Advanced Parkinson's disease Plan: This is a pleasant 81 years old female who presents with a right upper extremity cellulitis secondary to MRSA Continue with IV vancomycin and switched to oral antibiotics upon discharge as per ID team reviewed Stop IV fluids and given 1 time dose of IV Lasix 20 mg. Check swallow evaluation Consult neurology for her advanced Parkinson Labs and medication were reviewed.. Continue same treatment. Continue with symptomatic treatment. Resume home medication. Monitor lytes and vitals. DVT and GI prophylaxis. Further recommendations as per clinical course of the patient DVT prophylaxis: Subcutaneous heparin GI Prophylaxis: Ppi Prognosis is guarded Possible discharge in 24-48 hours if she keeps improvement
[2021-07-20] MEDS: MAGNESIUM OXIDE 400 MG TAB PO SCH (20:11)
[2021-07-20] MEDS: QUEtiapine 25 MG TAB PO SCH (20:11)
[2021-07-21] MEDS: VANCOMYCIN 1,250 MG in SODIUM CHLORIDE 0.9% 250 ML IVPB SCH ×3 (06:02→17:36)
[2021-07-21] MEDS ORDERED: FUROSEMIDE 10 MG/ML 4 ML VIAL IV STA (06:09)
[2021-07-21 07:48] LABS: African American GFR (CKD) >90 (>60 ml/min/1.73 sqM); Blood Urea Nitrogen 11 mg/dL (7-17); Chloride 90 mmol/L (98-107); Non-African American GFR(CKD) >90 (>60 ml/min/1.73 sqM)
[2021-07-21 07:50] LABS: Calcium 8.2 mg/dL (8.4-10.2); Glucose 101 mg/dL (74-99); Potassium 3.7 mmol/L (3.5-5.1); Sodium 135 mmol/L (137-145)
[2021-07-21 07:56] LABS: Anion Gap 3 mmol/L
[2021-07-21 08:03] LABS: Carbon Dioxide 42 mmol/L (22-30)
[2021-07-21] MEDS: PANTOPRAZOLE 40 MG TABLET PO SCH (08:26)
[2021-07-21] MEDS: FUROSEMIDE 20 MG TAB PO SCH (08:26)
[2021-07-21] MEDS: GABAPENTIN 300 MG CAP PO SCH ×3 (08:26→20:52)
[2021-07-21] MEDS: HEPARIN SODIUM,PORCINE/PF 5,000 UNIT/0.5 ML SYRINGE SQ SCH ×2 (08:27→21:23)
[2021-07-21] MEDS: CARBIDOPA-LEVODOPA 25-100 MG 1 EACH TAB PO SCH ×4 (08:27→20:52)
[2021-07-21] MEDS: NYSTATIN 100,000 UNIT/ML SUSP 500,000 UNIT/5 ML CUP PO SCH ×4 (08:27→20:52)
--- NOTE | 2021-07-21 09:10 | PN ---
PROGRESS NOTE DATE OF SERVICE: 07/20/2021 REASON FOR FOLLOWUP: 1. Right forearm pneumonia, sepsis, cellulitis. 2. UTI. INTERVAL HISTORY: Patient is afebrile. The patient is currently breathing comfortably. Patient denies having any chest pain. No shortness of breath. Occasional cough. No abdominal pain and no worsening pain to the right forearm area. EXAMINATION: Blood pressure 105/66, pulse of 81, temperature of 97.8. She is 97% on 3 L nasal cannula. General description is an elderly female lying in bed in no distress. Respiratory system: Unlabored breathing, clear to auscultation anteriorly. Heart S1, S2. Regular rate and rhythm. Abdomen soft, no tenderness. Right forearm is currently dressed. No obvious drainage on the dressing. LABS: Hemoglobin is 10.1, white count 6.5, creatinine 0.43. DIAGNOSTIC IMPRESSION AND PLAN: 1. Patient with MRSA right forearm abscess status post drainage to continue vancomycin and monitor kidney function closely. 2. Patient with Klebsiella urinary tract infection, adequately treated. Continue supportive care. MMODL / IJN: [id number] /
--- NOTE | 2021-07-21 11:51 | P.CNNES ---
History of Present Illness Consult date: 07/21/21 Requesting physician: Alvin E Sheet Reason for Consult: advanced parkinson's History of Present Illness: Asst. 81-year-old woman with medical history of reported advanced Parkinson's disease, dermatomyositis, GERD and the emergency department with complaint of right arm pain and swelling for 2 days prior presenting the hospital. Neurology is consulted for advanced Parkinson's disease. She stated that the she has his tory of left arm tremor as well as she noted that tremor over extremity but could not tell me was either right or left and she said that has been going on for at least 3-4 years and she follows up with the neurologist as an outpatient (Dr. Malachi Li) and was told she has Parkinson's disease. He said that she was started on a low dose of Sinemet and and then gradually was increased at. She said that she's been using the walker for last couple years. Patient is currently on Sinemet 19651 2 tablets qid, Sinemet extended release 72547 one tablet by mouth twice a day. She resides home alone. She also stated that that she follows up with the lawn sprinkler servicer for her dermatomyositis diagnosis. Of note during this hospital stay was felt the patient has right forearm cellulitis and abscess secondary due to MRSA status post surgical drainage on 1119 that. Also was felt the patient has UTI secondary due to Klebsiella. Patient has chronic left hemidiaphragm at elevation. Also has some mild swallowing difficulties. Some of the workup in the hospital consisted of: CT of the head is reported as new partial opacification of the left mastoid air cell could reflect product of acute mastoiditis. Correlate clinically. There is a mild to moderate diffuse age-related cerebral atrophy and mild chronic small vessel ischemic changes redemonstrated. No significant change from prior. She had a barium swallow with video during this admission and it is reported as there is no evidence for aspiration. Deep penetration with honey barium and pudding mixture. Most recent sodium is 135, creatinine is up 0.39, serum glucose last is 101, calcium is 8.2. Urinalysis as seen possible suggestive for urinary tract infection. Rheumatoid factor was less than 10, a nasal negative, scleroderma 70 antibody is negative and REVENUE FIELD AUDITOR antibody is negative. Review of Systems Review of system: The 12 point system was reviewed and apparent positive and negative per HPI. 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 No animal exposures. No tobacco use. No alcohol use. No recreational drug use. Works in the [place] area is now lived in [place] for 21 years Smoking Status: Never smoker Past Alcohol Use History: None Reported Past Drug Use History: None Reported - Past Family History Mother Family Medical History: Cancer Additional Family Medical History / Comment(s): stroke Medications and Allergies Home Medications Medication Instructions Recorded Confirmed Type Lansoprazole [Prevacid] 30 mg PO DAILY 09/13/16 07/10/21 History Carbidopa-Levodopa 25-100 mg 2 tab PO QID@05,,12/21/18 07/10/21 History [Sinemet 25-100 mg] Docusate [Colace] 100 mg PO BID 12/21/18 07/10/21 History NIFEdipine [NIFEdipine ER 30 mg PO DAILY 12/21/18 07/10/21 History (Osmotic)] predniSONE 10 mg PO DAILY 12/21/18 07/10/21 History Alendronate Sodium [Fosamax] 70 mg PO STEVENS 07/23/20 07/10/21 History Biotin 10,000 mcg PO DAILY 07/23/20 07/10/21 History Carbidopa-Levodopa ER 25-100Mg 1 tab PO BID@0500,2100 07/23/20 07/10/21 History [Sinemet CR 25-100 mg] Ketoconazole [Nizoral A-D] 1 applic TOPICAL Q48H 07/23/20 07/10/21 History Lysine HCl [l-Lysine] 1,000 mg PO DAILY 07/23/20 07/10/21 History mycophenolate mofetiL [Cellcept] 1,500 mg PO BID #0 07/26/20 07/10/21 Rx Fluocinolone/Shower Cap 1 applic TOPICAL TID PRN 05/15/21 07/10/21 History [Fluocinolone 0.01% Scalp Oil] Furosemide [Lasix] 20 mg PO Q48H 05/15/21 07/10/21 History Gabapentin 600 mg PO TID 3 Days #9 tab 05/16/21 07/10/21 Rx Magnesium Oxide 400 mg PO HS 07/10/21 07/10/21 History Allergies Allergy/AdvReac Type Severity Reaction Status Date / Time cephalexin [From Keflex] Allergy Rash/Hives Verified 07/11/21 09:59 Physical Examination - Vital Signs Vital Signs: Vital Signs Temp Pulse Pulse Resp BP BP Pulse Ox 07/21/21 08:40 76 104/68 07/21/21 05:00 98.9 F 76 20 118/75 95 07/20/21 19:53 97.8 F 81 20 105/66 97 07/20/21 11:43 97.6 F 89 14 108/72 97 Intake and Output 07/20/21 07/21/21 07/21/21 22:59 06:59 14:59 Intake Total 120 Balance 120 Intake: Oral 120 Other: Voiding Method Diaper Incontinent # Voids 1 3 # Bowel Movements 1 2 GENERAL: The patient is sitting at bedside of chair and seemed in mild acute distress (coughing). Patient is cachectic. HENT: Seems to have significant atrophy of facial muscles and temporal b ilaterally. CHEST: The heart rate is regular rate rhythm. No murmurs to auscultation. LUNG: Clear to auscultation bilaterally no wheezing noted throughout. Not labored breathing. But has weak cough. ABDOMEN/GI: Bowel sounds present in all 4 quadrants. No tenderness to palpation throughout. INTEGUMENTARY: Has fibrous looking skin in both hands. NEUROLOGICAL: Higher mental function: The patient is awake, alert, oriented to self, place and time. Patient is following commands. No aphasia and no neglect. Cranial nerves: The pupils are round, equal and reactive to light. Visual armstrong are full to confrontation throughout. Appears right eye lid is slight swollen compared to left. Extraocular movement is intact no nystagmus is noted. Facial sensation is normal to touch throughout. The facial strength is left nasolabial flattening. Hypophonic voice. Has weak cough. Hearing is mod erately to severely decreased bilaterally to hand rub. Tongue is midline and moved [id number] without any difficulty. Shoulder shrug is normal bilaterally. Motor: Gait is deferred since was getting respiratory therapy treatment. The strength is moving all extremities above gravity and limited in above because of pain but hand podiatric assistant is 4+ billaterally. The lowers are 4+ throughout lowers. De crease bulk throughout. Normal tone. Cerebellum: Normal finger to nose bilaterally. Sensation: Sensation is normal to touch throughout. Reflexes (right/left): 1+ throughout. Plantars are mute bilaterally. Results - Laboratory Findings CBC and BMP: 07/17/21 05:52 07/21/21 07:00 Abnormal Lab Findings: Abnormal Labs 07/10/21 07/10/21 07/10/21 14:57 14:57 21:12 WBC 24.4 H RBC 3.62 L Hgb 10.9 L Hct MCV MCHC 30.6 L RDW Plt Count Immature Gran # Neutrophils # 22.5 H Lymphocytes # 0.6 L Monocytes # 1.1 H Eosinophils # ESR Sodium 133 L Potassium Chloride Carbon Dioxide BUN 25 H Creatinine 0.49 L Glucose 131 H Uric Acid Calcium C-Reactive Protein Urine Appearance Cloudy H Urine Protein 1+ H Urine Ketones Trace H Urine Blood Small H Urine Nitrite Positive H Ur Leukocyte Esterase Moderate H Urine WBC 23 H Urine Bacteria Many H Hyaline Casts 4 H Urine Mucus Rare H 07/12/21 07/13/21 07/13/21 07:16 07:20 07:20 WBC RBC 2.72 L Hgb 8.4 L Hct 27.9 L MCV 102.6 H MCHC 30.1 L RDW 14.6 H Plt Count Immature Gran # Neutrophils # Lymphocytes # 0.36 L Monocytes # Eosinophils # ESR Sodium 131 L 136 L Potassium 3.3 L Chloride 111 H Carbon Dioxide 20 L 21 L BUN Creatinine 0.40 L 0.27 L Glucose Uric Acid Calcium 7.7 L 6.6 L C-Reactive Protein Urine Appearance Urine Protein Urine Ketones Urine Blood Urine Nitrite Ur Leukocyte Esterase Urine WBC Urine Bacteria Hyaline Casts Urine Mucus 07/14/21 07/14/21 07/14/21 05:35 05:35 18:57 WBC RBC 3.28 L Hgb 9.4 L Hct 33.2 L MCV 101.2 H MCHC 28.3 L RDW 14.7 H Plt Count Immature Gran # 0.07 H Neutrophils # Lymphocytes # 0.50 L Monocytes # Eosinophils # 0.03 L ESR 55 H Sodium 135 L Potassium Chloride Carbon Dioxide BUN Creatinine 0.36 L Glucose Uric Acid Calcium 7.8 L C-Reactive Protein Urine Appearance Urine Protein Urine Ketones Urine Blood Urine Nitrite Ur Leukocyte Esterase Urine WBC Urine Bacteria Hyaline Casts Urine Mucus 07/14/21 07/15/21 07/15/21 18:57 07:19 07:19 WBC RBC 2.92 L Hgb 8.2 L Hct 29.7 L MCV 101.7 H MCHC 27.6 L RDW 14.6 H Plt Count Immature Gran # 0.10 H Neutrophils # Lymphocytes # 0.38 L Monocytes # Eosinophils # 0.03 L ESR Sodium Potassium 3.3 L Chloride 110 H Carbon Dioxide 21.2 L BUN 5.5 L Creatinine 0.3 L Glucose Uric Acid Calcium 6.5 L C-Reactive Protein 15.7 H Urine Appearance Urine Protein Urine Ketones Urine Blood Urine Nitrite Ur Leukocyte Esterase Urine WBC Urine Bacteria Hyaline Casts Urine Mucus 07/15/21 07/16/21 07/17/21 17:10 07:47 05:52 WBC RBC 3.36 L Hgb 10.1 L Hct MCV 102.5 H MCHC 29.2 L RDW Plt Count 453 H Immature Gran # Neutrophils # Lymphocytes # 0.6 L Monocytes # Eosinophils # ESR Sodium Potassium Chloride Carbon Dioxide BUN Creatinine 0.34 L Glucose Uric Acid 2.6 L Calcium C-Reactive Protein Urine Appearance Urine Protein Urine Ketones Urine Blood Urine Nitrite Ur Leukocyte Esterase Urine WBC Urine Bacteria Hyaline Casts Urine Mucus 07/17/21 07/19/21 07/21/21 05:52 05:30 07:00 WBC RBC Hgb Hct MCV MCHC RDW Plt Count Immature Gran # Neutrophils # Lymphocytes # Monocytes # Eosinophils # ESR Sodium 136 L 133 L 135 L Potassium Chloride 93 L 90 L Carbon Dioxide 31 H 38 H 42 H* BUN Creatinine 0.39 L 0.43 L 0.39 L Glucose 102 H 101 H Uric Acid Calcium 8.3 L 8.2 L 8.2 L C-Reactive Protein Urine Appearance Urine Protein Urine Ketones Urine Blood Urine Nitrite Ur Leukocyte Esterase Urine WBC Urine Bacteria Hyaline Casts Urine Mucus Assessment and Plan Assessment: Reported Advanced Parkinson's disease (she stated she was diagnosed about 3-4 years ago and had left hand tremor then lower extremity) Hypophonia Right forearm cellulitis and abscess due to MRSA status post surgical drainage on 07/14/2021 Acute UTI secondary to Klebsiella Chronic left hemidiaphragm elevation Dermatomyositis GERD Plan: I cannot say for certain the that the patient has Parkinson's disease. I feel the patient is on very high dose of Sinement. Currently on Sinemet 17495 2 tablets qid, Sinemet extended release [id number] one tablet by mouth twice a day. She stated that in the past she was on a low dose but continued to have tremor. I recommend the patient to get a second opinion from a neurologist regarding her condition whether she truly has Parkinson's disease or not by tapering the medication off then being evaluated as well as recommend a Maddison scan as outpatient. Otherwise no further neurological workup is needed from a neurologic perspective . We'll defer the rest of the medical management to the primary team. Patient will continue to follow-up with her neurologist (Dr. Malachi Li) as outpatient. Plan was discussed with the patient's primary team. Thank you for the consultation. Otherwise no further work-up. Ovidio Youngblood M.D. Neuro-Hospitalist. Time with Patient: Greater than 30
--- NOTE | 2021-07-21 12:51 | P.PN ---
Subjective Progress Note Date: 07/21/21 Principal diagnosis: Right dorsal ulnar forearm abscess/cellulitis Patient was seen at bedside this morning resting comfortably lying in recliner reading a book. Patient says her pain is under better control today with her arm. She is able to supinate and pronate right arm without pain. Patient can wiggle digits in right upper extremity. Patient denies any new complaints in her right arm. Patient denies chest pain, fever, shortness breath, nausea, vomiting, change in vision, loss of bowel/bladder control. Objective - Vital Signs Vital signs: Vital Signs Temp 98.9 F 07/21/21 05:00 Pulse 76 07/21/21 08:40 Resp 20 07/21/21 05:00 BP 104/68 07/21/21 08:40 Pulse Ox 95 07/21/21 05:00 Intake & Output 07/20/21 07/21/21 07/21/21 18:59 06:59 18:59 Intake Total 120 Balance 120 Weight 48.534 kg Intake: Oral 120 Other: Voiding Method Diaper Diaper Diaper Incontinent Incontinent Incontinent # Voids 1 3 # Bowel Movements 1 2 - Exam Right upper extremity Bandages present over the right forearm. There is some mild swelling to the right upper extremity. Dressing was removed. there is some minimal purulent exudate from incision. sutures are well intact and in well alignment. surrounding tissue around incision is somewhat erythematous. incision and surrounding area is non tender to touch. patients right wrist is somewhat tender to touch. Patient is able supinate and pronate right arm without pain. Patient can flex and extend digits in right hand without pain. Film Recordist strength right hand 4+/5. Patient is able to flex and extend the elbow fully in right upper extremity. Radial pulses intact, 2+ bilaterally in upper extremities. Sensation is equal, symmetric, bilateral intact throughout upper extremities - Labs CBC & Chem 7: 07/17/21 05:52 07/21/21 07:00 Labs: Abnormal Lab Results - Last 24 Hours (Table) 07/21/21 Range/Units 07:00 Sodium 135 L (137-145) mmol/L Chloride 90 L (98-107) mmol/L Carbon Dioxide 42 H* (22-30) mmol/L Creatinine 0.39 L (0.52-1.04) mg/dL Glucose 101 H (74-99) mg/dL Calcium 8.2 L (8.4-10.2) mg/dL Assessment and Plan Assessment: 1. Right dorsal ulnar forearm abscess/cellulitis - post op day #7 s/p Incision and drainage/irrigation and debridement right dorsal ulnar forearm abscess 2. UTI 3. Multiple medical comorbidities Plan: 1. Right dorsal ulnar forearm abscess/cellulitis - surgery performed 07/14/2021 - Incision and drainage/irrigation and debridement right dorsal ulnar forearm abscess. Patient stable at bedside this morning. kerlix wrap removed from right forearm. new bandage placed over incision. recommend dressing changes every 2-3 days while in rehab. Recommend patient to follow up in outpatient setting 1-2 weeks. 2. Appreciate medical management 3. Pain management - [place]; gabapentin 4. DVT prophylaxis - heparin 5. GI prophylaxis - Colace 6. Encourage incentive spirometer use 7. PT/OT - WBAT w/walker 8. Discharge planning - patient stable from an orthopedic standpoint for discharge. Discharge per medicine Time with Patient: Less than 30
--- NOTE | 2021-07-21 14:45 | P.PN ---
Subjective This is an 81-year-old female with past medical history of gastroesophageal reflux disease, Parkinson's disease and multiple other medical issues presented to the ER with complaints of right arm pain and swelling 2 days. Patient also with advanced Parkinson's disease on high doses of Sinemet 2 tablets, 4 times a day. And patient currently can move and she needs assistance in bed per staff. Rest abductors states that patient is at best mentation. But she got. Conclusions which is expected from delirium related to her infection and decond itioning. CT of the brain was negative for acute process. We'll consult neurology for her advanced Parkinson's disease. Patient is with right forearm abscess and cellulitis secondary persistent MRSA status post I&D 07/14 by orthopedic team who today actually cleared the patient for discharge, indicating that she is doing well generally. She is being covered with IV vancomycin, ID team on the case. She looks edematous all over, x-ray of the today showing worsening effusion and edema, therefore we stopped the normal saline at 40 mL per hour and give 1 dose of IV Lasix 20 mg. Patient that has difficulty swallowing suspected therefore we asked for swallow evaluation. Patient needs 25% of her diet but also she is a small lady 07/21/2021 Patient fully awake and oriented to time, place and person, she has insight into her illness. Patient states that she is in always have difficulty moving but no slightly worse in the lower extremity which is progressive. Also she is complaining of from swallowing the problem Swallow evaluation was done and patient could not pass the test, speech team recommended either PEG tube otherwise patient and her family may consider comfort care. Patient was informed and states to talk to her niece Also neurology input is appreciated, it was opted for patient is on high dose of Sinemet. Neurologist recommended follow-up as an outpatient for second opinion regarding her Parkinson disease She's fluid overload and she received another dose of IV Lasix 40 mg 1 today. Her vitals are stable, blood pressure in the low-normal site 98/66. She is slig htly tachypneic 20 because of lung congestion. She remains on IV vancomycin for her right arm cellulitis. ID team on the case. Orthopedic appear the patient for discharge after I&D. She remains on IV vancomycin to be changed to oral antibiotics upon discharge Objective - Vital Signs Vital signs: Vital Signs Temp 98.2 F 07/21/21 13:25 Pulse 84 07/21/21 13:25 Resp 20 07/21/21 13:25 BP 98/66 07/21/21 13:25 Pulse Ox 97 07/21/21 13:25 Intake & Output 07/20/21 07/21/21 07/21/21 18:59 06:59 18:59 Intake Total 120 Balance 120 Weight 48.534 kg Intake: Oral 120 Other: Voiding Method Diaper Diaper Diaper Incontinent Incontinent Incontinent # Voids 1 3 # Bowel Movements 1 2 - Exam -GENERAL: The patient is alert and oriented x3, not in any acute distress. Thin built HEENT: Pupils are round and equally reacting to light. EOMI. No scleral icterus. No conjunctival pallor. Normocephalic, atraumatic. No pharyngeal erythema. No thyromegaly. CARDIOVASCULAR: S1 and S2 present. No murmurs, rubs, or gallops. -PULMONARY: Chest is clear to auscultation, no. Bilateral crepitation decreased breath sounds on the basis ABDOMEN: Soft, nontender, nondistended, normoactive bowel sounds. No palpable organomegaly. MUSCULOSKELETAL: No joint swelling or deformity. -EXTREMITIES: No cyanosis, clubbing, or pedal edema. Right forearm wound, clean and dry with improvement surrounding cellulitis, dressing in a Place NEUROLOGICAL: Gross neurological examination did not reveal any focal deficits. SKIN: No rashes. no petechiae. - Labs CBC & Chem 7: 07/17/21 05:52 07/21/21 07:00 Labs: Abnormal Lab Results - Last 24 Hours (Table) 07/21/21 Range/Units 07:00 Sodium 135 L (137-145) mmol/L Chloride 90 L (98-107) mmol/L Carbon Dioxide 42 H* (22-30) mmol/L Creatinine 0.39 L (0.52-1.04) mg/dL Glucose 101 H (74-99) mg/dL Calcium 8.2 L (8.4-10.2) mg/dL Assessment and Plan Assessment: Right forearm cellulitis and abscess secondary to MRSA status post surgical drainage on 07/14 Moderate to severe calorie-protein malnutrition Severe dysphagia UTI secondary to Klebsiella Chronic left hemidiaphragm elevation Gastroesophageal reflux disease Advanced Parkinson's disease Plan: This is a pleasant 81 years old female who presents with a right upper extremity cellulitis secondary to MRSA Continue with IV vancomycin and switched to oral antibiotics upon discharge as per ID team reviewed pt given 1 time dose of IV Lasix 40 mg. Patient family to decide for PEG tube versus comfort care Consult neurology for her advanced Parkinson, he recommends outpatient follow-up for second opinion Labs and medication were reviewed.. Continue same treatment. Continue with symptomatic treatment. Resume home medication. Monitor lytes and vitals. DVT and GI prophylaxis. Further recommendations as per clinical course of the patient DVT prophylaxis: Subcutaneous heparin GI Prophylaxis: Ppi Prognosis is guarded
--- NOTE | 2021-07-21 18:49 | P.PN ---
Subjective Progress Note Date: 07/21/21 81-year-old female, who is a very poor historian. She apparently came into the emergency room on July 10 complaining of pain and swelling to the right upper extremity. She was admitted with a diagnosis of cellulitis. We will asked to see her because of an abnormal chest x-ray. The chest x-ray findings are not acute, but rather chronic. She has elevation of the left diaphragm, which is not a new finding. In addition, she has volume loss throughout the left lung, shifting of the mediastinum rightward, and a torturous trachea. Again all these changes are likely chronic in nature. The patient really is unable to give any history as it relates to her abnormal chest x-ray. Older chest x-rays, are reviewed. The patient is on 3 L of nasal oxygen, with saturations of 98-99%. This can be titrated down. She appears not to have any respiratory distress or difficulty. White count 6.5, hemoglobin 10.1, hematocrit 34.5, and platelet count 453,000. Sodium 136, potassium 5, chlorides 100, CO2 31, anion gap 5, BUN 7, creatinine 0.39. The patient's official chest x-ray shows stable left him I diaphragm eventration, with volume loss in the left lung. Wound cultures from the right arm show evidence of methicillin- resistant staph aureus, and urine sampling from July 10 was positive for Klebsiella oxytoca. The patient is seen today 07/18/2021 in follow-up on the regular medical floor. She is currently resting comfortably in bed. Awake and alert in no acute distress. No shortness of breath, cough or congestion. 18 O2 saturation at 100% on 4 L/m per nasal cannula. Afebrile. Hemodynamically stable. Swallow evaluation did not reveal any evidence of aspiration. Right upper extremity wound culture is positive for MRSA. Urine culture was positive for Klebsiella oxytoca. She remains on vancomycin, Cipro. Heparin for DVT prophylaxis. The patient is seen today 07/19/2021 in follow-up on the regular medical floor. She is sitting up in bed. Awake and alert in no acute distress. Maintaining O2 saturations in the 90s on 3 L nasal cannula. He denies any worsening shortness of breath, cough or congestion. She's afebrile. Hemodynamically stable. Right forearm wound culture positive for MRSA. Urine culture positive for Klebsiella oxytoca. Sodium 133. Potassium 4.1. Creatinine 0.43. She is continued on vancomycin and ciprofloxacin. The patient is seen today 07/20/2021 in follow-up on the regular medical floor. She is currently sitting up in bed. She did have some episode of confusion and a computed tomography scan of the brain revealed new partial opacification left mastoid air cells could reflect area of acute mastoiditis. There is [id number] diffuse age-related cerebral atrophy and mild chronic small vessel ischemia. As x-ray reveals worsening bilateral mild to moderate interstitial edema. Worsening bilateral pleural effusions with suspected large left-sided effusion and likely postobstructive atelectasis. Worsening small the right moderate right-sided effusion. There is chronic elevation left hemidiaphragm with bowel and intrathoracic stomach findings. He is maintaining O2 saturations in the upper 90s on 3 L/m per nasal cannula. She's been afebrile. Hemodynamically stable. Right arm wound culture was positive for MRSA. She is continued on vancomycin The patient is seen today 07/21/2021 in follow-up on the regular medical floor. She is currently sitting up in a chair at the bedside. A bit less responsive today compared to yesterday. Not taking much oral intake. Her daughter is at the bedside. Considering PEG tube placement versus hospice. She is maintaining O2 saturations in the 90s on 3 L/m per nasal cannula. He is afebrile. Hemodynamically stable. Sodium 135. Potassium 3.7. Bicarb 42. Creatinine 0.39. She is continued on vancomycin. Objective - Vital Signs Vital signs: Vital Signs Temp 98.2 F 07/21/21 13:25 Pulse 84 07/21/21 13:25 Resp 20 07/21/21 13:25 BP 98/66 07/21/21 13:25 Pulse Ox 97 07/21/21 13:25 Intake & Output 07/20/21 07/21/21 07/21/21 18:59 06:59 18:59 Intake Total 120 Balance 120 Weight 48.534 kg Intake: Oral 120 Other: Voiding Method Diaper Diaper Diaper Incontinent Incontinent Incontinent # Voids 1 3 5 # Bowel Movements 1 2 - Exam No acute distress, poor historian, arousable, currently on 3 L nasal cannula, saturations are 97%.. HEENT examination is grossly unremarkable. Neck supple. Full range of motion. No adenopathy thyromegaly or neck vein distention. Cardiovascular examination reveals regular rhythm rate. S1-S2 normal. No S3 or S4. No discernible murmur noted. Lungs reveal diminished breath sounds in the left chest, mild diffuse rhonchi throughout. The patient does not take deep breaths. No crackles. No wheezes. Abdomen soft bowel sounds are heard. No masses or tenderness. Extremities are intact. No cyanosis clubbing or edema. The right forearm area is wrapped with gauze. Skin with wound to the right upper extremity. Neurologic examination is brief but nonfocal. - Labs CBC & Chem 7: 07/17/21 05:52 07/21/21 07:00 Labs: Abnormal Lab Results - Last 24 Hours (Table) 07/21/21 Range/Units 07:00 Sodium 135 L (137-145) mmol/L Chloride 90 L (98-107) mmol/L Carbon Dioxide 42 H* (22-30) mmol/L Creatinine 0.39 L (0.52-1.04) mg/dL Glucose 101 H (74-99) mg/dL Calcium 8.2 L (8.4-10.2) mg/dL Assessment and Plan Assessment: 1 Chronic elevation of the left hemidiaphragm, with volume loss in the left lung, not causing significant respiratory symptoms at this time. 2 Methicillin-resistant resistant staph aureus cellulitis, right arm. 3 Klebsiella oxytoca urinary tract infection. 4 History of gastroesophageal reflux disease. 5 History of Parkinson's disease. 6 History of dermatomyositis. Plan: The patient was seen and evaluated by Dr. Youngblood Continue chest physiotherapy Titrate down the FiO2 as tolerated Remains on vancomycin Prognosis is poor Family is considering PEG tube placement versus hospice I, the cosigning physician, performed a history & physical examination of the patient. Lungs sounds with few scattered rhonchi not diminished in the left lung base. Maintaining good O2 saturations in the 90s on 3 L/m per nasal cannula. I discussed the assessment and plan of care with my nurse practitioner, Brenda michelle. I attest to the above note as dictated by her.
[2021-07-21] MEDS: MAGNESIUM OXIDE 400 MG TAB PO SCH (20:51)
[2021-07-21] MEDS: QUEtiapine 25 MG TAB PO SCH (20:51)
--- NOTE | 2021-07-22 03:38 | PN ---
PROGRESS NOTE DATE OF SERVICE: 07/21/2021 REASON FOR FOLLOWUP: 1. Right forearm MRSA abscess and cellulitis. 2. UTI. INTERVAL HISTORY: The patient is afebrile. The patient is breathing comfortably. The patient denies having any chest pain. No worsening shortness of breath or cough. No abdominal pain, no diarrhea. PHYSICAL EXAMINATION: Blood pressure is 98/61 with a pulse of 79, temperature 97.9. She is 100% on 3 L nasal cannula. General description is an elderly female lying in bed in no distress. Respiratory system: Unlabored breathing, clear to auscultation anteriorly. Heart S1, S2. Regular rate and rhythm. Abdomen soft, no tenderness. Right forearm is currently dressed, no obvious drainage on the dressing. LABS: Creatinine 0.39. DIAGNOSTIC IMPRESSION AND PLAN: 1. Patient with right forearm abscess status post surgical drainage. Culture with MRSA. Patient is covered with vancomycin, transition to oral antibiotic on discharge. 2. Patient with Klebsiella urinary tract infection, adequately treated. Daughter at the bedside at the time of my evaluation. Questions were answered. MMODL / IJN: [id number] /
[2021-07-22] MEDS ORDERED: VANCOMYCIN TROUGH DUE 1 EACH MISC MISCELLANE ONE (05:00)
[2021-07-22] MEDS: VANCOMYCIN 1,250 MG in SODIUM CHLORIDE 0.9% 250 ML IVPB SCH ×2 (05:52→17:49)
[2021-07-22] MEDS: GABAPENTIN 300 MG CAP PO SCH ×3 (07:49→19:17)
[2021-07-22] MEDS: CARBIDOPA-LEVODOPA 25-100 MG 1 EACH TAB PO SCH ×3 (07:49→19:17)
[2021-07-22] MEDS: PANTOPRAZOLE 40 MG TABLET PO SCH (07:50)
[2021-07-22] MEDS: NYSTATIN 100,000 UNIT/ML SUSP 500,000 UNIT/5 ML CUP PO SCH ×2 (07:50→19:17)
[2021-07-22] MEDS: HEPARIN SODIUM,PORCINE/PF 5,000 UNIT/0.5 ML SYRINGE SQ SCH ×2 (08:29→20:22)
--- NOTE | 2021-07-22 16:30 | P.PN ---
Subjective Progress Note Date: 07/22/21 81-year-old female, who is a very poor historian. She apparently came into the emergency room on July 10 complaining of pain and swelling to the right upper extremity. She was admitted with a diagnosis of cellulitis. We will asked to see her because of an abnormal chest x-ray. The chest x-ray findings are not acute, but rather chronic. She has elevation of the left diaphragm, which is not a new finding. In addition, she has volume loss throughout the left lung, shifting of the mediastinum rightward, and a torturous trachea. Again all these changes are likely chronic in nature. The patient really is unable to give any history as it relates to her abnormal chest x-ray. Older chest x-rays, are reviewed. The patient is on 3 L of nasal oxygen, with saturations of 98-99%. This can be titrated down. She appears not to have any respiratory distress or difficulty. White count 6.5, hemoglobin 10.1, hematocrit 34.5, and platelet count 453,000. Sodium 136, potassium 5, chlorides 100, CO2 31, anion gap 5, BUN 7, creatinine 0.39. The patient's official chest x-ray shows stable left him I diaphragm eventration, with volume loss in the left lung. Wound cultures from the right arm show evidence of methicillin- resistant staph aureus, and urine sampling from July 10 was positive for Klebsiella oxytoca. The patient is seen today 07/18/2021 in follow-up on the regular medical floor. She is currently resting comfortably in bed. Awake and alert in no acute distress. No shortness of breath, cough or congestion. 18 O2 saturation at 100% on 4 L/m per nasal cannula. Afebrile. Hemodynamically stable. Swallow evaluation did not reveal any evidence of aspiration. Right upper extremity wound culture is positive for MRSA. Urine culture was positive for Klebsiella oxytoca. She remains on vancomycin, Cipro. Heparin for DVT prophylaxis. The patient is seen today 07/19/2021 in follow-up on the regular medical floor. She is sitting up in bed. Awake and alert in no acute distress. Maintaining O2 saturations in the 90s on 3 L nasal cannula. He denies any worsening shortness of breath, cough or congestion. She's afebrile. Hemodynamically stable. Right forearm wound culture positive for MRSA. Urine culture positive for Klebsiella oxytoca. Sodium 133. Potassium 4.1. Creatinine 0.43. She is continued on vancomycin and ciprofloxacin. The patient is seen today 07/20/2021 in follow-up on the regular medical floor. She is currently sitting up in bed. She did have some episode of confusion and a computed tomography scan of the brain revealed new partial opacification left mastoid air cells could reflect area of acute mastoiditis. There is [id number] diffuse age-related cerebral atrophy and mild chronic small vessel ischemia. As x-ray reveals worsening bilateral mild to moderate interstitial edema. Worsening bilateral pleural effusions with suspected large left-sided effusion and likely postobstructive atelectasis. Worsening small the right moderate right-sided effusion. There is chronic elevation left hemidiaphragm with bowel and intrathoracic stomach findings. He is maintaining O2 saturations in the upper 90s on 3 L/m per nasal cannula. She's been afebrile. Hemodynamically stable. Right arm wound culture was positive for MRSA. She is continued on vancomycin The patient is seen today 07/21/2021 in follow-up on the regular medical floor. She is currently sitting up in a chair at the bedside. A bit less responsive today compared to yesterday. Not taking much oral intake. Her daughter is at the bedside. Considering PEG tube placement versus hospice. She is maintaining O2 saturations in the 90s on 3 L/m per nasal cannula. He is afebrile. Hemodynamically stable. Sodium 135. Potassium 3.7. Bicarb 42. Creatinine 0.39. She is continued on vancomycin. The patient is seen today 07/22/2021 in follow-up on the regular medical floor. She is currently resting comfortably in bed. A bit more awake and alert today. She denies any worsening shortness of breath. He is maintaining O2 saturations in the mid to upper 90s on 3 L nasal cannula. She remains afebrile. Hemodynamically stable. She is receiving chest physiotherapy. No new labs today. She is continued on vancomycin for her MRSA right upper extremity wound infection. Objective - Vital Signs Vital signs: Vital Signs Temp 98.5 F 07/22/21 11:24 Pulse 82 07/22/21 11:24 Resp 18 07/22/21 11:24 BP 159/77 07/22/21 11:24 Pulse Ox 97 07/22/21 11:24 Intake & Output 07/21/21 07/22/21 07/22/21 18:59 06:59 18:59 Intake Total 125 Output Total 250 Balance -125 Weight 48.534 kg Intake: Intake, IV Titration 125 Amount Vancomycin 1,250 mg In 125 Sodium Chloride 0.9% 250 ml @ 125 mls/hr IVPB Q12H [facility] Rx#:[id number] Output: Urine 250 Other: Voiding Method Diaper Diaper Diaper Incontinent Incontinent Incontinent External Catheter External Catheter # Voids 5 - Exam No acute distress, poor historian, arousable, currently on 3 L nasal cannula, saturations are 90%.. HEENT examination is grossly unremarkable. Neck supple. Full range of motion. No adenopathy thyromegaly or neck vein distention. Cardiovascular examination reveals regular rhythm rate. S1-S2 normal. No S3 or S4. No discernible murmur noted. Lungs reveal diminished breath sounds in the left chest, mild diffuse rhonchi throughout. The patient does not take deep breaths. No crackles. No wheezes. Abdomen soft bowel sounds are heard. No masses or tenderness. Extremities are intact. No cyanosis clubbing or edema. The right forearm area is wrapped with gauze. Skin with wound to the right upper extremity. Neurologic examination is brief but nonfocal. - Labs CBC & Chem 7: 07/17/21 05:52 07/21/21 07:00 Assessment and Plan Assessment: 1 Chronic elevation of the left hemidiaphragm, with volume loss in the left lung, not causing significant respiratory symptoms at this time. 2 Methicillin-resistant resistant staph aureus cellulitis, right arm. 3 Klebsiella oxytoca urinary tract infection. 4 History of gastroesophageal reflux disease. 5 History of Parkinson's disease. 6 History of dermatomyositis. Plan: The patient was seen and evaluated by Dr. Youngblood Titrate down the FiO2 as tolerated Remains on vancomycin Prognosis is poor Family is considering PEG tube placement versus hospice Possible transferred to [facility] on 07/24/2021 I, the cosigning physician, performed a history & physical examination of the patient. Lungs sounds with few scattered rhonchi not diminished in the left lung base. Maintaining good O2 saturations in the 90s on 3 L/m per nasal cannula. I discussed the assessment and plan of care with my nurse practitioner, Brenda Chandler. I attest to the above note as dictated by her.
[2021-07-22] MEDS: QUEtiapine 25 MG TAB PO SCH (19:17)
[2021-07-22] MEDS: MAGNESIUM OXIDE 400 MG TAB PO SCH (19:17)
--- NOTE | 2021-07-22 20:23 | P.PN ---
Subjective This is an 81-year-old female with past medical history of gastroesophageal reflux disease, Parkinson's disease and multiple other medical issues presented to the ER with complaints of right arm pain and swelling 2 days. Patient also with advanced Parkinson's disease on high doses of Sinemet 2 tablets, 4 times a day. And patient currently can move and she needs assistance in bed per staff. Rest abductors states that patient is at best mentation. But she got. Conclusions which is expected from delirium related to her infection and decond itioning. CT of the brain was negative for acute process. We'll consult neurology for her advanced Parkinson's disease. Patient is with right forearm abscess and cellulitis secondary persistent MRSA status post I&D 07/14 by orthopedic team who today actually cleared the patient for discharge, indicating that she is doing well generally. She is being covered with IV vancomycin, ID team on the case. She looks edematous all over, x-ray of the today showing worsening effusion and edema, therefore we stopped the normal saline at 40 mL per hour and give 1 dose of IV Lasix 20 mg. Patient that has difficulty swallowing suspected therefore we asked for swallow evaluation. Patient needs 25% of her diet but also she is a small lady 07/21/2021 Patient fully awake and oriented to time, place and person, she has insight into her illness. Patient states that she is in always have difficulty moving but no slightly worse in the lower extremity which is progressive. Also she is complaining of from swallowing the problem Swallow evaluation was done and patient could not pass the test, speech team recommended either PEG tube otherwise patient and her family may consider comfort care. Patient was informed and states to talk to her niece Also neurology input is appreciated, it was opted for patient is on high dose of Sinemet. Neurologist recommended follow-up as an outpatient for second opinion regarding her Parkinson disease She's fluid overload and she received another dose of IV Lasix 40 mg 1 today. Her vitals are stable, blood pressure in the low-normal site 98/66. She is slig htly tachypneic 20 because of lung congestion. She remains on IV vancomycin for her right arm cellulitis. ID team on the case. Orthopedic appear the patient for discharge after I&D. She remains on IV vancomycin to be changed to oral antibiotics upon discharge 07/22/2021 Patient is awake but looks weak, she cannot eat even she is asking for some ice chips she chokes with dose, staff on trying to wait her lips with a piece of steak. She's not impaled looks comfortable but looks add. Vitals stable and labs reviewed. As per staff patient referred decision about PEG versus hospice to her niece who chose to go with hospice for now Objective - Vital Signs Vital signs: Vital Signs Temp 98.1 F 07/22/21 04:31 Pulse 76 07/22/21 04:31 Resp 16 07/22/21 04:31 BP 120/71 07/22/21 04:31 Pulse Ox 99 07/22/21 04:31 Intake & Output 07/21/21 07/22/21 07/22/21 18:59 06:59 18:59 Intake Total 125 Output Total 250 Balance -125 Weight 48.534 kg Intake: Intake, IV Titration 125 Amount Vancomycin 1,250 mg In 125 Sodium Chloride 0.9% 250 ml @ 125 mls/hr IVPB Q12H [facility] Rx#:[id number] Output: Urine 250 Other: Voiding Method Diaper Diaper Diaper Incontinent Incontinent Incontinent External Catheter External Catheter # Voids 5 - Exam -GENERAL: The patient is alert and oriented x3, not in any acute distress. Thin built HEENT: Pupils are round and equally reacting to light. EOMI. No scleral icterus. No conjunctival pallor. Normocephalic, atraumatic. No pharyngeal erythema. No thyromegaly. CARDIOVASCULAR: S1 and S2 present. No murmurs, rubs, or gallops. -PULMONARY: Chest is clear to auscultation, no. Bilateral crepitation decreased breath sounds on the basis ABDOMEN: Soft, nontender, nondistended, normoactive bowel sounds. No palpable organomegaly. MUSCULOSKELETAL: No joint swelling or deformity. -EXTREMITIES: No cyanosis, clubbing, or pedal edema. Right forearm wound, clean and dry with improvement surrounding cellulitis, dressing in a Place NEUROLOGICAL: Gross neurological examination did not reveal any focal deficits. SKIN: No rashes. no petechiae. - Labs CBC & Chem 7: 07/17/21 05:52 07/21/21 07:00 Assessment and Plan Assessment: Severe dysphagia, patient chose with any food or drinks. Family and patient refused PEG tube and they wanted hospice care Right forearm cellulitis and abscess secondary to MRSA status post surgical drainage on 07/14 Moderate to severe calorie-protein malnutrition UTI secondary to Klebsiella Chronic left hemidiaphragm elevation Gastroesophageal reflux disease Advanced Parkinson's disease Plan: This is a pleasant 81 years old female who presents with a right upper extremity cellulitis secondary to MRSA However patient has severe dysphagia and patient with her niece wanted to proc eed with hospice instead of placing PEG tube Consult neurology for her advanced Parkinson, he recommends outpatient follow-up for second opinion Labs and medication were reviewed.. Continue same treatment. Continue with symptomatic treatment. Resume home medication. Monitor lytes and vitals. DVT and GI prophylaxis. Further recommendations as per clinical course of the patient DVT prophylaxis: Subcutaneous heparin GI Prophylaxis: Ppi Prognosis is guarded
--- NOTE | 2021-07-23 02:03 | PN ---
PROGRESS NOTE DATE OF SERVICE: 07/22/2021 REASON FOR FOLLOWUP: 1. Right forearm MRSA abscess and cellulitis. 2. UTI. INTERVAL HISTORY: The patient is afebrile. The patient is breathing comfortably. Has been complaining of feeling thirsty. No nausea, no vomiting. No abdominal pain. No pain to the right forearm. PHYSICAL EXAMINATION: Blood pressure 141/74, pulse 75, temperature 98.1. She is 95% on room air. General description is an elderly female lying in bed in no distress. Respiratory system: Unlabored breathing, clear to auscultation anteriorly. Heart S1, S2. Regular rate and rhythm. Abdomen soft, no tenderness. The right forearm wound is currently dressed. No obvious drainage on the dressing. LABS: No new labs have been obtained today. DIAGNOSTIC IMPRESSION AND PLAN: 1. Patient with right forearm abscess and cellulitis status post drainage. Culture has been monitored. Patient is covered with vancomycin to continue. 2. Patient with Klebsiella UTI that has been adequately treated. MMODL / IJN: [id number] /
[2021-07-23] MEDS ORDERED: VANCOMYCIN TROUGH DUE 1 EACH MISC MISCELLANE ONE (05:00)
[2021-07-23] MEDS: VANCOMYCIN 1,250 MG in SODIUM CHLORIDE 0.9% 250 ML IVPB SCH ×2 (05:25→17:26)
[2021-07-23] MEDS: GABAPENTIN 300 MG CAP PO SCH ×3 (07:46→20:25)
[2021-07-23] MEDS: FUROSEMIDE 20 MG TAB PO SCH (07:46)
[2021-07-23] MEDS: CARBIDOPA-LEVODOPA 25-100 MG 1 EACH TAB PO SCH ×4 (07:46→20:25)
[2021-07-23] MEDS: PATIENT'S OWN (Alendronate Sodium [Fosamax] 70 MG Tablet) PO SCH (07:46)
[2021-07-23] MEDS: PANTOPRAZOLE 40 MG TABLET PO SCH (07:47)
[2021-07-23] MEDS: MAGNESIUM OXIDE 400 MG TAB PO SCH (07:47)
[2021-07-23] MEDS: NYSTATIN 100,000 UNIT/ML SUSP 500,000 UNIT/5 ML CUP PO SCH ×4 (07:47→20:26)
[2021-07-23] MEDS: HEPARIN SODIUM,PORCINE/PF 5,000 UNIT/0.5 ML SYRINGE SQ SCH ×2 (08:57→21:06)
[2021-07-23] MEDS: QUEtiapine 25 MG TAB PO SCH (20:25)
--- NOTE | 2021-07-23 21:33 | P.PN ---
Subjective This is an 81-year-old female with past medical history of gastroesophageal reflux disease, Parkinson's disease and multiple other medical issues presented to the ER with complaints of right arm pain and swelling 2 days. Patient also with advanced Parkinson's disease on high doses of Sinemet 2 tablets, 4 times a day. And patient currently can move and she needs assistance in bed per staff. Rest abductors states that patient is at best mentation. But she got. Conclusions which is expected from delirium related to her infection and decond itioning. CT of the brain was negative for acute process. We'll consult neurology for her advanced Parkinson's disease. Patient is with right forearm abscess and cellulitis secondary persistent MRSA status post I&D 07/14 by orthopedic team who today actually cleared the patient for discharge, indicating that she is doing well generally. She is being covered with IV vancomycin, ID team on the case. She looks edematous all over, x-ray of the today showing worsening effusion and edema, therefore we stopped the normal saline at 40 mL per hour and give 1 dose of IV Lasix 20 mg. Patient that has difficulty swallowing suspected therefore we asked for swallow evaluation. Patient needs 25% of her diet but also she is a small lady 07/21/2021 Patient fully awake and oriented to time, place and person, she has insight into her illness. Patient states that she is in always have difficulty moving but no slightly worse in the lower extremity which is progressive. Also she is complaining of from swallowing the problem Swallow evaluation was done and patient could not pass the test, speech team recommended either PEG tube otherwise patient and her family may consider comfort care. Patient was informed and states to talk to her niece Also neurology input is appreciated, it was opted for patient is on high dose of Sinemet. Neurologist recommended follow-up as an outpatient for second opinion regarding her Parkinson disease She's fluid overload and she received another dose of IV Lasix 40 mg 1 today. Her vitals are stable, blood pressure in the low-normal site 98/66. She is slig htly tachypneic 20 because of lung congestion. She remains on IV vancomycin for her right arm cellulitis. ID team on the case. Orthopedic appear the patient for discharge after I&D. She remains on IV vancomycin to be changed to oral antibiotics upon discharge 07/22/2021 Patient is awake but looks weak, she cannot eat even she is asking for some ice chips she chokes with dose, staff on trying to wait her lips with a piece of steak. She's not impaled looks comfortable but looks add. Vitals stable and labs reviewed. As per staff patient referred decision about PEG versus hospice to her niece who chose to go with hospice for now 07/23/2021 I met with the patient today at bedside, she was sitting up in bed, she is fully awake and oriented and looks making appropriate eye contact and conversation. She looks oriented to the surrounding and has insight into her own less. i confirmed with the patient that she can not eat and she agrees. Also she confirmed to be she does not want opaque tube or feeding tube. And she agrees with hospice consult. Other than that patient looks comfortable, not in pain. Still been treated for her right upper extremity cellulitis with MRSA. Prognosis is very poor Objective - Vital Signs Vital signs: Vital Signs Temp 98.1 F 07/23/21 04:23 Pulse 68 07/23/21 04:23 Resp 20 07/23/21 04:23 BP 148/72 07/23/21 04:23 Pulse Ox 92 L 07/23/21 04:23 Intake & Output 07/22/21 07/23/21 07/23/21 18:59 06:59 18:59 Intake Total 250 250 Output Total 450 150 Balance -200 100 Intake: Intake, IV Titration 250 250 Amount Vancomycin 1,250 mg In 250 250 Sodium Chloride 0.9% 250 ml @ 125 mls/hr IVPB Q12H [facility] Rx#:[id number] Output: Urine 450 150 Other: Voiding Method Diaper Diaper Incontinent Incontinent External Catheter External Catheter # Voids 1 - Exam -GENERAL: The patient is alert and oriented x3, not in any acute distress. Thin built HEENT: Pupils are round and equally reacting to light. EOMI. No scleral icterus. No conjunctival pallor. Normocephalic, atraumatic. No pharyngeal erythema. No thyromegaly. CARDIOVASCULAR: S1 and S2 present. No murmurs, rubs, or gallops. -PULMONARY: Chest is clear to auscultation, no. Bilateral crepitation decreased breath sounds on the basis ABDOMEN: Soft, nontender, nondistended, normoactive bowel sounds. No palpable organomegaly. MUSCULOSKELETAL: No joint swelling or deformity. -EXTREMITIES: No cyanosis, clubbing, or pedal edema. Right forearm wound, clean and dry with improvement surrounding cellulitis, dressing in a Place NEUROLOGICAL: Gross neurological examination did not reveal any focal deficits. SKIN: No rashes. no petechiae. - Labs CBC & Chem 7: 07/17/21 05:52 07/21/21 07:00 Assessment and Plan Assessment: Severe dysphagia, patient chose with any food or drinks. Family and patient refused PEG tube and they wanted hospice care Right forearm cellulitis and abscess secondary to MRSA status post surgical drainage on 07/14 Moderate to severe calorie-protein malnutrition UTI secondary to Klebsiella Chronic left hemidiaphragm elevation Gastroesophageal reflux disease Advanced Parkinson's disease Plan: This is a pleasant 81 years old female who presents with a right upper extremity cellulitis secondary to MRSA patient has severe dysphagia and patient with her niece wanted to proceed with hospice instead of placing PEG tube Labs and medication were reviewed.. Continue same treatment. Continue with symptomatic treatment. Resume home medication. Monitor lytes and vitals. DVT and GI prophylaxis. Further recommendations as per clinical course of the patient DVT prophylaxis: Subcutaneous heparin GI Prophylaxis: Ppi Prognosis is guarded Possible discharge tomorrow to [facility] with hospice care
--- NOTE | 2021-07-24 00:04 | PN ---
PROGRESS NOTE DATE OF SERVICE: 07/23/2021 REASON FOR FOLLOWUP: Right forearm MRSA sepsis and cellulitis. INTERVAL HISTORY: The patient is afebrile. The patient is currently breathing comfortably. The patient denies having any chest pain, shortness of breath or cough. No abdominal pain or worsening pain to the right forearm area. PHYSICAL EXAMINATION: Blood pressure 145/79 with a pulse of 71, temperature 98.5. She is 97% on 3 L nasal cannula. General description is an elderly female up in the bed in no distress. Respiratory system: Unlabored breathing, clear to auscultation anteriorly. Heart S1, S2. Regular rate and rhythm. Abdomen soft, no tenderness. Right forearm currently dressed. No obvious drainage on the dressing. LABS: Vancomycin trough is 17.6. DIAGNOSTIC IMPRESSION AND PLAN: Patient with MRSA right forearm abscess, status post drainage. Patient is covered with vancomycin. Transition to oral antibiotic on discharge and monitor clinical course closely. MMODL / IJN: [id number] /
[2021-07-24] MEDS: VANCOMYCIN 1,250 MG in SODIUM CHLORIDE 0.9% 250 ML IVPB SCH (05:50)
[2021-07-24] MEDS: NYSTATIN 100,000 UNIT/ML SUSP 500,000 UNIT/5 ML CUP PO SCH ×2 (07:28→12:13)
[2021-07-24] MEDS: CARBIDOPA-LEVODOPA 25-100 MG 1 EACH TAB PO SCH ×2 (07:28→12:13)
[2021-07-24] MEDS: GABAPENTIN 300 MG CAP PO SCH ×2 (07:28→12:13)
[2021-07-24] MEDS: PANTOPRAZOLE 40 MG TABLET PO SCH (07:29)
[2021-07-24] MEDS: HEPARIN SODIUM,PORCINE/PF 5,000 UNIT/0.5 ML SYRINGE SQ SCH (08:35)
[2021-07-24] MEDS ORDERED: PETROLATUM, WHITE OINT 50 GM TUBE TOPICAL PRN (11:10)
[2021-07-24 12:59] VITALS: BP 160/83; PULSE 76; RESP 17; TEMP 98.7
--- NOTE | 2021-07-24 17:01 | P.DS ---
Providers Date of admission: 07/11/21 11:52 Attending physician: Tucker Fernando Final diagnoses: Sepsis, present on admission related to right arm cellulitis, right dorsal forearm abscess with MRSA, status post I/D, acute UTI with Klebsiella oxytoca Possible aspiration pneumonia Dysphagia, severe, declined PEG tube. Klebsiella oxytoca UTI Chronic left hemidiaphragm elevation Gastroesophageal reflux disease Parkinson's disease History of dermatomyositis. No code, no CPR, no intubation Hospice Hospital course:This is an 81-year-old female with past medical history of gastroesophageal reflux disease, Parkinson's disease and multiple other medical issues presented to the ER with complaints of right arm pain and swelling 2 days. Denies any fever or chills. Denies any falls or trauma. Denies any lightheadedness dizziness or focal deficits. Denies any chest pain, palpitations or shortness of breath. Febrile on admission, WBC 24.4 with T-max of 102.4, blood cultures obtained. Lactic acid 1.2. UA reporting many bacteria, 23 WBCs, moderate leukocytes, positive nitrates. IV antibiotics of vancomycin and Zosyn initiated. BUN 25, creatinine 0.49. Hemoglobin 10.9, platelets 404. Sodium 133. 07/12/2021 this morning, right forearm,blister burst, large amount of pus drainage, cultures obtained.Doppler reported negative for DVT.Evaluated by infectious disease, recommendations noted and appreciated. Maintained on vancomycin, renal function stable. Maintained on IV fluid hydration, Febrile, T-max 100.5. Urine culture finalizing. Sodium 131. 07/17/2021 urine culture today per Klebsiella oxytoca, cultures reporting MRSA ,maintained on IV antibiotics of vancomycin. Renal function stable. Afebrile, normal WBC, blood cultures negative. Hemoglobin up to 10.1. Maintaining O2 sats of high 90s on 3 L nasal cannula, chest x-ray from yesterday reporting stable left hemidiaphragm enentration with asymmetric left decreased lung volume, stable bibasilar opacity is reflective of possible chronic lung changes, possibly developing infiltrate. Sodium improved 136. 07/18/2021 maintained on IV vancomycin and oral Cipro. Afebrile. States pain controlled. Completed modified barium swallow reporting no evidence for aspiration, refer to speech therapy report. Diet modified to dysphagia level I, pured diet, nectar thick liquids, one-to-one supervision, aspiration precautions. Maintaining O2 sats of 100% on 4 L nasal cannula. 07/19/2021 afebrile, denies chest pain, palpitations, or shortness of breath. Diet modified yesterday as per speech therapy. Swallow Reevaluation today pending. Discussed potential PEG tube with tube feeds but patient declining at this time. Maintained on antibiotics, renal function stable. Swallow reevaluated as per speech therapy, high risk for aspiration, MBS revealed evidence of moderate to severe oropharyngeal dysphagia, recommending PEG tube. Patient and family declined. Hospice consulted. Patient and niece had chosen to proceed with hospice, declined PEG tube. Patient will be opened up to [facility]. The impression and plan of care has been dictated as directed. : I performed a history and examination of this patient, discussed the same with the dictator. I agree with the dictator's note ,documented as a scribe. Any additional findings or plans will be noted. Consults: 07/10/21 20:06 Consult Physician Routine Consulting Provider: Desire Henry Consult Reason/Comments: right arm infection Do you want consulting provider notified?: Yes 07/13/21 11:07 Consult Physician Routine Consulting Provider: Fortino De La Fuente Consult Reason/Comments: cellulitis right arm Do you want consulting provider notified?: Yes 07/16/21 17:56 Consult Physician Routine Consulting Provider: Ramon Morris Consult Reason/Comments: hypoxia Do you want consulting provider notified?: Yes 07/20/21 14:46 Consult Physician Routine Consulting Provider: Ovidio Youngblood Consult Reason/Comments: advanced parkinson Do you want consulting provider notified?: Yes Primary care physician: Tucker Fernando Patient Condition at Discharge: Poor Plan - Discharge Summary Discharge Rx Participant: No New Discharge Prescriptions: New Nystatin 100,000 Unit/ml Susp [Mycostatin Oral Susp] 500,000 unit PO QID 7 Days #140 ml QUEtiapine [SEROquel] 25 mg PO HS tab hydrALAZINE HCL [Apresoline] 25 mg PO QID PRN tab PRN Reason: Blood Pressure - High HYDROcodone/APAP 5-325MG [Madison 5-325] 1 each PO Q6H PRN #12 tab PRN Reason: Moderate Pain Acetaminophen Suppository [Tylenol Suppository] 120 mg RECTAL Q4HR PRN supp PRN Reason: Fever Continue Lansoprazole [Prevacid] 30 mg PO DAILY Docusate [Colace] 100 mg PO BID predniSONE 10 mg PO DAILY Carbidopa-Levodopa 25-100 mg [Sinemet 25-100 mg] 2 tab PO QID@05,,, Lysine HCl [l-Lysine] 1,000 mg PO DAILY Biotin 10,000 mcg PO DAILY Carbidopa-Levodopa ER 25-100Mg [Sinemet CR 25-100 mg] 1 tab PO BID@0500,2100 Alendronate Sodium [Fosamax] 70 mg PO STEVENS mycophenolate mofetiL [Cellcept] 1,500 mg PO BID #0 Magnesium Oxide 400 mg PO HS Gabapentin 600 mg PO TID 3 Days #9 tab Fluocinolone/Shower Cap [Fluocinolone 0.01% Scalp Oil] 1 applic TOPICAL TID PRN PRN Reason: dermatitis of scalp Furosemide [Lasix] 20 mg PO Q48H Discontinued NIFEdipine [NIFEdipine ER (Osmotic)] 30 mg PO DAILY Ketoconazole [Nizoral A-D] 1 applic TOPICAL Q48H Discharge Medication List Lansoprazole [Prevacid] 30 mg PO DAILY 09/13/16 [History] Carbidopa-Levodopa 25-100 mg [Sinemet 25-100 mg] 2 tab PO QID@05,,,12/21/18 [History] Docusate [Colace] 100 mg PO BID 12/21/18 [History] predniSONE 10 mg PO DAILY 12/21/18 [History] Alendronate Sodium [Fosamax] 70 mg PO STEVENS 07/23/20 [History] Biotin 10,000 mcg PO DAILY 07/23/20 [History] Carbidopa-Levodopa ER 25-100Mg [Sinemet CR 25-100 mg] 1 tab PO BID@0500,2100 07/23/20 [History] Lysine HCl [l-Lysine] 1,000 mg PO DAILY 07/23/20 [History] mycophenolate mofetiL [Cellcept] 1,500 mg PO BID #0 07/26/20 [Rx] Fluocinolone/Shower Cap [Fluocinolone 0.01% Scalp Oil] 1 applic TOPICAL TID PRN 05/15/21 [History] Furosemide [Lasix] 20 mg PO Q48H 05/15/21 [History] Magnesium Oxide 400 mg PO HS 07/10/21 [History] Acetaminophen Suppository [Tylenol Suppository] 120 mg RECTAL Q4HR PRN supp 07/24/21 [Rx] Gabapentin 600 mg PO TID 3 Days #9 tab 07/24/21 [Rx] HYDROcodone/APAP 5-325MG [Madison 5-325] 1 each PO Q6H PRN #12 tab 07/24/21 [Rx] Nystatin 100,000 Unit/ml Susp [Mycostatin Oral Susp] 500,000 unit PO QID 7 Days #140 ml 07/24/21 [Rx] QUEtiapine [SEROquel] 25 mg PO HS tab 07/24/21 [Rx] hydrALAZINE HCL [Apresoline] 25 mg PO QID PRN tab 07/24/21 [Rx] Follow up Appointment(s)/Referral(s): Tucker Fernando DO [Primary Care Provider] - 3 Days [facility], [NON-STAFF] - As Needed ([facility]) Activity/Diet/Wound Care/Special Instructions: Dc Antibx as per ID. Pending hospice mtg with pt. & niece. Discharge Disposition: DISCH TO HOSPICE MED FACILTY
--- NOTE | 2021-07-24 20:50 | P.PN ---
Progress Note - Text Progress Note Date: 07/24/21 REASON FOR FOLLOWUP: Right forearm MRSA sepsis and cellulitis. INTERVAL HISTORY: The patient is afebrile. The patient is breathing comfortably. The patient denies having any chest pain, shortness of breath or cough. No abdominal pain or pain to the right forearm area. PHYSICAL EXAMINATION: Blood pressure 145/70 with a pulse of 70, temperature 98.5. She is 97% on 3 L nasal cannula. General description is an elderly female up in the bed in no distress. Respiratory system: Unlabored breathing, clear to auscultation anteriorly. Heart S1, S2. Regular rate and rhythm. Abdomen soft, no tenderness. Right forearm currently dressed. No obvious drainage on the dressing. LABS: reviewed DIAGNOSTIC IMPRESSION AND PLAN: Patient with MRSA right forearm abscess, status post drainage. Patient is covered with vancomycin. with plan for possible hospice , antibiotics can be safely discontinued
--- NOTE | 2021-07-27 09:19 | CDI ---
Documentation Clarification Form Date: 07/27/21 From: Juliana Theodore Admit Date: 07/11/2021 11:52:00 AM Patient Name: Ebonie Jefferson Visit Number: [id number] Discharge Date: 07/24/2021 02:13:00 PM ATTENTION: The Clinical Documentation Specialists (CDI) and [facility] Coding Staff appreciate your assistance in clarifying documentation. Please respond to the clarification below the line at the bottom and electronically sign. The CDI & [facility] Coding staff will review the response and follow-up if needed. Please note: Queries are made part of the Legal Health Record. If you have any questions, please contact the author of this message via ITS. Dr. Fortino De La Fuente, A debridement is documented IN YOUR 07/14 procedure note. Additional clarification regarding the procedure is requested. History/Risk Factors: Sepsis d/t MRSA, dermatomyositis Clinical Indicators: Right dorsal ulnar forearm abscess/cellulitis. Treatment: Incision and drainage/irrigation and debridement right dorsal ulnar forearm abscess. Please clarify the type of procedure performed: [ x ] Excisional debridement (the removal of necrotic, devitalized tissue or slough by means of cutting away of tissue) [ ] Non-excisional debridement (the removal of necrotic, devitalized tissue or slough by means of flushing, brushing, or washing. (Irrigation) [ ] Other; please specify [ ] Unable to determine Five elements required for accurate and compliant documentation of a debridement: Technique used (e.g., excisional, excised, cutting, brushing, jet lavage etc.) Instrument(s) used (e.g., scalpel, curette, etc.) Nature of the tissue removed (e.g., necrotic, devitalized tissues, non-viable tissue, etc.) Appearance and size of the wound (e.g., down to fresh bleeding tissue, 7cm x 10cm, etc.) Depth of the debridement* (e.g., skin, subcutaneous tissue, fascia, muscle, bone, etc.) Incision and drainage performed sharply with a scalpel down to the level of the fascia. Necrotic tissue was excised. The wound measured 2 x 3 cm. Then irrigation was performed. DIONNED
== END 2021-07-24 14:13 | disposition hospice, inpatient (51) | DRG 853 ==
LOC: EC 11:39 → 6NMEDSUR 19:58 → OBSVTOIN 07-11 11:52 → 6NMEDSUR 07-13 20:39 → 5NMEDONC 07-15 08:23
PROVIDERS: ADMIT Family Medicine; ATTEND Family Medicine
PROC: 0J9G0ZX Drainage of Right Lower Arm Subcutaneous Tissue and Fascia, Open Approach, Diagnostic (ICD-10-PCS; 2021-07-14)
PROC: 0JBG0ZZ Excision of Right Lower Arm Subcutaneous Tissue and Fascia, Open Approach (ICD-10-PCS; principal; 2021-07-14 10:55)
PROC: 05HC33Z Insertion of Infusion Device into Left Basilic Vein, Percutaneous Approach (ICD-10-PCS; 2021-07-17)
DX: A41.02 Sepsis due to Methicillin resistant Staphylococcus aureus (principal); Q79.1 Other congenital malformations of diaphragm; J69.0 Pneumonitis due to inhalation of food and vomit; E43 Unspecified severe protein-calorie malnutrition; F05 Delirium due to known physiological condition; M33.13 Other dermatomyositis without myopathy; J90 Pleural effusion, not elsewhere classified; E87.1 Hypo-osmolality and hyponatremia; H70.002 Acute mastoiditis without complications, left ear; L03.113 Cellulitis of right upper limb; N39.0 Urinary tract infection, site not specified; L02.413 Cutaneous abscess of right upper limb; J98.11 Atelectasis; G20 Parkinson's disease; G31.9 Degenerative disease of nervous system, unspecified; Z66 Do not resuscitate; Z51.5 Encounter for palliative care; Z20.822 Contact with and (suspected) exposure to COVID-19; I10 Essential (primary) hypertension; E87.6 Hypokalemia; B96.1 Klebsiella pneumoniae [K. pneumoniae] as the cause of diseases classified elsewhere; R13.10 Dysphagia, unspecified; R09.02 Hypoxemia; D64.9 Anemia, unspecified; E87.70 Fluid overload, unspecified; K21.9 Gastro-esophageal reflux disease without esophagitis; M19.042 Primary osteoarthritis, left hand; M19.041 Primary osteoarthritis, right hand; R32 Unspecified urinary incontinence; Z68.20 Body mass index [BMI] 20.0-20.9, adult; Z79.83 Long term (current) use of bisphosphonates; Z79.52 Long term (current) use of systemic steroids; Z79.899 Other long term (current) drug therapy; Z90.89 Acquired absence of other organs; Z90.710 Acquired absence of both cervix and uterus; Z87.19 Personal history of other diseases of the digestive system; Z98.42 Cataract extraction status, left eye; Z98.41 Cataract extraction status, right eye; Z86.14 Personal history of Methicillin resistant Staphylococcus aureus infection; Z90.49 Acquired absence of other specified parts of digestive tract; Z98.890 Other specified postprocedural states; Z71.3 Dietary counseling and surveillance; Z88.1 Allergy status to other antibiotic agents; Z88.2 Allergy status to sulfonamides; Z82.3 Family history of stroke; Z80.9 Family history of malignant neoplasm, unspecified
CPT/HCPCS: 36410; 36415; 70450; 71045; 71046; 74230; 76937; 78315; 80048; 80053; 80202; 81001; 82565; 83605; 83735; 84132; 84550; 85025; 85610; 85652; 85730; 86038; 86140; 86235; 86431; 87040; 87070; 87075; 87077; 87086; 87186; 87205; 87635; 94640; 94667; 94668; 94760; 96365; 96366; 96367; 99285

== ENCOUNTER 2021-07-24 11:59 | Inpatient (IN) | payer MEDICAID ==
[2021-07-24] MEDS ORDERED: GLYCOPYRROLATE 0.2 MG/ML 2 ML VIAL IVP PRN (12:18)
[2021-07-24] MEDS ORDERED: ONDANSETRON 4 MG/2 ML VIAL IVP PRN (12:18)
[2021-07-24] MEDS ORDERED: ATROPINE OPHTH SOLN 1% 5ML BTL SUBLINGUAL PRN (12:18)
[2021-07-24] MEDS ORDERED: MORPHINE SULFATE 2 MG/ML SYRINGE IV PRN (12:18)
[2021-07-24] MEDS ORDERED: ACETAMINOPHEN SUPPOSITORY 650 MG SUPP RECTAL PRN (12:18)
[2021-07-24] MEDS ORDERED: LORazepam 2 MG/ML INJ IV PRN (12:18)
[2021-07-24] MEDS ORDERED: HALOPERIDOL LACTATE 5 MG/ML 1 ML VIAL IM PRN (12:18)
[2021-07-24] MEDS ORDERED: HYOSCYAMINE ORAL DROPS 1.875 MG/15 ML BOTTLE PO PRN (12:22)
[2021-07-24] MEDS ORDERED: MORPHINE SULFATE (100 MG/2 ML) 100 MG in SODIUM CHLORIDE 0.9% 100 ML IV SCH (13:00)
[2021-07-24] MEDS ORDERED: SCOPOLAMINE 1.5MG/72HR PATCH TRANSDERM SCH (13:00)
== END 2021-07-25 11:15 | disposition expired | DRG 951 ==
LOC: 5NMEDONC 14:12
PROVIDERS: ADMIT Family Medicine; ATTEND Family Medicine
DX: Z51.5 Encounter for palliative care (principal); A41.9 Sepsis, unspecified organism; N17.9 Acute kidney failure, unspecified; L03.113 Cellulitis of right upper limb; N39.0 Urinary tract infection, site not specified; Z88.1 Allergy status to other antibiotic agents; K21.9 Gastro-esophageal reflux disease without esophagitis; G20 Parkinson's disease; M19.042 Primary osteoarthritis, left hand; M19.041 Primary osteoarthritis, right hand; Z90.49 Acquired absence of other specified parts of digestive tract; Z90.710 Acquired absence of both cervix and uterus; Z87.19 Personal history of other diseases of the digestive system